=== PATIENT | male | born 1985 | race Caucasian/White ===

== ENCOUNTER 2023-05-14 15:24 | Inpatient (IN) ==
[2023-05-14] MEDS ORDERED: diazePAM INJ 5 MG/ML 2 ML CARP IV STA (16:18)
--- NOTE | 2023-05-14 16:20 | Emergency Department Note ---
Impression & Plan Alcohol dependence with withdrawal ED Provider Note NAME: SANJAY MARQUIS AGE: 38 SEX: M : 1985 ARRIVES VIA: Walk-In INFORMANT: Patient, ED PROVIDER(S): Cyndi Zarco MD CHIEF COMPLAINT: Detox HPI: This is a 38-year-old male presenting for request of detox. Patient dates that he drinks generally 1/5 of vodka plus a pint of vodka per day. He states today he only drank 1 pint and 2 extra shots. He states that this is severely less than usual. He has had previous detox admissions where he used to live, [place], in which he was admitted. He received Ativan at that time. He also mentioned that usually when he goes into withdrawal he also ends up having DKA because he is a type I diabetic. He notes that usually he will have nauseousness, vomiting and diarrhea while undergoing withdrawal. He states he takes 8 units of insulin per day twice daily. Otherwise he measured a 45 days ago and is on establish care otherwise. No fevers, chills, nausea or vomiting. ROS: See above HPI for pertinent positives & negatives. A total of 10 systems reviewed and were otherwise negative. PAST MEDICAL HISTORY: See Below PAST SURGICAL HISTORY: See Below FAMILY HISTORY: See Below SOCIAL HISTORY: See Below HOME MEDICATIONS: See Below ALLERGIES: See Below VITALS: See Below PHYSICAL EXAMINATION: General: Resting, tremulous Head: Normocephalic and atraumatic Eyes: Normal inspection, extraocular muscles intact, no conjunctival pallor Ear, nose, throat: Normal external exam Neck: Normal range of motion Respiratory: Patient is in no respiratory distress, lungs clear to auscultation bilaterally Cardiovascular: RRR without murmur appreciated GI: soft, nontender, no guarding or rebound Extremities: pulses intact with good cap refills, no LE pitting edema or calf tenderness Neuro: The patient awake and alert, appropriately conversive,no focal decifits Skin: Warm, dry, and intact MEDICAL DECISION MAKING: This is a 38-year-old male presenting for request of detox. Patient notes his last drink was probably 2 hours ago. We will get alcohol level, will get basic blood work, check for DKA. We will give 20 of Valium IV at this time. Patient blood work is largely reassuring, only slight anemia, no leukocytosis. VBG does not show signs of acidosis. Anion gap of 17, likely starvation versus alcoholic ketosis. Otherwise glucose 144 not significantly elevated. AST elevated compared to ALT consistent with alcoholic use. Lipase 51 and alcohol level 200. Overall patient is not tachycardic, is tremulous. Will admit for further detox off alcohol. Triage Nursing notes reviewed. Prior medical records reviewed Vital Signs: reviewed and remarkable for no significant abnormalities Differential diagnosis: Alcohol withdrawal, delirium tremens, ER treatment provided: See below Diagnostics interpreted by me: ECG: None Cardiac Monitoring: An order was placed for continuous cardiac monitoring. The monitor shows a rate of 72 with sinus rhythm Laboratory studies: As stated above and show below. Past Med/Surg History Social History Smoking Status: Unknown if ever smoked Preferred Language: Polish Feels Safe at Home: Yes Allergies Allergies Allergy/AdvReac Type Severity Reaction Status Date / Time No Known Allergies Allergy Unverified 05/14/23 18:15 Home Meds Home Medications Medication Instructions Recorded Confirmed Eliquis 0 mg PO QAM 05/14/23 05/14/23 amlodipine 1 tab PO QAM 05/14/23 05/14/23 clonidine HCl 0.2 mg tablet 0.2 mg PO QAM 05/14/23 05/14/23 insulin glargine 100 unit/mL (3 6 - 8 unit subcut TIDM as needed 05/14/23 05/14/23 mL) subcutaneous pen (Basaglar per pt KwikPen U-100 Insulin) insulin lispro 100 unit/mL 8 - 12 unit subcut BID 05/14/23 05/14/23 subcutaneous solution lisinopril 10 mg tablet 10 mg PO QAM 05/14/23 05/14/23 methocarbamol 750 mg tablet 750 - 1,500 mg PO Q8H PRN Muscle 05/14/23 05/14/23 Spasm multivitamin 1 tab PO QAM 05/14/23 05/14/23 thiamine HCl (vitamin B1) 100 mg 100 mg PO QAM 05/14/23 05/14/23 tablet (Vitamin B-1) trazodone 100 mg tablet 100 mg PO HS PRN Sleep 05/14/23 05/14/23 Results & Data (ED) Vital Signs Vital Signs - 24 hr 05/14/23 15:34 05/14/23 15:51 05/14/23 16:37 Temperature 36.7 C Temperature Source Temporal Artery Scan Pulse Rate 126 H 100 H Pulse Rate [Apical] Respiratory Rate 19 Respiratory Effort / Characteristics Non-Labored Spontaneous Respiratory Depth Normal Blood Pressure 145/94 H Blood Pressure [Right Arm] Blood Pressure Mean 111 Blood Pressure Mean [Right Arm] Pulse Oximetry 96 97 Oxygen Delivery Method Room Air Room Air Sepsis Recent Fever Within 48 Hours No Sepsis New/Unexplained Change in Mental Status N/A Sepsis Action Taken by Nursing No Action Required 05/14/23 16:37 05/14/23 18:00 Temperature 36.7 C Temperature Source Oral Pulse Rate Pulse Rate [Apical] 74 79 Respiratory Rate 14 18 Respiratory Effort / Characteristics Respiratory Depth Blood Pressure Blood Pressure [Right Arm] 128/81 132/79 Blood Pressure Mean Blood Pressure Mean [Right Arm] 96 96 Pulse Oximetry 98 99 Oxygen Delivery Method Sepsis Recent Fever Within 48 Hours Sepsis New/Unexplained Change in Mental Status Sepsis Action Taken by Nursing Laboratory Data 05/14/23 16:02 05/14/23 16:02 Lab Results 05/14/23 05/14/23 Range/Units 16:02 17:26 WBC 6.63 (4.8-10.8) K/ul RBC 3.80 L (4.70-6.10) M/uL Hgb 13.2 L (14.0-18.0) g/dl Hct 36.2 L (42.0-52.0) % MCV 95.3 (80.0-100.0) fL MCH 34.7 H (25.0-34.0) pg MCHC 36.5 H (32.0-36.0) g/dL RDW Std Deviation 43.8 (36.4-46.3) fL RDW Coeff of Maxi 12.4 (11.5-14.5) % Plt Count 261 (130-400) K/uL MPV 9.6 (9.4-12.4) fL Immature Gran % (Auto) 0.2 % Neut % (Auto) 52.7 % Lymph % (Auto) 39.1 % [place] % (Auto) 6.6 % Eos % (Auto) 0.8 % Baso % (Auto) 0.6 % Neut # (Auto) 3.50 (1.40-6.50) K/uL Lymph # (Auto) 2.59 (1.20-3.40) K/uL [place] # (Auto) 0.44 (0.11-0.59) K/uL Eos # (Auto) 0.05 (0.00-0.50) K/uL Baso # (Auto) 0.04 (0.00-0.20) K/uL Immature Gran # (Auto) 0.01 (0.01-0.20) K/uL VBG pH 7.42 H (7.36-7.41) VBG pCO2 39 (38-50) mmHg VBG pO2 29 mmHg VBG HCO3 25 mmol/L VBG O2 Saturation < 60.0 % VBG Base Excess 0.8 mEq/L Sodium 136 (136-145) mmol/L Potassium 3.8 (3.5-5.1) mmol/L Chloride 98 (98-107) mmol/L Carbon Dioxide 21 (21-32) mmol/L Anion Gap 17 H (3-11) BUN 14 (6-23) mg/dl Creatinine 0.94 (0.6-1.4) mg/dl Est Cr Clr Drug Dosing 114.7 ml/min Est GFR ( Amer) 117.1 ml/min Est GFR (Non-Af Amer) 101.0 ml/min BUN/Creatinine Ratio 14.9 (10-20) Glucose 144 H (70-99(Fasting)) mg/dl Calcium 10.4 H (8.6-10.3) mg/dl Total Bilirubin 0.6 (0.2-1.0) mg/dl Direct Bilirubin 0.1 (0-0.2) mg/dl AST 76 H (13-39) U/L ALT 51 (7-52) U/L Alkaline Phosphatase 66 (34-104) U/L Total Protein 8.2 (6.0-8.3) gm/dl Albumin 5.3 H (3.4-5.0) gm/dl Lipase 51 (11-82) U/L Ethyl Alcohol mg/dL 200.5 H (<10.0) mg/dl Administered Medications Lactated Ringer's (Lr) 1,000 mls @ 999 mls/hr IV .Q1H1M PHILLIP Stop: 06/13/23 16:14 Last Admin: 05/14/23 18:46 Dose: 999 mls/hr Documented By: Infusion: 05/14/23 18:45 Dose: Infused Documented By: Admin: 05/14/23 16:39 Dose: 999 mls/hr Documented By: ARCHANA Discontinued Medications Diazepam (Diazepam Inj 5 Mg/Ml 2 Ml Carp) 20 mg IV NOW STA Stop: 05/14/23 16:19 Last Admin: 05/14/23 16:39 Dose: 20 mg Documented By: ARCHANA Discharge Plan Visit Data Chief Complaint: Detox Request Stated Complaint: DETOX REQUEST ED Provider: Cyndi Zarco Discharge Problem: Alcohol dependence with withdrawal Forms Stand Alone Forms: My [facility], Suicide Prevention Resources Prescriptions Prescriptions: No Action multivitamin Tablet 1 tab PO QAM thiamine HCl (vitamin B1) [Vitamin B-1] 100 mg Tablet 100 mg PO QAM clonidine HCl 0.2 mg Tablet 0.2 mg PO QAM trazodone 100 mg Tablet 100 mg PO HS PRN (Reason: Sleep) lisinopril 10 mg Tablet 10 mg PO QAM methocarbamol [Robaxin] 750 mg Tablet 750 - 1,500 mg PO Q8H PRN (Reason: Muscle Spasm) Eliquis 0 mg PO QAM Rx Instructions: pt does not know dose...no meds show up in sure scripts either amlodipine 1 tab PO QAM Rx Instructions: pt unaware of dose....no sure scripts available insulin glargine [Basaglar KwikPen U-100 Insulin] 100 unit/mL (3 mL) Insulin Pen 6 - 8 unit SUBCUT TIDM insulin lispro 100 unit/mL Solution 8 - 12 unit SUBCUT BID Rx Instructions: per pt Referrals Referrals: PCP,NO [Primary Care Provider] -
[2023-05-14 16:23] LABS: Basophils # (auto) 0.04 K/uL (0.00-0.20); Basophils % (auto) 0.6 %; Eosinophils # (auto) 0.05 K/uL (0.00-0.50); Eosinophils % (auto) 0.8 %; Hematocrit (blood only) 36.2 % (42.0-52.0); Hemoglobin 13.2 g/dl (14.0-18.0); Immature Granulocytes # (auto) 0.01 K/uL (0.01-0.20); Immature Granulocytes % (auto) 0.2 %; Lymphocytes # (auto) 2.59 K/uL (1.20-3.40); Lymphocytes % (auto) 39.1 %; Mean Corpuscular Hemoglobin 34.7 pg (25.0-34.0); Mean Corpuscular Hgb Conc 36.5 g/dL (32.0-36.0); Mean Corpuscular Volume 95.3 fL (80.0-100.0); Mean Platelet Volume 9.6 fL (9.4-12.4); Monocytes # (auto) 0.44 K/uL (0.11-0.59); Monocytes % (auto) 6.6 %; Neutrophils % (auto) 52.7 %; Platelet Count 261 K/uL (130-400); RDW Coefficient of Variation 12.4 % (11.5-14.5); RDW Standard Deviation 43.8 fL (36.4-46.3); White Blood Count 6.63 K/ul (4.8-10.8)
[2023-05-14] MEDS: LACTATED RINGER'S 1,000 ML IV SCH ×5 (16:39→21:56)
[2023-05-14 16:41] LABS: Albumin Level 5.3 gm/dl (3.4-5.0); BUN Creatinine Ratio 14.9 (10-20); Bilirubin Direct 0.1 mg/dl (0-0.2); Bilirubin,Total 0.6 mg/dl (0.2-1.0); Calcium 10.4 mg/dl (8.6-10.3); Creatinine Clr Calc Pharmacy 114.7 ml/min; Est GFR (African American) 117.1 ml/min; Potassium 3.8 mmol/L (3.5-5.1); Total Protein 8.2 gm/dl (6.0-8.3)
[2023-05-14 17:38] LABS: Base Excess VBG 0.8 mEq/L; HCO3 VBG 25 mmol/L; Oxygen Saturation VBG < 60.0 %; PCO2 VBG 39 mmHg (38-50); PO2 VBG 29 mmHg; pH VBG 7.42 (7.36-7.41)
--- NOTE | 2023-05-14 18:24 | History & Physical Report ---
Date of Service May 14, 2023 Assessment & Plan (1) Alcohol dependence with withdrawal: (2) T1DM (type 1 diabetes mellitus): (3) HTN (hypertension): (4) History of atrial fibrillation: Plan 38 yo male admitted for EtOH w/d #Alcohol Withdrawl EtOH level 200 on admission AWSS protocol Replete folic acid and thiamine #T1DM Lantus 8U BID ISS #HTN Continue lisinopril, clonidine, amlodipine #History of Atrial Fibrillation In setting of prior EtOH w/d Continue Eliquis 5mg BID FENGI: Heart Healthy, T1DM Code status: Full code DVT prophylaxis: eliquis Isolation: none Disposition: PCU History of Present Illness Chief Complaint: 38 yo male PMHx T1DM, HTN, a fib in the setting of EtOH w/d on Eliquis, presents for request of EtOH detox. Pt was drinking 1/5 + multiple shots per day of vodka for a total of ~20 drinks. Last drink was about 4 hours ago. History of DKA in the setting of EtoH w/d requiring ICU admission. No history of intubation, withdrawal seizure or DTs. Denies CP, SOB, N/V/D at this time. Patient typically has N/V/D during his withdrawal episodes. Last w/d one month ago at [facility]. Primary Care Provider: NO PCP Allergies Allergy/AdvReac Type Severity Reaction Status Date / Time No Known Allergies Allergy Unverified 05/14/23 18:15 Home Medications Medication Instructions Recorded Confirmed Type Eliquis 0 mg PO QAM 05/14/23 05/14/23 History amlodipine 1 tab PO QAM 05/14/23 05/14/23 History clonidine HCl 0.2 mg tablet 0.2 mg PO QAM 05/14/23 05/14/23 History insulin glargine 100 unit/mL (3 6 - 8 unit subcut TIDM as needed 05/14/23 05/14/23 History mL) subcutaneous pen (Basaglar per pt KwikPen U-100 Insulin) insulin lispro 100 unit/mL 8 - 12 unit subcut BID 05/14/23 05/14/23 History subcutaneous solution lisinopril 10 mg tablet 10 mg PO QAM 05/14/23 05/14/23 History methocarbamol 750 mg tablet 750 - 1,500 mg PO Q8H PRN Muscle 05/14/23 05/14/23 History Spasm multivitamin 1 tab PO QAM 05/14/23 05/14/23 History thiamine HCl (vitamin B1) 100 mg 100 mg PO QAM 05/14/23 05/14/23 History tablet (Vitamin B-1) trazodone 100 mg tablet 100 mg PO HS PRN Sleep 05/14/23 05/14/23 History Past Med/Surg History Social History Smoking Status: Unknown if ever smoked Preferred Language: Wolof Feels Safe at Home: Yes Review of Systems Review of Systems: reviewed, per HPI Physical Exam Physical Exam: General: rigorous, diaphoretic, smells of EtOH, AA&O x 4, answers questions appropriately and follows commands. Skin: warm, dry, intact HEENT: NC/AT, anicteric sclera, moist mucus membranes, trachea midline Heart: +S1/S2, regular, no m/r/g Lungs: equal air entry bilaterally, no rales/rhonchi/wheezes Abd: +BS, soft, NT/ND, no masses/organomegaly/ascites Ext: warm, no clubbing/cyanosis or edema Neuro: nonfocal, patient AA&O x 4, speech intact, no facial droop, moving all extremities on command. Results & Data Results & Data Vital Signs (Past 12 Hours) Vital Signs Temp Pulse Pulse Resp BP BP Pulse Ox 05/14/23 16:37 36.7 C 74 14 128/81 98 05/14/23 16:37 97 05/14/23 15:51 100 H 05/14/23 15:34 36.7 C 126 H 19 145/94 H 96 O2 Del Method 05/14/23 16:37 05/14/23 16:37 Room Air 05/14/23 15:51 05/14/23 15:34 Room Air Supervising Physician Co-Signing Physician Notes Patient seen and examined, chart reviewed, case discussed with Ghassan Mcqueen, DO and I agree with the assessment and plan as above except as otherwise noted above. 38yo M with a PMHx of alcohol abuse and withdrawal with no history of seizure who presents with request to detox to go to etoh rehab. Comorbid T1DM. Has been on precedex for past withdrawal, reports he generally does well with ativan. Last drink day of admit, etoh 200 on admit. NO signs on DT on admit. High risk, agree with librium + AWSS protocol. FOlic acid, thiamine ordered. Admit to PCU. BSG adequately controlled, no DKA. Continue basal insulin + SSI. On exam CTAB, RRR, skin warm and dry. No tremors or hallucinations. CM consulted for placement assistance. Resident Activity Tracking Resident Involvement: Resident Care Provided Care Provided: Adult [facility]
[2023-05-14] MEDS ORDERED: LORazepam 2 MG in SYRINGE 1 ML IV PRN (18:28)
[2023-05-14] MEDS ORDERED: Ativan IV Alcohol Withdrawal--Active Protocol IV PRN (18:28)
[2023-05-14] MEDS ORDERED: LORazepam 3 MG in SYRINGE 1.5 ML IV PRN (18:28)
[2023-05-14] MEDS ORDERED: chlordiazePOXIDE ALCOHOL WITHDRAWL 50MG PO STA (18:28)
[2023-05-14] MEDS ORDERED: LORazepam 2 MG/1 ML VIAL ONE (19:19)
[2023-05-14] MEDS: chlordiazePOXIDE HCl 25 MG CAP PO SCH ×2 (19:21→23:32)
[2023-05-14] MEDS: LORazepam 1 MG in SYRINGE 0.5 ML IV PRN ×3 (19:22→23:11)
[2023-05-14] MEDS ORDERED: PHARMACY GLYCEMIC MGMT CONSULT PRN (22:21)
[2023-05-14] MEDS ORDERED: GLUCOSE 10 TAB/TUBE PO PRN (22:21)
[2023-05-14] MEDS ORDERED: POLYETHYLENE (MIRALAX) 17 GM PACK PO PRN (22:21)
[2023-05-14] MEDS ORDERED: ALUMINUM/MAGNESIUM SUSP 30 ML UDC PO PRN (22:21)
[2023-05-14] MEDS ORDERED: GLUCAGON FOR INJ 1 MG VIAL SQ PRN (22:21)
[2023-05-14] MEDS ORDERED: DEXTROSE 50% 50 ML SYRINGE IV PRN (22:21)
[2023-05-14] MEDS ORDERED: GLUCOSE 40% GEL 15 GM TUBE PO PRN (22:21)
[2023-05-14] MEDS ORDERED: ACETAMINOPHEN 325 MG TAB PO PRN (22:21)
[2023-05-14] MEDS ORDERED: LANTUS PER UNIT CHARGE SQ SCH ×2 (22:21)
[2023-05-14] MEDS ORDERED: METHOCARBAMOL 750 MG TABLET PO PRN (22:21)
[2023-05-14] MEDS ORDERED: ONDANSETRON INJ 2 MG/ML 2 ML VIAL IV PRN (22:21)
[2023-05-14] MEDS ORDERED: LACTATED RINGER'S 1,000 ML IV SCH (22:21)
[2023-05-14] MEDS: INSULIN ASPART PER UNIT CHARGE SC SCH (23:24)
[2023-05-14] MEDS: traZODone HCL 100 MG TAB PO PRN (23:33)
[2023-05-15] MEDS: LORazepam 1 MG in SYRINGE 0.5 ML IV PRN ×3 (01:47→14:24)
[2023-05-15] MEDS: LACTATED RINGER'S 1,000 ML IV SCH ×3 (04:20→22:48)
[2023-05-15] MEDS: chlordiazePOXIDE HCl 25 MG CAP PO SCH ×3 (06:34→20:10)
[2023-05-15] MEDS ORDERED: LORazepam 1 MG in SYRINGE 0.5 ML IV STA ×2 (07:25→18:37)
[2023-05-15] MEDS: CARBOHYDRATES FOR HYPOGLYCEMIA PO PRN ×2 (08:07→16:07)
--- NOTE | 2023-05-15 08:50 | Hospitalist Progress Note ---
Date of Service May 15, 2023 Assessment & Plan (1) Alcohol dependence with withdrawal: (2) T1DM (type 1 diabetes mellitus): (3) HTN (hypertension): (4) History of atrial fibrillation: Plan Pt is a 38 yo male with a past medical history of HTN, a fib, and alcohol dependence who presents to the hospital on 05/14/23 for alcohol detox. Alcohol Withdrawal - EtOH level 200 on admission - continue AWSS protocol - continue folic acid and thiamine HTN - Continue lisinopril, hold clonidine and amlodipine as pressures on the soft side this morning - if pressures rise, can consider restarting home amlodipine History of Atrial Fibrillation - In setting of prior EtOH w/d - Continue Eliquis 5mg BID T1DM - Lantus 8U BID - ISS REGLAI: Heart Healthy, T1DM Code status: Full code DVT prophylaxis: Home eliquis Admission and Anticipated Discharge Date Admission Date: May 14, 2023 Supervising Physician Co-Signing Physician Notes I personally examined the patient and verified all roy points of history and ex am, discussed case, and agree with decision making with Dr Mcwilliams feeling reasonable whenever I see him. Does seem to have ups and downs of anxiety. Notes that previously has had fairly bad withdrawal. Vitals noted, in general he is awake and alert appears a bit anxious mildly agitated. Breathing unlabored no accessory muscle use good effort. Skin shows no rashes no pallor or icterus. Neuro without focal deficits. Alcohol withdrawalpredominantly symptom triggered benzodiazepines, but it seems like his withdrawal is a little bit atypical, it is a little hard to discern how much of his anxiety and agitation is simply anxiety and agitation versus a symptom of withdrawaltypically it would come with more tachycardia and tremulousness that he is showing, but given his prior track record of withdrawing fairly significantly, as well as possibly masking effects from his clonidinefor now we will treat a bit more proactively and follow closely. Continue thiamine and folate. Continue his anticoagulation for afib. Continue insulin, fingersticks, and diabetes management. Subjective Pt is a 38 yo male with a past medical history of HTN, a fib, and alcohol dependence who presents to the hospital on 05/14/23 for alcohol detox. Pt states that he came in to do a detox and plans to go to rehab after the detox. He states that he had done a 3 day detox about 1 month ago and was of alcohol for a few weeks before relapsing and is here to detox again, then after he plans to go to rehab, but not sure which one yet. No questions or concerns at this time. Review of Systems Review of Systems: Per HPI. Physical Exam Physical Exam: General:Alert and oriented, no acute distress, drowsy Cardio: Regular rate and rhythm, Resp:Lungs clear to auscultation b/l, no wheezes or rhonchi, Skin: Warm, pink, dry, Results & Data Results & Data Vital Signs (Past 12 Hours) Vital Signs Temp Pulse Pulse Resp BP Pulse Ox O2 Del Method 05/15/23 08:01 36.9 C 77 20 99/64 L 94 Room Air 05/15/23 06:35 36.7 C 83 14 113/71 96 Room Air 05/15/23 04:16 36.7 C 65 18 106/73 94 Room Air 05/15/23 01:23 36.9 C 74 16 129/72 99 Room Air 05/14/23 22:37 79 05/14/23 22:30 36.9 C 71 16 146/80 H 97 Room Air 05/14/23 22:00 74 96 Room Air 05/14/23 21:00 37.3 C 80 16 114/65 97 Resident Activity Tracking Resident Involvement: Resident Care Provided Care Provided: Adult Hospital Medicine
[2023-05-15 08:58] LABS: Estimated Average Glucose 171 mg/dl; Hemoglobin A1C 7.6 % (4.5-5.6)
[2023-05-15] MEDS ORDERED: AMLODIPINE 5 MG PO SCH (09:00)
[2023-05-15] MEDS ORDERED: THIAMINE HCL 100 MG TAB PO SCH (09:00)
[2023-05-15] MEDS ORDERED: cloNIDine HCL 0.1 MG TAB PO SCH (09:00)
[2023-05-15] MEDS: INSULIN ASPART PER UNIT CHARGE SC SCH ×4 (09:31→21:19)
[2023-05-15] MEDS: FOLIC ACID 1 MG in SYRINGE 9.8 ML IV SCH (09:32)
[2023-05-15] MEDS: THIAMINE HCL 100 MG TAB PO SCH (09:32)
[2023-05-15] MEDS: lisinopril 10 MG TAB PO SCH (09:32)
[2023-05-15] MEDS: MULTIVITAMIN TAB PO SCH (09:32)
[2023-05-15] MEDS: APIXABAN 5 MG TABLET PO SCH ×2 (09:49→20:11)
--- NOTE | 2023-05-15 10:39 | Pharmacy Report ---
Pharmacy Glycemic Short Note 2 - Date of Service May 15, 2023 - Glycemic Short BSG Results (Last 24 hours): 05/14/23 05/14/23 05/15/23 16:02 22:32 02:44 Glucose 144 H POC Glucose 136 H 108 H 05/15/23 05/15/23 05/15/23 08:03 08:04 08:20 Glucose POC Glucose 68 L* 68 L* 82 OUTPATIENT ANTIDIABETIC REGIMEN: * Patient reported regimen as follows: * Long-acting insulin (insulin glargine?) 12 units SC daily w/ breakfast * Rapid-acting insulin (Humalog) 6-8 units SC BID (based on BSG) HbA1c: 7.6% (05/14/23) ASSESSMENT: * BF is a 38 year old male who presented to ED on 05/14/23 requesting alcohol detox. Patient reports history of DKA when withdrawing from alcohol. Will follow labs/BSGs closely. * Elevated anion gap on admission labs, but normal serum bicarbonate. Likely related to alcohol ingestion. * Questionable reported outpatient regimen on med rec, so discussed medication regimen with patient at bedside. Patient states that he takes 12 units of long-acting insulin daily in the morning and 6-8 units of rapid-acting insulin twice daily (depending on his BSG). He reports that he did not give his long- acting insulin yesterday prior to admission, but did give rapid acting in the AM. * Hypoglycemia noted this morning (asymptomatic). Since patient received basal dose last evening, will plan on basal dose at lunch or dinnertime and work back to daily w/ breakfast. * Patient has refused several doses of insulin and has been guiding insulin dosing today to some extent. I think this is reasonable given uncertainty in outpatient insulin regimen and hypoglycemia this morning. PLAN FOR INPATIENT GLYCEMIC CONTROL: * Basal insulin * Lantus 7 units SC x 1 this evening with dinner * Plan to work back to daily w/ breakfast administration, reassess in AM * Bolus insulin * NovoLog per scale ACHS or Q6hrs while NPO * Goal Range: Low 110 mg/dL - High 140 mg/dL * Correction Factor: 45 mg/dL/unit * Nutritional / Prandial insulin per carb ratio of 1 unit per 15 grams CHO consumed
--- NOTE | 2023-05-15 12:52 | Electrocardiogram Report ---
Test Reason : Blood Pressure : / mmHG Vent. Rate : 096 BPM Atrial Rate : 096 BPM P-R Int : 126 ms QRS Dur : 086 ms QT Int : 386 ms P-R-T Axes : 059 -04 064 degrees QTc Int : 487 ms Normal sinus rhythm Prolonged QT Abnormal ECG No previous ECGs available Confirmed by Dk Medina ([id number]) on 05/15/2023 12:52:03 PM Referred By: REFERRED SELF Confirmed By:Dk Medina
[2023-05-15] MEDS ORDERED: INSULIN ASPART PER UNIT CHARGE SC ONE (14:15)
[2023-05-15] MEDS ORDERED: LANTUS PER UNIT CHARGE SQ SCH (16:30)
[2023-05-15] MEDS ORDERED: chlordiazePOXIDE HCl 25 MG CAP PO ONE (18:45)
[2023-05-15] MEDS ORDERED: chlordiazePOXIDE HCl 25 MG CAP PO SCH (20:00)
--- NOTE | 2023-05-15 20:08 | Billing Data ---
Date of Service May 15, 2023 Coding Level of Care Code 11780 SUB INP/OBS CARE MIN
[2023-05-15] MEDS: traZODone HCL 100 MG TAB PO PRN (20:11)
[2023-05-16] MEDS: LORazepam 1 MG in SYRINGE 0.5 ML IV PRN (00:18)
[2023-05-16] MEDS: LACTATED RINGER'S 1,000 ML IV SCH (06:30)
--- NOTE | 2023-05-16 08:00 | Hospitalist Progress Note ---
Date of Service May 16, 2023 Assessment & Plan (1) Alcohol dependence with withdrawal: (2) T1DM (type 1 diabetes mellitus): (3) HTN (hypertension): (4) History of atrial fibrillation: Plan Pt is a 38 yo male with a past medical history of HTN, a fib, and alcohol dependence who presents to the hospital on 05/14/23 for alcohol detox. Alcohol Withdrawal - EtOH level 200 on admission - continue AWSS protocol - continue folic acid and thiamine HTN - Continue lisinopril, hold clonidine and amlodipine as pressures on the soft side this morning - if pressures rise, can consider restarting home amlodipine History of Atrial Fibrillation - In setting of prior EtOH w/d - Continue Eliquis 5mg BID T1DM - Lantus 8U BID - ISS REGLAI: Heart Healthy, T1DM Code status: Full code DVT prophylaxis: Home eliquis Admission and Anticipated Discharge Date Admission Date: May 14, 2023 Subjective Pt is a 38 yo male with a past medical history of HTN, a fib, and alcohol dependence who presents to the hospital on 05/14/23 for alcohol detox. Pt states that he came in to do a detox and plans to go to rehab after the detox. He states that he had done a 3 day detox about 1 month ago and was of alcohol for a few weeks before relapsing and is here to detox again, then after he plans to go to rehab, but not sure which one yet. No questions or concerns at this time. Review of Systems Eyes: no diplopia and no worsening vision Respiratory: no cough and no dyspnea Cardiovascular: + palpitations; no chest pain Gastrointestinal: + abdominal pain and + diarrhea/loose st ools (just one episode yesterday (1 BM in all)); no heartburn, no nausea and no vomiting Genitourinary: + urinary frequency (2/2 iv fluids); no dysuria Musculoskeletal: no myalgia Neurologic: + dizziness Psychiatric: + anxiety (very anxious); no suicidal id eation Physical Exam Constitutional: WD/WN, vitals as above Respiratory: normal respiratory effort, lungs clear to auscultation Cardiovascular: RRR, no murmur, no edema Results & Data Results & Data Vital Signs (Past 12 Hours) Vital Signs Temp Pulse Pulse Resp BP Pulse Ox O2 Del Method 05/16/23 02:28 36.5 C 62 16 115/71 97 Room Air 05/16/23 00:08 36.6 C 59 L 18 120/72 99 Room Air 05/15/23 23:00 72 05/15/23 20:02 37 C 58 L 20 126/77 99 Room Air
[2023-05-16] MEDS: lisinopril 10 MG TAB PO SCH (08:34)
[2023-05-16] MEDS: THIAMINE HCL 100 MG TAB PO SCH (08:35)
[2023-05-16] MEDS: FOLIC ACID 1 MG in SYRINGE 9.8 ML IV SCH (08:35)
[2023-05-16] MEDS: MULTIVITAMIN TAB PO SCH (08:35)
[2023-05-16] MEDS: APIXABAN 5 MG TABLET PO SCH (08:35)
[2023-05-16] MEDS: chlordiazePOXIDE HCl 25 MG CAP PO SCH ×2 (08:40→13:13)
[2023-05-16] MEDS: INSULIN ASPART PER UNIT CHARGE SC SCH ×2 (09:10→13:18)
--- NOTE | 2023-05-16 11:45 | Discharge Summary ---
Date of Service May 16, 2023 Admission HPI Per Admitting Provider 38 yo male PMHx T1DM, HTN, a fib in the setting of EtOH w/d on Eliquis, presents for request of EtOH detox. Pt was drinking 1/5 + multiple shots per day of vodka for a total of ~20 drinks. Last drink was about 4 hours ago. History of DKA in the setting of EtoH w/d requiring ICU admission. No history of intubation, withdrawal seizure or DTs. Denies CP, SOB, N/V/D at this time. Patient typically has N/V/D during his withdrawal episodes. Last w/d one month ago at [facility]. Admission Exam (Per Admitting) Constitutional Diaphoretic, smells of ethanol, AAOx4, answers questions appropriately and follows commands Eyes + anicteric sclerae ENMT moist mucous membranes, trachea midline Respiratory equal air entry bilaterally, no rales/rhonchi/wheezes Cardiovascular Rate/Rhythm: regular rate and regular rhythm Heart Sounds: normal S1 and normal S2; no gallop, no murmur and no cardiac rub Gastrointestinal (Abdomen) normal bowel sounds, soft, nontender, no hepatosplenomegaly Percussion/Palpation: no ascites Neurologic moves all extremities Psychiatric Orientation: oriented x 3 Speech: normal rate/rhythm/volume of speech Discharge Data Consultations 05/14/23 17:48 ED Decision to Admit Stat Hospital Course (1) Alcohol dependence with withdrawal: (2) T1DM (type 1 diabetes mellitus): (3) HTN (hypertension): (4) History of atrial fibrillation: Plan Pt is a 38 yo male with a past medical history of HTN, a fib, and alcohol dependence who presents to the hospital on 05/14/23 for alcohol detox. Alcohol Withdrawal - EtOH level 200 on admission - tapered Librium dosing as detailed in discharge instructions - continue folic acid and thiamine HTN - Continue lisinopril, 10 mg, PO, AM - amlodipine, 1 tab, PO, AM, if needed - clonidine, 0.2 mg, PO, AM History of Atrial Fibrillation - In setting of prior EtOH w/d - Continue Eliquis 5mg BID T1DM - continue home insulin regimen: insulin glargine, 12 units, subQ; 6-8 units, subQ, BID Supervising Physician Co-Signing Physician Notes I personally examined the patient and verified all roy points of history and exam, discussed case, and agree with decision making with Dr Montgomery feeling better and would like to go home. discussed risks/benefits of possible worsening withdrawal - he understands, feels safe for home, will return if worsening. Vitals noted, in general he is awake and alert appears a bit anxious mildly agitated. Breathing unlabored no accessory muscle use good effort. Skin shows no rashes no pallor or icterus. Neuro without focal deficits. Alcohol withdrawaldoing better, does seem reasonable for home, will buffer with librium taper since still could be in the window for withdrawal - but safe for home/will return if any worsening in sx. is going to do inpt rehab. applauded efforts. HTN - continue current management but d/w pt - since clonidine doesn't seem to be helping w anxiety/agitation - ?escalate lisinopril and drop clonidine - asked him to d/w PCP since this would obviously require longitudinal f/u. afib - rate controlled, on eliquis. continue thiamine/folate/MVI Resident Activity Tracking Resident Involvement: Resident Care Provided Care Provided: Adult Hospital Medicine
--- NOTE | 2023-05-16 19:39 | Billing Data ---
Date of Service May 16, 2023 Coding Level of Care Code 96774 IN/OBS DISCH 30 MIN/LESS
[2023-05-16] MEDS ORDERED: chlordiazePOXIDE HCl 25 MG CAP PO SCH (22:00)
== END 2023-05-16 13:50 | disposition home or self-care (01) | DRG 897 ==
LOC: ED 15:24 → SUATTDRO 19:16 → 4W 19:16

== ENCOUNTER 2023-07-28 17:32 | Observation (INO) ==
[2023-07-28] MEDS ORDERED: ONDANSETRON INJ 2 MG/ML 2 ML VIAL IV STA ×2 (17:45→17:47)
[2023-07-28] MEDS ORDERED: SODIUM CHLORIDE 0.9% 1,000 ML IV STA ×2 (17:45→20:08)
--- NOTE | 2023-07-28 17:45 | ED Triage Note ---
Date of Service July 28, 2023 Provider in Triage Author: Dorene Juarez History of Present Illness This patient was briefly evaluated while in triage. An abbreviated physical exam was performed. This patient is a 38-year-old Male who presents to the ED for evaluation of hyperglycemia. The patient has a history of DM and is concerned he is going into DKA. Has had vomiting profusely all day along with abdominal pain from the vomiting. No fevers, but has chills. His blood sugar was in the high 300's and he has not been able to get it to come down. He states that he is a severe alcoholic as well and stopped drinking ETOH last night and feels like he is going into withdrawal making his diabetic symptoms worse. Physical Exam GENERAL: The patient is jittery on exam somewhat shakes, but is non-toxic and in no acute distress. HEENT: Pupils equal. No obvious scleral icterus. HEART: Regular rate and rhythm. LUNGS: Clear to auscultation. No accessory muscle use. ABDOMEN: Soft, nontender to palpation. NEURO: Alert and oriented. No obvious neurological deficits on quick neuro exam. Initial orders for labs and / or imaging were placed. The patient's blood sugar in triage was over 400 and he was taken back to an ER room right after being triaged. Please see further documentation for the full ED course. MDM / Impression Impression Impression: DKA, type 1, Hyperglycemia, Alcohol withdrawal, Elevated lactic acid level, Creatinine elevation
[2023-07-28] MEDS ORDERED: MULTI-VITAMIN INFUSION 10 ML, THIAMINE HCL 100 MG, FOLIC ACID 1 MG in SODIUM CHLORIDE 0... IV ONE ×2 (17:47→17:59)
[2023-07-28] MEDS ORDERED: LORazepam 1 MG/1 ML SYR ED Inj Use IV STA (17:47)
[2023-07-28] MEDS ORDERED: LORazepam 3 MG in SYRINGE 1.5 ML IV PRN (17:59)
[2023-07-28] MEDS ORDERED: LORazepam 2 MG in SYRINGE 1 ML IV PRN (17:59)
[2023-07-28] MEDS ORDERED: Ativan IV Alcohol Withdrawal--Active Protocol IV PRN (17:59)
[2023-07-28] MEDS ORDERED: LORazepam 1 MG in SYRINGE 0.5 ML IV PRN (17:59)
--- NOTE | 2023-07-28 18:06 | Emergency Department Note ---
Impression & Plan DKA, type 1, Hyperglycemia, Alcohol withdrawal, Elevated lactic acid level, Creatinine elevation ED Provider Note HISTORY OF PRESENT ILLNESS: Patient is a 38-year-old male presenting with vomiting and alcohol withdrawal. Patient reports that he has been vomiting since he stopped drinking last night around 7 PM. Has been vomiting since he stopped drinking last night around 7 PM. He states that he drinks vodka daily typically around 20 shots a day. He has been drinking this for years. He states that he had 60 days sober a number of years ago, but has been drinking heavily every day since. He states that he was trying to stop drinking last night and has since been starting to have significant tremors and multiple episodes of vomiting. He is a type I diabetic and takes insulin injections and states that his blood sugars have been significantly elevated throughout the day. He states that he took his long- acting insulin this morning and has taken multiple injections of his short acting insulin, with his last being about 1 hour prior to arrival with 10 units, with little improvement in his blood sugars. He reports upper epigastric pain. He reports an abdominal surgical history of inguinal hernia repair. He denies any chest pain or shortness of breath. Denies any recent fevers. He denies ever having a seizure from stopping drinking, but does report he has had DTs in the past when he went to rehab. ROS: as above PHYSICAL EXAM: Constitutional: Patient appears in no acute distress. HENT: Head: Normocephalic and atraumatic. Eyes: EOMI, PERRL Mouth/Throat: Mucous membranes moist. Neck: Trachea midline. Neck supple. Cardiovascular: Tachycardic with regular rhythm. No murmurs, rubs or gallops. Intact distal pulses. Pulmonary/Chest: No respiratory distress. Breath sounds clear and equal bilaterally. No wheezes or rales. Abdominal: Abdomen soft, no tenderness, rebound or guarding. Musculoskeletal: No edema, tenderness or deformity noted. Skin: Warm and dry. No rash, erythema, pallor or cyanosis Psychiatric: Appropriate mood and affect for situation. Neurological: Alert and keenly responsive. CN II-XII grossly intact, moving all extremities equally and fully. Patient is having significant tremors of the bilateral upper and lower extremities. MDM: - Vitals signs showed tachycardia. - History obtained via patient. Patient presents with vomiting and alcohol withdrawal. Patient reports has been vomiting since he stopped drinking last night around 7 PM. He reports that he drinks about 20 shots of vodka a day and has been drinking this way for years. He was 60 days sober a number of years ago any officially went to rehab but has been drinking ever since. He states he tried drinking last night but has been having significant tremors and multiple episodes of vomiting ever since. He is a type I diabetic and takes insulin and reports his blood sugars have been persistently elevated today. He took a bolus of 10 units of insulin about 1 hour prior to arrival. He is complaining of upper epigastric abdominal pain. Denies any chest pain or shortness of breath. Denies recent fevers. He is never had a seizure when he stops drinking but has had significant tremors in the past when he went to rehab. - Chronic conditions affecting care: Chronic alcoholism; type 1 diabetes - Differential diagnoses include, but are not limited to: Electrolyte abnormality; DKA; hyperglycemia; cholecystitis; viral syndrome; pneumonia; dehydration; UTI - Order placed for continuous cardiac monitoring. At this time, monitor showed rate of 135 bpm with normal sinus rhythm, per my interpretation. - External medical records reviewed. Discharge summary dated 05/16/2023 was reviewed. Patient was admitted at that time for DKA in the setting of alcohol withdrawal and was admitted to the ICU. - EKG interpreted by myself showed normal sinus rhythm. Rate 81 bpm. QT is 392. No acute ischemic changes. - Laboratory workup interpreted by myself showed leukocytosis (WBC 11.72) with left shift; normal VBG; pseudohyponatremia (Na 132); elevated anion gap (33); elevated creatinine (Cr 1.44); hyperglycemia (glucose 425); elevated lactate (5.1); elevated total bilirubin (2.1); normal lipase; normal procalcitonin; negative alcohol level - Elevated anion gap is likely due to elevated lactate and hyperglycemia - UA negative for infection. Noted to have profound ketonuria - UDS positive for marijuana - Respiratory viral panel negative. - Patient's alcohol withdrawal score 11 on arrival. Given 3 mg IV ativan. - Given 2L NS and 4 mg IV zofran for symptoms on arrival. Patient's vomiting, heart rate and tremors significantly improved after above interventions. - CT abdomen/pelvis with IV contrast shows colitis, per radiology - CXR negative for pneumonia, per my interpretation - Patient's initial potassium is WNL, so 10 units insulin ordered. Though patient's pH is also WNL, he has a profoundly high elevated anion gap. Likely a combination of his elevated lactate and hyperglycemia. Ordered NS at 125 cc/hr and DKA insulin drip to help close anion gap. Leukocytosis is likely reactive secondary to patient's multiple episodes of vomiting. Will hold on any antibiotic treatment at this time. - Discussion was had with animal care worker about patient's case and need for admission - Hospitalist consulted for admission - [facility]. I have personally spent 59 minutes of critical care time in the direct management of this patient. This includes bedside care, interpretation of diagnostic studies, and testing, discussion with consultants, patient, and family members, and other required patient management activities. This 59 minutes is in excess of all separately billable procedures. ASSESSMENT AND PLAN: Diagnosis: DKA; alcohol withdrawal; elevated lactate; elevated creatinine; hyperglycemia Plan: admit Past Med/Surg History Social History Smoking Status: Unknown if ever smoked Tobacco Type: Cigarettes Hx Alcohol Use: Yes Alcohol type: hard liquor Hx Substance Use: No Preferred Language: Monegasque Communication Ability: Effective Cartoon Artist Required: No Beliefs That Will Affect Care: None Current Living Situation: Alone Feels Safe at Home: Yes Assistive Devices: None Allergies Allergies Allergy/AdvReac Type Severity Reaction Status Date / Time No Known Allergies Allergy Verified 07/28/23 19:30 Home Meds Home Medications Medication Instructions Recorded Confirmed clonidine HCl 0.2 mg tablet 0.2 mg PO QAM 05/14/23 07/28/23 insulin glargine 100 unit/mL (3 12 unit subcut QDB 05/14/23 07/28/23 mL) subcutaneous pen (Basaglar KwikPen U-100 Insulin) insulin lispro 100 unit/mL 10 unit subcut BID 05/14/23 07/28/23 subcutaneous solution lisinopril 10 mg tablet 10 mg PO BID 05/14/23 07/28/23 methocarbamol 750 mg tablet 750 - 1,500 mg PO Q8H PRN Muscle 05/14/23 07/28/23 Spasm trazodone 100 mg tablet 100 mg PO HS PRN Sleep 05/14/23 07/28/23 amlodipine 5 mg tablet 0 mg PO DAILY 07/28/23 07/28/23 Previous Rx's Medication Instructions Recorded folic acid 1 mg tablet 1 mg PO DAILY #30 tabs 05/16/23 multivitamin 1 tab PO QAM #30 tabs 05/16/23 thiamine HCl (vitamin B1) 100 mg 100 mg PO QAM #30 tabs 05/16/23 tablet (Vitamin B-1) Results & Data (ED) Vital Signs Vital Signs - 24 hr 07/28/23 17:42 07/28/23 18:03 07/28/23 19:48 Temperature 35.5 C L 37.2 C Temperature Source Temporal Artery Scan Oral Pulse Rate 125 H 136 H Pulse Rate [Apical] 83 Respiratory Rate 19 16 Respiratory Effort / Characteristics Non-Labored Spontaneous Non-Labored Spontaneous Respiratory Depth Normal Normal Respiratory Pattern Regular Blood Pressure 156/102 H Blood Pressure [Left Arm] 137/83 Blood Pressure Mean 120 Blood Pressure Mean [Left Arm] 101 Pulse Oximetry 100 99 Oxygen Delivery Method Room Air Sepsis Recent Fever Within 48 Hours No Sepsis New/Unexplained Change in Mental Status N/A Sepsis Action Taken by Nursing No Action Required 07/28/23 19:50 07/28/23 19:51 Temperature Temperature Source Pulse Rate 88 Pulse Rate [Apical] 84 Respiratory Rate 20 21 Respiratory Effort / Characteristics Respiratory Depth Respiratory Pattern Blood Pressure Blood Pressure [Left Arm] 137/83 Blood Pressure Mean Blood Pressure Mean [Left Arm] 101 Pulse Oximetry 98 99 Oxygen Delivery Method Room Air Room Air Sepsis Recent Fever Within 48 Hours Sepsis New/Unexplained Change in Mental Status Sepsis Action Taken by Nursing Laboratory Data 07/28/23 18:18 07/28/23 18:18 Lab Results 07/28/23 07/28/23 07/28/23 Range/Units 10:18 17:44 17:56 WBC (4.8-10.8) K/ul RBC (4.70-6.10) M/uL Hgb (14.0-18.0) g/dl Hct (42.0-52.0) % MCV (80.0-100.0) fL MCH (25.0-34.0) pg MCHC (32.0-36.0) g/dL RDW Std Deviation (36.4-46.3) fL RDW Coeff of Maxi (11.5-14.5) % Plt Count (130-400) K/uL MPV (9.4-12.4) fL Immature Gran % (Auto) % Neut % (Auto) % Lymph % (Auto) % [place] % (Auto) % Eos % (Auto) % Baso % (Auto) % Neut # (Auto) (1.40-6.50) K/uL Lymph # (Auto) (1.20-3.40) K/uL [place] # (Auto) (0.11-0.59) K/uL Eos # (Auto) (0.00-0.50) K/uL Baso # (Auto) (0.00-0.20) K/uL Immature Gran # (Auto) (0.01-0.20) K/uL PT (9.0-12.0) Seconds INR (0.9-1.1) APTT (21-31) Seconds PTT Ratio VBG pH (7.36-7.41) VBG pCO2 (38-50) mmHg VBG pO2 mmHg VBG HCO3 mmol/L VBG O2 Saturation % VBG Base Excess mEq/L Sodium (136-145) mmol/L Potassium (3.5-5.1) mmol/L Chloride (98-107) mmol/L Carbon Dioxide (21-32) mmol/L Anion Gap (3-11) BUN (6-23) mg/dl Creatinine (0.6-1.4) mg/dl Est Cr Clr Drug Dosing Not Reportable Est GFR ( Amer) ml/min Est GFR (Non-Af Amer) ml/min BUN/Creatinine Ratio (10-20) Glucose (70-99(Fasting)) mg/dl POC Glucose 409 H* (70-99) mg/dl Lactate (0.4-2.0) mmol/L Calcium (8.6-10.3) mg/dl Magnesium (1.7-2.4) mg/dl Total Bilirubin (0.2-1.0) mg/dl Direct Bilirubin (0-0.2) mg/dl AST (13-39) U/L ALT (7-52) U/L Alkaline Phosphatase (34-104) U/L Troponin I High Sens (0-20) pg/ml Total Protein (6.0-8.3) gm/dl Albumin (3.4-5.0) gm/dl Globulin (2.5-4.0) gm/dl Albumin/Globulin Ratio (0.9-2) Lipase (11-82) U/L Procalcitonin (0-0.5) ng/ml Urine Color Yellow Urine Appearance Clear (Clear) Urine pH 5.0 (4.5-7.5) Ur Specific Juliette 1.020 (1.000-1.030) Urine Protein 1+ H (Negative) Urine Glucose (UA) 3+ H (Negative) Urine Ketones 4+ H (Negative) Urine Blood Negative (Negative) Urine Nitrite Negative (Negative) Urine Bilirubin Negative (Negative) Urine Urobilinogen Negative (Negative) Ur Leukocyte Esterase Negative (Negative) Urine WBC (Auto) 1-5 (0-5) /hpf Urine RBC (Auto) 0-4 (0-4) /hpf U Hyaline Cast (Auto) 5-10 H (0-5) /lpf U Epithel Cells (Auto) 5-10 H (0-5) /lpf Urine Bacteria (Auto) Negative (Negative) Urine Opiates Screen Neg (Neg) Ur Methadone, Qual Neg (Neg) Urine Barbiturates Neg (Neg) Ur Phencyclidine (PCP) Neg (Neg) U Amphetamin/Meth Scrn Neg (Neg) MDMA (Ecstasy) Screen Neg (Neg) U Benzodiazepines Scrn Neg (Neg) Ur Cocaine Metabolite Neg (Neg) U Marijuana (THC) Screen Pos H (Neg) Ethyl Alcohol mg/dL (<10.0) mg/dl Adenovirus (PCR) (NotDetected) B. pertussis DNA (PCR) (NotDetected) B.parapertussis DNA PCR (NotDetected) C. pneumoniae DNA (PCR) (NotDetected) Coronavirus OC43 (PCR) (NotDetected) Coronavirus HKU1 (PCR) (NotDetected) Coronavirus 229E (PCR) (NotDetected) SARS-CoV-2 (PCR) (NotDetected) Coronavirus NL63 (PCR) (NotDetected) Human Metapneumovir PCR (NotDetected) Influenza Type A (PCR) (NotDetected) Influenza Type B (PCR) (NotDetected) M. pneumoniae (PCR) (NotDetected) Parainfluenza 1 (PCR) (NotDetected) Parainfluenza 2 (PCR) (NotDetected) Parainfluenza 3 (PCR) (NotDetected) Parainfluenza 4 (PCR) (NotDetected) RSV (PCR) (NotDetected) Entero/Rhino (PCR) (NotDetected) 07/28/23 07/28/23 Range/Units 18:12 18:18 WBC 11.72 H (4.8-10.8) K/ul RBC 3.96 L (4.70-6.10) M/uL Hgb 13.0 L (14.0-18.0) g/dl Hct 37.9 L (42.0-52.0) % MCV 95.7 (80.0-100.0) fL MCH 32.8 (25.0-34.0) pg MCHC 34.3 (32.0-36.0) g/dL RDW Std Deviation 45.5 (36.4-46.3) fL RDW Coeff of Maxi 12.9 (11.5-14.5) % Plt Count 308 (130-400) K/uL MPV 9.5 (9.4-12.4) fL Immature Gran % (Auto) 0.3 % Neut % (Auto) 86.0 % Lymph % (Auto) 8.5 % [place] % (Auto) 4.6 % Eos % (Auto) 0.0 % Baso % (Auto) 0.6 % Neut # (Auto) 10.07 H (1.40-6.50) K/uL Lymph # (Auto) 1.00 L (1.20-3.40) K/uL [place] # (Auto) 0.54 (0.11-0.59) K/uL Eos # (Auto) 0.00 (0.00-0.50) K/uL Baso # (Auto) 0.07 (0.00-0.20) K/uL Immature Gran # (Auto) 0.04 (0.01-0.20) K/uL PT 10.3 (9.0-12.0) Seconds INR 0.9 (0.9-1.1) APTT 27 (21-31) Seconds PTT Ratio 1.0 VBG pH 7.36 (7.36-7.41) VBG pCO2 27 L (38-50) mmHg VBG pO2 54 mmHg VBG HCO3 15 mmol/L VBG O2 Saturation 83.8 % VBG Base Excess -8.6 mEq/L Sodium 132 L (136-145) mmol/L Potassium 4.7 (3.5-5.1) mmol/L Chloride 84 L (98-107) mmol/L Carbon Dioxide 15 L (21-32) mmol/L Anion Gap 33 H (3-11) BUN 24 H (6-23) mg/dl Creatinine 1.44 H (0.6-1.4) mg/dl Est Cr Clr Drug Dosing Est GFR ( Amer) 69.9 ml/min Est GFR (Non-Af Amer) 60.3 ml/min BUN/Creatinine Ratio 16.7 (10-20) Glucose 425 H* (70-99(Fasting)) mg/dl POC Glucose (70-99) mg/dl Lactate 5.1 H* (0.4-2.0) mmol/L Calcium 10.1 (8.6-10.3) mg/dl Magnesium 1.7 (1.7-2.4) mg/dl Total Bilirubin 2.1 H (0.2-1.0) mg/dl Direct Bilirubin 0.4 H (0-0.2) mg/dl AST 35 (13-39) U/L ALT 43 (7-52) U/L Alkaline Phosphatase 64 (34-104) U/L Troponin I High Sens 8.2 (0-20) pg/ml Total Protein 9.0 H (6.0-8.3) gm/dl Albumin 5.8 H (3.4-5.0) gm/dl Globulin 3.2 (2.5-4.0) gm/dl Albumin/Globulin Ratio 1.8 (0.9-2) Lipase 31 (11-82) U/L Procalcitonin < 0.05 (0-0.5) ng/ml Urine Color Urine Appearance (Clear) Urine pH (4.5-7.5) Ur Specific [place] (1.000-1.030) Urine Protein (Negative) Urine Glucose (UA) (Negative) Urine Ketones (Negative) Urine Blood (Negative) Urine Nitrite (Negative) Urine Bilirubin (Negative) Urine Urobilinogen (Negative) Ur Leukocyte Esterase (Negative) Urine WBC (Auto) (0-5) /hpf Urine RBC (Auto) (0-4) /hpf U Hyaline Cast (Auto) (0-5) /lpf U Epithel Cells (Auto) (0-5) /lpf Urine Bacteria (Auto) (Negative) Urine Opiates Screen (Neg) Ur Methadone, Qual (Neg) Urine Barbiturates (Neg) Ur Phencyclidine (PCP) (Neg) U Amphetamin/Meth Scrn (Neg) MDMA (Ecstasy) Screen (Neg) U Benzodiazepines Scrn (Neg) Ur Cocaine Metabolite (Neg) U Marijuana (THC) Screen (Neg) Ethyl Alcohol mg/dL < 10.0 (<10.0) mg/dl Adenovirus (PCR) Not Detected (NotDetected) B. pertussis DNA (PCR) Not Detected (NotDetected) B.parapertussis DNA PCR Not Detected (NotDetected) C. pneumoniae DNA (PCR) Not Detected (NotDetected) Coronavirus OC43 (PCR) Not Detected (NotDetected) Coronavirus HKU1 (PCR) Not Detected (NotDetected) Coronavirus 229E (PCR) Not Detected (NotDetected) SARS-CoV-2 (PCR) Not Detected (NotDetected) Coronavirus NL63 (PCR) Not Detected (NotDetected) Human Metapneumovir PCR Not Detected (NotDetected) Influenza Type A (PCR) Not Detected (NotDetected) Influenza Type B (PCR) Not Detected (NotDetected) M. pneumoniae (PCR) Not Detected (NotDetected) Parainfluenza 1 (PCR) Not Detected (NotDetected) Parainfluenza 2 (PCR) Not Detected (NotDetected) Parainfluenza 3 (PCR) Not Detected (NotDetected) Parainfluenza 4 (PCR) Not Detected (NotDetected) RSV (PCR) Not Detected (NotDetected) Entero/Rhino (PCR) Not Detected (NotDetected) Administered Medications Sodium Chloride (Nss) 1,000 mls @ 999 mls/hr IV .Q1H1M PHILLIP Stop: 07/28/23 20:00 Last Admin: 07/28/23 20:00 Dose: 999 mls/hr Documented By: station air traffic control specialist: 07/28/23 18:09 Dose: Not Given Documented By: SW Multivitamins 10 ml/ Thiamine HCl 100 mg/ Folic Acid 1 mg/Sodium Chloride 1,011.2 mls @ 500 mls/hr IV .Q2H2M ONE Stop: 07/28/23 20:00 Last Admin: 07/28/23 20:00 Dose: 500 mls/hr Documented By: JEANCARLOS Discontinued Medications Sodium Chloride (Nss) 1,000 mls @ 999 mls/hr IV .Q1H1M STA Stop: 07/28/23 18:45 Last Admin: 07/28/23 18:09 Dose: 999 mls/hr Documented By: MARCEL Multivitamins 10 ml/ Thiamine HCl 100 mg/ Folic Acid 1 mg/Sodium Chloride 1,011.2 mls @ 500 mls/hr IV .Q2H2M ONE Stop: 07/28/23 19:48 Last Admin: 07/28/23 18:09 Dose: Not Given Documented By: MARCEL Lorazepam 3 mg/ Syringe 3 mls @ 2 mls/min IV ONCE PRN; Protocol PRN Reason: EtOH Withdrawal AWSS Score 10+ Last Admin: 07/28/23 18:08 Dose: 2 mls/min Documented By: MARCEL Ioversol (Optiray 320 500ml) 97 ml IV ONCE ONE Stop: 07/28/23 19:38 Last Admin: 07/28/23 19:37 Dose: 97 ml Documented By: TARUN Lorazepam (Lorazepam 1 Mg/1 Ml Syr Ed Inj Use) 1 mg IV ONE STA Stop: 07/28/23 17:48 Last Admin: 07/28/23 18:06 Dose: Not Given Documented By: MARCEL Ondansetron HCl (Ondansetron Inj 2 Mg/Ml 2 Ml Vial) 4 mg IV NOW STA Stop: 07/28/23 17:48 Last Admin: 07/28/23 18:05 Dose: 4 mg Documented By: MARCEL Ondansetron HCl (Ondansetron Inj 2 Mg/Ml 2 Ml Vial) 4 mg IV NOW STA Stop: 07/28/23 17:46 Last Admin: 07/28/23 18:09 Dose: Not Given Documented By: MARCEL Imaging Data Radiologist's Impression: Chest X-Ray 07/28/23 17:46 XR chest 1V portable HISTORY: 38 years-old Male ?DKA, withdrawal acute illness COMPARISON: None TECHNIQUE: AP view of the chest FINDINGS: Chronic bony spurring noted along the inferior distal margin of the left clavicle. Cardiomediastinal and hilar silhouettes are within normal limits. No pneumothorax, pleural effusion or airspace consolidation. IMPRESSION: No acute process. ACT 112: Negative or not required by law. The above report was generated using voice recognition software. It may contain grammatical, syntax or spelling errors. Electronically signed by: Orestes Field M.D. 07/28/2023 6:06 PM Abdomen/Pelvis CT 07/28/23 19:10 Exam(s): CT ABDOMEN + PELVIS With Contrast IV Amt: 97 cc opti 320 EXAM: CT Abdomen and Pelvis With Intravenous Contrast CLINICAL HISTORY: Reason for exam: abdominal pain; vomiting. TECHNIQUE: Axial computed tomography images of the abdomen and pelvis with intravenous contrast. CTDI is 16.52 mGy and DLP is 822.58 mGy-cm. Automated exposure control was utilized for the study. A dose lowering technique was utilized adhering to the principles of ALARA. CONTRAST: Patient received 97 cc opti 320 of IV contrast COMPARISON: No relevant prior studies available. FINDINGS: Lung bases: Unremarkable. No mass. No consolidation. ABDOMEN: Liver: Hepatic steatosis. Gallbladder and bile ducts: Unremarkable. No calcified stones. No ductal dilation. Normal gallbladder. Pancreas: Unremarkable. No mass. No ductal dilation. Spleen: Unremarkable. No splenomegaly. Adrenals: Unremarkable. No mass. Kidneys and ureters: Unremarkable. No solid mass. No hydronephrosis. Stomach and bowel: Mild wall thickening of the colon, correlate for mild colitis. Diverticulosis, without acute diverticulitis. No bowel obstruction. No free air. PELVIS: Appendix: No acute appendicitis. Bladder: Unremarkable. No mass. Reproductive: Unremarkable as visualized. ABDOMEN and PELVIS: Intraperitoneal space: See above. Bones/joints: Degenerative changes of the spine. No acute fracture. No dislocation. Soft tissues: Unremarkable. Vasculature: Atherosclerotic changes of the aorta. No abdominal aortic aneurysm. Lymph nodes: Unremarkable. No enlarged lymph nodes. IMPRESSION: 1. Mild wall thickening of the colon, correlate for mild colitis. 2. Diverticulosis, without acute diverticulitis. No bowel obstruction. No free air. Electronically signed by: Noé Ayers MD 07/28/23 19:50 PM Discharge Plan Visit Data Chief Complaint: Hyperglycemia Stated Complaint: SEVERE DT'S GOING INTO DKA, HIGH BLOOD SUGAR/SHAKE ED Provider: Jacquelin Velazquez Discharge Problem: DKA, type 1, Hyperglycemia, Alcohol withdrawal, Elevated lactic acid level, Creatinine elevation Forms Stand Alone Forms: My [facility] [place] [employer] Prescriptions Prescriptions: No Action amlodipine 5 mg Tablet 0 mg PO DAILY Rx Instructions: PT UNSURE OF STRENGTH, UNABLE TO VERIFY. clonidine HCl 0.2 mg Tablet 0.2 mg PO QAM Rx Instructions: UNABLE TO VERIFY trazodone 100 mg Tablet 100 mg PO HS PRN (Reason: Sleep) Rx Instructions: UNABLE TO VERIFY. lisinopril 10 mg Tablet 10 mg PO BID Rx Instructions: UNABLE TO VERIFY methocarbamol 750 mg Tablet 750 - 1,500 mg PO Q8H PRN (Reason: Muscle Spasm) Rx Instructions: UNABLE TO VERIFY insulin glargine [Basaglar KwikPen U-100 Insulin] 100 unit/mL (3 mL) Insulin Pen 12 unit SUBCUT QDB Rx Instructions: PER PT "DO NOT HAVE ANY OF THE MED AT PRESENT". UNABLE TO VERIFY insulin lispro 100 unit/mL Solution 10 unit SUBCUT BID Rx Instructions: per pt. UNABLE TO VERIFY multivitamin Tablet 1 tab PO QAM Qty: 30 0RF Rx Instructions: UNABLE TO VERIFY thiamine HCl (vitamin B1) [Vitamin B-1] 100 mg Tablet 100 mg PO QAM Qty: 30 0RF Rx Instructions: UNABLE TO VERIFY folic acid 1 mg tablet 1 mg PO DAILY Qty: 30 0RF Rx Instructions: UNABLE TO VERIFY Referrals Referrals: PCP,NO [Primary Care Provider] -
[2023-07-28] MEDS: SODIUM CHLORIDE 0.9% 1,000 ML IV SCH ×2 (18:09→20:00)
--- NOTE | 2023-07-28 18:09 | XRay Report ---
XR chest 1V portable HISTORY: 38 years-old Male ?DKA, withdrawal acute illness COMPARISON: None TECHNIQUE: AP view of the chest FINDINGS: Chronic bony spurring noted along the inferior distal margin of the left clavicle. Cardiomediastinal and hilar silhouettes are within normal limits. No pneumothorax, pleural effusion or airspace consoli dation. IMPRESSION: No acute process. ACT 112: Negative or not required by law. The above report was generated using voice recognition software. It may contain grammatical, syntax o r spelling errors. Electronically signed by: Orestes Field M.D. 07/28/2023 6:06 PM
[2023-07-28 18:22] LABS: Appearance Urine Clear (Clear); Bacteria Urine Automated Negative (Negative); Bilirubin Urine Negative (Negative); Blood Urine Negative (Negative); Color Urine Yellow; Glucose Urine UA 3+ (Negative); Ketones Urine 4+ (Negative); Leukocyte Esterase Urine Negative (Negative); Nitrite Urine Negative (Negative); Protein Urine 1+ (Negative); RBC Urine Automated 0-4 /hpf (0-4); Urobilinogen Urine Negative (Negative)
[2023-07-28 18:25] LABS: Base Excess VBG -8.6 mEq/L; HCO3 VBG 15 mmol/L; Oxygen Saturation VBG 83.8 %; PCO2 VBG 27 mmHg (38-50); PO2 VBG 54 mmHg; pH VBG 7.36 (7.36-7.41)
[2023-07-28 18:32] LABS: Basophils # (auto) 0.07 K/uL (0.00-0.20); Basophils % (auto) 0.6 %; Hematocrit (blood only) 37.9 % (42.0-52.0); Immature Granulocytes # (auto) 0.04 K/uL (0.01-0.20); Immature Granulocytes % (auto) 0.3 %; Lymphocytes % (auto) 8.5 %; Mean Corpuscular Hemoglobin 32.8 pg (25.0-34.0); Mean Corpuscular Hgb Conc 34.3 g/dL (32.0-36.0); Mean Corpuscular Volume 95.7 fL (80.0-100.0); Mean Platelet Volume 9.5 fL (9.4-12.4); Monocytes # (auto) 0.54 K/uL (0.11-0.59); Monocytes % (auto) 4.6 %; Neutrophils # (auto) 10.07 K/uL (1.40-6.50); Platelet Count 308 K/uL (130-400); RDW Coefficient of Variation 12.9 % (11.5-14.5); RDW Standard Deviation 45.5 fL (36.4-46.3); Red Blood Count 3.96 M/uL (4.70-6.10); White Blood Count 11.72 K/ul (4.8-10.8)
[2023-07-28 18:51] LABS: Alanine Aminotransferase 43 U/L (7-52); Albumin Globulin Ratio 1.8 (0.9-2); Albumin Level 5.8 gm/dl (3.4-5.0); Alkaline Phosphatase 64 U/L (34-104); Anion Gap 33 (3-11); Aspartate Aminotransferase 35 U/L (13-39); BUN Creatinine Ratio 16.7 (10-20); Bilirubin Direct 0.4 mg/dl (0-0.2); Bilirubin,Total 2.1 mg/dl (0.2-1.0); Blood Urea Nitrogen 24 mg/dl (6-23); Calcium 10.1 mg/dl (8.6-10.3); Carbon Dioxide 15 mmol/L (21-32); Chloride 84 mmol/L (98-107); Est GFR (African American) 69.9 ml/min; Est GFR (Non-African American) 60.3 ml/min; Globulin 3.2 gm/dl (2.5-4.0); Glucose 425 mg/dl (70-99(Fasting)); Lipase 31 U/L (11-82); Magnesium 1.7 mg/dl (1.7-2.4); Potassium 4.7 mmol/L (3.5-5.1); Sodium 132 mmol/L (136-145)
[2023-07-28 18:52] LABS: Amphetamines+Metham, Urine Neg (Neg); Barbiturates, Urine Neg (Neg); Benzodiazepine, Urine Neg (Neg); Cocaine, Urine Neg (Neg); MDMA (Ecstacy), Urine Neg (Neg); Marijuana, Urine Pos (Neg); Methadone, Urine Neg (Neg); Opiate, Urine Neg (Neg); Phencyclidine, Urine Neg (Neg)
[2023-07-28 18:54] LABS: Troponin I High Sensitivity 8.2 pg/ml (0-20)
[2023-07-28 18:58] LABS: INR 0.9 (0.9-1.1); Partial Thromboplastin Time 27 Seconds (21-31); Prothrombin Time 10.3 Seconds (9.0-12.0)
[2023-07-28] MEDS ORDERED: NovoLIN-R INSULIN PER UNIT CHARGE IV STA (19:02)
[2023-07-28 19:21] LABS: Adenovirus PCR Not Detected (NotDetected); Bordetella parapertussis PCR Not Detected (NotDetected); Bordetella pertussis PCR Not Detected (NotDetected); Chlamydia pneumoniae PCR Not Detected (NotDetected); Coronavirus 229E PCR Not Detected (NotDetected); Coronavirus CoV-2 (COVID19)PCR Not Detected (NotDetected); Coronavirus HKU1 PCR Not Detected (NotDetected); Coronavirus NL63 PCR Not Detected (NotDetected); Coronavirus OC43PCR Not Detected (NotDetected); Human Metapneumovirus PCR Not Detected (NotDetected); Influenza A PCR Not Detected (NotDetected); Influenza B PCR Not Detected (NotDetected); Mycoplasma pneumoniae PCR Not Detected (NotDetected); Parainfluenza Virus 1 PCR Not Detected (NotDetected); Parainfluenza Virus 2 PCR Not Detected (NotDetected); Parainfluenza Virus 3 PCR Not Detected (NotDetected); Parainfluenza Virus 4 PCR Not Detected (NotDetected); Respiratory Syncytial VirusPCR Not Detected (NotDetected); Rhinovirus/Enterovirus PCR Not Detected (NotDetected)
[2023-07-28] MEDS ORDERED: OPTIRAY 320 500ml IV ONE (19:37)
--- NOTE | 2023-07-28 19:51 | CT Scan Report ---
Exam(s): CT ABDOMEN + PELVIS With Contrast IV Amt: 97 cc opti 320 EXAM: CT Abdomen and Pelvis With Intravenous Contrast CLINICAL HISTORY: Reason for exam: abdominal pain; vomiting. TECHNIQUE: Axial computed tomography images of the abdomen and pelvis with intravenous contrast. CTDI is 16.52 mGy and DLP is 822.58 mGy-cm. Automated exposure control was utilized for the study. A dose lowering technique was utilized adhering to the principles of ALARA. CONTRAST: Patient received 97 cc opti 320 of IV contrast COMPARISON: No relevant prior studies available. FINDINGS: Lung bases: Unremarkable. No mass. No consolidation. ABDOMEN: Liver: Hepatic steatosis. Gallbladder and bile ducts: Unremarkable. No calcified stones. No ductal dilation. Normal gallbladder. Pancreas: Unremarkable. No mass. No ductal dilation. Spleen: Unremarkable. No splenomegaly. Adrenals: Unremarkable. No mass. Kidneys and ureters: Unremarkable. No solid mass. No hydronephrosis. Stomach and bowel: Mild wall thickening of the colon, correlate for mild colitis. Diverticulosis, without acute diverticulitis. No bowel obstruction. No free air. PELVIS: Appendix: No acute appendicitis. Bladder: Unremarkable. No mass. Reproductive: Unremarkable as visualized. ABDOMEN and PELVIS: Intraperitoneal space: See above. Bones/joints: Degenerative changes of the spine. No acute fracture. No dislocation. Soft tissues: Unremarkable. Vasculature: Atherosclerotic changes of the aorta. No abdominal aortic aneurysm. Lymph nodes: Unremarkable. No enlarged lymph nodes. IMPRESSION: 1. Mild wall thickening of the colon, correlate for mild colitis. 2. Diverticulosis, without acute diverticulitis. No bowel obstruction. No free air. Electronically signed by: Noé Ayers MD 07/28/23 19:50 PM
[2023-07-28] MEDS ORDERED: GLUCOSE 10 TAB/TUBE PO PRN (19:56)
[2023-07-28] MEDS ORDERED: GLUCOSE 40% GEL 15 GM TUBE PO PRN (19:56)
[2023-07-28] MEDS ORDERED: STAT IV Infusion **Titration per Protocol STA (19:56)
[2023-07-28] MEDS ORDERED: DEXTROSE 50% 50 ML SYRINGE IV PRN (19:56)
[2023-07-28] MEDS ORDERED: INSULIN REGULAR 250 UNITS in SODIUM CHLORIDE 0.9% 247.5 ML IV SCH ×2 (20:00→20:15)
[2023-07-28] MEDS ORDERED: LACTATED RINGER'S 1,000 ML IV SCH (20:00)
--- NOTE | 2023-07-28 20:11 | History & Physical Report ---
Date of Service July 28, 2023 Assessment & Plan (1) DKA (diabetic ketoacidosis): Plan: Pt is a 38 yo male with PMH of T1DM, HTN, atrial fibrillation, and alcohol abuse presenting d/t vomiting and alcohol withdrawal. He is concerned for DKA. DKA - upon admission, pt hemodynamically stable - VBG showed pH 7.36, pCO2 27; K 4.7, bicarb 15, AG 33; blood sugar 425; lactate 5.1 - UA showed 3+ glucose, 4+ ketones, no signs of infection - insulin drip started in ER; continue upon admission - check BMP, Mg, phos, and VBG q4hr and repeat lactate; once AG closes and bicarb >18, can transition to subQ insulin Alcohol withdrawal - alcohol level <10 upon admission; last drink evening of 07/27/2023 (~24 hrs ago) - urine tox pos for cannabis; pt state he last smoked cannabis ~70-80 days ago prior to moving to [place] - no hx of seizures with past withdrawals; seizure precautions in place - s/p 3 mg ativan in ER - continue AWSS protocol, ativan PRN - continue daily thiamine and folate Type 1 DM - A1c pending; last A1c 05/2023 7.6% - hold home regimen as pt on insulin drip as above - once DKA resolves, will resume home regimen HTN - hold home lisinopril 10 mg BID and clonidine in setting of DKA; per pt, he does not take amlodipine at home - will monitor BP while hospitalized Afib - EKG upon admission showed NSR, rate in the 80s - pt not on outpatient anticoagulation d/t cost - recommend further discussion concerning options for correction anticoagulation Diet: NPO VTE ppx: lovenox Code: full Dispo: admit to PCU (2) T1DM (type 1 diabetes mellitus): (3) HTN (hypertension): (4) History of atrial fibrillation: (5) Alcohol withdrawal: History of Present Illness Chief Complaint: alcohol withdrawal Primary Care Provider: NO PCP Pt is a 38 yo male with PMH of T1DM, HTN, atrial fibrillation, and alcohol abuse presenting d/t vomiting. Pt explains that he had his last alcoholic drink last evening (07/27). Around 4 AM, he began vomiting and continued to vomit throughout the day. He also explains uncontrollable shakiness. He denies seizure activity. He has withdrawn from alcohol before and was trying to see if he could do it at home. However, he began to have a "DKA feeling" which he describes as his skin crawling and the high sugar affecting his nerves. This made him seek care. He was diagnosed with type 1 DM at the age of 18. He has been in DKA before. He did not miss any insulin at home, but he states when he withdraws from alcohol he continues to inject his insulin but it doesn't bring his BS down. He takes 10 units glargine twice per day. He does not count carbs for his meals, but states he takes usually 7-8 unit of insulin lispro with each meal. He routinely has to keep a sugary snack on hand in case he becomes too low. He has also been str uggling with alcohol use over the last 10 years. He has been to rehab before with the last being in Jun 2022. The longest he has abstained from alcohol has been while in rehab ranging from 60-90 days. Otherwise, he typically drinks 20 shots of vodka daily. He explains that he needs to stop allowing himself to have "1 beer" because that typically leads to more drinking. He also has a hx of HTN and afib. He has been taking lisinopril and clonidine at home for this. He hasn't needed amlodipine because his BP has been well controlled. He has not been taking eliquis because it is too expensive. In the ER, pt was hemodynamically stable. He received 1L NS, was started on maintenance IVF, zofran 4 mg x2, and IV lorazepam 3 mg. He also received a banana bag. He was started on an insulin drip. Allergies Allergy/AdvReac Type Severity Reaction Status Date / Time No Known Allergies Allergy Verified 07/28/23 19:30 Home Medications Medication Instructions Recorded Confirmed Type lisinopril 10 mg tablet 10 mg PO BID 05/14/23 07/28/23 History methocarbamol 750 mg tablet 750 - 1,500 mg PO Q8H PRN Muscle 05/14/23 07/28/23 History Spasm trazodone 100 mg tablet 100 mg PO HS PRN Sleep 05/14/23 07/28/23 History folic acid 1 mg tablet 1 mg PO DAILY #30 tabs 05/16/23 07/28/23 Rx multivitamin 1 tab PO QAM #30 tabs 05/16/23 07/28/23 Rx thiamine HCl (vitamin B1) 100 mg 100 mg PO QAM #30 tabs 05/16/23 07/28/23 Rx tablet (Vitamin B-1) amlodipine 5 mg tablet 0 mg PO DAILY 07/28/23 07/28/23 History chlordiazepoxide HCl 25 mg capsule See Taper PO Q8H PRN anxiety #07/29/23 Rx caps insulin glargine 100 unit/mL (3 12 unit (0.12 mL) subcut QDB #15 mL 07/29/23 Rx mL) subcutaneous pen (Basaglar KwikPen U-100 Insulin) insulin lispro 100 unit/mL 10 unit (0.1 mL) subcut BID #10 mL 07/29/23 Rx subcutaneous solution sertraline 50 mg tablet 50 mg PO DAILY #30 tabs 07/29/23 Rx Past Med/Surg History Social History Smoking Status: Former smoker Tobacco Type: Cigarettes Hx Alcohol Use: Yes Alcohol type: hard liquor Hx Substance Use: Yes Preferred Language: Bulgarian Communication Ability: Effective Director Of Instructional Technology Required: No Beliefs That Will Affect Care: None Current Living Situation: Alone Feels Safe at Home: Yes Assistive Devices: None Review of Systems Review of Systems: As per HPI Physical Exam Physical Exam: Constitutional: well appearing, no acute distress HEENT: normocephalic, no conjunctival injection CV: RRR, no murmur, no LE edema Respiratory: CTA bilaterally. No rhonchi, wheezes, or crackles. No increased work of breathing GI: soft, nondistended, nontender, + bowel sounds MSK: no gross deformities noted Skin: warm, dry, no rashes Neuro: alert, oriented, no FND noted Psych: mood and affect congruent Results & Data Results & Data Vital Signs (Past 12 Hours) Vital Signs Temp Pulse Pulse Resp BP BP Pulse Ox 07/28/23 19:51 84 21 137/83 99 07/28/23 19:50 88 20 98 07/28/23 19:48 37.2 C 83 16 137/83 99 07/28/23 18:03 136 H 07/28/23 17:42 35.5 C L 125 H 19 156/102 H 100 O2 Del Method 07/28/23 19:51 Room Air 07/28/23 19:50 Room Air 07/28/23 19:48 Room Air 07/28/23 18:03 07/28/23 17:42 Supervising Physician Co-Signing Physician Notes Attending addendum: I have physically seen this patient, have supervised the medical residents activities, and agree with the H&P unless as otherwise noted. Assessment and Plan: DKA- Triggered by alcohol intoxication/abuse and withdrawal Anion gap 33, with and goal treatment a normal anion gap DKA protocol with insulin drip and IV fluid exchanges begun in coordination with pharmacy glycemic consult Admit to monitored bed Alcohol withdrawal/abuse- Alcohol level less than 10 on admission AWSS protocol with IV Ativan Thiamine 100 mg IV daily Folic acid 1 mg IV daily Diabetes mellitus type 1- Presently being treated for DKA associated with alcohol abuse and withdrawal Hypertension- Holding lisinopril and clonidine IV control will be started as needed Resident Activity Tracking Resident Involvement: Resident Care Provided Care Provided: Adult Hospital Medicine
[2023-07-28] MEDS ORDERED: ONDANSETRON INJ 2 MG/ML 2 ML VIAL IV PRN (21:16)
[2023-07-28] MEDS ORDERED: ACETAMINOPHEN 325 MG TAB PO PRN (21:16)
[2023-07-28] MEDS ORDERED: PHARMACY GLYCEMIC MGMT CONSULT PRN (21:16)
[2023-07-28] MEDS ORDERED: MELATONIN 3 MG TAB PO PRN (21:16)
[2023-07-28] MEDS ORDERED: DKA GOAL RANGE 150-250 mg/dl ONE (21:17)
[2023-07-28] MEDS ORDERED: PENDING D5 1/2NS+20mEq KCL IVF SCH (21:30)
[2023-07-28] MEDS ORDERED: PENDING 1/2NSS+20mEq KCL IVF SCH (21:30)
[2023-07-28] MEDS ORDERED: SODIUM CHLOR 0.45% + 20MEQ KCL 20 MEQ/1,000 ML BAG IV SCH (21:45)
[2023-07-28] MEDS ORDERED: DEXTROSE 50% 50 ML SYRINGE IV ONE (21:58)
[2023-07-28 22:15] LABS: Acetaminophen < 3 ug/ml (10-30); Salicylate < 3.0 mg/dl (3.0-30)
[2023-07-28] MEDS: D5NSS + 20MEQ KCL 20 MEQ/1,000 ML BAG IV SCH (22:16)
[2023-07-28] MEDS ORDERED: traZODone HCL 100 MG TAB PO PRN (22:17)
[2023-07-28 23:30] LABS: Calcium 8.4 mg/dl (8.6-10.3); Magnesium 1.5 mg/dl (1.7-2.4)
[2023-07-28 23:36] LABS: BUN Creatinine Ratio 17.4 (10-20); Creatinine Clr Calc Pharmacy 98.9 ml/min; Est GFR (African American) 97.9 ml/min; Est GFR (Non-African American) 84.5 ml/min
[2023-07-28 23:41] LABS: Phosphorus 1.5 mg/dl (2.5-4.9)
[2023-07-29 00:05] LABS: Folate (Folic Acid),Ser orPlas 17.26 ng/ml (>5.38)
[2023-07-29] MEDS ORDERED: POTASSIUM PHOS 3 MMOL/1 ML INFUSION IV STA (01:29)
[2023-07-29] MEDS: D5NSS + 20MEQ KCL 20 MEQ/1,000 ML BAG IV SCH ×2 (02:24→06:34)
[2023-07-29] MEDS: MAGNESIUM SULFATE / D5W 1 GM/100 ML BAG IV SCH ×2 (02:28→04:23)
[2023-07-29] MEDS ORDERED: POTASSIUM PHOSPHATE 30 MMOL in SODIUM CHLORIDE 0.9% 500 ML IV ONE (02:30)
[2023-07-29 03:37] LABS: Calcium 8.1 mg/dl (8.6-10.3); Magnesium 1.7 mg/dl (1.7-2.4); Potassium 4.2 mmol/L (3.5-5.1)
[2023-07-29 03:43] LABS: BUN Creatinine Ratio 16.7 (10-20); Creatinine Clr Calc Pharmacy 112.3 ml/min; Est GFR (African American) 114.1 ml/min; Est GFR (Non-African American) 98.5 ml/min
[2023-07-29 03:53] LABS: Phosphorus 1.5 mg/dl (2.5-4.9)
[2023-07-29] MEDS ORDERED: LANTUS PER UNIT CHARGE SC ONE ×2 (04:00→04:15)
[2023-07-29] MEDS ORDERED: INSULIN ASPART PER UNIT CHARGE SC SCH ×3 (07:30→11:30)
[2023-07-29 07:37] LABS: Estimated Average Glucose 166 mg/dl; Hemoglobin A1C 7.4 % (4.5-5.6)
[2023-07-29 08:09] LABS: Calcium 8.3 mg/dl (8.6-10.3); Magnesium 2.1 mg/dl (1.7-2.4); Potassium 4.2 mmol/L (3.5-5.1)
[2023-07-29 08:18] LABS: BUN Creatinine Ratio 14.8 (10-20); Creatinine Clr Calc Pharmacy 122.5 ml/min; Est GFR (African American) 124.5 ml/min; Est GFR (Non-African American) 107.5 ml/min; Phosphorus 2.4 mg/dl (2.5-4.9)
--- NOTE | 2023-07-29 08:33 | Hospitalist Progress Note ---
Date of Service July 29, 2023 Assessment & Plan (1) DKA (diabetic ketoacidosis): Plan: Pt is a 38 yo male with PMH of T1DM, HTN, atrial fibrillation, and alcohol abuse presenting d/t vomiting and alcohol withdrawal. He is concerned for DKA. DKA - upon admission, treated with IV fluids, IV insulin, insulin drip, electrolyte replacement and followed with serial labs Resolved within 24h, anion gap closed overnight and transitioned to SQ insulin -given glargine 10u SQ this AM and insulin drip stopped -electrolytes wnl -eating so stop IV fluids -discussed with pharmacist, consulted for glycemic management Alcohol withdrawal - alcohol level <10 upon admission; last drink evening of 07/27/2023 (~24 hrs ago) - urine tox pos for cannabis; pt state he last smoked cannabis ~70-80 days ago prior to moving to [place] - no hx of seizures with past withdrawals; seizure precautions in place - s/p 3 mg ativan in ER - continue AWSS protocol, ativan PRN - continue daily thiamine and folate Type 1 DM - A1c pending; last A1c 05/2023 7.6% - hold home regimen as pt on insulin drip as above - once DKA resolves, will resume home regimen HTN - hold home lisinopril 10 mg BID and clonidine in setting of DKA; per pt, he does not take amlodipine at home - will monitor BP while hospitalized Afib - EKG upon admission showed NSR, rate in the 80s - pt not on outpatient anticoagulation d/t cost - recommend further discussion concerning options for long-term anticoagulation Diet: NPO VTE ppx: lovenox Code: full Dispo: admit to PCU (2) T1DM (type 1 diabetes mellitus): (3) HTN (hypertension): (4) History of atrial fibrillation: (5) Alcohol withdrawal: Admission and Anticipated Discharge Date Admission Date: July 28, 2023 Results & Data Results & Data Vital Signs (Past 12 Hours) Vital Signs Temp Pulse Pulse Resp BP BP Pulse Ox 07/29/23 07:07 89 07/29/23 06:30 96 H 14 115/69 95 07/29/23 06:00 83 8 L 124/71 98 07/29/23 05:00 82 18 113/60 98 07/29/23 04:00 87 14 127/68 98 07/29/23 03:00 82 20 127/79 98 07/29/23 00:36 37.2 C 94 H 20 121/61 99 07/28/23 23:36 99 H 19 124/84 97 07/28/23 21:55 89 07/28/23 21:10 84 18 100 07/28/23 21:00 89 15 99 07/28/23 20:50 88 14 100 07/28/23 20:40 100 H 17 100 O2 Del Method 07/29/23 07:07 07/29/23 06:30 07/29/23 06:00 07/29/23 05:00 07/29/23 04:00 07/29/23 03:00 07/29/23 00:36 Room Air 07/28/23 23:36 Room Air 07/28/23 21:55 07/28/23 21:10 07/28/23 21:00 07/28/23 20:50 07/28/23 20:40 PG Care Time/CCT Total # of Minutes Spent Total Time Spent with Patient: Total time spent is greater than 50% in coordination of care (as documented) at patient's floor/unit and/or counseling patient: Coding Diagnoses DKA (diabetic ketoacidosis) E11.10 T1DM (type 1 diabetes mellitus) E10.9 HTN (hypertension) I10 History of atrial fibrillation Z86.79 Alcohol withdrawal F10.938
[2023-07-29] MEDS ORDERED: THIAMINE HCL 100 MG TAB PO SCH (09:00)
[2023-07-29] MEDS ORDERED: ENOXAPARIN INJ 40 MG/0.4 ML SYR SQ SCH (09:00)
[2023-07-29] MEDS ORDERED: FOLIC ACID 1 MG TAB PO SCH (09:00)
--- NOTE | 2023-07-29 09:08 | Pharmacy Report ---
Pharmacy Glycemic Short Note 2 - Date of Service July 29, 2023 - Glycemic Short BSG Results (Last 24 hours): 07/28/23 07/28/23 07/28/23 17:44 18:18 20:05 Glucose 425 H* POC Glucose 409 H* 303 H* 07/28/23 07/28/23 07/28/23 21:44 21:46 22:02 Glucose POC Glucose 66 L* 75 68 L* 07/28/23 07/28/23 07/28/23 22:22 22:24 22:56 Glucose POC Glucose 205 H 194 H 197 H 07/28/23 07/28/23 07/29/23 23:03 23:52 00:53 Glucose 192 H POC Glucose 164 H 162 H 07/29/23 07/29/23 07/29/23 01:51 02:26 03:08 Glucose 163 H POC Glucose 94 79 07/29/23 07/29/23 07/29/23 03:21 05:28 06:33 Glucose POC Glucose 163 H 159 H 131 H 07/29/23 07/29/23 07:24 07:28 Glucose 135 H POC Glucose 136 H OUTPATIENT ANTIDIABETIC REGIMEN: * Patient reported regimen * Basaglar 12 units SC daily * Humalog 10 units SC BID HbA1c: 7.4% (07/28/23) ASSESSMENT: * BF is a 38 year old male with T1DM and hx of alcohol abuse. He presented to ED yesterday w/ persistent vomiting since the night before. * Patient found to be in DKA on presentation, anion gap of 33, carbon dioxide 15 mmol/L, and BSG of 425 mg/dL. VBG pH of 7.36. * Insulin infusion initiated in ED in addition to IV fluids * Anion gap has now resolved this morning, basal insulin given early this morning and diet ordered. Dextrose-containing fluids now discontinued. * Now that basal has been given, will being transition to SC basal/bolus regimen and discontinue insulin infusion. PLAN FOR INPATIENT GLYCEMIC CONTROL: * Basal insulin * Lantus 10 units SC daily * Bolus insulin * NovoLog per scale ACHS or Q6hrs while NPO * Goal Range: Low 110 mg/dL - High 140 mg/dL * Correction Factor: 45 mg/dL/unit * Nutritional / Prandial insulin per carb ratio of 1 unit per 15 grams CHO consumed
[2023-07-29] MEDS ORDERED: INSULIN ASPART PER UNIT CHARGE SC ONE (09:30)
--- NOTE | 2023-07-29 11:22 | Electrocardiogram Report ---
Test Reason : Blood Pressure : / mmHG Vent. Rate : 098 BPM Atrial Rate : 098 BPM P-R Int : 120 ms QRS Dur : 086 ms QT Int : 360 ms P-R-T Axes : 058 -03 064 degrees QTc Int : 459 ms Poor data quality, interpretation may be adversely affected Normal sinus rhythm Possible Left atrial enlargement Abnormal ECG When compared with ECG of 14-MAY-2023 15:53, No significant change was found Confirmed by Jorge Hancock ([id number]) on 07/29/2023 11:22:35 AM Referred By: REFERRED SELF Confirmed By:Fausto Hancock
--- NOTE | 2023-07-29 11:22 | Electrocardiogram Report ---
Test Reason : Blood Pressure : / mmHG Vent. Rate : 081 BPM Atrial Rate : 081 BPM P-R Int : 120 ms QRS Dur : 084 ms QT Int : 392 ms P-R-T Axes : 065 006 045 degrees QTc Int : 455 ms Normal sinus rhythm Normal ECG When compared with ECG of 14-MAY-2023 15:53, No significant change was found Confirmed by Jorge Hancock ([id number]) on 07/29/2023 11:21:36 AM Referred By: REFERRED SELF Confirmed By:Fausto Hancock
[2023-07-29] MEDS ORDERED: chlordiazePOXIDE HCl 25 MG CAP PO ONE (13:53)
--- NOTE | 2023-07-29 16:44 | Pharmacy Report ---
ED Pharmacist Progress Note - ED Pharmacist Progress Note Date of Service:: July 29, 2023 Notes:: Received call from patient stating that he has no supplies at home for insulin lispro vials. VORB Dr. Corral to change vials to pens. Spoke with pharmacist at [facility] in [place] and changed rx to pens. Patient aware.
--- NOTE | 2023-07-29 19:21 | Discharge Summary ---
Date of Service July 29, 2023 Admission HPI Per Admitting Provider Pt is a 38 yo male with PMH of T1DM, HTN, atrial fibrillation, and alcohol abuse presenting d/t vomiting. Pt explains that he had his last alcoholic drink last evening (07/27). Around 4 AM, he began vomiting and continued to vomit throughout the day. He also explains uncontrollable shakiness. He denies seizure activity. He has withdrawn from alcohol before and was trying to see if he could do it at home. However, he began to have a "DKA feeling" which he describes as his skin crawling and the high sugar affecting his nerves. This made him seek care. He was diagnosed with type 1 DM at the age of 18. He has been in DKA before. He did not miss any insulin at home, but he states when he withdraws from alcohol he continues to inject his insulin but it doesn't bring his BS down. He takes 10 units glargine twice per day. He does not count carbs for his meals, but states he takes usually 7-8 unit of insulin lispro with each meal. He routinely has to keep a sugary snack on hand in case he becomes too low. He has also been struggling with alcohol use over the last 10 years. He has been to rehab before with the last being in Jun 2022. The longest he has abstained from alcohol has been while in rehab ranging from 60-90 days. Otherwise, he typically drinks 20 shots of vodka daily. He explains that he needs to stop allowing himself to have "1 beer" because that typically leads to more drinking. He also has a hx of HTN and afib. He has been taking lisinopril and clonidine at home for this. He hasn't needed amlodipine because his BP has been well controlled. He has not been taking eliquis because it is too expensive. In the ER, pt was hemodynamically stable. He received 1L NS, was started on maintenance IVF, zofran 4 mg x2, and IV lorazepam 3 mg. He also received a banana bag. He was started on an insulin drip. Principal Diagnosis DKA, type 1 diabtes, alcohol withdrawal Discharge Exam PHYSICAL EXAMINATION Last 24h vital signs reviewed, see documentation in flowsheet General: comfortable appearing, no distress HEENT: Normocephalic, atraumatic, pupils round and equal, sclerae anicteric, no conjunctival injection, moist mucus membranes Lungs: Normal respiratory effort. Heart: Deferred Abdomen: Soft, nondistended. Extremities: Warm, dry, well-perfused. No extremity edema. Neuro: Alert and oriented x 4, face symmetric, moves 4 extremities well. Skin warm and dry, not tremulous Psych: Normal affect and behavior Discharge Data Allergies Allergy/AdvReac Type Severity Reaction Status Date / Time No Known Allergies Allergy Verified 07/28/23 19:30 Consultations 07/28/23 19:58 ED Decision to Admit Stat Ordered Studies 07/28/23 19:10 CT Abd and Pelvis [CT abd pelvis IV con only] Stat Chest X-Ray 07/28/23 17:46 XR chest 1V portable HISTORY: 38 years-old Male ?DKA, withdrawal acute illness COMPARISON: None TECHNIQUE: AP view of the chest FINDINGS: Chronic bony spurring noted along the inferior distal margin of the left clavicle. Cardiomediastinal and hilar silhouettes are within normal limits. No pneumothorax, pleural effusion or airspace consolidation. IMPRESSION: No acute process. ACT 112: Negative or not required by law. The above report was generated using voice recognition software. It may contain grammatical, syntax or spelling errors. Electronically signed by: Orestes Field M.D. 07/28/2023 6:06 PM Abdomen/Pelvis CT 07/28/23 19:10 Exam(s): CT ABDOMEN + PELVIS With Contrast IV Amt: 97 cc opti 320 EXAM: CT Abdomen and Pelvis With Intravenous Contrast CLINICAL HISTORY: Reason for exam: abdominal pain; vomiting. TECHNIQUE: Axial computed tomography images of the abdomen and pelvis with intravenous contrast. CTDI is 16.52 mGy and DLP is 822.58 mGy-cm. Automated exposure control was utilized for the study. A dose lowering technique was utilized adhering to the principles of ALARA. CONTRAST: Patient received 97 cc opti 320 of IV contrast COMPARISON: No relevant prior studies available. FINDINGS: Lung bases: Unremarkable. No mass. No consolidation. ABDOMEN: Liver: Hepatic steatosis. Gallbladder and bile ducts: Unremarkable. No calcified stones. No ductal dilation. Normal gallbladder. Pancreas: Unremarkable. No mass. No ductal dilation. Spleen: Unremarkable. No splenomegaly. Adrenals: Unremarkable. No mass. Kidneys and ureters: Unremarkable. No solid mass. No hydronephrosis. Stomach and bowel: Mild wall thickening of the colon, correlate for mild colitis. Diverticulosis, without acute diverticulitis. No bowel obstruction. No free air. PELVIS: Appendix: No acute appendicitis. Bladder: Unremarkable. No mass. Reproductive: Unremarkable as visualized. ABDOMEN and PELVIS: Intraperitoneal space: See above. Bones/joints: Degenerative changes of the spine. No acute fracture. No dislocation. Soft tissues: Unremarkable. Vasculature: Atherosclerotic changes of the aorta. No abdominal aortic aneurysm. Lymph nodes: Unremarkable. No enlarged lymph nodes. IMPRESSION: 1. Mild wall thickening of the colon, correlate for mild colitis. 2. Diverticulosis, without acute diverticulitis. No bowel obstruction. No free air. Electronically signed by: Noé Ayers MD 07/28/23 19:50 PM 07/28/23 18:18 07/29/23 07:24 Diabetes Follow up States he has primary care doctor in [place] and will follow-up with him within a week or 2 Hospital Course (1) DKA (diabetic ketoacidosis): Precipitated by alcohol withdrawal similar to previous hospitalizations CT abdomen and pelvis was unremarkable, possible colitis was noted on report however he had no symptoms of abdominal pain or diarrhea DKA was treated in the usual fashion with IV fluids, IV insulin, insulin drip, electrolyte replacement and serial labs Acidosis resolved and anion gap closed on serial BMP thereafter he was transition to subcu insulin, was able to eat and drink well, and maintained normoglycemia He stated that he thinks some of his insulins are very old/could be and not very effective I did give him a prescription for his usual insulins at discharge He will follow-up with his primary care doctor in [place] (2) Alcohol withdrawal: He had some fairly mild alcohol withdrawal did get 1 dose of IV lorazepam night of admission and no further doses. Not having any acute or severe withdrawal symptoms at time of discharge. He has never had withdrawal seizures. Safe for discharge on oral chlordiazepoxide taper, which has been effective for him in the past. Discussed return precautions where he did develop worsening alcohol withdrawal despite this treatment. I counseled alcohol cessation. He intends to stop drinking again. He prefers not to attend AA meetings but feels he has a good understanding of local alcohol rehab resources and has been to rehab in the past. We discussed option of medication assisted treatment with naltrexone but he is not considering this at this time. We discussed possible untreated depression, he feels that his mood is somewhat depressed, denies suicidal ideation or history of such, never had a psychiatric hospitalization, he does note that he has a very difficult time with motivation in the mornings in terms of getting going getting out of bed and getting himself to work without resorting to alcohol. We decided on a trial of sertraline since this can be somewhat activating. I instructed him to follow-up with his primary care doctor within 2 weeks for dose adjustment and monitoring. (3) T1DM (type 1 diabetes mellitus): See above (4) HTN (hypertension): Continues amlodipine and lisinopril (5) History of atrial fibrillation: Total Time Total Time Spent Total Time Spent (In Minutes): I personally spent: 40 minutes today on clinical care activities including: reviewing chart notes and vital signs reviewing labs reviewing studies examining and counseling the patient counseling the patient's family writing orders, prescriptions, documentation Discharge Plan Discharge Items Patient Disposition: Home - Self-Care Reason For Visit: DKA, ALCOHOL WITHDRAWAL Discharge Diagnosis: DKA, Alcohol withdrawal Condition on Discharge: Good Activity: Resume your previous activity Non-emergency contact: Primary Care Provider Call non-emergency contact if: you have any medication questions Follow-up/Referrals: PCP,NO [Primary Care Provider] - Diet: Carb Count or DM1 Addtl Attending Provider Instructions: You were treated for DKA and alcohol withdrawal Finish the chlordiazepoxide (librium) taper to treat your alcohol withdrawal This medication can be sedating - do not drive or operate heavy machinery If you have worsening withdrawal symptoms despite this, seek care in the ER I strongly advise quitting alcohol Untreated depression might be making it harder for you to avoid alcohol - we discussed a trial of sertraline (zoloft) to see if this can improve your mood symptoms See your primary care doctor within 1-2 weeks. Sertraline dose can be increased at 2 weeks if ineffective. It takes 4-6 weeks to be at full effect. I sent a new prescription for your insulins Pending Studies at Discharge: No Stand-Alone Forms: [facility], Smoking Cessation Medications and DC Order Prescriptions: New sertraline 50 mg tablet 50 mg PO DAILY Qty: 30 0RF chlordiazepoxide HCl 25 mg capsule See Taper PO Q8H PRN (Reason: anxiety) Qty: 23 0RF Taper: Taper, Blank 50 mg Q8H for 2 Days 25 mg Q8H for 2 Days 25 mg Q12H for 2 Days 25 mg DAILY for 1 Day Continued amlodipine 5 mg Tablet 0 mg PO DAILY Rx Instructions: PT UNSURE OF STRENGTH, UNABLE TO VERIFY. insulin lispro 100 unit/mL Solution 10 unit SUBCUT BID Qty: 10 1RF insulin glargine [Basaglar KwikPen U-100 Insulin] 100 unit/mL (3 mL) Insulin Pen 12 unit SUBCUT QDB Qty: 15 0RF trazodone 100 mg Tablet 100 mg PO HS PRN (Reason: Sleep) Rx Instructions: UNABLE TO VERIFY. lisinopril 10 mg Tablet 10 mg PO BID Rx Instructions: UNABLE TO VERIFY methocarbamol 750 mg Tablet 750 - 1,500 mg PO Q8H PRN (Reason: Muscle Spasm) Rx Instructions: UNABLE TO VERIFY multivitamin Tablet 1 tab PO QAM Qty: 30 0RF Rx Instructions: UNABLE TO VERIFY thiamine HCl (vitamin B1) [Vitamin B-1] 100 mg Tablet 100 mg PO QAM Qty: 30 0RF Rx Instructions: UNABLE TO VERIFY folic acid 1 mg tablet 1 mg PO DAILY Qty: 30 0RF Rx Instructions: UNABLE TO VERIFY Discontinued clonidine HCl 0.2 mg Tablet 0.2 mg PO QAM Rx Instructions: UNABLE TO VERIFY Discharge Orders: Discharge Order (Routine); Ordered 07/29/23 Ordered By: Vy Lester/Other Patient Handouts: Alcoholism Resources, Alcohol Withdrawal: What to Expect Admission Data Admit Date/Time: 07/28/23 21:16 Attending Provider: Tonny Yates Admit Provider: Heather Ahuja Primary Care Provider: PCP,NO Other Providers: Tonny Yates Other Interventions: Discharge Summary Assessment (RN) Last Done: 07/29/23 15:02 Coding Level of Care Code 80467 INP/OBS DISCH >30 MIN Diagnoses DKA (diabetic ketoacidosis) E11.10 Alcohol withdrawal F10.939 T1DM (type 1 diabetes mellitus) E10.9 HTN (hypertension) I10 History of atrial fibrillation Z86.79
--- NOTE | 2023-07-29 19:22 | Billing Data ---
Date of Service July 29, 2023 Coding Level of Care Code 33007 INT INP/OBS CARE
[2023-07-31 10:47] LABS: Marijuana Quant, GCMS Urine 14 ng/mL (<5)
== END 2023-07-29 15:35 | disposition home or self-care (01) ==
LOC: ED 17:32 → INTOOBSV 21:16 → EDINP 21:16

== ENCOUNTER 2023-10-06 09:29 | Observation (INO) ==
[2023-10-06] MEDS: diazePAM 5 MG/ML 10ML VIAL IV STA ×2 (09:59→12:42)
[2023-10-06] MEDS: SODIUM CHLORIDE 0.9% 1,000 ML IV ONE ×2 (09:59→11:09)
[2023-10-06] MEDS: PANTOprazole 40 MG in SYRINGE 0 ML IV ONE (10:07)
--- NOTE | 2023-10-06 10:12 | Emergency Department Note ---
Impression & Plan Nausea & vomiting, Alcohol withdrawal, Abdominal pain, Dehydration, Alcohol intoxication, Alcohol abuse ED Provider Note ED Provider Note NAME: SANJAY MARQUIS AGE:38 SEX: Male : 1985 ARRIVES VIA: private vehicle INFORMANT: Patient ED PROVIDER(s): Kasia Jain DO CHIEF COMPLAINT: Nausea and vomiting, abdominal pain, alcohol withdrawal HPI: This is a 38-year-old male presents emergency department due to concern for nausea and vomiting and abdominal pain, as well as evolving alcohol withdrawal. Patient states he has a known history of diabetes and does use alcohol daily. He also has a history of pancreatitis. Patient states overnight he began with recurrent nausea and vomiting, he denies any hematemesis. He states after several episodes of vomiting he began to have abdominal pain and back pain. Patient states he did check his sugar this morning and it was around 300 and he gave himself 9 units of insulin. He states his abdominal pain does feel similar to prior episodes of pancreatitis. Patient states he typically drinks 15-20 shots of vodka daily. He states his last alcohol ingestion was at 5 AM this morning. He states he has previously been admitted for DTs, no history of alcohol related seizures. PAST MEDICAL HISTORY:See Below PAST SURGICAL HISTORY:See Below FAMILY HISTORY:See Below SOCIAL HISTORY:See Below HOME MEDICATIONS:See Below ALLERGIES:See Below VITALS:See Below PHYSICAL EXAMINATION: GENERAL: alert, ill appearing, well nourished, mild distress, non-toxic, diaphoretic EYE EXAM: normal conjunctiva, PERRL and EOM's grossly intact OROPHARYNX: no exudate, no erythema, lips, buccal mucosa, and tongue normal and mucous membranes are dry NECK: supple, no nuchal rigidity, no adenopathy, non-tender LUNGS: Clear to auscultation. Normal chest wall mechanics, no w/r/r HEART: no murmurs, S1 normal and S2 normal ABDOMEN: abdomen soft, tenderness with palpation in the upper abdomen and epigastric area, normo-active bowel sounds, no masses, no rebound or guarding. Dull to percussion BACK: Back is symmetrical on inspection and there is no deformity, no midline tenderness, no CVA tenderness. SKIN: no rashes, petechiae, orbruising UPPER EXTREMITIES: upper extremities are grossly normal. FROM, nml pulses b/l. LOWER EXTREMITIES: No pitting edema. FROM, nml pulses b/l. NEURO EXAM: Normal sensorium, cranial nerves II-XII grossly intact, normal speech, no facial droop,nogross weakness of arms, no gross weakness of legs. Gross sensation intact. No ataxia. Tremulous. Vital Signs: reviewed and remarkable Differential Diagnosis: Alcohol withdrawal, DKA, viral syndrome, pancreatitis, gastroenteritis, Food Borne, Perforation, Gi bleed, Electrolyte Abnormality, Dehydration, UTI/Pyelonephritis, Bowel Obstruction, Biliary Pathology, amongst other pathology entertained. MEDICAL DECISION MAKING: This is a 38-year-old male with a history of alcohol abuse who presents emergency department due to concern for nausea, vomiting, abdominal pain, and alcohol withdrawal related symptoms. Patient has previously been inpatient for alcohol withdrawal related symptoms and states he has previously had DTs. Patient noted to be tachycardic on arrival and he was obviously tremulous and diaphoretic. Labs drawn and sent, IV established, EKG performed at bedside interpreted by me and patient monitored on telemetry. He was started on IV fluids, IV banana bag, and given IV magnesium due to the prolonged QTc noted on the EKG. patient given 10 mg IV Valium to help with his alcohol withdrawal related symptoms which worked well in his tachycardia and tremors improved. Patient's labs revealed an anion gap, ALFREDO, elevated LFTs. Patient's blood sugar here on recheck was only mildly elevated and I suspect the anion gap is more likely from alcoholic ketoacidosis and dehydration and not DKA. He was given 2 L of IV fluids in addition to the banana bag. Due to history of pancreatitis and concern for the vomiting and abdominal pain he was sent for CT of the abdomen and pelvis additionally. No other acute findings noted. Patient did receive an additional 10 mg of IV Valium here when tremors began to return. I discussed all results with patient at bedside. Repeat CMP did show improved anion gap, creatinine and LFTs. I did discuss with the patient trial of transitioning to an oral medication for alcohol withdrawal such as Librium and discharged home as he states he does have all the results at home to pursue alcohol withdrawal. Patient did not feel he was safe to go home at this time. Case discussed with the hospitalist team for additional evaluation and mgmt. Consultation(s): 1423: Discussed with Dr. Maldonado, [facility] hospitalist team, for additional evaluation and management. ER Treatment Provided: See below Diagnostics Interpreted By Me: -ECG: Normal sinus at 90, normal axis, normal QRS, prolonged QTc, no acute ST/T wave changes -Cardiac Monitoring: An order was placed for continuous cardiac monitoring. The monitor shows a rate of 122 with sinus tachycardia rhythm. -Laboratory studies: As stated above and show below. Triage Nursing Note Reviewed Prior/Outside Records Reviewed -prior discharge summary reviewed Critical Care: Critical care of 39 min performed to assess and manage high likelihood of life- threatening alcohol withdrawal, involving labs and imaging performed with assessment to evaluate alcohol withdrawal diagnosis with frequent reassessment. This time includes bedside time, treatment discussions with patient/family/consultants, documentation time and excludes procedure time. Past Med/Surg History Social History Smoking Status: Current some day smoker Tobacco Type: Cigarettes Hx Alcohol Use: Yes Alcohol type: hard liquor Hx Substance Use: No Preferred Language: Slovenian Communication Ability: Effective Medical Education Specialist Required: No Beliefs That Will Affect Care: None Current Living Situation: Alone Feels Safe at Home: Yes Assistive Devices: None Allergies Allergies Allergy/AdvReac Type Severity Reaction Status Date / Time No Known Allergies Allergy Verified 07/28/23 19:30 Home Meds Home Medications Medication Instructions Recorded Confirmed lisinopril 10 mg tablet 10 mg PO BID 05/14/23 10/06/23 methocarbamol 750 mg tablet 750 - 1,500 mg PO Q8H PRN Muscle 05/14/23 10/06/23 Spasm trazodone 100 mg tablet 100 mg PO HS PRN Sleep 05/14/23 10/06/23 amlodipine 5 mg tablet 0 mg PO DAILY 07/28/23 10/06/23 apixaban 5 mg tablet (Eliquis) 5 mg PO BID 10/06/23 10/06/23 insulin lispro 100 unit/mL 10 unit subcut UD 10/06/23 10/06/23 subcutaneous solution Previous Rx's Medication Instructions Recorded folic acid 1 mg tablet 1 mg PO DAILY #30 tabs 05/16/23 multivitamin 1 tab PO QAM #30 tabs 05/16/23 thiamine HCl (vitamin B1) 100 mg 100 mg PO QAM #30 tabs 05/16/23 tablet (Vitamin B-1) insulin glargine 100 unit/mL (3 12 unit (0.12 mL) subcut QDB #15 mL 07/29/23 mL) subcutaneous pen (Basaglar KwikPen U-100 Insulin) Results & Data (ED) Vital Signs Vital Signs - 24 hr 10/06/23 09:35 10/06/23 09:48 10/06/23 09:52 Temperature 36.8 C Temperature Source Temporal Artery Scan Pulse Rate 130 H 120 H 120 H Pulse Rate [Left] Pulse Rate from SpO2 Sensor Pulse Strength [Left] Respiratory Rate 18 20 Respiratory Effort / Characteristics Non-Labored Spontaneous Respiratory Depth Normal Respiratory Pattern Blood Pressure 122/94 142/108 H Blood Pressure [Left Arm] Blood Pressure Mean 103 119 Blood Pressure Mean [Left Arm] Blood Pressure Position Sitting Blood Pressure Position [Left Arm] Pulse Oximetry 97 98 Oxygen Delivery Method Room Air Room Air Sepsis Recent Fever Within 48 Hours No Sepsis New/Unexplained Change in Mental Status N/A Sepsis Action Taken by Nursing No Action Required 10/06/23 09:55 10/06/23 10:00 10/06/23 10:00 Temperature 36.9 C Temperature Source Oral Pulse Rate 107 H 99 H Pulse Rate [Left] 96 H Pulse Rate from SpO2 Sensor 98 H Pulse Strength [Left] Normal Respiratory Rate 14 17 15 Respiratory Effort / Characteristics Respiratory Depth Normal Respiratory Pattern Regular Blood Pressure 122/95 140/89 Blood Pressure [Left Arm] 140/89 Blood Pressure Mean 104 106 Blood Pressure Mean [Left Arm] 106 Blood Pressure Position Blood Pressure Position [Left Arm] Sitting Pulse Oximetry 98 98 97 Oxygen Delivery Method Room Air Room Air Room Air Sepsis Recent Fever Within 48 Hours Sepsis New/Unexplained Change in Mental Status Sepsis Action Taken by Nursing 10/06/23 10:15 10/06/23 10:31 10/06/23 10:45 Temperature Temperature Source Pulse Rate 90 96 H 90 Pulse Rate [Left] Pulse Rate from SpO2 Sensor 89 90 Pulse Strength [Left] Respiratory Rate 19 19 12 Respiratory Effort / Characteristics Respiratory Depth Respiratory Pattern Blood Pressure 132/77 144/91 H 133/82 Blood Pressure [Left Arm] Blood Pressure Mean 95 108 99 Blood Pressure Mean [Left Arm] Blood Pressure Position Blood Pressure Position [Left Arm] Pulse Oximetry 96 98 96 Oxygen Delivery Method Room Air Room Air Room Air Sepsis Recent Fever Within 48 Hours Sepsis New/Unexplained Change in Mental Status Sepsis Action Taken by Nursing 10/06/23 11:00 10/06/23 11:15 10/06/23 11:15 Temperature Temperature Source Pulse Rate 83 84 Pulse Rate [Left] Pulse Rate from SpO2 Sensor 81 85 Pulse Strength [Left] Respiratory Rate 21 16 Respiratory Effort / Characteristics Respiratory Depth Respiratory Pattern Blood Pressure 131/80 136/81 Blood Pressure [Left Arm] Blood Pressure Mean 97 97 Blood Pressure Mean [Left Arm] Blood Pressure Position Blood Pressure Position [Left Arm] Pulse Oximetry 95 95 Oxygen Delivery Method Room Air Sepsis Recent Fever Within 48 Hours Sepsis New/Unexplained Change in Mental Status Sepsis Action Taken by Nursing 10/06/23 11:20 10/06/23 11:30 10/06/23 11:30 Temperature Temperature Source Pulse Rate 96 H 91 H Pulse Rate [Left] Pulse Rate from SpO2 Sensor 96 H 90 Pulse Strength [Left] Respiratory Rate 19 10 L Respiratory Effort / Characteristics Respiratory Depth Respiratory Pattern Blood Pressure 138/77 Blood Pressure [Left Arm] Blood Pressure Mean 92 Blood Pressure Mean [Left Arm] Blood Pressure Position Blood Pressure Position [Left Arm] Pulse Oximetry 99 97 Oxygen Delivery Method Sepsis Recent Fever Within 48 Hours Sepsis New/Unexplained Change in Mental Status Sepsis Action Taken by Nursing 10/06/23 11:40 10/06/23 12:00 10/06/23 12:10 Temperature Temperature Source Pulse Rate 83 76 76 Pulse Rate [Left] Pulse Rate from SpO2 Sensor 84 76 Pulse Strength [Left] Respiratory Rate 14 12 12 Respiratory Effort / Characteristics Respiratory Depth Respiratory Pattern Blood Pressure Blood Pressure [Left Arm] Blood Pressure Mean Blood Pressure Mean [Left Arm] Blood Pressure Position Blood Pressure Position [Left Arm] Pulse Oximetry 96 97 Oxygen Delivery Method Sepsis Recent Fever Within 48 Hours Sepsis New/Unexplained Change in Mental Status Sepsis Action Taken by Nursing 10/06/23 12:20 10/06/23 12:30 10/06/23 12:30 Temperature Temperature Source Pulse Rate 86 80 Pulse Rate [Left] Pulse Rate from SpO2 Sensor 79 Pulse Strength [Left] Respiratory Rate 22 13 Respiratory Effort / Characteristics Respiratory Depth Respiratory Pattern Blood Pressure 140/86 Blood Pressure [Left Arm] Blood Pressure Mean 92 Blood Pressure Mean [Left Arm] Blood Pressure Position Blood Pressure Position [Left Arm] Pulse Oximetry 98 Oxygen Delivery Method Sepsis Recent Fever Within 48 Hours Sepsis New/Unexplained Change in Mental Status Sepsis Action Taken by Nursing 10/06/23 12:40 10/06/23 12:45 10/06/23 12:45 Temperature Temperature Source Pulse Rate 79 87 Pulse Rate [Left] Pulse Rate from SpO2 Sensor 79 89 Pulse Strength [Left] Respiratory Rate 19 19 Respiratory Effort / Characteristics Respiratory Depth Respiratory Pattern Blood Pressure 138/79 Blood Pressure [Left Arm] Blood Pressure Mean 98 Blood Pressure Mean [Left Arm] Blood Pressure Position Blood Pressure Position [Left Arm] Pulse Oximetry 97 96 Oxygen Delivery Method Sepsis Recent Fever Within 48 Hours Sepsis New/Unexplained Change in Mental Status Sepsis Action Taken by Nursing 10/06/23 12:50 10/06/23 13:00 10/06/23 13:00 Temperature Temperature Source Pulse Rate 77 72 Pulse Rate [Left] Pulse Rate from SpO2 Sensor 80 72 Pulse Strength [Left] Respiratory Rate 16 19 Respiratory Effort / Characteristics Respiratory Depth Respiratory Pattern Blood Pressure 135/75 Blood Pressure [Left Arm] Blood Pressure Mean 96 Blood Pressure Mean [Left Arm] Blood Pressure Position Blood Pressure Position [Left Arm] Pulse Oximetry 97 96 Oxygen Delivery Method Sepsis Recent Fever Within 48 Hours Sepsis New/Unexplained Change in Mental Status Sepsis Action Taken by Nursing 10/06/23 13:10 10/06/23 13:15 10/06/23 13:15 Temperature Temperature Source Pulse Rate 76 75 Pulse Rate [Left] Pulse Rate from SpO2 Sensor 76 78 Pulse Strength [Left] Respiratory Rate 20 20 Respiratory Effort / Characteristics Respiratory Depth Respiratory Pattern Blood Pressure 133/72 Blood Pressure [Left Arm] Blood Pressure Mean 88 Blood Pressure Mean [Left Arm] Blood Pressure Position Blood Pressure Position [Left Arm] Pulse Oximetry 95 95 Oxygen Delivery Method Sepsis Recent Fever Within 48 Hours Sepsis New/Unexplained Change in Mental Status Sepsis Action Taken by Nursing 10/06/23 13:20 10/06/23 13:28 10/06/23 13:30 Temperature Temperature Source Pulse Rate 78 76 75 Pulse Rate [Left] Pulse Rate from SpO2 Sensor 78 75 Pulse Strength [Left] Respiratory Rate 13 20 Respiratory Effort / Characteristics Respiratory Depth Respiratory Pattern Blood Pressure Blood Pressure [Left Arm] Blood Pressure Mean Blood Pressure Mean [Left Arm] Blood Pressure Position Blood Pressure Position [Left Arm] Pulse Oximetry 97 93 Oxygen Delivery Method Sepsis Recent Fever Within 48 Hours Sepsis New/Unexplained Change in Mental Status Sepsis Action Taken by Nursing 10/06/23 13:40 10/06/23 13:45 10/06/23 13:45 Temperature Temperature Source Pulse Rate 100 H 85 Pulse Rate [Left] Pulse Rate from SpO2 Sensor Pulse Strength [Left] Respiratory Rate 21 16 Respiratory Effort / Characteristics Respiratory Depth Respiratory Pattern Blood Pressure 151/84 H Blood Pressure [Left Arm] Blood Pressure Mean 99 Blood Pressure Mean [Left Arm] Blood Pressure Position Blood Pressure Position [Left Arm] Pulse Oximetry Oxygen Delivery Method Sepsis Recent Fever Within 48 Hours Sepsis New/Unexplained Change in Mental Status Sepsis Action Taken by Nursing 10/06/23 13:50 10/06/23 14:00 10/06/23 14:00 Temperature Temperature Source Pulse Rate 92 H 90 Pulse Rate [Left] Pulse Rate from SpO2 Sensor 91 H 90 Pulse Strength [Left] Respiratory Rate 12 21 Respiratory Effort / Characteristics Respiratory Depth Respiratory Pattern Blood Pressure 165/99 H Blood Pressure [Left Arm] Blood Pressure Mean 107 Blood Pressure Mean [Left Arm] Blood Pressure Position Blood Pressure Position [Left Arm] Pulse Oximetry 98 98 Oxygen Delivery Method Sepsis Recent Fever Within 48 Hours Sepsis New/Unexplained Change in Mental Status Sepsis Action Taken by Nursing Laboratory Data 10/06/23 09:54 10/06/23 Unknown Lab Results 10/06/23 10/06/23 10/06/23 Range/Units 09:47 09:54 12:50 WBC 9.05 (4.8-10.8) K/ul RBC 4.15 L (4.70-6.10) M/uL Hgb 14.0 (14.0-18.0) g/dl Hct 39.3 L (42.0-52.0) % MCV 94.7 (80.0-100.0) fL MCH 33.7 (25.0-34.0) pg MCHC 35.6 (32.0-36.0) g/dL RDW Std Deviation 44.2 (36.4-46.3) fL RDW Coeff of Maxi 12.7 (11.5-14.5) % Plt Count 185 (130-400) K/uL MPV 10.0 (9.4-12.4) fL Immature Gran % (Auto) 0.3 % Neut % (Auto) 67.5 % Lymph % (Auto) 21.2 % [place] % (Auto) 10.5 % Eos % (Auto) 0.1 % Baso % (Auto) 0.4 % Neut # (Auto) 6.10 (1.40-6.50) K/uL Lymph # (Auto) 1.92 (1.20-3.40) K/uL [place] # (Auto) 0.95 H (0.11-0.59) K/uL Eos # (Auto) 0.01 (0.00-0.50) K/uL Baso # (Auto) 0.04 (0.00-0.20) K/uL Immature Gran # (Auto) 0.03 (0.01-0.20) K/uL PT 9.8 (9.0-12.0) Seconds INR 0.9 (0.9-1.1) Sodium 131 L (136-145) mmol/L Potassium 3.7 (3.5-5.1) mmol/L Chloride 83 L (98-107) mmol/L Carbon Dioxide 22 (21-32) mmol/L Anion Gap 26 H (3-11) BUN 23 (6-23) mg/dl Creatinine 1.81 H (0.6-1.4) mg/dl Est Cr Clr Drug Dosing 59.5 ml/min Est GFR ( Amer) 53.0 ml/min Est GFR (Non-Af Amer) 45.7 ml/min BUN/Creatinine Ratio 12.7 (10-20) Glucose 169 H (70-99(Fasting)) mg/dl POC Glucose 179 H 158 H (70-99) mg/dl Calcium 10.4 H (8.6-10.3) mg/dl Magnesium 2.4 (1.7-2.4) mg/dl Total Bilirubin 1.6 H (0.2-1.0) mg/dl AST 217 H (13-39) U/L ALT 194 H (7-52) U/L Alkaline Phosphatase 104 (34-104) U/L Troponin I High Sens 10.3 (0-20) pg/ml Total Protein 8.5 H (6.0-8.3) gm/dl Albumin 5.4 H (3.4-5.0) gm/dl Globulin 3.1 (2.5-4.0) gm/dl Albumin/Globulin Ratio 1.7 (0.9-2) Lipase 44 (11-82) U/L TSH 3.376 (0.300-4.500) uIu/ml Urine Color Urine Appearance (Clear) Urine pH (4.5-7.5) Ur Specific [place] (1.000-1.030) Urine Protein (Negative) Urine Glucose (UA) (Negative) Urine Ketones (Negative) Urine Blood (Negative) Urine Nitrite (Negative) Urine Bilirubin (Negative) Urine Urobilinogen (Negative) Ur Leukocyte Esterase (Negative) Urine WBC (Auto) (0-5) /hpf Urine RBC (Auto) (0-4) /hpf U Hyaline Cast (Auto) (0-5) /lpf U Epithel Cells (Auto) (0-5) /lpf Urine Bacteria (Auto) (Negative) Urine Opiates Screen (Neg) Ur Methadone, Qual (Neg) Urine Barbiturates (Neg) Ur Phencyclidine (PCP) (Neg) U Amphetamin/Meth Scrn (Neg) MDMA (Ecstasy) Screen (Neg) U Benzodiazepines Scrn (Neg) Ur Cocaine Metabolite (Neg) U Marijuana (THC) Screen (Neg) Ethyl Alcohol mg/dL 132.8 H (<10.0) mg/dl 10/06/23 10/06/23 Range/Units 14:00 Unknown WBC (4.8-10.8) K/ul RBC (4.70-6.10) M/uL Hgb (14.0-18.0) g/dl Hct (42.0-52.0) % MCV (80.0-100.0) fL MCH (25.0-34.0) pg MCHC (32.0-36.0) g/dL RDW Std Deviation (36.4-46.3) fL RDW Coeff of Maxi (11.5-14.5) % Plt Count (130-400) K/uL MPV (9.4-12.4) fL Immature Gran % (Auto) % Neut % (Auto) % Lymph % (Auto) % [place] % (Auto) % Eos % (Auto) % Baso % (Auto) % Neut # (Auto) (1.40-6.50) K/uL Lymph # (Auto) (1.20-3.40) K/uL [place] # (Auto) (0.11-0.59) K/uL Eos # (Auto) (0.00-0.50) K/uL Baso # (Auto) (0.00-0.20) K/uL Immature Gran # (Auto) (0.01-0.20) K/uL PT (9.0-12.0) Seconds INR (0.9-1.1) Sodium 132 L (136-145) mmol/L Potassium 4.1 (3.5-5.1) mmol/L Chloride 91 L (98-107) mmol/L Carbon Dioxide 23 (21-32) mmol/L Anion Gap 18 H (3-11) BUN 19 (6-23) mg/dl Creatinine 1.31 D (0.6-1.4) mg/dl Est Cr Clr Drug Dosing 82.3 ml/min Est GFR ( Amer) 78.4 ml/min Est GFR (Non-Af Amer) 67.6 ml/min BUN/Creatinine Ratio 14.5 (10-20) Glucose 143 H (70-99(Fasting)) mg/dl POC Glucose 148 H (70-99) mg/dl Calcium 8.4 L D (8.6-10.3) mg/dl Magnesium (1.7-2.4) mg/dl Total Bilirubin 1.1 H (0.2-1.0) mg/dl AST 150 H (13-39) U/L ALT 144 H (7-52) U/L Alkaline Phosphatase 83 (34-104) U/L Troponin I High Sens (0-20) pg/ml Total Protein 6.6 D (6.0-8.3) gm/dl Albumin 4.2 (3.4-5.0) gm/dl Globulin 2.4 L (2.5-4.0) gm/dl Albumin/Globulin Ratio 1.8 (0.9-2) Lipase (11-82) U/L TSH (0.300-4.500) uIu/ml Urine Color Yellow Urine Appearance Clear (Clear) Urine pH 5.5 (4.5-7.5) Ur Specific [place] 1.042 H (1.000-1.030) Urine Protein 1+ H (Negative) Urine Glucose (UA) 1+ H (Negative) Urine Ketones 2+ H (Negative) Urine Blood Negative (Negative) Urine Nitrite Negative (Negative) Urine Bilirubin Negative (Negative) Urine Urobilinogen Negative (Negative) Ur Leukocyte Esterase Negative (Negative) Urine WBC (Auto) 1-5 (0-5) /hpf Urine RBC (Auto) 0-4 (0-4) /hpf U Hyaline Cast (Auto) 10-30 H (0-5) /lpf U Epithel Cells (Auto) 20-30 H (0-5) /lpf Urine Bacteria (Auto) Negative (Negative) Urine Opiates Screen Neg (Neg) Ur Methadone, Qual Neg (Neg) Urine Barbiturates Neg (Neg) Ur Phencyclidine (PCP) Neg (Neg) U Amphetamin/Meth Scrn Neg (Neg) MDMA (Ecstasy) Screen Neg (Neg) U Benzodiazepines Scrn Neg (Neg) Ur Cocaine Metabolite Neg (Neg) U Marijuana (THC) Screen Neg (Neg) Ethyl Alcohol mg/dL (<10.0) mg/dl Administered Medications Discontinued Medications Chlordiazepoxide HCl (Chlordiazepoxide Alcohol Withdrawl 25mg) 1 each PO NOW STA; Protocol Stop: 10/06/23 14:26 Last Admin: 10/06/23 14:45 Dose: Not Given Documented By: ARCHANA Diazepam (Diazepam 5 Mg/Ml 10ml Vial) 10 mg IV NOW STA Stop: 10/06/23 09:53 Last Admin: 10/06/23 09:59 Dose: 10 mg Documented By: DAVE Diazepam (Diazepam 5 Mg/Ml 10ml Vial) 10 mg IV NOW STA Stop: 10/06/23 12:33 Last Admin: 10/06/23 12:42 Dose: 10 mg Documented By: STANLEY Sodium Chloride (Nss) 1,000 mls @ 999 mls/hr IV .Q1H1M ONE Stop: 10/06/23 10:52 Last Admin: 10/06/23 09:59 Dose: 999 mls/hr Documented By: NH Pantoprazole Sodium 40 mg/ (Syringe) 10 mls @ 5 mls/min IV NOW ONE Stop: 10/06/23 09:53 Last Admin: 10/06/23 10:07 Dose: 5 mls/min Documented By: DS Multivitamins 10 ml/ Thiamine HCl 100 mg/ Folic Acid 1 mg/Sodium Chloride 1,011.2 mls @ 250 mls/hr IV .Q4H3M ONE Stop: 10/06/23 13:55 Last Admin: 10/06/23 11:06 Dose: 250 mls/hr Documented By: DAVE Magnesium Sulfate/Dextrose (Magnesium Sulfate / D5w) 1 gm in 100 mls @ 100 mls/hr IV NOW STA Stop: 10/06/23 11:26 Last Infusion: 10/06/23 13:53 Dose: Infused Documented By: Admin: 10/06/23 10:43 Dose: 100 mls/hr Documented By: DAVE Sodium Chloride (Nss) 1,000 mls @ 999 mls/hr IV .Q1H1M ONE Stop: 10/06/23 12:02 Last Admin: 10/06/23 11:09 Dose: 999 mls/hr Documented By: DAVE Ioversol (Optiray 320 100ml) 93 ml IV ONCE ONE Stop: 10/06/23 11:50 Last Admin: 10/06/23 11:49 Dose: 93 ml Documented By: TAYLOR Ondansetron HCl (Ondansetron Inj 2 Mg/Ml 2 Ml Vial) Confirm Administered Dose 4 mg .ROUTE .STK-MED ONE Stop: 10/06/23 11:28 Last Admin: 10/06/23 11:29 Dose: 4 mg Documented By: STANLEY Imaging Data Radiologist's Impression: Abdomen/Pelvis CT 10/06/23 11:02 CT abd pelvis IV con only CLINICAL HISTORY: abd pain, n/v TECHNIQUE: Helical axial images of the abdomen and pelvis were obtained and displayed. Automated dose lowering techniques and/or adjustment according to patient size were utilized for this exam. This exam was performed with intravenous contrast. CT DOSE: 775.32 mGy.cm COMPARISON: Comparison is made to CT abdomen pelvis 07/28/2023 FINDINGS: Lower chest: No acute abnormality. Liver: Hepatic steatosis is noted. Gallbladder and biliary tree: No calcified gallstones. Normal caliber wall. No intra- or extrahepatic biliary ductal dilation. Pancreas: Unremarkable, no focal lesions. Spleen: Unremarkable. Adrenals: Unremarkable. Kidneys and ureters: Unremarkable. Bladder: Unremarkable. Reproductive organs: Unremarkable. Bowel: There is mild thickening of the descending colon wall which may represent underdistention. No surrounding fat stranding is seen. The appendix is normal. Lymph nodes Retroperitoneal: Unremarkable. Pelvic: Unremarkable. Mesenteric: Unremarkable. Peritoneum: Normal. Vessels: Atherosclerotic calcifications are seen. Abdominal wall: Postsurgical changes of inguinal hernia repair noted. Bones: Mild degenerative changes are seen. IMPRESSION: 1. Mild thickening of the descending colonic wall is nonspecific and likely due to underdistention. A very mild colitis cannot be entirely excluded. 2. Hepatic steatosis. ACT 112: Negative or not required by law. Electronically signed by: Butch Molina M.D. 10/06/2023 12:18 PM Discharge Plan Visit Data Chief Complaint: Detox Request Stated Complaint: alcohol withdrawl ED Provider: Kasia Jain Discharge Problem: Nausea & vomiting, Alcohol withdrawal, Abdominal pain, Dehydration, Alcohol intoxication, Alcohol abuse Forms Stand Alone Forms: [facility], Suicide Prevention Resources Prescriptions Prescriptions: No Action amlodipine 5 mg Tablet 0 mg PO DAILY Rx Instructions: PT UNSURE OF STRENGTH, UNABLE TO VERIFY. insulin glargine [Basaglar KwikPen U-100 Insulin] 100 unit/mL (3 mL) Insulin Pen 12 unit SUBCUT QDB Qty: 15 0RF Rx Instructions: takes 10 units BID trazodone 100 mg Tablet 100 mg PO HS PRN (Reason: Sleep) Rx Instructions: UNABLE TO VERIFY. lisinopril 10 mg Tablet 10 mg PO BID Rx Instructions: UNABLE TO VERIFY methocarbamol 750 mg Tablet 750 - 1,500 mg PO Q8H PRN (Reason: Muscle Spasm) Rx Instructions: UNABLE TO VERIFY multivitamin Tablet 1 tab PO QAM Qty: 30 0RF Rx Instructions: UNABLE TO VERIFY thiamine HCl (vitamin B1) [Vitamin B-1] 100 mg Tablet 100 mg PO QAM Qty: 30 0RF Rx Instructions: UNABLE TO VERIFY folic acid 1 mg tablet 1 mg PO DAILY Qty: 30 0RF Rx Instructions: UNABLE TO VERIFY Eliquis 5 mg tablet 5 mg PO BID insulin lispro 100 unit/mL solution 10 unit SUBCUT UD Rx Instructions: reports taking 3-10 units with meals Referrals Referrals: PCP,NO [Primary Care Provider] -
[2023-10-06 10:17] LABS: Basophils # (auto) 0.04 K/uL (0.00-0.20); Basophils % (auto) 0.4 %; Eosinophils # (auto) 0.01 K/uL (0.00-0.50); Eosinophils % (auto) 0.1 %; Hematocrit (blood only) 39.3 % (42.0-52.0); Immature Granulocytes # (auto) 0.03 K/uL (0.01-0.20); Immature Granulocytes % (auto) 0.3 %; Lymphocytes # (auto) 1.92 K/uL (1.20-3.40); Lymphocytes % (auto) 21.2 %; Mean Corpuscular Hemoglobin 33.7 pg (25.0-34.0); Mean Corpuscular Hgb Conc 35.6 g/dL (32.0-36.0); Mean Corpuscular Volume 94.7 fL (80.0-100.0); Monocytes # (auto) 0.95 K/uL (0.11-0.59); Monocytes % (auto) 10.5 %; Neutrophils % (auto) 67.5 %; Platelet Count 185 K/uL (130-400); RDW Coefficient of Variation 12.7 % (11.5-14.5); RDW Standard Deviation 44.2 fL (36.4-46.3); Red Blood Count 4.15 M/uL (4.70-6.10); White Blood Count 9.05 K/ul (4.8-10.8)
[2023-10-06 10:40] LABS: Albumin Globulin Ratio 1.7 (0.9-2); Albumin Level 5.4 gm/dl (3.4-5.0); BUN Creatinine Ratio 12.7 (10-20); Bilirubin,Total 1.6 mg/dl (0.2-1.0); Calcium 10.4 mg/dl (8.6-10.3); Creatinine Clr Calc Pharmacy 59.5 ml/min; Est GFR (Non-African American) 45.7 ml/min; Globulin 3.1 gm/dl (2.5-4.0); Magnesium 2.4 mg/dl (1.7-2.4); Potassium 3.7 mmol/L (3.5-5.1); Total Protein 8.5 gm/dl (6.0-8.3)
[2023-10-06 10:41] LABS: INR 0.9 (0.9-1.1); Prothrombin Time 9.8 Seconds (9.0-12.0)
[2023-10-06 10:42] LABS: Troponin I High Sensitivity 10.3 pg/ml (0-20)
[2023-10-06] MEDS: MAGNESIUM SULFATE / D5W 1 GM/100 ML BAG IV STA (10:43)
[2023-10-06 10:51] LABS: Thyroid Stimulating Hormone 3.376 uIu/ml (0.300-4.500)
[2023-10-06] MEDS: MULTI-VITAMIN INFUSION 10 ML, THIAMINE HCL 100 MG, FOLIC ACID 1 MG in SODIUM CHLORIDE 0... IV ONE (11:06)
[2023-10-06] MEDS: ONDANSETRON INJ 2 MG/ML 2 ML VIAL ONE (11:29)
[2023-10-06] MEDS: OPTIRAY 320 100ml IV ONE (11:49)
--- NOTE | 2023-10-06 12:19 | CT Scan Report ---
CT abd pelvis IV con only CLINICAL HISTORY: abd pain, n/v TECHNIQUE: Helical axial images of the abdomen and pelvis were obtained and displayed. Automated dose lowering techniques and/or adjustment according to patient size were utilized for this exam. This e xam was performed with intravenous contrast. CT DOSE: 775.32 mGy.cm COMPARISON: Comparison is made to CT abdomen pelvis 07/28/2023 FINDINGS: Lower chest: No acute abnormality. Liver: Hepatic steatosis is noted. Gallbladder and biliary tree: No calcified gallstones. Normal caliber wall. No intra- or extrahepatic biliary ductal dilation. Pancreas: Unremarkable, no focal lesions. Spleen: Unremarkable. Adrenals: Unremarkable. Kidneys and ureters: Unremarkable. Bladder: Unremarkable. Reproductive organs: Unremarkable. Bowel: There is mild thickening of the descending colon wall which may represent underdistention. No surrounding fat stranding is seen. The appendix is normal. Lymph nodes Retroperitoneal: Unremarkable. Pelvic: Unremarkable. Mesenteric: Unremarkable. Peritoneum: Normal. Vessels: Atherosclerotic calcifications are seen. Abdominal wall: Postsurgical changes of inguinal hernia repair noted. Bones: Mild degenerative changes are seen. IMPRESSION: 1. Mild thickening of the descending colonic wall is nonspecific and likely due to underdistention. A very mild colitis cannot be entirely excluded. 2. Hepatic steatosis. ACT 112: Negative or not required by law. Electronically signed by: Butch Molina M.D. 10/06/2023 12:18 PM
[2023-10-06 13:53] LABS: Appearance Urine Clear (Clear); Bacteria Urine Automated Negative (Negative); Bilirubin Urine Negative (Negative); Blood Urine Negative (Negative); Color Urine Yellow; Epithelial Cell Urine Auto 20-30 /lpf (0-5); Glucose Urine UA 1+ (Negative); Ketones Urine 2+ (Negative); Leukocyte Esterase Urine Negative (Negative); Nitrite Urine Negative (Negative); Protein Urine 1+ (Negative); RBC Urine Automated 0-4 /hpf (0-4); Specific Gravity Urine 1.042 (1.000-1.030); Urobilinogen Urine Negative (Negative); pH Urine 5.5 (4.5-7.5)
--- NOTE | 2023-10-06 13:58 | History & Physical Report ---
Date of Service October 06, 2023 Assessment & Plan (1) Alcohol withdrawal: Plan: Alcohol abuse, history of withdrawal/DT without seizures, with alcoholic hepatitis 1520 shots of vodka intake daily. Last drink 5 AM on 10/06/2023. Alcohol level at 0954 132.8 Patient reports that he has a rehab that he would like to go to, is now agreeable to this. 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 bili 1.6, AST/ALT elevated at 217/194 CTA/P: Mild thickening of descending colon nonspecific, mild colitis is not excluded. No evidence of pancreatitis or biliary disease transaminitis due to alcohol. Lipase is normal. Downtrending on recheck. No evidence of fulminant hepatitis. Discriminant function is not >32, steroids not currently indicated Received Valium 10 mg x 2 front loaded while in the ER Continue Librium taper with [facility] active protocol. Patient reports that he generally feels he does not do well with Valium but has done well with Librium in the past. Does not think he has been on phenobarbital. Has required Precedex in the past for severe withdrawal Thiamine, folic acid daily Protonix continued for gastric protection Admit to PCU CM consulted to help facilitate rehab arrangement - Zofran q4h PRN for nausea. QT slightly prolonged, follow continuous tele. If lengthens --> dc. Mg 2.4 on admit. (2) T1DM (type 1 diabetes mellitus): Plan: Type 1 diabetes mellitus [employer] on glargine 12 units daily, lispro On admission is with BSG mid 100s S/p banana bag and 2 L NSS VBG pending. Anion gap likely elevated in setting of alcohol abuse with positive alcohol on admission. Bicarb is not suppressed. Continue basal bolus insulin on admission Full liquids, may advance type I DM if no abdominal pain/nausea/vomiting. If significantly acidotic, bicarb decreasing/BSG increasing consistent with DKA than switch to n.p.o. and initiate insulin gtt. (3) ALFREDO (acute kidney injury): Plan: ALFREDO Baseline creatinine less than 1 Creatinine 1.81 on admission Likely prerenal, s/p fluids as noted Trend daily, renally adjust medications as needed (4) HTN (hypertension): Plan: Hypertension Lisinopril held for ALFREDO - Amlodipine continued - Clonidine previously discontinued (5) History of atrial fibrillation: Plan: Afib - EKG sinus on admit, qt 508 - Currently on eliquis. He took this yeseterday . No hematochezia/hematemsis/melena - Only is aware of 1 episode of afib. [id number] 2 points Suspect that patient's A-fib was provoked in setting of alcohol use; however given [id number] of 2 with continued provoking factors and unknown A-fib burden outside of the hospital will continue anticoagulation with Eliquis at this time. If patient remains sober could consider an outpatient Holter monitor once abstinent from alcohol and if low A-fib burden discontinue this at that point. (6) Abdominal pain: Plan: Suspect acute alcoholic hepatitis with gastritis. 1028 episodes of nonbloody nonbilious emesis in the last 24 hours with alcohol use Continue PPI, H2 For liquids as tolerated, if discomfort worsens with meals can switch to n.p.o. and add D5 LR at 125 cc/h for maintenance. If doing well and no symptoms can advance to type I DM (7) Depressed: Plan: Depression: Continue sertraline, trazodone Plan DVT prophylaxis: Eliquis PCU Full code Diet: Full liquids on a History of Present Illness Primary Care Provider: NO PCP Sid is a 38-year-old male with a past medical history of type 1 diabetes, hypertension, A-fib, and alcohol dependence with withdrawal/DT who was last admitted 07/28/2023 - 07/29/2023 for DKA and 2 at the time had mild alcohol withdrawal medically controlled with 1 dose of lorazepam and discharged on Librium taper. He presents to the ER with nausea/vomiting/abdominal pain and a feeling of worsening alcohol withdrawal. Has been drinking 15-20 shots of vodka daily with last alcohol intake at 5 AM Sid reports 'I am detoxing right now'. Wants to reduce his alcohol intake. Currently drinking ~20 shtos of vodka per day. 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 Would like to get sober and stable enough to followup with that facility. DM1. Normally on glargine 10-12u daily, lispro with meals usually between 3 and 10 units depending on his blood sugar. Takes 3u if BSG is 180, up to 10 units if 300 or above. Took 9u of lispro shortly before coming in Peeing much less than normal. Feels dehydrated. Urine dark. No burning. No fevers, but does get cold sweats with withdrawal No shortness of breath, no dyspnea No chest pain/pressure does get a little anxious Throat is sore from vomiting. Vomiting 20-30 times in the last day, no blood. No bloody or black BMs/ Medical History: Reviewed Medications: Reviewed Surgical History: Reviewed Family history: Reviewed Allergies: Reviewed Social History: Intermittent cigarettes socially. No vaping. Former marijuana. D enies rec drug use. Code Status: Full Code Allergies Allergy/AdvReac Type Severity Reaction Status Date / Time No Known Allergies Allergy Verified 07/28/23 19:30 Home Medications Medication Instructions Recorded Confirmed Type lisinopril 10 mg tablet 10 mg PO BID 05/14/23 10/06/23 History methocarbamol 750 mg tablet 750 - 1,500 mg PO Q8H PRN Muscle 05/14/23 10/06/23 History Spasm trazodone 100 mg tablet 100 mg PO HS PRN Sleep 05/14/23 10/06/23 History folic acid 1 mg tablet 1 mg PO DAILY #30 tabs 05/16/23 10/06/23 Rx multivitamin 1 tab PO QAM #30 tabs 05/16/23 10/06/23 Rx thiamine HCl (vitamin B1) 100 mg 100 mg PO QAM #30 tabs 05/16/23 10/06/23 Rx tablet (Vitamin B-1) amlodipine 5 mg tablet 0 mg PO DAILY 07/28/23 10/06/23 History insulin glargine 100 unit/mL (3 12 unit (0.12 mL) subcut QDB #15 mL 07/29/23 10/06/23 Rx mL) subcutaneous pen (Basaglar KwikPen U-100 Insulin) apixaban 5 mg tablet (Eliquis) 5 mg PO BID 10/06/23 10/06/23 History insulin lispro 100 unit/mL 10 unit subcut UD 10/06/23 10/06/23 History subcutaneous solution Past Med/Surg History Social History Smoking Status: Current some day smoker Tobacco Type: Cigarettes Hx Alcohol Use: Yes Alcohol type: hard liquor Hx Substance Use: No Preferred Language: Chinese Communication Ability: Effective Renewals Manager Required: No Beliefs That Will Affect Care: None Current Living Situation: Alone Feels Safe at Home: Yes Assistive Devices: None Physical Exam Physical Exam: General: A&Ox3. NAD. Cooperative. HEENT: Atraumatic, normocephalic. Pulm: CTAB A&P. -wheezes, -rales, -rhonchi. Symmetrical chest rise. No increased work of breathing. No respiratory distress. Cardiac: regular, tachycardic, -mrg. Radial pulses intact and symmetrical. Abdominal: Soft, without guarding/rebound. +Epigastric and trace RUQ TTP. BS present, increased. Ext: Skin is warm, moist. Slightly tremulous with hand extension, no asterixis Results & Data Results & Data Vital Signs (Past 12 Hours) Vital Signs Temp Pulse Pulse Resp BP BP Pulse Ox 10/06/23 13:50 92 H 12 98 10/06/23 13:45 85 16 10/06/23 13:45 151/84 H 10/06/23 13:40 100 H 21 10/06/23 13:30 75 20 93 10/06/23 13:28 76 10/06/23 13:20 78 13 97 10/06/23 13:15 75 20 95 10/06/23 13:15 133/72 10/06/23 13:10 76 20 95 10/06/23 13:00 72 19 96 10/06/23 13:00 135/75 10/06/23 12:50 77 16 97 10/06/23 12:45 87 19 96 10/06/23 12:45 138/79 10/06/23 12:40 79 19 97 10/06/23 12:30 80 13 98 10/06/23 12:30 140/86 10/06/23 12:20 86 22 10/06/23 12:10 76 12 10/06/23 12:00 76 12 97 10/06/23 11:40 83 14 96 10/06/23 11:30 91 H 10 L 97 10/06/23 11:30 138/77 04/02/24 11:20 96 H 19 99 10/06/23 11:15 84 16 95 10/06/23 11:15 136/81 10/06/23 11:00 83 21 131/80 95 10/06/23 10:45 90 12 133/82 96 10/06/23 10:31 96 H 19 144/91 H 98 10/06/23 10:15 90 19 132/77 96 10/06/23 10:00 99 H 15 140/89 97 10/06/23 10:00 36.9 C 96 H 17 140/89 98 10/06/23 09:55 107 H 14 122/95 98 10/06/23 09:52 120 H 10/06/23 09:48 120 H 20 142/108 H 98 10/06/23 09:35 36.8 C 130 H 18 122/94 97 O2 Del Method 10/06/23 13:50 10/06/23 13:45 10/06/23 13:45 10/06/23 13:40 10/06/23 13:30 10/06/23 13:28 10/06/23 13:20 10/06/23 13:15 10/06/23 13:15 10/06/23 13:10 10/06/23 13:00 10/06/23 13:00 10/06/23 12:50 10/06/23 12:45 10/06/23 12:45 10/06/23 12:40 10/06/23 12:30 10/06/23 12:30 10/06/23 12:20 10/06/23 12:10 10/06/23 12:00 10/06/23 11:40 10/06/23 11:30 10/06/23 11:30 10/06/23 11:20 10/06/23 11:15 10/06/23 11:15 10/06/23 11:00 Room Air 10/06/23 10:45 Room Air 10/06/23 10:31 Room Air 10/06/23 10:15 Room Air 10/06/23 10:00 Room Air 10/06/23 10:00 Room Air 10/06/23 09:55 Room Air 10/06/23 09:52 10/06/23 09:48 Room Air 10/06/23 09:35 Room Air PG Care Time/CCT Total # of Minutes Spent Total Time Spent with Patient: Total time spent is greater than 50% in coordination of care (as documented) at patient's floor/unit and/or counseling patient: Coding Level of Care Code 21847 INT INP/OBS CARE 3/75MIN Diagnoses Alcohol withdrawal F10.939 T1DM (type 1 diabetes mellitus) E10.9 ALFREDO (acute kidney injury) N17.9 HTN (hypertension) I10 History of atrial fibrillation Z86.79 Abdominal pain R10.9 Depressed F32.A
[2023-10-06 14:14] LABS: Amphetamines+Metham, Urine Neg (Neg); Barbiturates, Urine Neg (Neg); Benzodiazepine, Urine Neg (Neg); Cocaine, Urine Neg (Neg); MDMA (Ecstacy), Urine Neg (Neg); Marijuana, Urine Neg (Neg); Methadone, Urine Neg (Neg); Opiate, Urine Neg (Neg); Phencyclidine, Urine Neg (Neg)
[2023-10-06] MEDS ORDERED: ONDANSETRON INJ 2 MG/ML 2 ML VIAL IV PRN (14:25)
[2023-10-06] MEDS ORDERED: LORazepam 3 MG in SYRINGE 1.5 ML IV PRN (14:25)
[2023-10-06] MEDS ORDERED: Ativan IV Alcohol Withdrawal--Active Protocol IV PRN (14:25)
[2023-10-06] MEDS ORDERED: LORazepam 2 MG in SYRINGE 1 ML IV PRN (14:25)
[2023-10-06] MEDS ORDERED: GLUCOSE 10 TAB/TUBE PO PRN (14:34)
[2023-10-06] MEDS ORDERED: DEXTROSE 50% 50 ML SYRINGE IV PRN (14:34)
[2023-10-06] MEDS ORDERED: GLUCOSE 40% GEL 15 GM TUBE PO PRN (14:34)
[2023-10-06] MEDS ORDERED: PHARMACY GLYCEMIC MGMT CONSULT PRN (14:34)
[2023-10-06] MEDS ORDERED: CARBOHYDRATES FOR HYPOGLYCEMIA PO PRN (14:34)
[2023-10-06] MEDS ORDERED: GLUCAGON FOR INJ 1 MG VIAL SQ PRN (14:34)
[2023-10-06 14:40] LABS: Albumin Globulin Ratio 1.8 (0.9-2); Albumin Level 4.2 gm/dl (3.4-5.0); BUN Creatinine Ratio 14.5 (10-20); Bilirubin,Total 1.1 mg/dl (0.2-1.0); Calcium 8.4 mg/dl (8.6-10.3); Creatinine Clr Calc Pharmacy 82.3 ml/min; Est GFR (African American) 78.4 ml/min; Est GFR (Non-African American) 67.6 ml/min; Globulin 2.4 gm/dl (2.5-4.0); Potassium 4.1 mmol/L (3.5-5.1); Total Protein 6.6 gm/dl (6.0-8.3)
[2023-10-06] MEDS: chlordiazePOXIDE ALCOHOL WITHDRAWL 25MG PO STA (14:45)
[2023-10-06] MEDS: chlordiazePOXIDE HCl 25 MG CAP PO SCH ×2 (15:45→20:27)
[2023-10-06] MEDS: LACTATED RINGER'S 500 ML IV ONE (15:45)
[2023-10-06] MEDS ORDERED: traZODone HCL 100 MG TAB PO PRN (16:11)
[2023-10-06] MEDS: LORazepam 1 MG in SYRINGE 0.5 ML IV PRN (16:18)
[2023-10-06 17:18] LABS: Base Excess VBG 1.7 mEq/L; HCO3 VBG 26 mmol/L; Oxygen Saturation VBG 80.9 %; PCO2 VBG 38 mmHg (38-50); PO2 VBG 48 mmHg; pH VBG 7.44 (7.36-7.41)
[2023-10-06] MEDS: LACTATED RINGER'S 1,000 ML IV SCH (17:30)
[2023-10-06] MEDS: amLODIPine BESYLATE 5 MG TAB PO STA (17:30)
[2023-10-06] MEDS: INSULIN ASPART PER UNIT CHARGE SC SCH (18:35)
[2023-10-06] MEDS: APIXABAN 5 MG TABLET PO SCH (20:54)
[2023-10-06] MEDS ORDERED: FAMOTIDINE 20MG IV PUSH 20 MG/5 ML SYR IV PRN (21:00)
[2023-10-06] MEDS: LANTUS PER UNIT CHARGE SQ SCH (21:07)
[2023-10-07] MEDS: INSULIN ASPART PER UNIT CHARGE SC SCH (00:15)
[2023-10-07 04:14] LABS: Albumin Globulin Ratio 1.7 (0.9-2); BUN Creatinine Ratio 14.7 (10-20); Bilirubin,Total 1.1 mg/dl (0.2-1.0); Calcium 9.2 mg/dl (8.6-10.3); Creatinine Clr Calc Pharmacy 113.5 ml/min; Est GFR (African American) 115.6 ml/min; Est GFR (Non-African American) 99.7 ml/min; Globulin 2.3 gm/dl (2.5-4.0); Magnesium 2.3 mg/dl (1.7-2.4); Potassium 4.3 mmol/L (3.5-5.1); Total Protein 6.3 gm/dl (6.0-8.3)
[2023-10-07 05:13] LABS: Basophils # (auto) 0.03 K/uL (0.00-0.20); Basophils % (auto) 0.7 %; Eosinophils # (auto) 0.05 K/uL (0.00-0.50); Eosinophils % (auto) 1.2 %; Hematocrit (blood only) 32.3 % (42.0-52.0); Hemoglobin 11.1 g/dl (14.0-18.0); Immature Granulocytes # (auto) 0.01 K/uL (0.01-0.20); Immature Granulocytes % (auto) 0.2 %; Lymphocytes # (auto) 1.36 K/uL (1.20-3.40); Lymphocytes % (auto) 31.6 %; Mean Corpuscular Hemoglobin 33.9 pg (25.0-34.0); Mean Corpuscular Hgb Conc 34.4 g/dL (32.0-36.0); Mean Corpuscular Volume 98.8 fL (80.0-100.0); Mean Platelet Volume 10.2 fL (9.4-12.4); Monocytes # (auto) 0.39 K/uL (0.11-0.59); Neutrophils # (auto) 2.47 K/uL (1.40-6.50); Neutrophils % (auto) 57.3 %; Platelet Count 102 K/uL (130-400); RDW Coefficient of Variation 13.1 % (11.5-14.5); RDW Standard Deviation 47.2 fL (36.4-46.3); Red Blood Count 3.27 M/uL (4.70-6.10); White Blood Count 4.31 K/ul (4.8-10.8)
[2023-10-07] MEDS ORDERED: LANTUS PER UNIT CHARGE SC SCH (09:00)
[2023-10-07] MEDS: FOLIC ACID 1 MG TAB PO SCH (09:35)
[2023-10-07] MEDS: THIAMINE HCL 100 MG TAB PO SCH (09:35)
[2023-10-07] MEDS: amLODIPine BESYLATE 5 MG TAB PO SCH (09:35)
[2023-10-07] MEDS: LANTUS PER UNIT CHARGE SC SCH (09:36)
--- NOTE | 2023-10-07 09:55 | Pharmacy Report ---
Pharmacy Glycemic Short Note 2 - Date of Service October 07, 2023 - Glycemic Short BSG Results (Last 24 hours): 10/06/23 10/06/23 10/06/23 09:54 12:50 14:00 Glucose 169 H POC Glucose 158 H 148 H 10/06/23 10/06/23 10/06/23 17:27 20:30 Unknown Glucose 143 H POC Glucose 209 H 225 H 10/07/23 10/07/23 10/07/23 00:07 03:40 04:39 Glucose 112 H POC Glucose 110 H 133 H 10/07/23 08:27 Glucose POC Glucose 145 H OUTPATIENT ANTIDIABETIC REGIMEN: * Lantus 12 units SQ daily * Lispro 10 units SQ AC HbA1C: 7.4% (07/28/23) ASSESSMENT: * Pt is a 38 year old male with a history of DM1 admitted with alcohol withdrawal. Pharmacy consulted to assist with inpatient glycemic management. * BSGs [phone]/dL since admission. Ordered a full liquid diet. * Refused Lantus 6 units last night. Will plan for a reduced home dose of basal until diet advanced, ~60%. Novolog mild stress scale. PLAN FOR INPATIENT GLYCEMIC CONTROL: * Hold outpatient oral diabetes medications * Basal insulin * Lantus 7 units SQ daily * Bolus insulin * NovoLog per scale ACHS or Q6hrs while NPO * Goal Range: Low 110 mg/dL - High 150 mg/dL * Correction Factor: 40 mg/dL/unit * Nutritional / Prandial insulin per carb ratio of 1 unit per 12 grams CHO consumed
--- NOTE | 2023-10-07 10:59 | Discharge Summary ---
Date of Service October 07, 2023 Admission HPI Per Admitting Provider Sid is a 38-year-old male with a past medical history of type 1 diabetes, hypertension, A-fib, and alcohol dependence with withdrawal/DT who was last admitted 07/28/2023 - 07/29/2023 for DKA and 2 at the time had mild alcohol withdrawal medically controlled with 1 dose of lorazepam and discharged on Librium taper. He presents to the ER with nausea/vomiting/abdominal pain and a feeling of worsening alcohol withdrawal. Has been drinking 15-20 shots of vodka daily with last alcohol intake at 5 AM Sid reports 'I am detoxing right now'. Wants to reduce his alcohol intake. Currently drinking ~20 shtos of vodka per day. 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 Would like to get sober and stable enough to followup with that facility. DM1. Normally on glargine 10-12u daily, lispro with meals usually between 3 and 10 units depending on his blood sugar. Takes 3u if BSG is 180, up to 10 units if 300 or above. Took 9u of lispro shortly before coming in Peeing much less than normal. Feels dehydrated. Urine dark. No burning. No fevers, but does get cold sweats with withdrawal No shortness of breath, no dyspnea No chest pain/pressure does get a little anxious Throat is sore from vomiting. Vomiting 20-30 times in the last day, no blood. No bloody or black BMs/ Medical History: Reviewed Medications: Reviewed Surgical History: Reviewed Family history: Reviewed Allergies: Reviewed Social History: Intermittent cigarettes socially. No vaping. Former marijuana. Denies rec drug use. Code Status: Full Code Admission Exam Per Admitting Provider General: A&Ox3. NAD. Cooperative. HEENT: Atraumatic, normocephalic. Pulm: CTAB A&P. -wheezes, -rales, -rhonchi. Symmetrical chest rise. No increased work of breathing. No respiratory distress. Cardiac: regular, tachycardic, -mrg. Radial pulses intact and symmetrical. Abdominal: Soft, without guarding/rebound. +Epigastric and trace RUQ TTP. BS present, increased. Ext: Skin is warm, moist. Slightly tremulous with hand extension, no asterixis Principal Diagnosis Alcohol withdrawal Discharge Exam Constitutional WD/WN, vitals as above Eyes + anicteric sclerae; no conjunctival abnormality ENMT Ears: no external ear abnormality Nose: no external nose abnormality Moist mucous membranes Respiratory normal respiratory effort, lungs clear to auscultation Cardiovascular Rate/Rhythm: regular rate and regular rhythm No lower extremity edema Gastrointestinal (Abdomen) Inspection/Auscultation: abdomen normal to inspection; abdomen not distended Percussion/Palpation: abdomen soft; abdomen nontender and no guarding Musculoskeletal Moves all limbs independently Skin no rashes, warm and dry Neurologic no focal motor deficits Psychiatric A+Ox3, euthymic affect Discharge Data Allergies Allergy/AdvReac Type Severity Reaction Status Date / Time No Known Allergies Allergy Verified 07/28/23 19:30 Consultations 10/06/23 14:55 ED Decision to Admit Stat Ordered Studies 10/06/23 11:02 CT abd pelvis IV con only Stat Abdomen/Pelvis CT 10/06/23 11:02 CT abd pelvis IV con only CLINICAL HISTORY: abd pain, n/v TECHNIQUE: Helical axial images of the abdomen and pelvis were obtained and displayed. Automated dose lowering techniques and/or adjustment according to patient size were utilized for this exam. This exam was performed with intravenous contrast. CT DOSE: 775.32 mGy.cm COMPARISON: Comparison is made to CT abdomen pelvis 07/28/2023 FINDINGS: Lower chest: No acute abnormality. Liver: Hepatic steatosis is noted. Gallbladder and biliary tree: No calcified gallstones. Normal caliber wall. No intra- or extrahepatic biliary ductal dilation. Pancreas: Unremarkable, no focal lesions. Spleen: Unremarkable. Adrenals: Unremarkable. Kidneys and ureters: Unremarkable. Bladder: Unremarkable. Reproductive organs: Unremarkable. Bowel: There is mild thickening of the descending colon wall which may represent underdistention. No surrounding fat stranding is seen. The appendix is normal. Lymph nodes Retroperitoneal: Unremarkable. Pelvic: Unremarkable. Mesenteric: Unremarkable. Peritoneum: Normal. Vessels: Atherosclerotic calcifications are seen. Abdominal wall: Postsurgical changes of inguinal hernia repair noted. Bones: Mild degenerative changes are seen. IMPRESSION: 1. Mild thickening of the descending colonic wall is nonspecific and likely due to underdistention. A very mild colitis cannot be entirely excluded. 2. Hepatic steatosis. ACT 112: Negative or not required by law. Electronically signed by: Butch Molina M.D. 10/06/2023 12:18 PM Hospital Course (1) Alcohol abuse: (2) Alcohol intoxication: (3) ALFERDO (acute kidney injury): (4) Dehydration: (5) Depressed: (6) Abdominal pain: Plan Alcohol abuse, history of withdrawal/DT without seizures, with alcoholic hepatitis 1520 shots of vodka intake daily. Last drink 5 AM on 10/06/2023. Alcohol level at 0954 132.8 in ED. Patient reports that he has a rehab that he would like to go to, is now agreeable to this. He is finishing work at a [employer] this week and would like to be stable enough to go to this rehab now that this is almost complete. Transaminitis due to alcohol, no evidence of fulminant hepatitis. Started Librium taper, AWSS scores monitored. Discussed starting Naltrexone, prescription sent to begin this outpatient. Remainder of Librium taper sent to pharmacy. Continue thiamine, folic acid daily. QT slightly prolonged on arrival, repeat EKG with shorter QT prior to discharge. T1DM (type 1 diabetes mellitus) At home, had been on glargine 12 units daily, lispro. Was initially on liquid diet, but able to tolerate regular diet prior to discharge. BSGs in mid 100s. Return to home insulin regimen at discharge. ALFREDO (acute kidney injury)- Resolved Baseline creatinine less than 1. Creatinine 1.81 on admission, returned to baseline at discharge after significant IV hydration. HTN (hypertension) Lisinopril held for ALFREDO, creatinine returned to baseline at discharge. Resume home medications of Amlodipine and Lisinopril. History of atrial fibrillation EKG sinus on admit, qt 508 (repeat QT at day of discharge has lowered). Currently on Eliquis, only is aware of 1 episode of afib. [id number] 2 points. Suspect that patient's A-fib was provoked in setting of alcohol use; however given [id number] of 2 with continued provoking factors and unknown A-fib burden outside of the hospital will continue anticoagulation with Eliquis at this time. If patient remains sober could consider an outpatient Holter monitor once abstinent from alcohol and if low A-fib burden discontinue this at that point. Abdominal pain Suspect acute alcoholic hepatitis with gastritis. 1028 episodes of nonbloody nonbilious emesis in the last 24 hours with alcohol use. Continue PPI, H2. Symptoms resolved at time of discharge. Depression Continue sertraline, trazodone Total Time Total Time Spent Total Time Spent (In Minutes): . Discharge Plan Discharge Items Patient Disposition: Home - Self-Care Reason For Visit: ETOH WITHDRAWAL, TIDM, GASTRITIS Discharge Diagnosis: ETOH withdrawal Activity: Per Instructions section Non-emergency contact: Primary Care Provider Call non-emergency contact if: you have any medication questions and your symptoms worsen Follow-up/Referrals: PCP,NO [Primary Care Provider] - Diet: Carb Count or DM1 Addtl Attending Provider Instructions: You were admitted to the hospital for alcohol withdrawal. You were treated with IV hydration, Ativan, and Librium which improved your symptoms of withdrawal. We discussed the importance of stopping drinking and you expressed your interest in going to a rehab program but would like to continue a Librium taper as you go home. We also discussed how Naltrexone can be a helpful medication to help reduce cravings for drinking alcohol. A discharge summary will be sent to your primary care physician to ensure continuity of care. Please bring this discharge summary with you to your next office appointment so that your provider can review it at that time. Follow-up appointments: Make a follow-up appointment with your PCP within the next week. It is very important that you follow up with them shortly after discharge from the hospital. Keep all your follow-up appointments as already scheduled. If you cannot make an appointment, notify your provider. Medications: Your medication list has been reviewed and reconciled upon discharge to ensure accuracy and continuity of care. An updated list of all your medications is included with your hospital discharge paperwork. Please review this list closely, and make note of any changes. We sent a new medication called Librium to your pharmacy. Take Librium as per the prescribed taper. We sent a new medication called Naltrexone to your pharmacy. Begin taking the naltrexone in three days. Take Naltrexone 50mg one tablet daily. CONTACT YOUR PRIMARY CARE PROVIDER if you experience any of the following: Side effects after starting the Naltrexone Difficulty following your treatment plan, or difficulty taking medications CALL 911 OR GO TO THE EMERGENCY DEPARTMENT if you experience any of the following: Sudden, severe abdominal pain or nausea/vomiting Severe chest pain, or chest pain that radiates (moves) to your jaw or arm Sudden, severe shortness of breath or difficulty breathing Thank you for allowing us to participate in your care. Pending Studies at Discharge: No Stand-Alone Forms: My [facility] [employer], Smoking Cessation Medications and DC Order Prescriptions: New naltrexone 50 mg tablet 50 mg PO DAILY 30 Days Qty: 30 0RF chlordiazepoxide HCl 25 mg capsule 25 mg PO Q6H PRN (Reason: anxiety) Qty: 14 0RF Rx Instructions: 1 cap three times a day for 2 days, 1 cap two times a day for 2 days, 1 cap once a day for 2 days then stop Continued amlodipine 5 mg Tablet 0 mg PO DAILY Rx Instructions: PT UNSURE OF STRENGTH, UNABLE TO VERIFY. insulin glargine [Basaglar KwikPen U-100 Insulin] 100 unit/mL (3 mL) Insulin Pen 12 unit SUBCUT QDB Qty: 15 0RF Rx Instructions: takes 10 units BID trazodone 100 mg Tablet 100 mg PO HS PRN (Reason: Sleep) Rx Instructions: UNABLE TO VERIFY. lisinopril 10 mg Tablet 10 mg PO BID Rx Instructions: UNABLE TO VERIFY methocarbamol 750 mg Tablet 750 - 1,500 mg PO Q8H PRN (Reason: Muscle Spasm) Rx Instructions: UNABLE TO VERIFY multivitamin Tablet 1 tab PO QAM Qty: 30 0RF Rx Instructions: UNABLE TO VERIFY thiamine HCl (vitamin B1) [Vitamin B-1] 100 mg Tablet 100 mg PO QAM Qty: 30 0RF Rx Instructions: UNABLE TO VERIFY folic acid 1 mg tablet 1 mg PO DAILY Qty: 30 0RF Rx Instructions: UNABLE TO VERIFY Eliquis 5 mg tablet 5 mg PO BID insulin lispro 100 unit/mL solution 10 unit SUBCUT UD Rx Instructions: reports taking 3-10 units with meals Discharge Orders: Discharge Order (Routine); Ordered 10/07/23 Ordered By: Hannah Jha Admission Data Admit Date/Time: 10/06/23 14:44 Attending Provider: Laura Aceves Admit Provider: Gilson Maldonado Primary Care Provider: PCP,ROLA Other Providers: Gilson Maldonado Other Interventions: Discharge Summary Assessment (RN) Last Done: 10/07/23 11:54 Supervising Physician Co-Signing Physician Notes Attending Physician Supervision Note: I independently interviewed and examined the patient and verified the roy history and physical, reviewed labs and image studies and agree with findings and care plan noted above. Resident Activity Tracking Resident Involvement: Resident Care Provided Care Provided: Adult Hospital Medicine
[2023-10-07] MEDS ORDERED: chlordiazePOXIDE HCl 25 MG CAP PO SCH (16:00)
--- NOTE | 2023-10-08 07:37 | Electrocardiogram Report ---
Test Reason : Blood Pressure : / mmHG Vent. Rate : 090 BPM Atrial Rate : 090 BPM P-R Int : 128 ms QRS Dur : 092 ms QT Int : 416 ms P-R-T Axes : 055 003 047 degrees QTc Int : 508 ms Normal sinus rhythm Possible Left atrial enlargement Prolonged QT Abnormal ECG When compared with ECG of 28-JUL-2023 18:44, QT has lengthened Confirmed by Carlos Paredes ([id number]) on 10/08/2023 7:37:16 AM Referred By: REFERRED SELF Confirmed By:Carlos Paredes
[2023-10-09] MEDS ORDERED: chlordiazePOXIDE HCl 5 MG CAP PO SCH (20:00)
== END 2023-10-07 11:54 | disposition home or self-care (01) ==
LOC: ED 09:29 → SUATTDRO 14:44 → EDINP 14:44 → INTOOBSV 14:44 → EDINP 16:11

== ENCOUNTER 2023-12-09 14:20 | Observation (INO) ==
[2023-12-09] MEDS: SODIUM CHLORIDE 0.9% 1,000 ML IV ONE (14:56)
[2023-12-09 15:08] LABS: Basophils # (auto) 0.03 K/uL (0.00-0.20); Basophils % (auto) 0.3 %; Eosinophils # (auto) 0.02 K/uL (0.00-0.50); Eosinophils % (auto) 0.2 %; Hematocrit (blood only) 34.9 % (42.0-52.0); Hemoglobin 12.2 g/dl (14.0-18.0); Immature Granulocytes # (auto) 0.02 K/uL (0.01-0.20); Immature Granulocytes % (auto) 0.2 %; Lymphocytes # (auto) 1.86 K/uL (1.20-3.40); Lymphocytes % (auto) 21.2 %; Mean Corpuscular Hemoglobin 32.8 pg (25.0-34.0); Mean Corpuscular Volume 93.8 fL (80.0-100.0); Mean Platelet Volume 9.5 fL (9.4-12.4); Monocytes # (auto) 0.82 K/uL (0.11-0.59); Monocytes % (auto) 9.3 %; Neutrophils # (auto) 6.04 K/uL (1.40-6.50); Neutrophils % (auto) 68.8 %; Platelet Count 224 K/uL (130-400); RDW Coefficient of Variation 12.9 % (11.5-14.5); RDW Standard Deviation 44.5 fL (36.4-46.3); Red Blood Count 3.72 M/uL (4.70-6.10); White Blood Count 8.79 K/ul (4.8-10.8)
[2023-12-09 15:25] LABS: Albumin Level 5.3 gm/dl (3.4-5.0); BUN Creatinine Ratio 11.9 (10-20); Bilirubin Direct 0.2 mg/dl (0-0.2); Calcium 10.3 mg/dl (8.6-10.3); Creatinine Clr Calc Pharmacy 28.2 ml/min; Est GFR (African American) 24.4 ml/min; Potassium 3.2 mmol/L (3.5-5.1); Total Protein 8.5 gm/dl (6.0-8.3)
[2023-12-09 15:27] LABS: Partial Thromboplastin Time 27 Seconds (21-31); Prothrombin Time 10.4 Seconds (9.0-12.0)
--- NOTE | 2023-12-09 15:56 | CT Scan Report ---
CT head/brain wo con CLINICAL HISTORY: 38 years-old Male with blacking out etoh on eliquis. Acute head trauma status post fall TECHNIQUE: Multiple axial CT images of the head were obtained without contrast. A dose lowering tech nique was utilized adhering to the principles of ALARA. COMPARISON: CT cervical spine of same day FINDINGS: No acute intracranial hemorrhage, midline shift, intracranial mass, hydrocephalus, territorial ischem ia or abnormal extra-axial collection. The calvarium is intact. The paranasal sinuses, mastoid air cells, and middle ear cavities are clear . IMPRESSION: No acute intracranial abnormality. ACT 112: Negative or not required by law. The above report was generated using voice recognition software. It may contain grammatical, syntax o r spelling errors. Electronically signed by: Orestes Field M.D. 12/09/2023 3:55 PM
[2023-12-09 16:05] LABS: Adenovirus PCR Not Detected (NotDetected); Bordetella parapertussis PCR Not Detected (NotDetected); Bordetella pertussis PCR Not Detected (NotDetected); Chlamydia pneumoniae PCR Not Detected (NotDetected); Coronavirus 229E PCR Not Detected (NotDetected); Coronavirus CoV-2 (COVID19)PCR Not Detected (NotDetected); Coronavirus HKU1 PCR Not Detected (NotDetected); Coronavirus NL63 PCR Not Detected (NotDetected); Coronavirus OC43PCR Not Detected (NotDetected); Human Metapneumovirus PCR Not Detected (NotDetected); Influenza A PCR Not Detected (NotDetected); Influenza B PCR Not Detected (NotDetected); Mycoplasma pneumoniae PCR Not Detected (NotDetected); Parainfluenza Virus 1 PCR Not Detected (NotDetected); Parainfluenza Virus 2 PCR Not Detected (NotDetected); Parainfluenza Virus 3 PCR Not Detected (NotDetected); Parainfluenza Virus 4 PCR Not Detected (NotDetected); Respiratory Syncytial VirusPCR Not Detected (NotDetected); Rhinovirus/Enterovirus PCR Not Detected (NotDetected)
--- NOTE | 2023-12-09 16:09 | XRay Report ---
XR chest 1V portable HISTORY: blacking out COMPARISON: Chest 07/28/2023. FINDINGS: The lungs are clear. Cardiac silhouette is normal in size. No pleural effusions. No pneumot horax. There is an old, healed left clavicle fracture. IMPRESSION: No acute process. ACT 112: Negative or not required by law. Electronically signed by: Tutu Franco M.D. 12/09/2023 4:08 PM
--- NOTE | 2023-12-09 16:14 | CT Scan Report ---
CERVICAL SPINE CT CT DOSE: 1235.64 mGy.cm HISTORY: blacking out etoh on eliquis TECHNIQUE: Multiaxial CT images of the cervical spine were performed and reformatted in the sagittal and coronal plane without the use of contrast. A dose lowering technique was utilized adhering to th e principles of ALARA. COMPARISON: None. FINDINGS: No fractures. No subluxation. Prevertebral soft tissues and the C1-C2 interval are intact. No pneumothorax. Moderate disc space narrowing and endplate osteophytes at C6-C7. IMPRESSION: No fractures within the cervical spine. ACT 112: Negative or not required by law. Electronically signed by: Tutu Franco M.D. 12/09/2023 4:13 PM
--- NOTE | 2023-12-09 16:26 | CT Scan Report ---
CT SCAN OF THE ABDOMEN AND PELVIS WITHOUT IV CONTRAST CLINICAL HISTORY: Intoxication. Difficulty with urination. COMPARISON STUDY: Abdominal CT dated 10/06/2023. TECHNIQUE: CT scan of the abdomen and pelvis is performed from the lung bases to the proximal femora. Images are reviewed in the axial, sagittal, and coronal planes. IV contrast was not administered for this examination. A dose lowering technique was utilized adhering to the principles of ALARA. CT DOSE: 924.09 mGy.cm FINDINGS: Lung bases: The heart is normal in size and without pericardial effusion. The lung bases are clear. A tiny hiatal hernia is noted. Liver: The unenhanced liver is mildly enlarged measuring 18.5 cm in length. The liver demonstrates di ffusely diminished attenuation indicating steatosis. Fatty sparing seen adjacent to the gallbladder f sharmaine. More focal fatty infiltration is noted along the falciform ligament. There is no intrahepatic b iliary ductal dilatation. Gallbladder: Unremarkable. Spleen: Normal in size and attenuation. Pancreas: Unremarkable. Adrenal glands: Unremarkable. Kidneys: The unenhanced kidneys are normal in size and without hydronephrosis. There are no renal chelsey culi identified. There is no evidence of contour deforming renal mass lesion. Abdominal vasculature: The abdominal aorta is normal in course and caliber noting scattered foci of a therosclerotic calcification. Bowel: There is no bowel obstruction. The appendix is well-visualized and normal. Peritoneum: There is no intraperitoneal free air or abdominal ascites. There is a fat-containing umbi lical hernia. Lymphadenopathy: None. Pelvic viscera: The bladder is decompressed and not well assessed. The prostate and seminal vesicles are normal as imaged. Findings suggest previous bilateral inguinal herniorrhaphy. Skeletal structures: No lytic or blastic lesions are seen. There is severe disc space narrowing at L4 -L5 with endplate sclerosis and a large posterior disc osteophyte complex. IMPRESSION: 1. No acute infectious or inflammatory findings are identified in the abdomen or pelvis. 2. Hepatomegaly and hepatic steatosis. 3. Additional findings as above. ACT 112: Negative or not required by law. Electronically signed by: Braydon Jones M.D. 12/09/2023 4:25 PM
--- NOTE | 2023-12-09 17:09 | History & Physical Report ---
Date of Service December 09, 2023 Assessment & Plan (1) Diarrhea: Plan: Diarrheal illness Respiratory bio fire was negative in the ER Stool bio fire and C. difficile are pending. Increased risk of C diff due to recent hospitalization CTA/P: No acute findings w/ ALFREDO and hypokalemia. Potassium repleted 40meq Magnesium added Supportive care (2) ALFREDO (acute kidney injury): Plan: ALFREDO Creatinine 3.44, baseline approximately 0.91.3 Suspect severely prerenal with diarrheal illness, +/- additional doses of his HEIDI .Patient is not in DKA and BSG is 54 on admission Lisinopril held (3) Syncope: Plan: Orthostatic presyncope/syncope Suspect due to volume contraction CThead without acute finding CTC-spine without acute finding Transiently hypotensive in the ER, improved following fluids EKG on admission: Normal sinus rhythm. No territorial ST segment changes or T wave inversions. Patient has a history of alcohol abuse is at risk for toxic cardiomyopathy. , will complete workup with echo. (4) Alcohol abuse: Plan: History of alcohol abuse Last admitted to the hospital with discharge 10/07/2023 after an admission to detox and subsequently go to rehab Patient reports he had a few beers shortly after getting out of the hospital, but has not had no alcohol intake in the last 2 weeks. Generally reliable and very open about his alcohol intake. Will defer active protocol and placed on at risk WSS for monitoring Naltrexone, vitamin supplementation, sertraline continued (5) T1DM (type 1 diabetes mellitus): Plan: Type I DM BSG 54, patient is not in DKA on admission. Pt did take a dose of insulin from his pump prior to ER arrival. Patient took a dose of short-acting insulin shortly before arrival and was low in the ER, improving after a meal. Very poor p.o. intake due to nausea. After initial fluid rehydration 1 L of Pepe's at maintenance added for adjunct and then can discontinue (6) HTN (hypertension): Plan: Transient hypotension in the ER, patient reports he did take a double dose of his lisinopril shortly before coming in which is likely contributing along with his volume contraction Patient does report that he had an episode of lip swelling which seem to migrate from his upper right towards his left lip which then improved by time of the ER. This is concerning for angioedema. HEIDI discontinued, when renal function normalizes would switch to alternative agent (7) History of atrial fibrillation: Plan: Sinus on admission Likely alcohol induced. Continue Eliquis. Follow on medical telemetry Plan DVT prophylaxis: Anticoagulated Disposition: Medical telemetry Diet: Type I DM, transition pump to pharmacy controlled basal bolus while inpatient CODE STATUS: Full code History of Present Illness Primary Care Provider: Tra Oconnell Jonathan Lau is a 38-year-old male with a past medical history of alcohol abuse, DKA, hypertension, type 1 diabetes and atrial fibrillation on Eliquis who presents to the ER with multiple concerns including flulike symptoms, diarrhea, and no urinary output in several days subsequently becoming lightheaded and dizzy with syncope. Seen at bedside. Reports he has had 4 days of diarrheal illness with vomiting. Diarrhea and vomiting seem to be slightly improving today but had multiple brig ht yellow bowel movements which were mostly gas and air but with some yellow liquid. No fever/chills/sweats. No chest pain or chest pressure. He feels dehydrated has been trying to drink a lot of water to keep up but notes that he still has not been urinating very much especially in the last day. Has some abdominal pain improved today compared to yesterday. Reports he felt very lightheaded yesterday and passed out but did not strike his head. Had a presyncopal prodrome. No alcohol intake in the last 2 weeks. Did take an extra dose of insulin prior to coming into the hospital Medical History: Reviewed Medications: Reviewed Surgical History: Reviewed Family history: Reviewed Allergies: Reviewed Social History: Reviewed Code Status: Full Allergies Allergy/AdvReac Type Severity Reaction Status Date / Time No Known Allergies Allergy Verified 12/09/23 16:18 Home Medications Medication Instructions Recorded Confirmed Type lisinopril 10 mg tablet 10 mg PO DAILY 05/14/23 12/09/23 History trazodone 100 mg tablet 100 mg PO HS PRN Sleep 05/14/23 12/09/23 History folic acid 1 mg tablet 1 mg PO DAILY #30 tabs 05/16/23 12/09/23 Rx multivitamin 1 tab PO QAM #30 tabs 05/16/23 12/09/23 Rx thiamine HCl (vitamin B1) 100 mg 100 mg PO QAM #30 tabs 05/16/23 12/09/23 Rx tablet (Vitamin B-1) amlodipine 5 mg tablet 0 mg PO DAILY 07/28/23 12/09/23 History apixaban 5 mg tablet (Eliquis) 5 mg PO BID 10/06/23 12/09/23 History insulin lispro 100 unit/mL 10 unit subcut TIDM 10/06/23 12/09/23 History subcutaneous solution insulin glargine 100 unit/mL (3 15 unit subcut QAM 12/09/23 12/09/23 History mL) subcutaneous pen (Basaglar KwikPen U-100 Insulin) naltrexone 50 mg tablet 50 mg PO DAILY 12/09/23 12/09/23 History sertraline 50 mg tablet 50 mg PO DAILY 12/09/23 12/09/23 History Past Med/Surg History Problem List (Updated 12/09/23 @ 17:06 by Gilson Maldonado MD) Syncope Diarrhea Alcohol abuse (Acute) Alcohol intoxication (Acute) Dehydration (Acute) ALFREDO (acute kidney injury) Depressed Abdominal pain (Acute) Nausea & vomiting (Acute) DKA (diabetic ketoacidosis) Alcohol withdrawal (Acute) History of atrial fibrillation HTN (hypertension) T1DM (type 1 diabetes mellitus) Alcohol dependence with withdrawal (Acute) Social History Smoking Status: Current some day smoker Tobacco Type: Cigarettes Hx Alcohol Use: Yes Alcohol type: hard liquor Hx Substance Use: Yes Preferred Language: Occitan Communication Ability: Effective Sign Out Clerk Required: No Beliefs That Will Affect Care: None Current Living Situation: Alone Feels Safe at Home: Yes Assistive Devices: None Physical Exam Physical Exam: General: A&Ox3. NAD. Cooperative. HEENT: Atraumatic, normocephalic. Mucous membranes dry. Pulm: CTAB A&P. -wheezes, -rales, -rhonchi. Symmetrical chest rise. No increased work of breathing. No respiratory distress. Cardiac: RRR, -mrg. Radial pulses intact and symmetrical. Abdominal: Mild epigastric tenderness without rebound/guarding, nondistended, soft. BS present. Results & Data Results & Data Vital Signs (Past 12 Hours) Vital Signs Temp Pulse Pulse Resp BP BP Pulse Ox 12/09/23 15:28 80 12/09/23 15:06 73 18 99 12/09/23 15:06 73 18 93/65 L 99 12/09/23 14:28 36.9 C 117 H 18 115/72 99 O2 Del Method 12/09/23 15:28 12/09/23 15:06 Room Air 12/09/23 15:06 Room Air 12/09/23 14:28 Room Air PG Care Time/CCT Total # of Minutes Spent Total Time Spent with Patient: Total time spent is greater than 50% in coordination of care (as documented) at patient's floor/unit and/or counseling patient: Coding Level of Care Code 56352 INT INP/OBS CARE 3/75MIN Diagnoses Diarrhea R19.7 ALFREDO (acute kidney injury) N17.9 Syncope R55 Alcohol abuse F10.10 T1DM (type 1 diabetes mellitus) E10.9 HTN (hypertension) I10 History of atrial fibrillation Z86.79
[2023-12-09] MEDS: DEXTROSE 50% 50 ML SYRINGE IV ONE (17:10)
[2023-12-09] MEDS: POTASSIUM CHLORIDE CRTAB 20 MEQ TABCR PO STA (17:16)
[2023-12-09] MEDS: SODIUM CHLORIDE 0.9% 1,000 ML IV SCH (17:17)
[2023-12-09] MEDS ORDERED: DEXTROSE 50% 50 ML SYRINGE IV PRN (17:18)
[2023-12-09] MEDS ORDERED: GLUCOSE 10 TAB/TUBE PO PRN (17:18)
[2023-12-09] MEDS ORDERED: GLUCOSE 40% GEL 15 GM TUBE PO PRN (17:18)
[2023-12-09] MEDS ORDERED: PHARMACY GLYCEMIC MGMT CONSULT PRN (17:18)
[2023-12-09] MEDS ORDERED: CARBOHYDRATES FOR HYPOGLYCEMIA PO PRN (17:18)
[2023-12-09] MEDS ORDERED: GLUCAGON FOR INJ 1 MG VIAL SQ PRN (17:18)
[2023-12-09 17:27] LABS: Magnesium 2.3 mg/dl (1.7-2.4)
[2023-12-09] MEDS: LACTATED RINGER'S 1,000 ML IV ONE (17:46)
--- NOTE | 2023-12-09 17:46 | Emergency Department Note ---
History of Present Illness General Chief complaint: Diarrhea Stated complaint: VOMIT, BLACK OUTS, VERITGO, CAN'T VOID Time Seen by Provider: 12/09/23 14:44 History of Present Illness Provider complaint: difficulty urinating syncope vomiting Maximum Pain Intensity: 8 38-year-old male presents emergency department for difficulty urinating syncope and vomiting. Patient reports for the last 4 days he has not been able to urinate despite drinking "gallons of water a day". Patient reports no pain with attempting to urinate. He also reports constipation. Patient states that his blood sugars have been running high so he took an extra dose of insulin today. Patient states his blood pressure was running high so he took extra lisinopril today. He reports losing consciousness today. Patient denies any alcohol abuse. Home Medications Medication Instructions Recorded Confirmed Type lisinopril 10 mg tablet 10 mg PO DAILY 05/14/23 12/09/23 History trazodone 100 mg tablet 100 mg PO HS PRN Sleep 05/14/23 12/09/23 History folic acid 1 mg tablet 1 mg PO DAILY #30 tabs 05/16/23 12/09/23 Rx multivitamin 1 tab PO QAM #30 tabs 05/16/23 12/09/23 Rx thiamine HCl (vitamin B1) 100 mg 100 mg PO QAM #30 tabs 05/16/23 12/09/23 Rx tablet (Vitamin B-1) amlodipine 5 mg tablet 0 mg PO DAILY 07/28/23 12/09/23 History apixaban 5 mg tablet (Eliquis) 5 mg PO BID 10/06/23 12/09/23 History insulin lispro 100 unit/mL 10 unit subcut TIDM 10/06/23 12/09/23 History subcutaneous solution insulin glargine 100 unit/mL (3 15 unit subcut QAM 12/09/23 12/09/23 History mL) subcutaneous pen (Basaglar KwikPen U-100 Insulin) naltrexone 50 mg tablet 50 mg PO DAILY 12/09/23 12/09/23 History sertraline 50 mg tablet 50 mg PO DAILY 12/09/23 12/09/23 History Allergies Allergy/AdvReac Type Severity Reaction Status Date / Time No Known Allergies Allergy Verified 12/09/23 16:18 Past Med/Surg History Problem List (Updated 12/09/23 @ 17:52 by Ameya Pizano MD) Syncope Diarrhea Alcohol abuse (Acute) Alcohol intoxication (Acute) Dehydration (Acute) ALFREDO (acute kidney injury) (Acute) Depressed Abdominal pain (Acute) Nausea & vomiting (Acute) DKA (diabetic ketoacidosis) Alcohol withdrawal (Acute) History of atrial fibrillation HTN (hypertension) T1DM (type 1 diabetes mellitus) Alcohol dependence with withdrawal (Acute) Social History Smoking Status: Current some day smoker Tobacco Type: Cigarettes Hx Alcohol Use: Yes Alcohol type: hard liquor Hx Substance Use: Yes Preferred Language: Icelandic Communication Ability: Effective Pressing Machine Tender Required: No Beliefs That Will Affect Care: None Current Living Situation: Alone Feels Safe at Home: Yes Assistive Devices: None Physical Exam Vital Signs Vital Signs - 24 hr 12/09/23 14:28 12/09/23 15:06 12/09/23 15:06 Temperature 36.9 C Temperature Source Temporal Artery Scan Pulse Rate 117 H 73 Pulse Rate [Apical] 73 Pulse Rhythm Regular Pulse Rhythm [Apical] Regular Pulse Strength [Apical] Normal Respiratory Rate 18 18 18 Respiratory Effort / Characteristics Non-Labored Spontaneous Non-Labored Spontaneous Respiratory Depth Normal Normal Respiratory Pattern Regular Blood Pressure 115/72 Blood Pressure [Left Arm] 93/65 L Blood Pressure Mean 86 Blood Pressure Mean [Left Arm] 74 Blood Pressure Position Sitting Blood Pressure Position [Left Arm] Sitting Pulse Oximetry 99 99 99 Oxygen Delivery Method Room Air Room Air Room Air Sepsis Recent Fever Within 48 Hours No Sepsis New/Unexplained Change in Mental Status N/A Sepsis Action Taken by Nursing No Action Required 12/09/23 15:28 Temperature Temperature Source Pulse Rate 80 Pulse Rate [Apical] Pulse Rhythm Pulse Rhythm [Apical] Pulse Strength [Apical] Respiratory Rate Respiratory Effort / Characteristics Respiratory Depth Respiratory Pattern Blood Pressure Blood Pressure [Left Arm] Blood Pressure Mean Blood Pressure Mean [Left Arm] Blood Pressure Position Blood Pressure Position [Left Arm] Pulse Oximetry Oxygen Delivery Method Sepsis Recent Fever Within 48 Hours Sepsis New/Unexplained Change in Mental Status Sepsis Action Taken by Nursing Physical Exam GENERAL: He is oriented to person, place, and time. He appears well-developed and well-nourished. He does not appear distressed. HENT: Exam performed. - Head: Normocephalic and atraumatic. - Right Ear: External ear normal. No mastoid erythema - Left Ear: External ear normal. No mastoid erythema - Mouth/Throat: The oropharynx is clear and moist. No trismus in the jaw. No dental abscesses or uvula swelling. No oropharyngeal exudate or tonsillar abscesses. EYES: Conjunctivae and EOM are normal. Pupils are equal, round, and reactive to light. Right eye exhibits no discharge. Left eye exhibits no discharge. No scleral icterus. NECK: Normal range of motion. Neck supple. No JVD present. No spinous process tenderness present. No rigidity. No tracheal deviation and normal range of motion present. CV: Tachycardic rate, regular rhythm, normal heart sounds and intact distal pulses. There is no peripheral edema. Palpable radial pulses bue. PULM/CHEST: Effort normal and breath sounds normal. No respiratory distress. No stridor. He has no wheezes. He has no rales. - Chest Wall: He exhibits no tenderness. ABD: The abdomen is soft. He has no distension. No mass is present. There is no tenderness. There is no rebound, no guarding, no Cleveland's sign and no tenderness at McBurney's point. Rovsig negative. MUSC/SKEL: Normal range of motion. There is no peripheral edema, tenderness or deformity. LYMPH: No cervical adenopathy. NEURO: He is alert and oriented to person, place, and time. He has normal strength. No cranial nerve deficit or sensory deficit. Coordination and gait normal. GCS eye subscore is 4. GCS verbal subscore is 5. GCS motor subscore is 6. Cerebellar tests wnl. SKIN: Skin is warm and dry. He is not diaphoretic. PSYCH: He has a normal mood and affect. Behavior is normal. Judgment and thought content normal. Course Course 1444: The patient was evaluated in room B7. A complete history and physical exam was performed Cardiac monitoring: An order was placed for continuous cardiac monitoring. The monitor shows a rate of 80 with sinus rhythm interpreted by me 1650: Vital signs stable. Labs are significant for normal white blood cell count. Hemoglobin within normal limits. Creatinine of 3.44 up from 0.95 in October. Potassium 3.2. Glucose 54. Imaging shows no kidney stones. BioFire negative. Patient was able to start urinating on his own accord. Imaging shows no traumatic injuries. Patient was given a turkey sandwich to eat and is tolerating p.o. He is alert and oriented x 3. Will continue to monitor his blood sugars as well as give him IV fluids. Patient will be admitted to the [facility] team for ALFREDO. Administered Medications Sodium Chloride (Nss) 1,000 mls @ 125 mls/hr IV .Q8H PHILLIP Stop: 01/08/24 16:59 Last Admin: 12/09/23 17:17 Dose: Not Given Documented By: MARGI Lactated Ringer's (Lr) 1,000 mls @ 999 mls/hr IV .Q1H1M ONE Stop: 12/09/23 18:18 Last Admin: 12/09/23 17:46 Dose: 999 mls/hr Documented By: MARGI Discontinued Medications Dextrose (Dextrose 50% 50 Ml Syringe) 50 ml IV NOW ONE Stop: 12/09/23 14:53 Last Admin: 12/09/23 17:10 Dose: Not Given Documented By: MARGI Sodium Chloride (Nss) 1,000 mls @ 999 mls/hr IV .Q1H1M ONE Stop: 12/09/23 15:46 Last Infusion: 12/09/23 15:59 Dose: Infused Documented By: Admin: 12/09/23 14:56 Dose: 999 mls/hr Documented By: MARGI Potassium Chloride (Potassium Chloride Crtab 20 Meq Tabcr) 40 meq PO NOW STA Stop: 12/09/23 17:06 Last Admin: 12/09/23 17:16 Dose: 40 meq Documented By: MARGI Medical Decision Making Laboratory Data Attestation: I reviewed the patient's lab results. 12/09/23 14:46 12/09/23 14:46 Lab Results 12/09/23 12/09/23 12/09/23 Range/Units 14:46 14:49 15:11 WBC 8.79 (4.8-10.8) K/ul RBC 3.72 L (4.70-6.10) M/uL Hgb 12.2 L (14.0-18.0) g/dl Hct 34.9 L (42.0-52.0) % MCV 93.8 (80.0-100.0) fL MCH 32.8 (25.0-34.0) pg MCHC 35.0 (32.0-36.0) g/dL RDW Std Deviation 44.5 (36.4-46.3) fL RDW Coeff of Maxi 12.9 (11.5-14.5) % Plt Count 224 (130-400) K/uL MPV 9.5 (9.4-12.4) fL Immature Gran % (Auto) 0.2 % Neut % (Auto) 68.8 % Lymph % (Auto) 21.2 % Dade % (Auto) 9.3 % Eos % (Auto) 0.2 % Baso % (Auto) 0.3 % Neut # (Auto) 6.04 (1.40-6.50) K/uL Lymph # (Auto) 1.86 (1.20-3.40) K/uL Dade # (Auto) 0.82 H (0.11-0.59) K/uL Eos # (Auto) 0.02 (0.00-0.50) K/uL Baso # (Auto) 0.03 (0.00-0.20) K/uL Immature Gran # (Auto) 0.02 (0.01-0.20) K/uL PT 10.4 (9.0-12.0) Seconds INR 1.0 (0.9-1.1) APTT 27 (21-31) Seconds PTT Ratio 1.0 Sodium 131 L (136-145) mmol/L Potassium 3.2 L (3.5-5.1) mmol/L Chloride 84 L (98-107) mmol/L Carbon Dioxide 24 (21-32) mmol/L Anion Gap 23 H (3-11) BUN 41 H (6-23) mg/dl Creatinine 3.44 H (0.6-1.4) mg/dl Est Cr Clr Drug Dosing 28.2 ml/min Est GFR ( Amer) 24.4 ml/min Est GFR (Non-Af Amer) 21.0 ml/min BUN/Creatinine Ratio 11.9 (10-20) Glucose 54 L (70-99(Fasting)) mg/dl POC Glucose 76 (70-99) mg/dl Calcium 10.3 (8.6-10.3) mg/dl Magnesium 2.3 (1.7-2.4) mg/dl Total Bilirubin 1.0 (0.2-1.0) mg/dl Direct Bilirubin 0.2 (0-0.2) mg/dl AST 43 H (13-39) U/L ALT 34 (7-52) U/L Alkaline Phosphatase 71 (34-104) U/L Total Protein 8.5 H (6.0-8.3) gm/dl Albumin 5.3 H (3.4-5.0) gm/dl Lipase 31 (11-82) U/L Ethyl Alcohol mg/dL (<10.0) mg/dl Adenovirus (PCR) Not Detected (NotDetected) B. pertussis DNA (PCR) Not Detected (NotDetected) B.parapertussis DNA PCR Not Detected (NotDetected) C. pneumoniae DNA (PCR) Not Detected (NotDetected) Coronavirus OC43 (PCR) Not Detected (NotDetected) Coronavirus HKU1 (PCR) Not Detected (NotDetected) Coronavirus 229E (PCR) Not Detected (NotDetected) SARS-CoV-2 (PCR) Not Detected (NotDetected) Coronavirus NL63 (PCR) Not Detected (NotDetected) Human Metapneumovir PCR Not Detected (NotDetected) Influenza Type A (PCR) Not Detected (NotDetected) Influenza Type B (PCR) Not Detected (NotDetected) M. pneumoniae (PCR) Not Detected (NotDetected) Parainfluenza 1 (PCR) Not Detected (NotDetected) Parainfluenza 2 (PCR) Not Detected (NotDetected) Parainfluenza 3 (PCR) Not Detected (NotDetected) Parainfluenza 4 (PCR) Not Detected (NotDetected) RSV (PCR) Not Detected (NotDetected) Entero/Rhino (PCR) Not Detected (NotDetected) 12/09/23 12/09/23 Range/Units 16:01 17:50 WBC (4.8-10.8) K/ul RBC (4.70-6.10) M/uL Hgb (14.0-18.0) g/dl Hct (42.0-52.0) % MCV (80.0-100.0) fL MCH (25.0-34.0) pg MCHC (32.0-36.0) g/dL RDW Std Deviation (36.4-46.3) fL RDW Coeff of Maxi (11.5-14.5) % Plt Count (130-400) K/uL MPV (9.4-12.4) fL Immature Gran % (Auto) % Neut % (Auto) % Lymph % (Auto) % Dade % (Auto) % Eos % (Auto) % Baso % (Auto) % Neut # (Auto) (1.40-6.50) K/uL Lymph # (Auto) (1.20-3.40) K/uL Dade # (Auto) (0.11-0.59) K/uL Eos # (Auto) (0.00-0.50) K/uL Baso # (Auto) (0.00-0.20) K/uL Immature Gran # (Auto) (0.01-0.20) K/uL PT (9.0-12.0) Seconds INR (0.9-1.1) APTT (21-31) Seconds PTT Ratio Sodium (136-145) mmol/L Potassium (3.5-5.1) mmol/L Chloride (98-107) mmol/L Carbon Dioxide (21-32) mmol/L Anion Gap (3-11) BUN (6-23) mg/dl Creatinine (0.6-1.4) mg/dl Est Cr Clr Drug Dosing ml/min Est GFR ( Amer) ml/min Est GFR (Non-Af Amer) ml/min BUN/Creatinine Ratio (10-20) Glucose (70-99(Fasting)) mg/dl POC Glucose 106 H (70-99) mg/dl Calcium (8.6-10.3) mg/dl Magnesium (1.7-2.4) mg/dl Total Bilirubin (0.2-1.0) mg/dl Direct Bilirubin (0-0.2) mg/dl AST (13-39) U/L ALT (7-52) U/L Alkaline Phosphatase (34-104) U/L Total Protein (6.0-8.3) gm/dl Albumin (3.4-5.0) gm/dl Lipase (11-82) U/L Ethyl Alcohol mg/dL < 10.0 (<10.0) mg/dl Adenovirus (PCR) (NotDetected) B. pertussis DNA (PCR) (NotDetected) B.parapertussis DNA PCR (NotDetected) C. pneumoniae DNA (PCR) (NotDetected) Coronavirus OC43 (PCR) (NotDetected) Coronavirus HKU1 (PCR) (NotDetected) Coronavirus 229E (PCR) (NotDetected) SARS-CoV-2 (PCR) (NotDetected) Coronavirus NL63 (PCR) (NotDetected) Human Metapneumovir PCR (NotDetected) Influenza Type A (PCR) (NotDetected) Influenza Type B (PCR) (NotDetected) M. pneumoniae (PCR) (NotDetected) Parainfluenza 1 (PCR) (NotDetected) Parainfluenza 2 (PCR) (NotDetected) Parainfluenza 3 (PCR) (NotDetected) Parainfluenza 4 (PCR) (NotDetected) RSV (PCR) (NotDetected) Entero/Rhino (PCR) (NotDetected) Imaging Data Attestation: I personally reviewed and interpreted this imaging study as follows: My Impression: Chest x-ray negative. Airway clear. No pneumothorax. No consolidation. No cardiomegaly or cephalization.. No free air under the diaphragm. No fractures of the skeletal structures. Radiologist's Impression: Abdomen/Pelvis CT 12/09/23 14:58 CT SCAN OF THE ABDOMEN AND PELVIS WITHOUT IV CONTRAST CLINICAL HISTORY: Intoxication. Difficulty with urination. COMPARISON STUDY: Abdominal CT dated 10/06/2023. TECHNIQUE: CT scan of the abdomen and pelvis is performed from the lung bases to the proximal femora. Images are reviewed in the axial, sagittal, and coronal planes. IV contrast was not administered for this examination. A dose lowering technique was utilized adhering to the principles of ALARA. CT DOSE: 924.09 mGy.cm FINDINGS: Lung bases: The heart is normal in size and without pericardial effusion. The lung bases are clear. A tiny hiatal hernia is noted. Liver: The unenhanced liver is mildly enlarged measuring 18.5 cm in length. The liver demonstrates diffusely diminished attenuation indicating steatosis. Fatty sparing seen adjacent to the gallbladder fossa. More focal fatty infiltration is noted along the falciform ligament. There is no intrahepatic biliary ductal dilatation. Gallbladder: Unremarkable. Spleen: Normal in size and attenuation. Pancreas: Unremarkable. Adrenal glands: Unremarkable. Kidneys: The unenhanced kidneys are normal in size and without hydronephrosis. There are no renal calculi identified. There is no evidence of contour deforming renal mass lesion. Abdominal vasculature: The abdominal aorta is normal in course and caliber noting scattered foci of atherosclerotic calcification. Bowel: There is no bowel obstruction. The appendix is well-visualized and normal. Peritoneum: There is no intraperitoneal free air or abdominal ascites. There is a fat-containing umbilical hernia. Lymphadenopathy: None. Pelvic viscera: The bladder is decompressed and not well assessed. The prostate and seminal vesicles are normal as imaged. Findings suggest previous bilateral inguinal herniorrhaphy. Skeletal structures: No lytic or blastic lesions are seen. There is severe disc space narrowing at L4-L5 with endplate sclerosis and a large posterior disc osteophyte complex. IMPRESSION: 1. No acute infectious or inflammatory findings are identified in the abdomen or pelvis. 2. Hepatomegaly and hepatic steatosis. 3. Additional findings as above. ACT 112: Negative or not required by law. Electronically signed by: Braydon Jones M.D. 12/09/2023 4:[address] 12/09/23 14:[address] DOSE: 1235.64 mGy.cm HISTORY: blacking out etoh on eliquis TECHNIQUE: Multiaxial CT images of the cervical spine were performed and reformatted in the sagittal and coronal plane without the use of contrast. A dose lowering technique was utilized adhering to the principles of ALARA. COMPARISON: None. FINDINGS: No fractures. No subluxation. Prevertebral soft tissues and the C1-C2 interval are intact. No pneumothorax. Moderate disc space narrowing and endplate osteophytes at C6-C7. IMPRESSION: No fractures within the cervical spine. ACT 112: Negative or not required by law. Electronically signed by: Tutu Franco M.D. 12/09/2023 4:[address] 12/09/23 14:58 CT head/brain wo con CLINICAL HISTORY: 38 years-old Male with blacking out etoh on eliquis. Acute head trauma status post fall TECHNIQUE: Multiple axial CT images of the head were obtained without contrast. A dose lowering technique was utilized adhering to the principles of ALARA. COMPARISON: CT cervical spine of same day FINDINGS: No acute intracranial hemorrhage, midline shift, intracranial mass, hydrocephalus, territorial ischemia or abnormal extra-axial collection. The calvarium is intact. The paranasal sinuses, mastoid air cells, and middle ear cavities are clear. IMPRESSION: No acute intracranial abnormality. ACT 112: Negative or not required by law. The above report was generated using voice recognition software. It may contain grammatical, syntax or spelling errors. Electronically signed by: Orestes Field M.D. 12/09/2023 3:55 PM Chest X-Ray 12/09/23 14:59 XR chest 1V portable HISTORY: blacking out COMPARISON: Chest 07/28/2023. FINDINGS: The lungs are clear. Cardiac silhouette is normal in size. No pleural effusions. No pneumothorax. There is an old, healed left clavicle fracture. IMPRESSION: No acute process. ACT 112: Negative or not required by law. Electronically signed by: Tutu Franco M.D. 12/09/2023 4:08 PM ECG Data Attestation: I personally reviewed and interpreted this ECG as follows: Additional Comments: EKG #1 at 1459: Sinus rhythm with rate of 75. NM 88 QRS [address] elevation or ST depression. Delta wave present. EKG #2 at 1755: Sinus rhythm with a rate of 68. NM 116 QRS [address] elevation or ST depression. Delta wave present. [facility] Narrative 1444: The patient was evaluated in room B7. A complete history and physical exam was performed Cardiac monitoring: An order was placed for continuous cardiac monitoring. The monitor shows a rate of 80 with sinus rhythm interpreted by wv 1650: Vital signs stable. Labs are significant for normal white blood cell count. Hemoglobin within normal limits. Creatinine of 3.44 up from 0.95 in October. Potassium 3.2. Glucose 54. Imaging shows no kidney stones. BioFire negative. Patient was able to start urinating on his own accord. Imaging shows no traumatic injuries. Patient was given a turkey sandwich to eat and is tolerating p.o. He is alert and oriented x 3. Will continue to monitor his blood sugars as well as give him IV fluids. Patient will be admitted to the [facility] team for ALFREDO. Impression & Plan ALFREDO (acute kidney injury) Discharge Plan Visit Data Chief Complaint: Diarrhea Stated Complaint: VOMIT, BLACK OUTS, VERITGO, CAN'T VOID ED Provider: Ameya Pizano Discharge Problem: ALFREDO (acute kidney injury) Patient Disposition: Admitted As Inpatient Forms Stand Alone Forms: My [facility] Prescriptions Prescriptions: No Action amlodipine 5 mg Tablet 0 mg PO DAILY Rx Instructions: PT UNSURE OF STRENGTH, UNABLE TO VERIFY. trazodone 100 mg Tablet 100 mg PO HS PRN (Reason: Sleep) Rx Instructions: UNKNOWN WHEN LAST FILLED. UNABLE TO VERIFY. lisinopril 10 mg Tablet 10 mg PO DAILY Rx Instructions: UNABLE TO VERIFY multivitamin Tablet 1 tab PO QAM Qty: 30 0RF Rx Instructions: UNABLE TO VERIFY thiamine HCl (vitamin B1) [Vitamin B-1] 100 mg Tablet 100 mg PO QAM Qty: 30 0RF Rx Instructions: UNABLE TO VERIFY folic acid 1 mg tablet 1 mg PO DAILY Qty: 30 0RF Eliquis 5 mg tablet 5 mg PO BID Rx Instructions: LAST FILLED 08/08/23 FOR 30 DAYS/60 TABS. insulin lispro 100 unit/mL solution 10 unit SUBCUT TIDM naltrexone 50 mg tablet 50 mg PO DAILY sertraline 50 mg tablet 50 mg PO DAILY insulin glargine [Basaglar KwikPen U-100 Insulin] 100 unit/mL (3 mL) insulin pen 15 unit SUBCUT QAM Rx Instructions: PER PT "DEPENDS ON WHAT BSG'S ARE RUNNING". Referrals Referrals: Tra Castillo D.O. [Primary Care Provider] -
[2023-12-09] MEDS: D5W AND LACTATED RINGERS 1,000 ML IV SCH (18:16)
[2023-12-09] MEDS: FAMOTIDINE 20MG IV PUSH 20 MG/5 ML SYR IV SCH (18:16)
[2023-12-09] MEDS: INSULIN ASPART PER UNIT CHARGE SC SCH (18:49)
[2023-12-09 19:01] LABS: Appearance Urine Turbid (Clear); Bacteria Urine Automated None Seen (None Seen); Bilirubin Urine Negative (Negative); Blood Urine Negative (Negative); Calcium Oxalate Crystals Urine Present (None Prsent); Cast Urine Automated >20 /lpf (0-2); Color Urine Dark Yellow; Epithelial Cell Urine Auto 0-2 /hpf (0-2); Glucose Urine UA Negative (Negative); Hyaline Casts Urine Present /lpf (None Presnt); Ketones Urine 2+ (Negative); Leukocyte Esterase Urine Negative (Negative); Nitrite Urine Negative (Negative); Protein Urine 2+ (Negative); RBC Urine Automated 0-2 /hpf (0-2); Specific Gravity Urine 1.016 (1.000-1.030); Urobilinogen Urine Negative (Negative); WBC Urine Automated 0-5 /hpf (0-5)
--- NOTE | 2023-12-09 19:11 | Pharmacy Report ---
Pharmacy Glycemic Short Note 2 - Date of Service December 09, 2023 - Glycemic Short BSG Results (Last 24 hours): 12/09/23 12/09/23 12/09/23 14:46 14:49 17:50 Glucose 54 L POC Glucose 76 106 H OUTPATIENT ANTIDIABETIC REGIMEN: * Basaglar 15 units QAM, lispro 10 units TIDM ASSESSMENT: * Patient admitted with diarrhea, ALFREDO. Scr 3.44 - baseline SCr closer to 0.9-1.3 mg/dL. Hx of alcohol abuse with recent admission 10/2023. Type 1 diabetic - confirmed with RN and patient not on insulin pump but on SQ insulin only at this time outpatient. Confirmed with patient that he took Lantus 10 units this AM around 6am and 15 units of short acting insulin around noon. PO intake has been poor d/t illness. Patient reports he has been self adjusting basal insulin anywhere from 6-15 units depending on BSG value. BSG 54 mg/dL on arrival - now up to 106 mg/dL. PLAN FOR INPATIENT GLYCEMIC CONTROL: * Hold outpatient oral diabetes medications * Basal insulin * Lantus - patient reports taken this AM, will reevaluate in AM * Bolus insulin * NovoLog per scale ACHS or Q6hrs while NPO * Goal Range: Low 110 mg/dL - High 140 mg/dL * Correction Factor: 35 mg/dL/unit * Nutritional / Prandial insulin per carb ratio of 1 unit per 15 grams CHO consumed
[2023-12-09] MEDS ORDERED: LORazepam 1 MG TAB PO PRN (19:32)
[2023-12-09] MEDS ORDERED: MELATONIN 3 MG TAB PO PRN (20:21)
[2023-12-09] MEDS: APIXABAN 5 MG TABLET PO SCH (21:16)
[2023-12-09] MEDS: traZODone HCL 100 MG TAB PO PRN (23:09)
[2023-12-10] MEDS ORDERED: Nursing to Pharmacy Communication SCH (02:00)
[2023-12-10] MEDS: INSULIN ASPART PER UNIT CHARGE SC SCH (02:43)
[2023-12-10 03:18] LABS: Adenovirus F 40/41 PCR Not Detected (NotDetected); Astrovirus PCR Not Detected (NotDetected); Campylobacter PCR Not Detected (NotDetected); Cryptosporidium PCR Not Detected (NotDetected); Cyclospora cayetanensis PCR Not Detected (NotDetected); Entamoeba histolytica PCR Not Detected (NotDetected); Enteroaggregative E.coli(EAEC) Not Detected (NotDetected); Enteropathogenic E.coli (EPEC) Not Detected (NotDetected); Enterotoxigenic E.coli (ETEC) Not Detected (NotDetected); Giardia lamblia PCR Not Detected (NotDetected); Norovirus GI/GII PCR Not Detected (NotDetected); Plesiomonas shigelloides PCR Not Detected (NotDetected); Rotavirus A PCR Not Detected (NotDetected); Salmonella PCR Not Detected (NotDetected); Sapovirus PCR Not Detected (NotDetected); Shiga-like Toxin E.coli (STEC) Not Detected (NotDetected); Shigella/Enteroinvasive E.coli Not Detected (NotDetected); Vibrio cholerae PCR Not Detected (NotDetected); Vibrio species PCR Not Detected (NotDetected); Yersinia enterocolitica PCR Not Detected (NotDetected)
[2023-12-10 03:31] LABS: Cdiff Toxin B Gene (2yr or >) Positive Cdiff Gene (Neg)
[2023-12-10 03:43] LABS: Cdiff Antigen Positive; Cdiff Toxin A+B Negative Cdiff Toxin (Negative)
[2023-12-10 06:37] LABS: Basophils # (auto) 0.03 K/uL (0.00-0.20); Basophils % (auto) 0.7 %; Eosinophils # (auto) 0.05 K/uL (0.00-0.50); Eosinophils % (auto) 1.1 %; Hematocrit (blood only) 30.2 % (42.0-52.0); Hemoglobin 10.5 g/dl (14.0-18.0); Immature Granulocytes # (auto) 0.01 K/uL (0.01-0.20); Immature Granulocytes % (auto) 0.2 %; Lymphocytes # (auto) 1.61 K/uL (1.20-3.40); Lymphocytes % (auto) 36.8 %; Mean Corpuscular Hemoglobin 32.9 pg (25.0-34.0); Mean Corpuscular Hgb Conc 34.8 g/dL (32.0-36.0); Mean Corpuscular Volume 94.7 fL (80.0-100.0); Mean Platelet Volume 9.9 fL (9.4-12.4); Monocytes % (auto) 9.2 %; Neutrophils # (auto) 2.27 K/uL (1.40-6.50); Platelet Count 163 K/uL (130-400); RDW Coefficient of Variation 12.9 % (11.5-14.5); Red Blood Count 3.19 M/uL (4.70-6.10); White Blood Count 4.37 K/ul (4.8-10.8)
[2023-12-10 07:13] LABS: Albumin Globulin Ratio 1.6 (0.9-2); Albumin Level 4.2 gm/dl (3.4-5.0); BUN Creatinine Ratio 17.7 (10-20); Bilirubin,Total 0.8 mg/dl (0.2-1.0); Creatinine Clr Calc Pharmacy 73.3 ml/min; Est GFR (African American) 68.2 ml/min; Est GFR (Non-African American) 58.8 ml/min; Globulin 2.7 gm/dl (2.5-4.0); Potassium 3.3 mmol/L (3.5-5.1); Total Protein 6.9 gm/dl (6.0-8.3)
--- NOTE | 2023-12-10 07:29 | Hospitalist Progress Note ---
Date of Service December 10, 2023 Assessment & Plan (1) Diarrhea: (2) ALFREDO (acute kidney injury): (3) Syncope: (4) Alcohol abuse: (5) T1DM (type 1 diabetes mellitus): (6) HTN (hypertension): (7) History of atrial fibrillation: Plan (1) Diarrhea: Plan: Diarrheal illness Respiratory bio fire was negative in the ER Stool bio fire and C. difficile are pending. Increased risk of C diff due to recent hospitalization CTA/P: No acute findings w/ ALFREDO and hypokalemia. Potassium repleted 40meq Magnesium added Supportive care (2) ALFREDO (acute kidney injury): Plan: ALFREDO Creatinine 3.44, baseline approximately 0.91.3 Suspect severely prerenal with diarrheal illness, +/- additional doses of his HEIDI .Patient is not in DKA and BSG is 54 on admission Lisinopril held (3) Syncope: Plan: Orthostatic presyncope/syncope Suspect due to volume contraction CThead without acute finding CTC-spine without acute finding Transiently hypotensive in the ER, improved following fluids EKG on admission: Normal sinus rhythm. No territorial ST segment changes or T wave inversions. Patient has a history of alcohol abuse is at risk for toxic cardiomyopathy. , will complete workup with echo. (4) Alcohol abuse: Plan: History of alcohol abuse Last admitted to the hospital with discharge 10/07/2023 after an admission to detox and subsequently go to rehab Patient reports he had a few beers shortly after getting out of the hospital, but has not had no alcohol intake in the last 2 weeks. Generally reliable and very open about his alcohol intake. Will defer active protocol and placed on at risk WSS for monitoring Naltrexone, vitamin supplementation, sertraline continued (5) T1DM (type 1 diabetes mellitus): Plan: Type I DM BSG 54, patient is not in DKA on admission. Pt did take a dose of insulin from his pump prior to ER arrival. Patient took a dose of short-acting insulin shortly before arrival and was low in the ER, improving after a meal. Very poor p.o. intake due to nausea. After initial fluid rehydration 1 L of Pepe's at maintenance added for adjunct and then can discontinue (6) HTN (hypertension): Plan: Transient hypotension in the ER, patient reports he did take a double dose of his lisinopril shortly before coming in which is likely contributing along with his volume contraction Patient does report that he had an episode of lip swelling which seem to migrate from his upper right towards his left lip which then improved by time of the ER. This is concerning for angioedema. HEIDI discontinued, when renal function normalizes would switch to alternative agent (7) History of atrial fibrillation: Plan: Sinus on admission Likely alcohol induced. Continue Eliquis. Follow on medical telemetry Plan DVT prophylaxis: Anticoagulated Disposition: Medical telemetry Diet: Type I DM, transition pump to pharmacy controlled basal bolus while inpatient CODE STATUS: Full code Admission and Anticipated Discharge Date Admission Date: December 09, 2023 Results & Data Results & Data Vital Signs (Past 12 Hours) Vital Signs Temp Pulse Pulse Pulse Resp BP Pulse Ox 12/10/23 03:11 37.0 C 75 19 96/54 L 97 12/09/23 23:49 36.6 C 79 22 120/61 98 12/09/23 21:59 72 12/09/23 21:30 37.1 C 77 21 121/83 100 12/09/23 21:00 70 18 12/09/23 20:30 76 17 12/09/23 20:18 68 17 12/09/23 19:32 36.4 C L 70 16 135/83 100 12/09/23 19:32 12/09/23 19:30 81 20 Pulse Ox O2 Del Method O2 Del Method 12/10/23 03:11 Room Air 12/09/23 23:49 Room Air 12/09/23 21:59 12/09/23 21:30 Room Air 12/09/23 21:00 12/09/23 20:30 12/09/23 20:18 12/09/23 19:32 Room Air 12/09/23 19:32 100 Room Air 12/09/23 19:30
[2023-12-10] MEDS ORDERED: LANTUS PER UNIT CHARGE SC SCH (09:00)
[2023-12-10] MEDS ORDERED: LANTUS PER UNIT CHARGE SQ SCH (09:00)
[2023-12-10] MEDS: FOLIC ACID 1 MG TAB PO SCH (09:17)
[2023-12-10] MEDS: LANTUS PER UNIT CHARGE SC SCH (09:17)
[2023-12-10] MEDS: THIAMINE HCL 100 MG TAB PO SCH (09:17)
[2023-12-10] MEDS: SERTRALINE HCL 50 MG TABLET PO SCH (09:17)
[2023-12-10] MEDS: NALTREXONE HCL 50 MG TAB PO SCH (09:17)
--- NOTE | 2023-12-10 13:16 | Discharge Summary ---
Date of Service December 10, 2023 Admission HPI Per Admitting Provider Sid is a 38-year-old male with a past medical history of alcohol abuse, DKA, hypertension, type 1 diabetes and atrial fibrillation on Eliquis who presents to the ER with multiple concerns including flulike symptoms, diarrhea, and no urinary output in several days subsequently becoming lightheaded and dizzy with syncope. Seen at bedside. Reports he has had 4 days of diarrheal illness with vomiting. Diarrhea and vomiting seem to be slightly improving today but had multiple bright yellow bowel movements which were mostly gas and air but with some yellow liquid. No fever/chills/sweats. No chest pain or chest pressure. He feels dehydrated has been trying to drink a lot of water to keep up but notes that he still has not been urinating very much especially in the last day. Has some abdominal pain improved today compared to yesterday. Reports he felt very lightheaded yesterday and passed out but did not strike his head. Had a presyncopal prodrome. No alcohol intake in the last 2 weeks. Did take an extra dose of insulin prior to coming into the hospital Medical History: Reviewed Medications: Reviewed Surgical History: Reviewed Family history: Reviewed Allergies: Reviewed Social History: Reviewed Code Status: Full Admission Exam Per Admitting Provider General: A&Ox3. NAD. Cooperative. HEENT: Atraumatic, normocephalic. Mucous membranes dry. Pulm: CTAB A&P. -wheezes, -rales, -rhonchi. Symmetrical chest rise. No increased work of breathing. No respiratory distress. Cardiac: RRR, -mrg. Radial pulses intact and symmetrical. Abdominal: Mild epigastric tenderness without rebound/guarding, nondistended, soft. BS present. Principal Diagnosis Acute kidney injury Discharge Exam Constitutional: well-appearing, no acute distress HEENT: NCAT, no conjunctival injection CV: regular rhythm, no murmur appreciated, extremities well-perfused, no LE edema Resp: CTABL, no wheezes/rales/rhonchi appreciated, no increased work of breathing GI: soft, nondistended, nontender, BS normoactive MSK: no gross deformities appreciated Skin: warm, dry, no rash appreciated Neuro: alert, oriented, no focal neurologic deficit appreciated Discharge Data Allergies Allergy/AdvReac Type Severity Reaction Status Date / Time No Known Allergies Allergy Verified 12/09/23 16:18 Consultations 12/09/23 16:52 ED Decision to Admit Stat Ordered Studies 12/09/23 14:58 CT abd pelvis wo con Stat CT cervical spine wo con Stat CT head/brain wo con Stat Abdomen/Pelvis CT 12/09/23 14:58 CT SCAN OF THE ABDOMEN AND PELVIS WITHOUT IV CONTRAST CLINICAL HISTORY: Intoxication. Difficulty with urination. COMPARISON STUDY: Abdominal CT dated 10/06/2023. TECHNIQUE: CT scan of the abdomen and pelvis is performed from the lung bases to the proximal femora. Images are reviewed in the axial, sagittal, and coronal planes. IV contrast was not administered for this examination. A dose lowering technique was utilized adhering to the principles of ALARA. CT DOSE: 924.09 mGy.cm FINDINGS: Lung bases: The heart is normal in size and without pericardial effusion. The lung bases are clear. A tiny hiatal hernia is noted. Liver: The unenhanced liver is mildly enlarged measuring 18.5 cm in length. The liver demonstrates diffusely diminished attenuation indicating steatosis. Fatty sparing seen adjacent to the gallbladder fossa. More focal fatty infiltration is noted along the falciform ligament. There is no intrahepatic biliary ductal dilatation. Gallbladder: Unremarkable. Spleen: Normal in size and attenuation. Pancreas: Unremarkable. Adrenal glands: Unremarkable. Kidneys: The unenhanced kidneys are normal in size and without hydronephrosis. There are no renal calculi identified. There is no evidence of contour deforming renal mass lesion. Abdominal vasculature: The abdominal aorta is normal in course and caliber noting scattered foci of atherosclerotic calcification. Bowel: There is no bowel obstruction. The appendix is well-visualized and normal. Peritoneum: There is no intraperitoneal free air or abdominal ascites. There is a fat-containing umbilical hernia. Lymphadenopathy: None. Pelvic viscera: The bladder is decompressed and not well assessed. The prostate and seminal vesicles are normal as imaged. Findings suggest previous bilateral inguinal herniorrhaphy. Skeletal structures: No lytic or blastic lesions are seen. There is severe disc space narrowing at L4-L5 with endplate sclerosis and a large posterior disc osteophyte complex. IMPRESSION: 1. No acute infectious or inflammatory findings are identified in the abdomen or pelvis. 2. Hepatomegaly and hepatic steatosis. 3. Additional findings as above. ACT 112: Negative or not required by law. Electronically signed by: Braydon Jones M.D. 12/09/2023 4:[address] 12/09/23 14:[address] DOSE: 1235.64 mGy.cm HISTORY: blacking out etoh on eliquis TECHNIQUE: Multiaxial CT images of the cervical spine were performed and reformatted in the sagittal and coronal plane without the use of contrast. A dose lowering technique was utilized adhering to the principles of ALARA. COMPARISON: None. FINDINGS: No fractures. No subluxation. Prevertebral soft tissues and the C1-C2 interval are intact. No pneumothorax. Moderate disc space narrowing and endplate osteophytes at C6-C7. IMPRESSION: No fractures within the cervical spine. ACT 112: Negative or not required by law. Electronically signed by: Tutu Franco M.D. 12/09/2023 4:[address] 12/09/23 14:58 CT head/brain wo con CLINICAL HISTORY: 38 years-old Male with blacking out etoh on eliquis. Acute head trauma status post fall TECHNIQUE: Multiple axial CT images of the head were obtained without contrast. A dose lowering technique was utilized adhering to the principles of ALARA. COMPARISON: CT cervical spine of same day FINDINGS: No acute intracranial hemorrhage, midline shift, intracranial mass, hydrocephalus, territorial ischemia or abnormal extra-axial collection. The calvarium is intact. The paranasal sinuses, mastoid air cells, and middle ear cavities are clear. IMPRESSION: No acute intracranial abnormality. ACT 112: Negative or not required by law. The above report was generated using voice recognition software. It may contain grammatical, syntax or spelling errors. Electronically signed by: Orestes Field M.D. 12/09/2023 3:55 PM Chest X-Ray 12/09/23 14:59 XR chest 1V portable HISTORY: blacking out COMPARISON: Chest 07/28/2023. FINDINGS: The lungs are clear. Cardiac silhouette is normal in size. No pleural effusions. No pneumothorax. There is an old, healed left clavicle fracture. IMPRESSION: No acute process. ACT 112: Negative or not required by law. Electronically signed by: Tutu Franco M.D. 12/09/2023 4:08 PM Hospital Course (1) Diarrhea: (2) ALFREDO (acute kidney injury): (3) Syncope: (4) Alcohol abuse: (5) T1DM (type 1 diabetes mellitus): (6) HTN (hypertension): (7) History of atrial fibrillation: Plan Diarrhea: Respiratory bio fire was negative in the ER Stool bio fire and C. difficile was positive for gene but negative for toxin. CTA/P: No acute findings w/ ALFREDO and hypokalemia. Potassium repleted 40meq Magnesium added Supportive care, resolved at time of discharge. ALFREDO (acute kidney injury) Syncope Dehydration Creatinine 3.44, baseline approximately 0.91.3 Suspect due to volume contraction CThead without acute finding CTC-spine without acute finding Suspect severely prerenal with diarrheal illness,yesterday .Patient is not in DKA and BSG is 54 on admission Improved with fluid resuscitation - cr of 1.47 at time of discharge. recommend BMP in one week at PCP follow up. Alcohol abuse: History of alcohol abuse Last admitted to the hospital with discharge 10/07/2023 after an admission to detox and subsequently go to rehab Patient reports he had a few beers shortly after getting out of the hospital, but has not had no alcohol intake in the last 2 weeks. Generally reliable and very open about his alcohol intake. Will defer active protocol and placed on at risk WSS for monitoring Naltrexone, vitamin supplementation, sertraline continued T1DM (type 1 diabetes mellitus): Type I DM BSG 54, patient is not in DKA on admission. Pt did take a dose of insulin from his pump prior to ER arrival. Patient took a dose of short-acting insulin shortly before arrival and was low in the ER, improving after a meal. Very poor p.o. intake due to nausea. After initial fluid rehydration 1 L of Pepe's at maintenance added for adjunct and then can discontinue (6) HTN (hypertension): Plan: Stable after fluid resuscitation, continue home medications. - History of atrial fibrillation: Sinus on admission Likely alcohol induced. Continue Eliquis. Total Time Total Time Spent Total Time Spent (In Minutes): <30 Discharge Plan Discharge Items Patient Disposition: Home - Self-Care Reason For Visit: ALFREDO, SYNCOPE, DIARRHEAL ILLNESS Discharge Diagnosis: Acute kidney injury Activity: Resume your previous activity Non-emergency contact: Primary Care Provider Call non-emergency contact if: you have any medication questions, your pain is unusual for you and your temperature is above 101.5 Follow-up/Referrals: Tra Castillo D.O. [Primary Care Provider] - 12/21/23 10:45 am Diet: Regular Addtl Attending Provider Instructions: You were admitted to the hospital for acute kidney injury and diarrhea. You were treated with fluids and got better. A discharge summary will be sent to your primary care physician to ensure continuity of care. Please bring this discharge summary with you to your next office appointment so that your provider can review it at that time. Follow-up appointments: * Make a follow-up appointment with your PCP within the next week. It is very important that you follow up with them shortly after discharge from the hospital. * Keep all your follow-up appointments as already scheduled. If you cannot make an appointment, notify your provider. Medications: Your medication list has been reviewed and reconciled upon discharge to ensure accuracy and continuity of care. An updated list of all your medications is included with your hospital discharge paperwork. Please review this list closely, and make note of any changes. * No medication changes occurred during your visit. * Take your medications as instructed; do not skip a dose of your medicines. Make sure all of your doctors know every medicine you are taking (including xjnz-sbs-[id number] medicines, vitamins, and supplements). Call your primary care provider before taking any new medicines (including over- the-counter medicines, vitamins, and supplements), because some of these may interact with your current medications, or may make your symptoms worse. Tell your primary care provider if you cannot afford your medications. CONTACT YOUR PRIMARY CARE PROVIDER if you experience any of the following: * Worsening of symptoms * Fever, chills, or fatigue * Difficulty following your treatment plan, or difficulty taking medications CALL 911 OR GO TO THE EMERGENCY DEPARTMENT if you experience any of the following: * Sudden, severe abdominal pain or nausea/vomiting * Severe chest pain, or chest pain that radiates (moves) to your jaw or arm * Sudden, severe shortness of breath or difficulty breathing Thank you for allowing us to participate in your care. Pending Studies at Discharge: No Stand-Alone Forms: [employer], Smoking Cessation Medications and DC Order Prescriptions: Continued amlodipine 5 mg Tablet 0 mg PO DAILY Rx Instructions: PT UNSURE OF STRENGTH, UNABLE TO VERIFY. trazodone 100 mg Tablet 100 mg PO HS PRN (Reason: Sleep) Rx Instructions: UNKNOWN WHEN LAST FILLED. UNABLE TO VERIFY. lisinopril 10 mg Tablet 10 mg PO DAILY Rx Instructions: UNABLE TO VERIFY multivitamin Tablet 1 tab PO QAM Qty: 30 0RF Rx Instructions: UNABLE TO VERIFY thiamine HCl (vitamin B1) [Vitamin B-1] 100 mg Tablet 100 mg PO QAM Qty: 30 0RF Rx Instructions: UNABLE TO VERIFY folic acid 1 mg tablet 1 mg PO DAILY Qty: 30 0RF Eliquis 5 mg tablet 5 mg PO BID Rx Instructions: LAST FILLED 08/08/23 FOR 30 DAYS/60 TABS. insulin lispro 100 unit/mL solution 10 unit SUBCUT TIDM naltrexone 50 mg tablet 50 mg PO DAILY sertraline 50 mg tablet 50 mg PO DAILY insulin glargine [Basaglar KwikPen U-100 Insulin] 100 unit/mL (3 mL) insulin pen 15 unit SUBCUT QAM Rx Instructions: PER PT "DEPENDS ON WHAT BSG'S ARE RUNNING". Discharge Orders: Discharge Order (Routine); Ordered 12/10/23 Ordered By: Braydon Wells Admission Data Admit Date/Time: 12/09/23 17:26 Attending Provider: Cody Patel Admit Provider: Gilson Maldonado Primary Care Provider: Tra Castillo Other Providers: Gilson Maldonado Other Interventions: Discharge Summary Assessment (RN) Last Done: 12/10/23 14:22 Supervising Physician Co-Signing Physician Notes I personally examined the patient and verified all roy points of history and exam, discussed case, and agree with decision making with Dr Wells feeling better diarrhea slowed eating and drinking well would like to go home vitals noted nad heent nc at mmm breathing unlabored no accessory muscles good effort skin no rashes no pallor or icterus neuro no focal deficits diarrhea - cdiff carrier but not infection (both by testing and by improvement) and subsequent ARF but fortunately this is improvnig. safe/stable for home. applauded EtOH cessation. otherwise as above
--- NOTE | 2023-12-10 16:02 | XCELERA ---
[id number] [id number]
--- NOTE | 2023-12-10 17:01 | Billing Data ---
Date of Service December 10, 2023 Coding Level of Care Code 88638 IN/OBS DISCH 30 MIN/LESS
--- NOTE | 2023-12-12 05:26 | Electrocardiogram Report ---
Test Reason : Blood Pressure : / mmHG Vent. Rate : 075 BPM Atrial Rate : 075 BPM P-R Int : 088 ms QRS Dur : 094 ms QT Int : 436 ms P-R-T Axes : 000 013 039 degrees QTc Int : 486 ms Sinus rhythm with short CA Nonspecific ST abnormality Prolonged QT Abnormal ECG When compared with ECG of 07-OCT-2023 10:33, QT has lengthened Confirmed by Matthew Girard ([id number]) on 12/12/2023 5:26:20 AM Referred By: REFERRED SELF Confirmed By:Matthew Girard
--- NOTE | 2023-12-12 05:27 | Electrocardiogram Report ---
Test Reason : Blood Pressure : / mmHG Vent. Rate : 068 BPM Atrial Rate : 068 BPM P-R Int : 116 ms QRS Dur : 088 ms QT Int : 444 ms P-R-T Axes : 044 006 012 degrees QTc Int : 472 ms Normal sinus rhythm T wave abnormality, consider inferior ischemia When compared with ECG of 09-DEC-2023 14:59, T wave inversion now evident in Inferior leads Confirmed by Matthew Girard ([id number]) on 12/12/2023 5:26:59 AM Referred By: REFERRED SELF Confirmed By:Matthew Girard
== END 2023-12-10 15:30 | disposition home or self-care (01) ==
LOC: ED 14:20 → SUATTDRO 17:26 → EDINP 17:26 → INTOOBSV 17:26 → 2E 19:32

== ENCOUNTER 2024-01-29 09:51 | Inpatient (IN) ==
[2024-01-29] MEDS: SODIUM CHLORIDE 0.9% 500 ML IV SCH (10:15)
[2024-01-29] MEDS: ONDANSETRON INJ 2 MG/ML 2 ML VIAL ONE (10:15)
[2024-01-29] MEDS: LORazepam 1 MG/1 ML SYR ED Inj Use IV STA (10:15)
[2024-01-29] MEDS: ONDANSETRON INJ 2 MG/ML 2 ML VIAL IV STA (10:28)
--- NOTE | 2024-01-29 10:29 | XRay Report ---
XR chest 1V portable HISTORY: Alcohol intoxication. COMPARISON: Chest 12/09/2023. FINDINGS: The lungs are clear. Cardiac silhouette is normal in size. No pleural effusions. No pneumot horax. Old left-sided clavicular fracture again noted. IMPRESSION: No acute process. ACT 112: Negative or not required by law. Electronically signed by: Tutu Franco M.D. 01/29/2024 10:28 AM
[2024-01-29] MEDS: THIAMINE HCL 200 MG in SODIUM CHLORIDE 0.9% 50 ML IV STA (10:31)
[2024-01-29 10:38] LABS: Base Excess VBG -6.1 mEq/L; HCO3 VBG 17 mmol/L; Oxygen Saturation VBG 90.5 %; PCO2 VBG 28 mmHg (38-50); PO2 VBG 54 mmHg
[2024-01-29 10:39] LABS: Basophils # (auto) 0.04 K/uL (0.00-0.20); Basophils % (auto) 0.6 %; Eosinophils # (auto) 0.02 K/uL (0.00-0.50); Eosinophils % (auto) 0.3 %; Hematocrit (blood only) 40.2 % (42.0-52.0); Hemoglobin 13.8 g/dl (14.0-18.0); Immature Granulocytes # (auto) 0.02 K/uL (0.01-0.20); Immature Granulocytes % (auto) 0.3 %; Lymphocytes # (auto) 1.49 K/uL (1.20-3.40); Lymphocytes % (auto) 22.1 %; Mean Corpuscular Hemoglobin 33.5 pg (25.0-34.0); Mean Corpuscular Hgb Conc 34.3 g/dL (32.0-36.0); Mean Corpuscular Volume 97.6 fL (80.0-100.0); Mean Platelet Volume 9.1 fL (9.4-12.4); Monocytes % (auto) 8.9 %; Neutrophils # (auto) 4.58 K/uL (1.40-6.50); Neutrophils % (auto) 67.8 %; Platelet Count 209 K/uL (130-400); RDW Coefficient of Variation 12.9 % (11.5-14.5); RDW Standard Deviation 46.5 fL (36.4-46.3); Red Blood Count 4.12 M/uL (4.70-6.10); White Blood Count 6.75 K/ul (4.8-10.8)
--- NOTE | 2024-01-29 10:48 | Emergency Department Note ---
Impression & Plan Alcohol dependence with withdrawal, Nausea & vomiting ED Provider Note NAME: SANJAY MARQUIS AGE: 38 SEX: M : 1985 ARRIVES VIA: Walk-In INFORMANT: Patient, ED PROVIDER(S): Dk Bonds DO CHIEF COMPLAINT: Withdrawal HPI: The patient is a 12-year-old male who presented to the emergency department for an evaluation of alcohol withdrawal. The patient has a history of diabetes. He had nausea and vomiting. He also has a history of chronic alcohol abuse. He drinks liquor daily. The patient had a similar episode recently our facility. He was able to go through withdrawal and stopped for approximately 30 days. He started drinking again. He denies having any hematemesis. The patient denies having any black stools. He denies having any chest pain. He denies having difficulty breathing. He does complain of some upper abdominal pain. ROS: See above HPI for pertinent positives & negatives. A total of 10 systems reviewed and were otherwise negative. PAST MEDICAL HISTORY: See Below PAST SURGICAL HISTORY: See Below FAMILY HISTORY: See Below SOCIAL HISTORY: See Below HOME MEDICATIONS: See Below ALLERGIES: See Below VITALS: See Below PHYSICAL EXAMINATION: GENERAL: The patient is awake and alert. The patient is very anxious. EYES: The conjunctivae are clear. The pupils are round and reactive. EARS, NOSE, MOUTH AND THROAT: The nose is without any evidence of any deformity. Mucous membranes are dry. NECK: The neck is nontender and supple. RESPIRATORY: Normal respiratory effort is noted there is no evidence of wheezing rhonchi or rales CARDIOVASCULAR: Tachycardic and regular heart sounds were noted to auscultation. There is no definite murmur. GASTROINTESTINAL: The abdomen was soft and nondistended. There is epigastric tenderness to palpation which was mild. There is no guarding or rigidity. MUSCULOSKELETAL/EXTREMITIES: There is no evidence of gross deformity full range of motion is noted in the hips and shoulders. SKIN: There is no obvious evidence of any rash. There are no petechiae, pallor or cyanosis noted. NEUROLOGIC: Patient is awake alert and oriented x3 strength is symmetric patellar reflexes are 2+ bilaterally. Resting tremor was noted in both upper extremities. MEDICAL DECISION MAKING: The patient is a 38-year-old male who presented to the emergency department for an evaluation of alcohol withdrawal. The patient has a history of chronic alcohol abuse. He has been through detox inpatient in the past. The patient's been having nausea and vomiting. Abdominal exam was not consistent with acute surgical abdomen. There is no reported trauma the patient has a normal neurologic exam. I discussed patient's laboratory and radiographic studies with him. He was treated with IV fluids IV thiamine and IV Ativan in the emergency department. On reevaluation his vital signs as well as his presentation were significantly improved. He was still requesting inpatient detox for I discussed his condition [facility]. They have agreed to evaluate the patient in the emergency department for further management and disposition. Triage Nursing notes reviewed. Prior medical records reviewed Vital Signs: reviewed and remarkable for elevated blood pressure. Differential diagnosis: Overdose, toxicologic, infection, hypoglycemia, electrolyte abnormalities, cardiac sources, intracerebral event, neurologic, trauma, as well as other pathologies. ER treatment provided: See below Diagnostics interpreted by me: ECG: EKG was obtained in the emergency department. My interpretation is normal sinus rhythm at 90 bpm. There is no ectopy. There is no acute ST segment abnormalities noted. This was compared to a tracing from December 09, 2023. No changes were noted. Cardiac Monitoring: An order was placed for continuous cardiac monitoring. The monitor shows a rate of 84 bpm with sinus rhythm. Laboratory studies: As stated above and show below. Imaging studies: See below. Radiographic imaging was reviewed by myself Consultation(s): I discussed this case with Dr. Mckeon [facility] ED COURSE: Procedures: none Critical Care: I have personally spent greater than 35 minutes of critical care time in the direct management of this patient. This includes bedside care, interpretation of diagnostic studies, and testing, discussion with consultants, patient, and family members, and other required patient management activities. This 35 minutes is in excess of all separately billable procedures. Past Med/Surg History Problem List (Updated 01/29/24 @ 11:53 by Dk Bonds DO) Alcohol abuse (Acute) Alcohol intoxication (Acute) Dehydration (Acute) Depressed Abdominal pain (Acute) Nausea & vomiting (Acute) DKA (diabetic ketoacidosis) Alcohol withdrawal (Acute) History of atrial fibrillation HTN (hypertension) T1DM (type 1 diabetes mellitus) Alcohol dependence with withdrawal (Acute) Medical History Syncope Diarrhea ALFREDO (acute kidney injury) Social History Smoking Status: Current some day smoker Tobacco Type: Cigarettes Hx Alcohol Use: Yes Alcohol type: beer Hx Substance Use: No Preferred Language: Divehi Communication Ability: Effective Bowl Topper Required: No Beliefs That Will Affect Care: None Current Living Situation: Alone Feels Safe at Home: Yes Assistive Devices: None Allergies Allergies Allergy/AdvReac Type Severity Reaction Status Date / Time No Known Allergies Allergy Verified 01/29/24 11:04 Home Meds Home Medications Medication Instructions Recorded Confirmed lisinopril 10 mg tablet 10 mg PO DAILY 05/14/23 01/29/24 apixaban 5 mg tablet (Eliquis) 5 mg PO BID 10/06/23 01/29/24 insulin lispro 100 unit/mL 10 unit subcut TIDM 10/06/23 01/29/24 subcutaneous solution insulin glargine 100 unit/mL (3 15 unit subcut QAM 12/09/23 01/29/24 mL) subcutaneous pen (Basaglar KwikPen U-100 Insulin) naltrexone 50 mg tablet 50 mg PO DAILY 12/09/23 01/29/24 sertraline 50 mg tablet 50 mg PO DAILY 12/09/23 01/29/24 Previous Rx's Medication Instructions Recorded folic acid 1 mg tablet 1 mg PO DAILY #30 tabs 05/16/23 multivitamin 1 tab PO QAM #30 tabs 05/16/23 thiamine HCl (vitamin B1) 100 mg 100 mg PO QAM #30 tabs 05/16/23 tablet (Vitamin B-1) Results & Data (ED) Vital Signs Vital Signs - 24 hr 01/29/24 09:53 01/29/24 10:08 01/29/24 10:10 Temperature 36.0 C L 36.9 C Temperature Source Temporal Artery Scan Oral Pulse Rate 121 H Pulse Rate [Left] 103 H Pulse Rate from SpO2 Sensor Pulse Rhythm [Left] Regular Pulse Strength [Left] Normal Respiratory Rate 24 18 Respiratory Effort / Characteristics Non-Labored Spontaneous Non-Labored Respiratory Depth Normal Normal Respiratory Pattern Regular Blood Pressure 170/111 H Blood Pressure [Left Arm] 159/115 H Blood Pressure Mean 130 Blood Pressure Mean [Left Arm] 129 Blood Pressure Position [Left Arm] Sitting Pulse Oximetry 100 98 98 Oxygen Delivery Method Room Air Room Air Room Air Sepsis Recent Fever Within 48 Hours No Sepsis New/Unexplained Change in Mental Status N/A Sepsis Action Taken by Nursing No Action Required 01/29/24 10:11 01/29/24 10:15 01/29/24 10:18 Temperature Temperature Source Pulse Rate 97 H Pulse Rate [Left] Pulse Rate from SpO2 Sensor Pulse Rhythm [Left] Pulse Strength [Left] Respiratory Rate Respiratory Effort / Characteristics Respiratory Depth Respiratory Pattern Blood Pressure 159/115 H 138/103 H Blood Pressure [Left Arm] Blood Pressure Mean 136 121 Blood Pressure Mean [Left Arm] Blood Pressure Position [Left Arm] Pulse Oximetry Oxygen Delivery Method Sepsis Recent Fever Within 48 Hours Sepsis New/Unexplained Change in Mental Status Sepsis Action Taken by Nursing 01/29/24 10:24 01/29/24 10:26 01/29/24 10:26 Temperature Temperature Source Pulse Rate 87 Pulse Rate [Left] Pulse Rate from SpO2 Sensor 84 Pulse Rhythm [Left] Pulse Strength [Left] Respiratory Rate 18 Respiratory Effort / Characteristics Respiratory Depth Respiratory Pattern Blood Pressure 138/85 138/85 Blood Pressure [Left Arm] Blood Pressure Mean 106 106 Blood Pressure Mean [Left Arm] Blood Pressure Position [Left Arm] Pulse Oximetry 96 Oxygen Delivery Method Sepsis Recent Fever Within 48 Hours Sepsis New/Unexplained Change in Mental Status Sepsis Action Taken by Nursing 01/29/24 10:33 01/29/24 10:51 01/29/24 11:00 Temperature 36.9 C Temperature Source Oral Pulse Rate 93 H 85 Pulse Rate [Left] 95 H Pulse Rate from SpO2 Sensor 96 H 85 Pulse Rhythm [Left] Regular Pulse Strength [Left] Normal Respiratory Rate 19 23 14 Respiratory Effort / Characteristics Non-Labored Respiratory Depth Normal Respiratory Pattern Regular Blood Pressure 161/99 H 138/96 Blood Pressure [Left Arm] 141/91 H Blood Pressure Mean 119 110 Blood Pressure Mean [Left Arm] 107 Blood Pressure Position [Left Arm] Lying Pulse Oximetry 98 95 97 Oxygen Delivery Method Room Air Room Air Room Air Sepsis Recent Fever Within 48 Hours Sepsis New/Unexplained Change in Mental Status Sepsis Action Taken by Nursing 01/29/24 11:15 Temperature Temperature Source Pulse Rate 84 Pulse Rate [Left] Pulse Rate from SpO2 Sensor 82 Pulse Rhythm [Left] Pulse Strength [Left] Respiratory Rate 18 Respiratory Effort / Characteristics Respiratory Depth Respiratory Pattern Blood Pressure 148/94 H Blood Pressure [Left Arm] Blood Pressure Mean 112 Blood Pressure Mean [Left Arm] Blood Pressure Position [Left Arm] Pulse Oximetry 96 Oxygen Delivery Method Room Air Sepsis Recent Fever Within 48 Hours Sepsis New/Unexplained Change in Mental Status Sepsis Action Taken by Prison Medications Current Medication List: was personally reviewed by me Laboratory Data Attestation: I reviewed the patient's lab results. 01/29/24 10:08 01/29/24 10:08 Lab Results 01/29/24 01/29/24 01/29/24 Range/Units 10:08 10:15 10:28 WBC 6.75 (4.8-10.8) K/ul RBC 4.12 L (4.70-6.10) M/uL Hgb 13.8 L (14.0-18.0) g/dl Hct 40.2 L (42.0-52.0) % MCV 97.6 (80.0-100.0) fL MCH 33.5 (25.0-34.0) pg MCHC 34.3 (32.0-36.0) g/dL RDW Std Deviation 46.5 H (36.4-46.3) fL RDW Coeff of Maxi 12.9 (11.5-14.5) % Plt Count 209 (130-400) K/uL MPV 9.1 L (9.4-12.4) fL Immature Gran % (Auto) 0.3 % Neut % (Auto) 67.8 % Lymph % (Auto) 22.1 % [place] % (Auto) 8.9 % Eos % (Auto) 0.3 % Baso % (Auto) 0.6 % Neut # (Auto) 4.58 (1.40-6.50) K/uL Lymph # (Auto) 1.49 (1.20-3.40) K/uL [place] # (Auto) 0.60 H (0.11-0.59) K/uL Eos # (Auto) 0.02 (0.00-0.50) K/uL Baso # (Auto) 0.04 (0.00-0.20) K/uL Immature Gran # (Auto) 0.02 (0.01-0.20) K/uL PT 9.6 (9.0-12.0) Seconds INR 0.9 (0.9-1.1) APTT 26 (21-31) Seconds PTT Ratio 1.0 VBG pH 7.40 (7.36-7.41) VBG pCO2 28 L (38-50) mmHg VBG pO2 54 mmHg VBG HCO3 17 mmol/L VBG O2 Saturation 90.5 % VBG Base Excess -6.1 mEq/L Sodium 140 (136-145) mmol/L Potassium 3.7 (3.5-5.1) mmol/L Chloride 99 (98-107) mmol/L Carbon Dioxide 19 L (21-32) mmol/L Anion Gap 22 H (3-11) BUN 13 (6-23) mg/dl Creatinine 1.04 (0.6-1.4) mg/dl Est Cr Clr Drug Dosing 103.6 ml/min Est GFR ( Amer) 103.6 ml/min Est GFR (Non-Af Amer) 89.4 ml/min BUN/Creatinine Ratio 12.5 (10-20) Glucose 74 (70-99(Fasting)) mg/dl POC Glucose 77 (70-99) mg/dl Calcium 10.7 H (8.6-10.3) mg/dl Magnesium 1.7 (1.7-2.4) mg/dl Total Bilirubin 1.0 (0.2-1.0) mg/dl AST 76 H (13-39) U/L ALT 35 (7-52) U/L Alkaline Phosphatase 69 (34-104) U/L Total Creatine Kinase 116 (30-223) U/L Troponin I High Sens 5.5 (0-20) pg/ml Total Protein 8.9 H (6.0-8.3) gm/dl Albumin 5.7 H (3.4-5.0) gm/dl Globulin 3.2 (2.5-4.0) gm/dl Albumin/Globulin Ratio 1.8 (0.9-2) Lipase 27 (11-82) U/L Salicylates < 3.0 L (3.0-30) mg/dl Acetaminophen < 3 L (10-30) ug/ml Ethyl Alcohol mg/dL 31.8 H (<10.0) mg/dl 01/29/24 01/29/24 Range/Units 11:02 11:59 WBC (4.8-10.8) K/ul RBC (4.70-6.10) M/uL Hgb (14.0-18.0) g/dl Hct (42.0-52.0) % MCV (80.0-100.0) fL MCH (25.0-34.0) pg MCHC (32.0-36.0) g/dL RDW Std Deviation (36.4-46.3) fL RDW Coeff of Maxi (11.5-14.5) % Plt Count (130-400) K/uL MPV (9.4-12.4) fL Immature Gran % (Auto) % Neut % (Auto) % Lymph % (Auto) % Cors[place] % (Auto) % Eos % (Auto) % Baso % (Auto) % Neut # (Auto) (1.40-6.50) K/uL Lymph # (Auto) (1.20-3.40) K/uL [place] # (Auto) (0.11-0.59) K/uL Eos # (Auto) (0.00-0.50) K/uL Baso # (Auto) (0.00-0.20) K/uL Immature Gran # (Auto) (0.01-0.20) K/uL PT (9.0-12.0) Seconds INR (0.9-1.1) APTT (21-31) Seconds PTT Ratio VBG pH (7.36-7.41) VBG pCO2 (38-50) mmHg VBG pO2 mmHg VBG HCO3 mmol/L VBG O2 Saturation % VBG Base Excess mEq/L Sodium (136-145) mmol/L Potassium (3.5-5.1) mmol/L Chloride (98-107) mmol/L Carbon Dioxide (21-32) mmol/L Anion Gap (3-11) BUN (6-23) mg/dl Creatinine (0.6-1.4) mg/dl Est Cr Clr Drug Dosing ml/min Est GFR ( Amer) ml/min Est GFR (Non-Af Amer) ml/min BUN/Creatinine Ratio (10-20) Glucose (70-99(Fasting)) mg/dl POC Glucose 120 H 144 H (70-99) mg/dl Calcium (8.6-10.3) mg/dl Magnesium (1.7-2.4) mg/dl Total Bilirubin (0.2-1.0) mg/dl AST (13-39) U/L ALT (7-52) U/L Alkaline Phosphatase (34-104) U/L Total Creatine Kinase (30-223) U/L Troponin I High Sens (0-20) pg/ml Total Protein (6.0-8.3) gm/dl Albumin (3.4-5.0) gm/dl Globulin (2.5-4.0) gm/dl Albumin/Globulin Ratio (0.9-2) Lipase (11-82) U/L Salicylates (3.0-30) mg/dl Acetaminophen (10-30) ug/ml Ethyl Alcohol mg/dL (<10.0) mg/dl Administered Medications Discontinued Medications Sodium Chloride (Nss) 500 mls @ 999 mls/hr IV .Q31M PHILLIP Stop: 01/29/24 10:45 Last Infusion: 01/29/24 10:47 Dose: Infused Documented By: Admin: 01/29/24 10:15 Dose: 999 mls/hr Documented By: DAVE Thiamine HCl 200 mg/ Sodium (Chloride) 52 mls @ 210 mls/hr IV NOW STA Stop: 01/29/24 10:23 Last Infusion: 01/29/24 10:47 Dose: Infused Documented By: Admin: 01/29/24 10:31 Dose: 210 mls/hr Documented By: DAVE Lorazepam (Lorazepam 1 Mg/1 Ml Syr Ed Inj Use) 1 mg IV ONE STA Stop: 01/29/24 10:10 Last Admin: 01/29/24 10:15 Dose: 1 mg Documented By: DAVE Ondansetron HCl (Ondansetron Inj 2 Mg/Ml 2 Ml Vial) Confirm Administered Dose 4 mg .ROUTE .STK-MED ONE Stop: 01/29/24 10:02 Last Admin: 01/29/24 10:15 Dose: 4 mg Documented By: DAVE Ondansetron HCl (Ondansetron Inj 2 Mg/Ml 2 Ml Vial) 4 mg IV NOW STA Stop: 01/29/24 10:27 Last Admin: 01/29/24 10:28 Dose: Not Given Documented By: DAVE Imaging Data Attestation: I personally reviewed and interpreted this imaging study as follows: My Impression: 1 view chest x-ray was obtained in the emergency department. My interpretation is no free air or definite infiltrate, final report below. Radiologist's Impression: Chest X-Ray 01/29/24 10:10 XR chest 1V portable HISTORY: Alcohol intoxication. COMPARISON: Chest 12/09/2023. FINDINGS: The lungs are clear. Cardiac silhouette is normal in size. No pleural effusions. No pneumothorax. Old left-sided clavicular fracture again noted. IMPRESSION: No acute process. ACT 112: Negative or not required by law. Electronically signed by: Tutu Franco M.D. 01/29/2024 10:28 AM Discharge Plan Visit Data Chief Complaint: Detox Request Stated Complaint: DETOX REQUEST ED Provider: Dk Bonds Discharge Problem: Alcohol dependence with withdrawal, Nausea & vomiting Patient Disposition: Being Evaluated by Hospitalist Forms Stand Alone Forms: My [facility], Suicide Prevention Resources Prescriptions Prescriptions: No Action lisinopril 10 mg Tablet 10 mg PO DAILY Rx Instructions: UNABLE TO VERIFY multivitamin Tablet 1 tab PO QAM Qty: 30 0RF Rx Instructions: UNABLE TO VERIFY thiamine HCl (vitamin B1) [Vitamin B-1] 100 mg Tablet 100 mg PO QAM Qty: 30 0RF Rx Instructions: UNABLE TO VERIFY folic acid 1 mg tablet 1 mg PO DAILY Qty: 30 0RF Eliquis 5 mg tablet 5 mg PO BID Rx Instructions: LAST FILLED 08/08/23 FOR 30 DAYS/60 TABS. insulin lispro 100 unit/mL solution 10 unit SUBCUT TIDM naltrexone 50 mg tablet 50 mg PO DAILY sertraline 50 mg tablet 50 mg PO DAILY insulin glargine [Basaglar KwikPen U-100 Insulin] 100 unit/mL (3 mL) insulin pen 15 unit SUBCUT QAM Rx Instructions: PER PT "DEPENDS ON WHAT BSG'S ARE RUNNING". Referrals Referrals: Tra Castillo D.O. [Primary Care Provider] - Discharge Problem: Alcohol dependence with withdrawal Qualifiers: Complication of substance-induced condition: uncomplicated Qualified Code(s): F 10.230 - Alcohol dependence with withdrawal, uncomplicated Nausea & vomiting Qualifiers: Vomiting type: unspecified Qualified Code(s): R11.2 - Nausea with vomiting, unspecified
[2024-01-29 10:50] LABS: Acetaminophen < 3 ug/ml (10-30); Salicylate < 3.0 mg/dl (3.0-30)
[2024-01-29 10:56] LABS: Albumin Globulin Ratio 1.8 (0.9-2); Albumin Level 5.7 gm/dl (3.4-5.0); BUN Creatinine Ratio 12.5 (10-20); Calcium 10.7 mg/dl (8.6-10.3); Creatinine Clr Calc Pharmacy 103.6 ml/min; Est GFR (African American) 103.6 ml/min; Est GFR (Non-African American) 89.4 ml/min; Globulin 3.2 gm/dl (2.5-4.0); Magnesium 1.7 mg/dl (1.7-2.4); Potassium 3.7 mmol/L (3.5-5.1); Total Protein 8.9 gm/dl (6.0-8.3)
[2024-01-29 11:01] LABS: Troponin I High Sensitivity 5.5 pg/ml (0-20)
[2024-01-29 11:14] LABS: INR 0.9 (0.9-1.1); Partial Thromboplastin Time 26 Seconds (21-31); Prothrombin Time 9.6 Seconds (9.0-12.0)
--- NOTE | 2024-01-29 11:47 | History & Physical Report ---
Date of Service January 29, 2024 Assessment & Plan (1) Alcohol abuse: Plan: Alcohol dependence with withdrawal Alcohol level 34 on admission - ~24 shotes - 2 pints vodka intake daily for last 4-6 weeks. - Expresses a desire to get sober again. - No GI bleeding. +clear vomiting. Hgb uptrending. History of withdrawal. Patient is tremulous, diaphoretic with a positive alcohol. Increased risk for withdrawal symptoms. Patient reports he has done well on Librium/AWSS in the past. AWSS/low-dose Librium taper due to mild transaminitis ordered - Pts plan post withdrawal is to go to his mothers home, and re-enroll in outpatient rehab (2) Nausea & vomiting: Plan: Suspect alcohol induced gastritis No hematochezia, melena, hematemesis. Poor p.o. intake. Emesis is mostly clear PPI, H2, GI cocktail ordered Clears, advance as tolerated Zofran as needed for nausea (3) T1DM (type 1 diabetes mellitus): Plan: Type I DM BSG is not elevated on admission, does have an increased anion gap with positive alcohol and volume contraction Basal dose reduced for poor intake and AM low blood sugar of 77. 15 units glargine this morning, will continue 10 units glargine daily starting 01/29. SSI CF 50/ratio 25. Goal BG [id number] BMP 4 hours x 2 to follow Gap He is not in DKA on admission. Bicarb is normal. VBG with Mild compensated respiratory alkalosis Renal function at baseline on admission, creatinine 1.04 (4) HTN (hypertension): Plan: Hypertension Lisinopril daily. No longer takes clonidine or amlodipine (5) History of atrial fibrillation: Plan: Paroxysmal A-fib History of excisional A-fib, multiple episodes provoked by alcohol Eliquis PPx continued, sinus on admission. Optimize mag 2.0/potassium 4.0 Plan DVT prophylaxis: Eliquis CODE STATUS: Full code Disposition: Medical telemetry for acute withdrawal Diet: Clears, advance as tolerated to DM1 History of Present Illness Primary Care Provider: Tra Kourtney Jonathan Lau is a 38-year-old male with a past medical history of type 1 diabetes, alcohol dependence with withdrawal, A-fib on Eliquis who was admitted 12/2023 for diarrheal illness with ALFREDO and hypokalemia who has a history of alcohol abuse but at that time had not had alcohol in the preceding 2 weeks who presents to the ER for nausea/vomiting and who has resumed drinking alcohol and is concerned about withdrawal abdominal pain. Chest x-ray is normal. Hemoglobin is 13.8, prior 10.5. Not had any melena or hematochezia. On admission alcohol level was positive at 31.8, Tylenol and salicylate level is negative. High sensitive troponin is normal. Slight elevation of AST, bilirubin/ALT/alk phos are normal. CK is normal. He is volume contracted with an anion gap of 22, BSG 120. Last drink 9pm Buying a pint twice a day, if he buys more he'll drink the whole thing. Drinking ~24 shots/2 pints of vodka per day No history of seizures +chills, termors, sweats. No fever. Feels tremulous No cough, congestion. +vomiting since 6am. No bloody or black bms. No hematemesis. Took AM glargine this AM. BSG 77, couldn't keep breakfast down due to nausea Did not take eliquis this AM Naltrexone still taking when not drinking, but has not taken in the last 2 weeks due to drinking. Has been drinking for around 4-6 weeks daily. No chest pain, chest pressure or palpitations Did not take blood Reports he has done well with libruim in the past. Once he is sober is going to [place] to stay with his mother and is looking into outpatient rehab programs currently. Medical History: Reviewed Medications: Reviewed Surgical History: Reviewed Family history: Reviewed Allergies: Reviewed. NKDA Social History: ETOH as noted. Rare social cigarette. Rare marijuana use. Code Status: Full Allergies Allergy/AdvReac Type Severity Reaction Status Date / Time No Known Allergies Allergy Verified 01/29/24 11:04 Home Medications Medication Instructions Recorded Confirmed Type lisinopril 10 mg tablet 10 mg PO DAILY 05/14/23 01/29/24 History folic acid 1 mg tablet 1 mg PO DAILY #30 tabs 05/16/23 01/29/24 Rx multivitamin 1 tab PO QAM #30 tabs 05/16/23 01/29/24 Rx thiamine HCl (vitamin B1) 100 mg 100 mg PO QAM #30 tabs 05/16/23 01/29/24 Rx tablet (Vitamin B-1) apixaban 5 mg tablet (Eliquis) 5 mg PO BID 10/06/23 01/29/24 History insulin lispro 100 unit/mL 10 unit subcut TIDM 10/06/23 01/29/24 History subcutaneous solution insulin glargine 100 unit/mL (3 15 unit subcut QAM 12/09/23 01/29/24 History mL) subcutaneous pen (Basaglar KwikPen U-100 Insulin) naltrexone 50 mg tablet 50 mg PO DAILY 12/09/23 01/29/24 History sertraline 50 mg tablet 50 mg PO DAILY 12/09/23 01/29/24 History Past Med/Surg History Problem List (Updated 01/29/24 @ 11:53 by Dk Bonds DO) Alcohol abuse (Acute) Alcohol intoxication (Acute) Dehydration (Acute) Depressed Abdominal pain (Acute) Nausea & vomiting (Acute) DKA (diabetic ketoacidosis) Alcohol withdrawal (Acute) History of atrial fibrillation HTN (hypertension) T1DM (type 1 diabetes mellitus) Alcohol dependence with withdrawal (Acute) Medical History Syncope Diarrhea ALFREDO (acute kidney injury) Social History Smoking Status: Current some day smoker Tobacco Type: Cigarettes Hx Alcohol Use: Yes Alcohol type: beer Hx Substance Use: No Preferred Language: Khmer Communication Ability: Effective Language Arts Teacher Required: No Beliefs That Will Affect Care: None Current Living Situation: Alone Feels Safe at Home: Yes Assistive Devices: None Physical Exam Physical Exam: General: A&Ox3. NAD. Cooperative. Tremulous. Skin warm, slightly moist. HEENT: Atraumatic, normocephalic. PERLAA Pulm: CTAB A&P. -wheezes, -rales, -rhonchi. Symmetrical chest rise. No increased work of breathing. No respiratory distress. Cardiac: RRR, -mrg. Radial pulses intact and symmetrical. Abdominal: +epigastric TTP with nause induction on palpation. REmainign abdomen NT, soft, no rebound/guarding. BS present. Extremities: sensation/strength intact in hands and feet and symmetrical, +tremor bilaterally in hands without asterixis Results & Data Results & Data Vital Signs (Past 12 Hours) Vital Signs Temp Pulse Pulse Resp BP BP Pulse Ox 01/29/24 11:15 84 18 148/94 H 96 01/29/24 11:00 85 14 138/96 97 01/29/24 10:51 93 H 23 161/99 H 95 01/29/24 10:33 36.9 C 95 H 19 141/91 H 98 01/29/24 10:26 138/85 01/29/24 10:26 138/85 01/29/24 10:24 87 18 96 01/29/24 10:18 97 H 01/29/24 10:15 138/103 H 01/29/24 10:11 159/115 H 01/29/24 10:10 98 01/29/24 10:08 36.9 C 103 H 18 159/115 H 98 01/29/24 09:53 36.0 C L 121 H 24 170/111 H 100 O2 Del Method 01/29/24 11:15 Room Air 01/29/24 11:00 Room Air 01/29/24 10:51 Room Air 01/29/24 10:33 Room Air 01/29/24 10:26 01/29/24 10:26 01/29/24 10:24 01/29/24 10:18 01/29/24 10:15 01/29/24 10:11 01/29/24 10:10 Room Air 01/29/24 10:08 Room Air 01/29/24 09:53 Room Air PG Care Time/CCT Total # of Minutes Spent Total Time Spent with Patient: Total time spent is greater than 50% in coordination of care (as documented) at patient's floor/unit and/or counseling patient: Coding Level of Care Code 58964 INT INP/OBS CARE 3/75MIN Diagnoses Alcohol abuse F10.10 Nausea & vomiting R11.2 Vomiting type: unspecified T1DM (type 1 diabetes mellitus) E10.9 HTN (hypertension) I10 History of atrial fibrillation Z86.79 (2) Nausea & vomiting Vomiting type: unspecified Qualified Code(s): R11.2 - Nausea with vomiting, unspecified
[2024-01-29] MEDS ORDERED: chlordiazePOXIDE ALCOHOL WITHDRAWL 25MG PO STA (12:07)
[2024-01-29] MEDS ORDERED: LORazepam 2 MG in SYRINGE 1 ML IV PRN (12:07)
[2024-01-29] MEDS ORDERED: Ativan IV Alcohol Withdrawal--Active Protocol IV PRN (12:07)
[2024-01-29] MEDS ORDERED: LORazepam 3 MG in SYRINGE 1.5 ML IV PRN (12:07)
[2024-01-29] MEDS ORDERED: GLUCOSE 40% GEL 15 GM TUBE PO PRN (12:12)
[2024-01-29] MEDS ORDERED: GLUCOSE 10 TAB/TUBE PO PRN (12:12)
[2024-01-29] MEDS ORDERED: DEXTROSE 50% 50 ML SYRINGE IV PRN (12:12)
[2024-01-29] MEDS ORDERED: CARBOHYDRATES FOR HYPOGLYCEMIA PO PRN (12:12)
[2024-01-29] MEDS ORDERED: ONDANSETRON INJ 2 MG/ML 2 ML VIAL IV PRN (12:12)
[2024-01-29] MEDS ORDERED: GLUCAGON FOR INJ 1 MG VIAL SQ PRN (12:12)
[2024-01-29] MEDS: FAMOTIDINE 20MG IV PUSH 20 MG/5 ML SYR IV SCH (12:47)
[2024-01-29] MEDS: ALUMINUM/MAGNESIUM SUSP 30 ML UDC PO STA (12:47)
[2024-01-29] MEDS: MAGNESIUM SULFATE / D5W 1 GM/100 ML BAG IV SCH (12:47)
[2024-01-29] MEDS: chlordiazePOXIDE HCl 25 MG CAP PO SCH (13:06)
[2024-01-29] MEDS: PANTOprazole 40 MG in SYRINGE 0 ML IV ONE (13:07)
[2024-01-29] MEDS: THIAMINE HCL 300 MG in SODIUM CHLORIDE 0.9% 50 ML IV ONE (13:21)
[2024-01-29] MEDS: LORazepam 1 MG in SYRINGE 0.5 ML IV PRN (14:55)
[2024-01-29] MEDS: INSULIN ASPART PER UNIT CHARGE SC SCH (18:25)
[2024-01-29 20:34] LABS: Appearance Urine Clear (Clear); Bacteria Urine Automated None Seen (None Seen); Bilirubin Urine 2+ (Negative); Blood Urine Negative (Negative); Cast Urine Automated 0-2 /lpf (0-2); Color Urine Dark Yellow; Epithelial Cell Urine Auto 0-2 /hpf (0-2); Glucose Urine UA 1+ (Negative); Ketones Urine 3+ (Negative); Leukocyte Esterase Urine Negative (Negative); Nitrite Urine Negative (Negative); Protein Urine 1+ (Negative); RBC Urine Automated 0-2 /hpf (0-2); Specific Gravity Urine 1.025 (1.000-1.030); Urobilinogen Urine Negative (Negative); WBC Urine Automated 0-5 /hpf (0-5); pH Urine 5.5 (4.5-7.5)
[2024-01-29] MEDS: APIXABAN 5 MG TABLET PO SCH (20:48)
--- NOTE | 2024-01-29 21:17 | Electrocardiogram Report ---
Test Reason : Blood Pressure : / mmHG Vent. Rate : 090 BPM Atrial Rate : 090 BPM P-R Int : 124 ms QRS Dur : 086 ms QT Int : 368 ms P-R-T Axes : 040 -10 030 degrees QTc Int : 450 ms Normal sinus rhythm Normal ECG When compared with ECG of 09-DEC-2023 17:55, No significant change was found Confirmed by Carlos Paredes ([id number]) on 01/29/2024 9:17:07 PM Referred By: REFERRED SELF Confirmed By:Carlos Paredes
[2024-01-29 21:29] LABS: Amphetamines+Metham, Urine Neg (Neg); Barbiturates, Urine Neg (Neg); Benzodiazepine, Urine Pos (Neg); Cocaine, Urine Neg (Neg); Fentanyl, Urine Neg (Neg); MDMA (Ecstacy), Urine Neg (Neg); Marijuana, Urine Pos (Neg); Methadone, Urine Neg (Neg); Opiate, Urine Neg (Neg); Phencyclidine, Urine Neg (Neg)
[2024-01-30 06:55] LABS: Basophils # (auto) 0.02 K/uL (0.00-0.20); Basophils % (auto) 0.5 %; Eosinophils % (auto) 2.5 %; Hematocrit (blood only) 34.4 % (42.0-52.0); Immature Granulocytes # (auto) 0.01 K/uL (0.01-0.20); Immature Granulocytes % (auto) 0.2 %; Lymphocytes # (auto) 1.12 K/uL (1.20-3.40); Lymphocytes % (auto) 27.5 %; Mean Corpuscular Hemoglobin 34.1 pg (25.0-34.0); Mean Corpuscular Hgb Conc 34.9 g/dL (32.0-36.0); Mean Corpuscular Volume 97.7 fL (80.0-100.0); Mean Platelet Volume 9.4 fL (9.4-12.4); Monocytes # (auto) 0.39 K/uL (0.11-0.59); Monocytes % (auto) 9.6 %; Neutrophils # (auto) 2.44 K/uL (1.40-6.50); Neutrophils % (auto) 59.7 %; Platelet Count 131 K/uL (130-400); RDW Coefficient of Variation 12.5 % (11.5-14.5); RDW Standard Deviation 44.7 fL (36.4-46.3); Red Blood Count 3.52 M/uL (4.70-6.10); White Blood Count 4.08 K/ul (4.8-10.8)
[2024-01-30 07:38] LABS: Albumin Globulin Ratio 1.7 (0.9-2); Albumin Level 4.3 gm/dl (3.4-5.0); BUN Creatinine Ratio 14.8 (10-20); Bilirubin,Total 1.1 mg/dl (0.2-1.0); Calcium 9.6 mg/dl (8.6-10.3); Creatinine Clr Calc Pharmacy 133.1 ml/min; Est GFR (African American) 128.8 ml/min; Est GFR (Non-African American) 111.2 ml/min; Globulin 2.5 gm/dl (2.5-4.0); Magnesium 1.9 mg/dl (1.7-2.4); Potassium 3.7 mmol/L (3.5-5.1); Total Protein 6.8 gm/dl (6.0-8.3)
[2024-01-30] MEDS: ACETAMINOPHEN 1,000 MG/100 ML VIAL IV STA (07:42)
[2024-01-30] MEDS: THIAMINE HCL 100 MG TAB PO SCH (07:46)
[2024-01-30] MEDS: SERTRALINE HCL 50 MG TABLET PO SCH (07:46)
[2024-01-30] MEDS: MULTIVITAMIN TAB PO SCH (07:46)
[2024-01-30] MEDS: FOLIC ACID 1 MG TAB PO SCH (07:46)
[2024-01-30] MEDS: lisinopril 10 MG TAB PO SCH (07:46)
[2024-01-30] MEDS: PANTOprazole 40 MG TAB PO SCH (07:46)
[2024-01-30] MEDS: MAGNESIUM OXIDE 400 MG TAB PO SCH (07:46)
[2024-01-30] MEDS: NALTREXONE HCL 50 MG TAB PO SCH (07:46)
[2024-01-30] MEDS: LANTUS PER UNIT CHARGE SQ SCH (08:55)
[2024-01-30] MEDS ORDERED: THIAMINE HCL 100 MG in SYRINGE 9 ML IV SCH (09:00)
[2024-01-30] MEDS ORDERED: LANTUS PER UNIT CHARGE SQ SCH (09:00)
--- NOTE | 2024-01-30 12:16 | Hospitalist Progress Note ---
Date of Service January 30, 2024 Assessment & Plan (1) Alcohol abuse: Plan: Alcohol dependence with withdrawal Alcohol level 34 on admission - ~24 shotes - 2 pints vodka intake daily for last 4-6 weeks. - Expresses a desire to get sober again. - Still some tremors on exam -Continue CIAL protocol (2) Nausea & vomiting: Plan: Suspect alcohol induced gastritis No hematochezia, melena, hematemesis. Poor p.o. intake. Emesis is mostly clear PPI, H2, GI cocktail ordered Tolerating general diet now (3) T1DM (type 1 diabetes mellitus): Plan: Type I DM BSG is not elevated on admission, does have an increased anion gap with positive alcohol and volume contraction Basal dose reduced for poor intake and AM low blood sugar of 77. 15 units glargine this morning, will continue 10 units glargine daily starting 01/29. SSI CF 50/ratio 25. Goal BG [id number] BMP 4 hours x 2 to follow Gap He is not in DKA on admission. Bicarb is normal. VBG with Mild compensated respiratory alkalosis Renal function at baseline on admission, creatinine 1.04 (4) HTN (hypertension): Plan: Hypertension Lisinopril daily. No longer takes clonidine or amlodipine (5) History of atrial fibrillation: Plan: Paroxysmal A-fib History of excisional A-fib, multiple episodes provoked by alcohol Eliquis PPx continued, sinus on admission. Optimize mag 2.0/potassium 4.0 Plan DVT prophylaxis: Eliquis CODE STATUS: Full code Disposition: Medical telemetry for acute withdrawal, Hopefully discharge in the next 24 hours Diet: Clears, advance as tolerated to DM1 Admission and Anticipated Discharge Date Admission Date: January 29, 2024 Subjective Patient seen and examined, still very tremulous although much improved compared to admission according to him. Review of Systems Review of Systems: All systems reviewed are negative, apart from the ones contained in the history. Physical Exam Physical Exam: The patient is awake, alert and oriented 3, well developed and well nourished, normocephalic and atraumatic, lying in bed and in no acute distress. HEENT--PERRL, EOMI, mucous membranes and oropharynx mildly dry Neck--supple. No JVD. No bruits. Thyroid normal, trachea midline, no adenopathy. Heart--normal S1 and S2. No murmurs, rubs or gallops. Lungs--clear bilaterally, no respiratory distress, no accessory muscle use. Abdomen--normal bowel sounds and soft. Extremities--no cyanosis or clubbing. No edema. Dermatologic--normal skin turgor, normal color, no abnormal lymph nodes, no rash. Neurologic--cranial nerves II through XII grossly intact.Coarse tremors Rheumatologic--normal range of motion. Psychiatric--normal affect. Results & Data Results & Data Vital Signs (Past 12 Hours) Vital Signs Temp Pulse Pulse Resp BP BP Pulse Ox 01/30/24 11:23 01/30/24 11:22 98.6 F 82 125/87 99 01/30/24 08:25 98.8 F 74 18 139/94 98 01/30/24 07:11 70 01/30/24 02:08 98.1 F 70 16 129/73 98 Pulse Ox O2 Del Method O2 Del Method 01/30/24 11:23 99 Room Air 01/30/24 11:22 Room Air 01/30/24 08:25 Room Air 01/30/24 07:11 01/30/24 02:08 Room Air PG Care Time/CCT Total # of Minutes Spent Total Time Spent with Patient: Total time spent is greater than 50% in coordination of care (as documented) at patient's floor/unit and/or counseling patient: Coding Level of Care Code 42805 SUB INP/OBS CARE 2/35MIN Diagnoses Alcohol abuse F10.10 Nausea & vomiting R11.2 Vomiting type: unspecified T1DM (type 1 diabetes mellitus) E10.9 HTN (hypertension) I10 History of atrial fibrillation Z86.79 Time Spent (min) 35 (2) Nausea & vomiting Vomiting type: unspecified Qualified Code(s): R11.2 - Nausea with vomiting, unspecified
[2024-01-30] MEDS: chlordiazePOXIDE HCl 25 MG CAP PO SCH (13:17)
[2024-01-30] MEDS: ACETAMINOPHEN 500 MG TAB PO STA (21:10)
[2024-01-31 06:46] LABS: Basophils # (auto) 0.04 K/uL (0.00-0.20); Basophils % (auto) 1.1 %; Eosinophils # (auto) 0.11 K/uL (0.00-0.50); Hematocrit (blood only) 32.9 % (42.0-52.0); Hemoglobin 11.7 g/dl (14.0-18.0); Immature Granulocytes # (auto) 0.01 K/uL (0.01-0.20); Immature Granulocytes % (auto) 0.3 %; Lymphocytes # (auto) 1.35 K/uL (1.20-3.40); Lymphocytes % (auto) 37.4 %; Mean Corpuscular Hemoglobin 33.9 pg (25.0-34.0); Mean Corpuscular Hgb Conc 35.6 g/dL (32.0-36.0); Mean Corpuscular Volume 95.4 fL (80.0-100.0); Monocytes % (auto) 11.1 %; Neutrophils % (auto) 47.1 %; Platelet Count 143 K/uL (130-400); RDW Coefficient of Variation 12.1 % (11.5-14.5); RDW Standard Deviation 42.8 fL (36.4-46.3); Red Blood Count 3.45 M/uL (4.70-6.10); White Blood Count 3.61 K/ul (4.8-10.8)
[2024-01-31 07:21] LABS: Bilirubin,Total 0.5 mg/dl (0.2-1.0)
[2024-01-31 07:22] LABS: Albumin Globulin Ratio 1.7 (0.9-2); Albumin Level 4.3 gm/dl (3.4-5.0); BUN Creatinine Ratio 11.7 (10-20); Calcium 9.7 mg/dl (8.6-10.3); Est GFR (African American) 131.6 ml/min; Est GFR (Non-African American) 113.5 ml/min; Globulin 2.6 gm/dl (2.5-4.0); Potassium 3.5 mmol/L (3.5-5.1); Total Protein 6.9 gm/dl (6.0-8.3)
--- NOTE | 2024-01-31 11:41 | Discharge Summary ---
Date of Service January 31, 2024 Admission HPI Per Admitting Provider Sid is a 38-year-old male with a past medical history of type 1 diabetes, alcohol dependence with withdrawal, A-fib on Eliquis who was admitted 12/2023 for diarrheal illness with ALFREDO and hypokalemia who has a history of alcohol abuse but at that time had not had alcohol in the preceding 2 weeks who presents to the ER for nausea/vomiting and who has resumed drinking alcohol and is concerned about withdrawal abdominal pain. Chest x-ray is normal. Hemoglobin is 13.8, prior 10.5. Not had any melena or hematochezia. On admission alcohol level was positive at 31.8, Tylenol and salicylate level is negative. High sensitive troponin is normal. Slight elevation of AST, bilirubin/ALT/alk phos are normal. CK is normal. He is volume contracted with an anion gap of 22, BSG 120. Last drink 9pm Buying a pint twice a day, if he buys more he'll drink the whole thing. Drinking ~24 shots/2 pints of vodka per day No history of seizures +chills, termors, sweats. No fever. Feels tremulous No cough, congestion. +vomiting since 6am. No bloody or black bms. No hematemesis. Took AM glargine this AM. BSG 77, couldn't keep breakfast down due to nausea Did not take eliquis this AM Naltrexone still taking when not drinking, but has not taken in the last 2 weeks due to drinking. Has been drinking for around 4-6 weeks daily. No chest pain, chest pressure or palpitations Did not take blood Reports he has done well with libruim in the past. Once he is sober is going to [place] to stay with his mother and is looking into outpatient rehab programs currently. Medical History: Reviewed Medications: Reviewed Surgical History: Reviewed Family history: Reviewed Allergies: Reviewed. NKDA Social History: ETOH as noted. Rare social cigarette. Rare marijuana use. Code Status: Full Admission Exam (Per Admitting) Constitutional The patient is awake, alert and oriented 3, well developed and well nourished, normocephalic and atraumatic, lying in bed and in no acute distress. HEENT--PERRL, EOMI, mucous membranes and oropharynx mildly dry Neck--supple. No JVD. No bruits. Thyroid normal, trachea midline, no adenopathy. Heart--normal S1 and S2. No murmurs, rubs or gallops. Lungs--clear bilaterally, no respiratory distress, no accessory muscle use. Abdomen--normal bowel sounds and soft. Extremities--no cyanosis or clubbing. No edema. Dermatologic--normal skin turgor, normal color, no abnormal lymph nodes, no rash. Neurologic--cranial nerves II through XII grossly intact. Rheumatologic--normal range of motion. Psychiatric--normal affect. Discharge Data Consultations 01/29/24 11:49 ED Decision to Admit Stat Hospital Course (1) Alcohol abuse: Alcohol dependence with withdrawal Alcohol level 34 on admission - ~24 shotes - 2 pints vodka intake daily for last 4-6 weeks. - Expresses a desire to get sober again. - Still some tremors on exam -Continue CIWA protocol (2) Nausea & vomiting: Suspect alcohol induced gastritis No hematochezia, melena, hematemesis. Poor p.o. intake. Emesis is mostly clear PPI, H2, GI cocktail ordered Tolerating general diet now (3) T1DM (type 1 diabetes mellitus): Type I DM BSG is not elevated on admission, does have an increased anion gap with positive alcohol and volume contraction Basal dose reduced for poor intake and AM low blood sugar of 77. 15 units glargine this morning, will continue 10 units glargine daily starting 01/29. SSI CF 50/ratio 25. Goal BG [id number] BMP 4 hours x 2 to follow Gap He is not in DKA on admission. Bicarb is normal. VBG with Mild compensated respiratory alkalosis Renal function at baseline on admission, creatinine 1.04 (4) HTN (hypertension): Hypertension Lisinopril daily. No longer takes clonidine or amlodipine (5) History of atrial fibrillation: Paroxysmal A-fib History of excisional A-fib, multiple episodes provoked by alcohol Eliquis PPx continued, sinus on admission. Optimize mag 2.0/potassium 4.0 Plan DVT prophylaxis: Eliquis CODE STATUS: Full code Disposition: Medical telemetry for acute withdrawal, Hopefully discharge in the next 24 hours Diet: Clears, advance as tolerated to DM1 Coding Level of Care Code 44063 INP/OBS DISCH >30 MIN Diagnoses Alcohol abuse F10.10 Nausea & vomiting R11.2 Vomiting type: unspecified T1DM (type 1 diabetes mellitus) E10.9 HTN (hypertension) I10 History of atrial fibrillation Z86.79 Time Spent (min) 35
[2024-02-01 11:43] LABS: 7-Aminoclonaz, Confirm NEGATIVE ng/mL (<25); Hydro-Alp Ur, GC/MS NEGATIVE ng/mL (<25); Hydroxyethylflurazepam, Conf NEGATIVE ng/mL (<50); Hydroxymidazolam Ur, GC/MS NEGATIVE ng/mL (<50); Hydroxytriazolam NEGATIVE ng/mL (<50); Lorazepam, Ur GC/MS 1180 ng/mL (<50); Marijuana Quant, GCMS Urine 698 ng/mL (<5); Nordiazepam, Confirm NEGATIVE ng/mL (<50); Oxazepam Ur, GC/MS NEGATIVE ng/mL (<50); Temazepam, Confirm NEGATIVE ng/mL (<50)
[2024-02-01] MEDS ORDERED: chlordiazePOXIDE HCl 5 MG CAP PO SCH (18:00)
== END 2024-01-31 11:49 | disposition home or self-care (01) | DRG 897 ==
LOC: ED 09:51 → SUATTDRO 12:07 → 2N 12:07

== ENCOUNTER 2024-04-26 09:17 | Inpatient (IN) ==
--- NOTE | 2024-04-26 09:42 | Emergency Department Note ---
Impression & Plan Alcohol withdrawal, Alcohol abuse, Hypomagnesemia, Tachycardia, Vomiting, Acute hyperglycemia ED Provider Note NAME: SANJAY MARQUIS AGE: 39 SEX: M : 1985 ARRIVES VIA: Walk-In INFORMANT: [Patient] ED PROVIDER(S): [Braydon Coats MD] CHIEF COMPLAINT: Alcohol withdrawal HISTORY OF PRESENT ILLNESS: The patient is a 39-year-old male who states that he typically drinks over a pint of vodka daily. This morning, he woke up and began vomiting. His last alcoholic drink was at 10 PM yesterday, around 12 hours ago. Patient is having tremors and shakes and feels he is in withdrawal. In addition, his blood sugar was over 300 this morning. He took 14 units of fast acting insulin subcu. The patient is concerned that he could be in DKA, he is concerned about alcohol withdrawal. He presents for evaluation. PMHx/PSHx/Social Hx: See Below PHYSICAL EXAM: GENERAL: Patient is in moderate distress, tremors noted. HEENT: No acute trauma, normocephalic atraumatic, mucous membranes moist, no nasal congestion. NECK: No stridor, no adenopathy, no meningismus, trachea is midline. LUNGS: Clear to auscultation bilaterally, no wheeze, no rhonchi, breath sounds equal. HEART: Mildly tachycardic with a regular rhythm, no murmurs. ABDOMEN: Soft, nontender, no peritonitis. EXTREMITIES: No cyanosis, full range of motion of all the joints without pain or difficulty. NEUROLOGIC: Oriented x 3, no acute motor or sensory deficits, no focal weakness. SKIN: No jaundice, no diaphoresis. DIFFERENTIAL DIAGNOSIS: Alcohol withdrawal, alcohol abuse, dehydration, electrolyte imbalance, DKA, among others. EMERGENCY DEPARTMENT PROCEDURES: MEDICAL DECISION MAKING: There is no leukocytosis. A mild anemia was seen. There was a normal platelet count. VBG did not show any findings to suggest acidosis. There was no renal failure. Glucose was elevated at 274. Magnesium is low at 1.5. No concerning liver enzyme elevation. No evidence for pancreatitis. Urinalysis showed dehydration, no infection. Urine tox was positive for marijuana. Alcohol level was undetectable. Chest film did not show pneumonia or CHF. On exam, the patient was awake and oriented x 3. He was tremulous, he had tachycardia. The patient was aggressively managed. He appeared to be in acute alcohol withdrawal. He received IV thiamine and IV folate. He was given IV Phenergan for nausea and vomiting. He received IV Zofran, he was given oral magnesium, IV Valium. With the above treatment, the patient does seem to be improved. He is no longer shaking and tremulous. His tachycardia has resolved. The patient is asking for detox from alcohol. Certainly, hospitalization seems warranted/indicated. The patient was reassured that we did not find evidence for DKA. His sugar can be closely monitored while hospitalized. I spoke with the patient and case management, the on-call hospitalist was consulted. Prior/Outside records/notes reviewed: None ECG per my interpretation: Indication was withdrawal. The ECG shows a normal sinus rhythm with a rate of 95. There was no ST elevation, no PVCs. The QTc was 447. Continuous Cardiac Monitoring per my interpretation: An order was placed for continuous cardiac monitoring. The monitor shows a rate of 88 with normal sinus rhythm. Imaging/x-ray results per my interpretation: Chest x-ray does not show mediastinal widening, pneumonia or pneumothorax. Chronic Medical/Social conditions affecting care: History of alcoholism Care/Management discussed with: Case management, the on-call hospitalist. Level of care consideration(s): After review of the information above and other included data: --I believe the patient requires escalation of care to admission Critical Care Note: I have personally spent 52 minutes of critical care time in the direct management of this patient. This includes bedside care, interpretation of diagnostic studies, and testing, discussion with consultants, patient, and family members, and other required patient management activities. This 52 minutes is in excess of all separately billable procedures. DISPOSITION: Admission Past Med/Surg History Problem List (Updated 04/26/24 @ 15:59 by Braydon Coats MD) Acute hyperglycemia (Acute) Vomiting (Acute) Tachycardia (Acute) Hypomagnesemia (Acute) Alcohol abuse (Acute) Alcohol withdrawal (Acute) Alcohol abuse (Acute) Alcohol intoxication (Acute) Dehydration (Acute) Depressed Abdominal pain (Acute) Nausea & vomiting (Acute) DKA (diabetic ketoacidosis) Alcohol withdrawal (Acute) History of atrial fibrillation HTN (hypertension) T1DM (type 1 diabetes mellitus) Alcohol dependence with withdrawal (Acute) Medical History Syncope Diarrhea ALFREDO (acute kidney injury) Social History Smoking Status: Current some day smoker Tobacco Type: Cigarettes Cigarettes Per Day: " a few"; Second Hand Exposure: No; Do You Dip or Chew Tobacco: No; Tobacco Cessation Education Requested by Patient: No Hx Alcohol Use: Yes Alcohol type: beer and hard liquor Hx Substance Use: No (denied but marijuana in drug screen) Preferred Language: Serbian Communication Ability: Effective Dish Person Required: No Beliefs That Will Affect Care: None Current Living Situation: Alone and Family Other Information That Helps Us Care for You: No Feels Safe at Home: Yes Safety Concerns: Feels Safe At This Time Assistive Devices: None Allergies Allergies Allergy/AdvReac Type Severity Reaction Status Date / Time No Known Allergies Allergy Verified 04/26/24 11:03 Home Meds Home Medications Medication Instructions Recorded Confirmed lisinopril 10 mg tablet 10 mg PO DAILY 05/14/23 04/26/24 apixaban 5 mg tablet (Eliquis) 5 mg PO BID 10/06/23 04/26/24 insulin glargine 100 unit/mL (3 15 unit subcut QAM 12/09/23 04/26/24 mL) subcutaneous pen (Basaglar KwikPen U-100 Insulin) naltrexone 50 mg tablet 50 mg PO DAILY 12/09/23 04/26/24 sertraline 50 mg tablet 50 mg PO DAILY 12/09/23 04/26/24 insulin lispro protamine-lispro 0 unit subcut QAM 04/26/24 04/26/24 100 unit/mL (75-25) subcutaneous pen trazodone 50 mg tablet 50 mg PO HS PRN Insomnia 04/26/24 04/26/24 Previous Rx's Medication Instructions Recorded multivitamin 1 tab PO QAM #30 tabs 05/16/23 thiamine HCl (vitamin B1) 100 mg 100 mg PO QAM #30 tabs 05/16/23 tablet (Vitamin B-1) Results & Data (ED) Vital Signs Vital Signs - 24 hr 04/26/24 09:25 04/26/24 09:37 04/26/24 10:43 Temperature 36.9 C Temperature Source Temporal Artery Scan Pulse Rate 114 H 88 82 Pulse Rate [Apical] Pulse Rhythm Regular Pulse Rhythm [Apical] Pulse Strength [Apical] Respiratory Rate 18 18 Respiratory Effort / Characteristics Non-Labored Spontaneous Respiratory Depth Normal Respiratory Pattern Regular Blood Pressure 152/90 H Blood Pressure [Right Arm] Blood Pressure Mean 110 Blood Pressure Mean [Right Arm] Pulse Oximetry 97 96 Oxygen Delivery Method Room Air Room Air Sepsis Recent Fever Within 48 Hours No Sepsis New/Unexplained Change in Mental Status No Sepsis Action Taken by Nursing No Action Required 04/26/24 10:45 04/26/24 11:00 Temperature Temperature Source Pulse Rate 83 Pulse Rate [Apical] 91 H Pulse Rhythm Pulse Rhythm [Apical] Regular Pulse Strength [Apical] Normal Respiratory Rate 20 15 Respiratory Effort / Characteristics Non-Labored Spontaneous Respiratory Depth Normal Respiratory Pattern Regular Blood Pressure 154/99 H Blood Pressure [Right Arm] 165/96 H Blood Pressure Mean 127 Blood Pressure Mean [Right Arm] 119 Pulse Oximetry 96 97 Oxygen Delivery Method Room Air Room Air Sepsis Recent Fever Within 48 Hours Sepsis New/Unexplained Change in Mental Status Sepsis Action Taken by Intermediate Medications Current Medication List: was personally reviewed by me Laboratory Data Attestation: I reviewed the patient's lab results. 04/26/24 09:59 04/26/24 09:59 Lab Results 04/26/24 Range/Units 09:59 WBC 9.09 (4.8-10.8) K/ul RBC 3.97 L (4.70-6.10) M/uL Hgb 13.4 L (14.0-18.0) g/dl Hct 36.5 L (42.0-52.0) % MCV 91.9 (80.0-100.0) fL MCH 33.8 (25.0-34.0) pg MCHC 36.7 H (32.0-36.0) g/dL RDW Std Deviation 39.5 (36.4-46.3) fL RDW Coeff of Maxi 11.6 (11.5-14.5) % Plt Count 375 (130-400) K/uL MPV 9.4 (9.4-12.4) fL Immature Gran % (Auto) 1.4 % Neut % (Auto) 72.5 % Lymph % (Auto) 16.0 % [place] % (Auto) 9.7 % Eos % (Auto) 0.0 % Baso % (Auto) 0.4 % Neut # (Auto) 6.59 H (1.40-6.50) K/uL Lymph # (Auto) 1.45 (1.20-3.40) K/uL [place] # (Auto) 0.88 H (0.11-0.59) K/uL Eos # (Auto) 0.00 (0.00-0.50) K/uL Baso # (Auto) 0.04 (0.00-0.20) K/uL Immature Gran # (Auto) 0.13 (0.01-0.20) K/uL VBG pH 7.57 H (7.36-7.41) VBG pCO2 25 L (38-50) mmHg VBG pO2 107 mmHg VBG HCO3 23 mmol/L VBG O2 Saturation 98.9 % VBG Base Excess 2.2 mEq/L Sodium 133 L (136-145) mmol/L Potassium 4.4 (3.5-5.1) mmol/L Chloride 88 L (98-107) mmol/L Carbon Dioxide 22 (21-32) mmol/L Anion Gap 23 H (3-11) BUN 17 (6-23) mg/dl Creatinine 1.25 (0.6-1.4) mg/dl Est Cr Clr Drug Dosing 85.4 ml/min eGFR 74.19 BUN/Creatinine Ratio 13.6 (10-20) Glucose 274 H (70-99(Fasting)) mg/dl Calcium 10.4 H (8.6-10.3) mg/dl Magnesium 1.5 L (1.7-2.4) mg/dl Total Bilirubin 0.9 (0.2-1.0) mg/dl AST 32 (13-39) U/L ALT 26 (7-52) U/L Alkaline Phosphatase 68 (34-104) U/L Total Protein 8.2 (6.0-8.3) gm/dl Albumin 5.2 H (3.4-5.0) gm/dl Globulin 3.0 (2.5-4.0) gm/dl Albumin/Globulin Ratio 1.7 (0.9-2) Lipase 16 (11-82) U/L Ethyl Alcohol mg/dL < 10.0 (<10.0) mg/dl Administered Medications Chlordiazepoxide HCl (Chlordiazepoxide Hcl 25 Mg Cap) 25 mg PO Q6H PHILLIP Stop: 04/27/24 06:01 Last Admin: 04/26/24 12:26 Dose: 25 mg Documented By: HUMZA Discontinued Medications Diazepam (Diazepam 5 Mg/Ml 10ml Vial) 5 mg IV NOW STA Stop: 04/26/24 09:38 Last Admin: 04/26/24 10:06 Dose: 5 mg Documented By: YOKASTA Promethazine HCl (Phenergan) 25 mg in 51 mls @ 204 mls/hr IV NOW STA Stop: 04/26/24 09:51 Last Infusion: 04/26/24 10:48 Dose: Infused Documented By: Admin: 04/26/24 10:16 Dose: 204 mls/hr Documented By: STANLEY Folic Acid 1 mg/ Syringe 10 mls @ 5 mls/min IV NOW STA Stop: 04/26/24 09:38 Last Admin: 04/26/24 10:21 Dose: 5 mls/min Documented By: STANLEY Thiamine HCl 100 mg/ Syringe 10 mls @ 2 mls/min IV NOW STA Stop: 04/26/24 09:41 Last Admin: 04/26/24 10:22 Dose: 2 mls/min Documented By: STANLEY Lactated Ringer's (Lr) 1,000 mls @ 999 mls/hr IV .Q1H1M ONE Stop: 04/26/24 12:21 Last Infusion: 04/26/24 13:30 Dose: Infused Documented By: Admin: 04/26/24 12:24 Dose: 999 mls/hr Documented By: HUMZA Pantoprazole Sodium (Protonix) 40 mg in 10 mls @ 5 mls/min IV NOW ONE Stop: 04/26/24 12:01 Last Admin: 04/26/24 12:43 Dose: 5 mls/min Documented By: VALENTINO Famotidine (Pepcid 20mg Iv Push) 20 mg in 5 mls @ 2.5 mls/min IV NOW STA Stop: 04/26/24 11:48 Last Admin: 04/26/24 12:26 Dose: 2.5 mls/min Documented By: HUMZA Insulin Glargine (Lantus Per Unit Charge) 10 units SQ ONE STA Stop: 04/26/24 11:36 Last Admin: 04/26/24 12:43 Dose: 10 units Documented By: VALENTINO Co-signed By: HUMZA Magnesium Oxide (Magnesium Oxide 400 Mg Tab) 400 mg PO NOW STA Stop: 04/26/24 11:05 Last Admin: 04/26/24 12:25 Dose: 400 mg Documented By: HUMZA Ondansetron HCl (Ondansetron Inj 2 Mg/Ml 2 Ml Vial) 4 mg IV NOW STA Stop: 04/26/24 09:38 Last Admin: 04/26/24 10:14 Dose: 4 mg Documented By: STALNEY Imaging Data Radiologist's Impression: Chest X-Ray 04/26/24 09:37 XR chest 1V portable HISTORY: 39 years-old Male weakness COMPARISON: 01/29/2024 TECHNIQUE: AP view of the chest FINDINGS: Cardiac silhouette is normal. The lung pascual appear clear. No pneumothorax or pleural effusion. The bones appear grossly intact. IMPRESSION: No acute process. ACT 112: Negative or not required by law. The above report was generated using voice recognition software. It may contain grammatical, syntax or spelling errors. Electronically signed by: Orestes Field M.D. 04/26/2024 10:35 AM Discharge Plan Visit Data Chief Complaint: Alcohol Withdrawal Stated Complaint: TREMORS/SHAKING, POSSIBLE DKA ED Provider: Braydon Coats Discharge Problem: Alcohol withdrawal, Alcohol abuse, Hypomagnesemia, Tachycardia, Vomiting, Acute hyperglycemia Patient Disposition: Admitted As Inpatient Condition: Serious Discharge Instructions Interventions: ED Discharge Assessment Last Done: 04/26/24 13:59 Discharge Problem: Alcohol withdrawal Qualifiers: Complication of substance-induced condition: with unspecified complication Q ualified Code(s): F10.939 - Alcohol use, unspecified with withdrawal, unspecified Vomiting Qualifiers: Vomiting type: unspecified Nausea presence: with nausea Qualified Code(s): R 11.2 - Nausea with vomiting, unspecified
[2024-04-26] MEDS: diazePAM 5 MG/ML 10ML VIAL IV STA (10:06)
[2024-04-26] MEDS: ONDANSETRON INJ 2 MG/ML 2 ML VIAL IV STA (10:14)
[2024-04-26] MEDS: PROMETHAZINE 25 MG/51 ML BAG IV STA (10:16)
[2024-04-26] MEDS: FOLIC ACID 1 MG in SYRINGE 9.8 ML IV STA (10:21)
[2024-04-26] MEDS: THIAMINE HCL 100 MG in SYRINGE 9 ML IV STA (10:22)
--- NOTE | 2024-04-26 10:36 | XRay Report ---
XR chest 1V portable HISTORY: 39 years-old Male weakness COMPARISON: 01/29/2024 TECHNIQUE: AP view of the chest FINDINGS: Cardiac silhouette is normal. The lung pascual appear clear. No pneumothorax or pleural effusion. The bones appear grossly intact. IMPRESSION: No acute process. ACT 112: Negative or not required by law. The above report was generated using voice recognition software. It may contain grammatical, syntax o r spelling errors. Electronically signed by: Orestes Field M.D. 04/26/2024 10:35 AM
[2024-04-26 10:37] LABS: Base Excess VBG 2.2 mEq/L; HCO3 VBG 23 mmol/L; Oxygen Saturation VBG 98.9 %; PCO2 VBG 25 mmHg (38-50); PO2 VBG 107 mmHg; pH VBG 7.57 (7.36-7.41)
[2024-04-26 10:57] LABS: Appearance Urine Cloudy (Clear); Bacteria Urine Automated None Seen (None Seen); Bilirubin Urine Negative (Negative); Blood Urine Negative (Negative); Cast Urine Automated >20 /lpf (0-2); Color Urine Dark Yellow; Epithelial Cell Urine Auto 0-2 /hpf (0-2); Glucose Urine UA 3+ (Negative); Ketones Urine 3+ (Negative); Leukocyte Esterase Urine Negative (Negative); Nitrite Urine Negative (Negative); Protein Urine 3+ (Negative); RBC Urine Automated 0-2 /hpf (0-2); Urobilinogen Urine Negative (Negative); WBC Urine Automated 0-5 /hpf (0-5); pH Urine 5.5 (4.5-7.5)
[2024-04-26 11:02] LABS: Amphetamines+Metham, Urine Neg (Neg); Barbiturates, Urine Neg (Neg); Benzodiazepine, Urine Neg (Neg); Cocaine, Urine Neg (Neg); Fentanyl, Urine Neg (Neg); MDMA (Ecstacy), Urine Neg (Neg); Marijuana, Urine Pos (Neg); Methadone, Urine Neg (Neg); Opiate, Urine Neg (Neg); Phencyclidine, Urine Neg (Neg)
[2024-04-26 11:03] LABS: Albumin Globulin Ratio 1.7 (0.9-2); Albumin Level 5.2 gm/dl (3.4-5.0); BUN Creatinine Ratio 13.6 (10-20); Bilirubin,Total 0.9 mg/dl (0.2-1.0); Calcium 10.4 mg/dl (8.6-10.3); Creatinine Clr Calc Pharmacy 85.4 ml/min; Magnesium 1.5 mg/dl (1.7-2.4); Potassium 4.4 mmol/L (3.5-5.1); Total Protein 8.2 gm/dl (6.0-8.3)
[2024-04-26] MEDS ORDERED: chlordiazePOXIDE ALCOHOL WITHDRAWL 25MG PO STA (11:33)
[2024-04-26] MEDS ORDERED: LORazepam 2 MG/1 ML VIAL IV PRN (11:33)
[2024-04-26] MEDS ORDERED: Ativan IV Alcohol Withdrawal--Active Protocol IV PRN (11:33)
--- NOTE | 2024-04-26 11:47 | History & Physical Report ---
Date of Service April 26, 2024 Assessment & Plan (1) Alcohol withdrawal: Plan: Previously did well with Librium taper therefore will do the same starting with 25mg PO q6h Ativan as needed per AWSS (2) ALFREDO (acute kidney injury): Plan: LR 1L bolus now then push oral fluids Repeat BMP in AM (3) Black stool: Plan: Hgb improved from prior Suspected from pepto-bismol previously took FOB ordered Pantoprazole 40mg IV and famotidine 20mg IV now (4) Hypomagnesemia: Plan: Mg sulfate 1g IV, Mg oxide 400mg PO BID (5) Nausea & vomiting: Plan: Ondansetron 4mg IV q4h PRN Pantoprazole 40mg IV/PO daily (6) T1DM (type 1 diabetes mellitus): Plan: HbA1C 7.4 in Jul 2023 Lantus 10 units now Consult pharmacy for ongoing glycemic control (7) HTN (hypertension): Plan: Hold lisinopril due to ALFREDO (8) History of atrial fibrillation: Plan: Paroxysmal, currently in NSR Continue Eliquis for anticoagulation Plan VTE Prophylaxis - Eliquis Diet - T1DM Disposition - admit to med/tele Admission and Anticipated Discharge Date Admission Date: April 26, 2024 History of Present Illness Chief Complaint: Alcohol withdrawal Primary Care Provider: Tra Castillo Sid Byrnes is a 39 year old male with alcohol use disorder who presents to the ER due to vomiting and concerns he was in DKA. He reports last alcohol drink was 10pm last night. He started drinking alcohol again 1.5 months after last discharge in January. Symptoms started this morning with constant vomiting since 5am. He took 14-15 units of his fast acting insulin without the desired effect to reduce his glucose. Henderson dehydrated, generalized abdominal pain, currently 7- 8/10 without radiation. He has also noted black stool over the last week although he puts this down to taking pepto bismol. He notes always having diarrhea which is currently at baseline. Vomitinig mostly water this morning, no coffee ground. He then started having tremors with increasing anxiety, no hallucinations and felt like prior withdrawals therefore decided to come to the ER. He last took his naltrexone 2 weeks ago. He is not interested in inpatient rehabilitation as he has done it multiple times previously but he is interested in outpatient rehab. He reports doing well on Ativan on prior admissions. Allergies Allergy/AdvReac Type Severity Reaction Status Date / Time No Known Allergies Allergy Verified 04/26/24 11:03 Home Medications Medication Instructions Recorded Confirmed Type lisinopril 10 mg tablet 10 mg PO DAILY 05/14/23 04/26/24 History multivitamin 1 tab PO QAM #30 tabs 05/16/23 04/26/24 Rx thiamine HCl (vitamin B1) 100 mg 100 mg PO QAM #30 tabs 05/16/23 04/26/24 Rx tablet (Vitamin B-1) apixaban 5 mg tablet (Eliquis) 5 mg PO BID 10/06/23 04/26/24 History insulin glargine 100 unit/mL (3 15 unit subcut QAM 12/09/23 04/26/24 History mL) subcutaneous pen (Basaglar KwikPen U-100 Insulin) naltrexone 50 mg tablet 50 mg PO DAILY 12/09/23 04/26/24 History sertraline 50 mg tablet 50 mg PO DAILY 12/09/23 04/26/24 History insulin lispro protamine-lispro 0 unit subcut QAM 04/26/24 04/26/24 History 100 unit/mL (75-25) subcutaneous pen trazodone 50 mg tablet 50 mg PO HS PRN Insomnia 04/26/24 04/26/24 History Past Med/Surg History Problem List (Updated 04/26/24 @ 22:04 by Lavell Bahena MD) Black stool ALFREDO (acute kidney injury) Acute hyperglycemia (Acute) Vomiting (Acute) Tachycardia (Acute) Hypomagnesemia (Acute) Alcohol abuse (Acute) Alcohol withdrawal (Acute) Alcohol abuse (Acute) Alcohol intoxication (Acute) Dehydration (Acute) Depressed Abdominal pain (Acute) Nausea & vomiting (Acute) History of atrial fibrillation HTN (hypertension) T1DM (type 1 diabetes mellitus) Alcohol dependence with withdrawal (Acute) Medical History (Updated 04/26/24 @ 22:04 by Lavell Bahena MD) DKA (diabetic ketoacidosis) Syncope Diarrhea Social History Smoking Status: Current some day smoker Tobacco Type: Cigarettes Cigarettes Per Day: " a few"; Second Hand Exposure: No; Do You Dip or Chew Tobacco: No; Tobacco Cessation Education Requested by Patient: No Hx Alcohol Use: Yes Alcohol type: beer and hard liquor Hx Substance Use: No (denied but marijuana in drug screen) Preferred Language: Dominican Communication Ability: Effective Sales Service Technician Required: No Beliefs That Will Affect Care: None Current Living Situation: Alone and Family Other Information That Helps Us Care for You: No Feels Safe at Home: Yes Safety Concerns: Feels Safe At This Time Assistive Devices: None Review of Systems Review of Systems: All systems reviewed & are unremarkable except as noted in HPI & below Physical Exam Constitutional: WD/WN, vitals as above ENMT: Mouth: + dry oral mucous membranes Respiratory: normal respiratory effort, lungs clear to auscultation Cardiovascular: Rate/Rhythm: regular rhythm and + tachycardic Heart Sounds: no murmur Extremities: normal capillary refill; no calf tenderness and no pedal edema Gastrointestinal (Abdomen): Inspection/Auscultation: abdomen normal to inspection; abdomen not distended Percussion/Palpation: + abdomen tender (mild generalized) and abdomen soft; no guarding and abdomen not rigid Neurologic: moves all extremities and awake; no focal motor deficits and not confused Speech / Cognition: normal speech Motor/Sensory: + tremor (mild b/l action); no pronator drift Psychiatric: A+Ox3, euthymic affect Results & Data Results & Data Vital Signs (Past 12 Hours) Vital Signs Temp Pulse Pulse Resp BP BP Pulse Ox 04/26/24 11:00 83 15 154/99 H 97 04/26/24 10:45 91 H 20 165/96 H 96 04/26/24 10:43 82 04/26/24 09:37 88 18 96 04/26/24 09:25 36.9 C 114 H 18 152/90 H 97 O2 Del Method 04/26/24 11:00 Room Air 04/26/24 10:45 Room Air 04/26/24 10:43 04/26/24 09:37 Room Air 04/26/24 09:25 Room Air Laboratory Results Abnormal lab results 04/26/24 04/26/24 Range/Units 09:59 Unknown VBG pH 7.57 H (7.36-7.41) VBG pCO2 25 L (38-50) mmHg Sodium 133 L (136-145) mmol/L Chloride 88 L (98-107) mmol/L Anion Gap 23 H (3-11) Glucose 274 H (70-99(Fasting)) mg/dl Calcium 10.4 H (8.6-10.3) mg/dl Magnesium 1.5 L (1.7-2.4) mg/dl Albumin 5.2 H (3.4-5.0) gm/dl Urine Appearance Cloudy A (Clear) Urine Protein 3+ H (Negative) Urine Glucose (UA) 3+ H (Negative) Urine Ketones 3+ H (Negative) U Hyaline Cast (Auto) >20 H (0-2) /lpf U Marijuana (THC) Screen Pos H (Neg) Diagnostic Findings XR chest 1V portable HISTORY: 39 years-old Male weakness COMPARISON: 01/29/2024 TECHNIQUE: AP view of the chest FINDINGS: Cardiac silhouette is normal. The lung pascual appear clear. No pneumothorax or pleural effusion. The bones appear grossly intact. IMPRESSION: No acute process. Medications Administered ER Medications Given: Diazepam 5mg IV Promethazine 25,g IV Folic acid 1mg IV Ondansetron 4mg IV Thiamine 100mg IV Magnesium oxide 400mg PO ECG Rate (beats per minute): 95 Rhythm: normal sinus Findings: no acute ischemic change Comparison ECG Date: from (January 29, 2024) Change: no significant change Code Status & VTE Plan Code Status Full PG Care Time/CCT Total # of Minutes Spent Total Time Spent with Patient: Total time spent is greater than 50% in coordination of care (as documented) at patient's floor/unit and/or counseling patient: Coding Level of Care Code 14384 INT INP/OBS CARE 3/75MIN Diagnoses Alcohol withdrawal F10.939 Complication of substance-induced condition: with unspecified complication ALFREDO (acute kidney injury) N17.9 Black stool K92.1 Hypomagnesemia E83.42 Nausea & vomiting R11.2 Vomiting type: unspecified T1DM (type 1 diabetes mellitus) E10.9 HTN (hypertension) I10 History of atrial fibrillation Z86.79 (1) Alcohol withdrawal Complication of substance-induced condition: with unspecified complication Qualified Code(s): F10.939 - Alcohol use, unspecified with withdrawal, unspecified (5) Nausea & vomiting Vomiting type: unspecified Qualified Code(s): R11.2 - Nausea with vomiting, unspecified
[2024-04-26] MEDS: LACTATED RINGER'S 1,000 ML IV ONE (12:24)
[2024-04-26] MEDS: MAGNESIUM OXIDE 400 MG TAB PO STA (12:25)
[2024-04-26] MEDS: FAMOTIDINE 20MG IV PUSH 20 MG/5 ML SYR IV STA (12:26)
[2024-04-26] MEDS: chlordiazePOXIDE HCl 25 MG CAP PO SCH (12:26)
[2024-04-26] MEDS: PANTOprazole 40 MG/10 ML SYR IV ONE (12:43)
[2024-04-26] MEDS: LANTUS PER UNIT CHARGE SQ STA (12:43)
[2024-04-26] MEDS ORDERED: GLUCOSE 40% GEL 15 GM TUBE PO PRN (14:18)
[2024-04-26] MEDS ORDERED: GLUCOSE 10 TAB/TUBE PO PRN ×2 (14:18)
[2024-04-26] MEDS ORDERED: DEXTROSE 50% 50 ML SYRINGE IV PRN ×2 (14:18)
[2024-04-26] MEDS ORDERED: PHARMACY GLYCEMIC MGMT CONSULT PRN (14:18)
[2024-04-26] MEDS ORDERED: GLUCAGON FOR INJ 1 MG VIAL SQ PRN ×2 (14:18)
[2024-04-26] MEDS ORDERED: CARBOHYDRATES FOR HYPOGLYCEMIA PO PRN ×2 (14:18)
[2024-04-26 14:56] LABS: Basophils # (auto) 0.04 K/uL (0.00-0.20); Basophils % (auto) 0.4 %; Hematocrit (blood only) 36.5 % (42.0-52.0); Hemoglobin 13.4 g/dl (14.0-18.0); Immature Granulocytes # (auto) 0.13 K/uL (0.01-0.20); Immature Granulocytes % (auto) 1.4 %; Lymphocytes # (auto) 1.45 K/uL (1.20-3.40); Mean Corpuscular Hemoglobin 33.8 pg (25.0-34.0); Mean Corpuscular Hgb Conc 36.7 g/dL (32.0-36.0); Mean Corpuscular Volume 91.9 fL (80.0-100.0); Mean Platelet Volume 9.4 fL (9.4-12.4); Monocytes # (auto) 0.88 K/uL (0.11-0.59); Monocytes % (auto) 9.7 %; Neutrophils # (auto) 6.59 K/uL (1.40-6.50); Neutrophils % (auto) 72.5 %; Platelet Count 375 K/uL (130-400); RDW Coefficient of Variation 11.6 % (11.5-14.5); RDW Standard Deviation 39.5 fL (36.4-46.3); Red Blood Count 3.97 M/uL (4.70-6.10); White Blood Count 9.09 K/ul (4.8-10.8)
--- NOTE | 2024-04-26 15:26 | Pharmacy Report ---
Pharmacy Glycemic Short Note 2 - Date of Service April 26, 2024 - Glycemic Short BSG Results (Last 24 hours): 04/26/24 04/26/24 09:59 12:48 Glucose 274 H POC Glucose 206 H OUTPATIENT ANTIDIABETIC REGIMEN: * Lispro 75/25 mix 15-20 units QAM (last filled 04/06) * HbA1c 7.4% 07/28/23, pending 04/27/24 ASSESSMENT: * Sid is a 39 YOM admitted with vomiting and a history of T1DM, complicated by alcohol withdrawal. Pharmacy has been consulted for glycemic management. * BSG elevated @ 274 upon admission, Anion gap elevated at 23, pH 7.57, bicarbonate normal. 14 units of short acting insulin administered before arrival (may have been Lispro 75/25 per recent fill history). 10 unit of Lantus given around lunchtime, BSGs trending down. No further basal insulin at this time, reassess in AM. * Novolog initiated at a weight based stress of ~1.5 which is consistent with his requirements on previous admissions. PLAN FOR INPATIENT GLYCEMIC CONTROL: * Hold outpatient oral diabetes medications * Basal insulin * Lantus 10 units SQ x1, reassess in AM * Bolus insulin * NovoLog per scale ACHS or Q6hrs while NPO * Goal Range: Low 110 mg/dL - High 140 mg/dL * Correction Factor: 35 mg/dL/unit * Nutritional / Prandial insulin per carb ratio of 1 unit per 15 grams CHO consumed
[2024-04-26] MEDS: MAGNESIUM SULFATE / D5W 1 GM/100 ML BAG IV ONE (16:48)
[2024-04-26] MEDS: LORazepam 2 MG/1 ML VIAL IV PRN ×2 (17:12→19:39)
[2024-04-26] MEDS: INSULIN ASPART PER UNIT CHARGE SC SCH (18:17)
[2024-04-26] MEDS ORDERED: ONDANSETRON INJ 2 MG/ML 2 ML VIAL IV PRN (20:04)
[2024-04-26] MEDS: APIXABAN 5 MG TABLET PO SCH (20:54)
[2024-04-26] MEDS: MAGNESIUM OXIDE 400 MG TAB PO SCH (20:54)
--- NOTE | 2024-04-26 23:00 | Electrocardiogram Report ---
Test Reason : Blood Pressure : */* mmHG Vent. Rate : 95 BPM Atrial Rate : 95 BPM P-R Int : 126 ms QRS Dur : 78 ms QT Int : 356 ms P-R-T Axes : 56 -14 55 degrees QTcB Int : 447 ms Poor data quality, interpretation may be adversely affected Normal sinus rhythm Normal ECG When compared with ECG of 29-Jan-2024 10:38, No significant change was found Confirmed by Matthew Girard ([id number]) on 04/26/2024 11:00:13 PM Referred By: Confirmed By: Matthew Girard
[2024-04-26] MEDS: traZODone HCL 50 MG TAB PO PRN (23:27)
[2024-04-26] MEDS: MAGNESIUM SULFATE / D5W 1 GM/100 ML BAG IV SCH (23:28)
[2024-04-27] MEDS: INSULIN ASPART PER UNIT CHARGE SC SCH (01:03)
[2024-04-27 06:29] LABS: Basophils # (auto) 0.04 K/uL (0.00-0.20); Basophils % (auto) 0.7 %; Eosinophils # (auto) 0.14 K/uL (0.00-0.50); Eosinophils % (auto) 2.5 %; Hematocrit (blood only) 35.2 % (42.0-52.0); Hemoglobin 12.3 g/dl (14.0-18.0); Immature Granulocytes # (auto) 0.02 K/uL (0.01-0.20); Immature Granulocytes % (auto) 0.4 %; Lymphocytes % (auto) 24.8 %; Mean Corpuscular Hgb Conc 34.9 g/dL (32.0-36.0); Mean Corpuscular Volume 94.4 fL (80.0-100.0); Monocytes # (auto) 0.44 K/uL (0.11-0.59); Monocytes % (auto) 7.8 %; Neutrophils % (auto) 63.8 %; Platelet Count 266 K/uL (130-400); RDW Coefficient of Variation 11.7 % (11.5-14.5); RDW Standard Deviation 40.2 fL (36.4-46.3); Red Blood Count 3.73 M/uL (4.70-6.10); White Blood Count 5.64 K/ul (4.8-10.8)
[2024-04-27 07:11] LABS: Albumin Globulin Ratio 1.8 (0.9-2); Albumin Level 4.7 gm/dl (3.4-5.0); Bilirubin,Total 0.9 mg/dl (0.2-1.0); Calcium 9.3 mg/dl (8.6-10.3); Creatinine Clr Calc Pharmacy 92.8 ml/min; Globulin 2.6 gm/dl (2.5-4.0); Potassium 3.5 mmol/L (3.5-5.1); Total Protein 7.3 gm/dl (6.0-8.3)
[2024-04-27 07:16] LABS: Estimated Average Glucose 166 mg/dl; Hemoglobin A1C 7.4 % (4.5-5.6)
[2024-04-27 07:40] LABS: Magnesium 2.5 mg/dl (1.7-2.4)
[2024-04-27] MEDS: THIAMINE HCL 100 MG TAB PO SCH (08:07)
[2024-04-27] MEDS: SERTRALINE HCL 50 MG TABLET PO SCH (08:07)
[2024-04-27] MEDS: PANTOprazole 40 MG TAB PO SCH (08:08)
[2024-04-27] MEDS: lisinopril 10 MG TAB PO SCH (09:13)
--- NOTE | 2024-04-27 09:55 | Pharmacy Report ---
Pharmacy Glycemic Short Note 2 - Date of Service April 27, 2024 - Glycemic Short BSG Results (Last 24 hours): 04/26/24 04/26/24 04/26/24 09:59 12:48 16:57 Glucose 274 H POC Glucose 206 H 319 H* 04/26/24 04/26/24 04/26/24 17:00 17:01 17:26 Glucose 187 H POC Glucose 194 H 191 H 04/26/24 04/26/24 04/27/24 20:45 23:40 04:27 Glucose POC Glucose 105 H 109 H 135 H 04/27/24 04/27/24 06:03 07:55 Glucose 134 H POC Glucose 160 H OUTPATIENT ANTIDIABETIC REGIMEN: * Lispro 75/25 mix 15-20 units QAM (last filled 04/06) * HbA1c 7.4% 07/28/23, pending 04/27/24 ASSESSMENT: 04/27 * Sid received 15 units of insulin yesterday while at [facility] (10 were basal) and reportedly 14 units of fast acting insulin before arrival * BSGs trended down yesterday and are acceptable this morning, continue current basal regimen * Novolog appears to be covering/correcting adequately at this time. * AG improved this AM to 13mmol/L. No additional nausea/vomitting noted with T1DM diet ordered and documented carbohydrate intake (per nursing documentation) 04/26 * Sid is a 39 YOM admitted with vomiting and a history of T1DM, complicated by alcohol withdrawal. Pharmacy has been consulted for glycemic management. * BSG elevated @ 274 upon admission, Anion gap elevated at 23, pH 7.57, bicarbonate normal. 14 units of short acting insulin administered before arrival (may have been Lispro 75/25 per recent fill history). 10 unit of Lantus given around lunchtime, BSGs trending down. No further basal insulin at this time, reassess in AM. * Novolog initiated at a weight based stress of ~1.5 which is consistent with his requirements on previous admissions. PLAN FOR INPATIENT GLYCEMIC CONTROL: * Hold outpatient oral diabetes medications * Basal insulin * Lantus 10 units SQ daily * Bolus insulin * NovoLog per scale ACHS or Q6hrs while NPO * Goal Range: Low 110 mg/dL - High 140 mg/dL * Correction Factor: 35 mg/dL/unit * Nutritional / Prandial insulin per carb ratio of 1 unit per 15 grams CHO consumed
--- NOTE | 2024-04-27 12:31 | Hospitalist Progress Note ---
Date of Service April 27, 2024 Assessment & Plan (1) Alcohol withdrawal: Plan: Previously did well with Librium taper therefore will do the same starting with 25mg PO q6h Ativan as needed per AWSS still with signs of withdrawaldiaphoresis and tremors will continue with above plan (2) ALFREDO (acute kidney injury): Plan: improving, continue to encourage oral fluids Status post 1 L LR bolus (3) Black stool: Plan: Hgb improved from prior Suspected from pepto-bismol previously took FOB ordereduncollected continue PPI (4) T1DM (type 1 diabetes mellitus): Plan: HbA1C 7.4 Lantus 10 units now Consult pharmacy for ongoing glycemic control (5) HTN (hypertension): Plan: Hold lisinopril due to ALFREDO (6) Hypomagnesemia: Plan: resolved Plan Chronic stable medical conditions: * history of A-fibcurrently in sinus rhythm, continue Eliquis dispo continued inpatient stay DVT prophy continue home Eliquis Admission and Anticipated Discharge Date Admission Date: April 26, 2024 Subjective Patient seen sitting up in bed. States that his round of withdrawal does not feel as bad as prior to because he does not have concomitant DKA. States that when he leaves the hospital he is usually able to stay sober for 30 to 40 days, then reports "something always comes up" he is not interested in inpatient rehab at this time and plans to do outpatient follow-up telemetry sinus rhythm 80s to 90s Review of Systems Review of Systems: All systems reviewed & are unremarkable except as noted in Subjective Physical Exam Physical Exam: General: NAD, VS as above sitting up in bed, communicates of effectively Resp: normal respiratory effort, lungs clear to auscultation CV: tachycardic, no murmur, Abd: normal bowel sounds, non tender, no hepatosplenomegaly Extremities: Moves all extremities, no edema Neuro: A&O x3, Skin: intact, diaphoretic to the back Results & Data Results & Data Vital Signs (Past 12 Hours) Vital Signs Temp Pulse Pulse Resp BP Pulse Ox O2 Del Method 04/27/24 11:37 98.8 F 87 18 132/88 96 Room Air 04/27/24 08:00 85 04/27/24 07:28 98.2 F 80 18 147/91 H 96 Room Air 04/27/24 05:58 97.5 F L 93 H 22 167/85 H 96 Room Air 04/27/24 03:57 97.9 F 82 20 128/83 96 Room Air 04/27/24 00:39 99.0 F 78 20 134/87 98 Nasal Cannula O2 Flow Rate 04/27/24 11:37 04/27/24 08:00 04/27/24 07:28 04/27/24 05:58 04/27/24 03:57 04/27/24 00:39 2 Laboratory Results CBC, chemistry, A1c and magnesium reviewed PG Care Time/CCT Total # of Minutes Spent Total Time Spent with Patient: Total time spent is greater than 50% in coordination of care (as documented) at patient's floor/unit and/or counseling patient: Coding Level of Care Code 18218 SUB INP/OBS CARE 3/50MIN Diagnoses Alcohol withdrawal F10.939 Complication of substance-induced condition: with unspecified complication ALFREDO (acute kidney injury) N17.9 Black stool K92.1 T1DM (type 1 diabetes mellitus) E10.9 HTN (hypertension) I10 Hypomagnesemia E83.42 (1) Alcohol withdrawal Complication of substance-induced condition: with unspecified complication Qualified Code(s): F10.939 - Alcohol use, unspecified with withdrawal, unspecified
[2024-04-27] MEDS: LANTUS PER UNIT CHARGE SQ SCH (13:16)
[2024-04-27] MEDS: chlordiazePOXIDE HCl 25 MG CAP PO SCH (13:16)
[2024-04-27] MEDS: ACETAMINOPHEN 500 MG TAB PO PRN (17:48)
[2024-04-28 03:28] LABS: Marijuana Quant, GCMS Urine 183 ng/mL (<5)
[2024-04-28 08:04] LABS: Hematocrit (blood only) 36.7 % (42.0-52.0); Hemoglobin 12.9 g/dl (14.0-18.0); Mean Corpuscular Hemoglobin 33.9 pg (25.0-34.0); Mean Corpuscular Hgb Conc 35.1 g/dL (32.0-36.0); Mean Corpuscular Volume 96.3 fL (80.0-100.0); Mean Platelet Volume 9.1 fL (9.4-12.4); Platelet Count 276 K/uL (130-400); RDW Coefficient of Variation 11.9 % (11.5-14.5); RDW Standard Deviation 41.4 fL (36.4-46.3); Red Blood Count 3.81 M/uL (4.70-6.10); White Blood Count 5.41 K/ul (4.8-10.8)
[2024-04-28 08:13] LABS: BUN Creatinine Ratio 10.2 (10-20); Calcium 9.6 mg/dl (8.6-10.3); Creatinine Clr Calc Pharmacy 98.8 ml/min; Potassium 3.7 mmol/L (3.5-5.1)
--- NOTE | 2024-04-28 11:15 | Discharge Summary ---
Discharge Summary Date of Service April 28, 2024 Principal Dx & Hospital Course #1 = Principal Diagnosis (1) Alcohol withdrawal: Previously did well with Librium taper and tolerating well here - patient states normally able to stay sober for 30-40 days after discharge and will continue taper at d/c No further need for Ativan, pt AWSS has been positive based on tremors and pt requesting ativan, but tremors do not occur when observed from the door. Encouraged sobreity (2) ALFREDO (acute kidney injury): improving, continue to encourage oral fluids Status post 1 L LR bolus Resolved (3) Black stool: Hgb improved from prior Suspected from pepto-bismol previously took FOB ordereduncollected No further report of black stool while inpatient (4) T1DM (type 1 diabetes mellitus): HbA1C 7.4 pharmacy glycemic consult while inpatient. Lower insulin need while inpatient, pt reports not eating much since he did not like the food, no changes to home regiment at discharge, but if episodes of hypoglyemic would recommend decreasing lantus to 10units and follow up with outpatient prescriber. (5) HTN (hypertension): okay to resume lisinopril (6) Hypomagnesemia: resolved Plan Chronic stable medical conditions: * history of A-fibcurrently in sinus rhythm, continue Eliquis Dispo discharge to home today Notes For Next Care Provider admitted for alcohol withdrawal, responded well to Librium taper continued at discharge. Admission HPI Per Admitting Provider Sid Byrnes is a 39 year old male with alcohol use disorder who presents to the ER due to vomiting and concerns he was in DKA. He reports last alcohol drink was 10pm last night. He started drinking alcohol again 1.5 months after last discharge in January. Symptoms started this morning with constant vomiting since 5am. He took 14-15 units of his fast acting insulin without the desired effect to reduce his glucose. [place] dehydrated, generalized abdominal pain, currently 7- 8/10 without radiation. He has also noted black stool over the last week although he puts this down to taking pepto bismol. He notes always having diarrhea which is currently at baseline. Vomitinig mostly water this morning, no coffee ground. He then started having tremors with increasing anxiety, no hallucinations and felt like prior withdrawals therefore decided to come to the ER. He last took his naltrexone 2 weeks ago. He is not interested in inpatient rehabilitation as he has done it multiple times previously but he is interested in outpatient rehab. He reports doing well on Ativan on prior admissions. Discharge Exam General: NAD, VS as above sitting up in bed, communicates of effectively Resp: normal respiratory effort, lungs clear to auscultation CV: tachycardic, no murmur, Abd: normal bowel sounds, non tender, no hepatosplenomegaly Extremities: Moves all extremities, no edema Neuro: A&O x3, no extremity tremors when observed from the door however when I am talking the patient he tells me he is shaky and deliberately shakes his legs, no upper extremity tremor. Skin: intact, Not diaphoretic Discharge Plan Discharge Items Patient Disposition: Home - Self-Care Reason For Visit: ALFREDO, ALCOHOL WITHDRAWAL Discharge Diagnosis: Alcohol withdrawal Activity: Resume your previous activity Weightbearing: Full weightbearing Non-emergency contact: Primary Care Provider Call non-emergency contact if: you have any medication questions and your symptoms worsen Follow-up/Referrals: Tra Castillo D.O. [Primary Care Provider] - (PLEASE CALL YOUR PRIMARY CARE PROVIDER TO SCHEDULE A HOSPITAL DISCHARGE FOLLOW-UP APPOINTMENT WITHIN 7-10 DAYS) Diet: Carb Count or DM1 Addtl Attending Provider Instructions: Mr. Byrnes, You were hospitalized to go through alcohol withdrawal. Thankfully, this course has been uneventful. Continue your naltrexone at home and work with your outpatient providers to continue your sobriety. Focus on making lifestyle changes that support sobriety (taking routes that don't involve passing the liquor store, not having alcohol in your home, etc). You did have an acute kidney injury when your arrived, but this has improved with increased fluids. I have continued the Librium taper. If you go back to drinking, please DISPOSE of this medication. Restart Naltrexone per outpatient provider. Continue your home insulin regiment, you required less insulin here than you take at home, if you notice your sugars are low at home, would recommend decreasing lantus to 10 units and discussing with your outpatient provider. Follow-up appointments: Make an appointment with your primary care physician within one week of discharge. A copy of this summary will be sent to them. Every time you see your primary care physician, or any other doctor, bring your medication list, and a list of questions. CONTACT YOUR PRIMARY CARE PROVIDER if you experience any of the following: Shortness of breath or difficulty breathing Fevers or chills Feeling tired with normal activity or experiencing dizziness or fainting Difficulty following your treatment plan, or difficulty taking medications CALL 911 OR GO TO THE EMERGENCY DEPARTMENT if you experience any of the following: Severe abdominal pain or nausea/vomiting Severe chest pain, or chest pain that radiates (moves) to your jaw or arm Sudden, severe shortness of breath or difficulty breathing Thank you for allowing us to participate in your care. Pending Studies at Discharge: No Stand-Alone Forms: My [facility], Smoking Cessation Medications and DC Order Prescriptions: New chlordiazepoxide HCl 10 mg capsule 10 mg PO BID Qty: 6 0RF Continued lisinopril 10 mg Tablet 10 mg PO DAILY multivitamin Tablet 1 tab PO QAM Qty: 30 0RF Rx Instructions: Unable to verify OTC meds at this date/time. thiamine HCl (vitamin B1) [Vitamin B-1] 100 mg Tablet 100 mg PO QAM Qty: 30 0RF Rx Instructions: Unable to verify OTC meds at this date/time. Eliquis 5 mg tablet 5 mg PO BID Rx Instructions: Last filled 08/2023 x30 day supply, active refills on file per pharmacy. insulin lispro protamin-lispro 100 unit/mL (75-25) insulin pen 0 unit SUBCUT QAM Rx Instructions: Directions from pharmacy are 5-10 units in the morning. Per patient "I can do as little as 2 - 20 units all depends on what I eat." trazodone 50 mg Tablet 50 mg PO HS PRN (Reason: Insomnia) naltrexone 50 mg tablet 50 mg PO DAILY Rx Instructions: Last filled 10/2023 x30 day supply, active refills on file per pharmacy. sertraline 50 mg tablet 50 mg PO DAILY Rx Instructions: Last filled 10/2023 x30 day supply, active refills on file per pharmacy. insulin glargine [Basaglar KwikPen U-100 Insulin] 100 unit/mL (3 mL) insulin pen 15 unit SUBCUT QAM Rx Instructions: PER PT "DEPENDS ON WHAT BSG'S ARE RUNNING". Discharge Orders: Discharge Order (Routine); Ordered 04/28/24 Ordered By: Kalpana Lester/Other Patient Handouts: Managing Type 1 Diabetes Admission Data Admit Date/Time: 04/26/24 11:42 Attending Provider: Waqas Bob Admit Provider: Lavell Bahena Primary Care Provider: Tra Castillo Other Providers: Lavell Bahena Other Interventions: Discharge Summary Assessment (RN) Last Done: 04/28/24 11:22 Hospital Stay Data Consultations 04/26/24 11:16 ED Decision to Admit Stat Diagnostic Imagining Performed Chest X-Ray 04/26/24 09:37 XR chest 1V portable HISTORY: 39 years-old Male weakness COMPARISON: 01/29/2024 TECHNIQUE: AP view of the chest FINDINGS: Cardiac silhouette is normal. The lung pascual appear clear. No pneumothorax or pleural effusion. The bones appear grossly intact. IMPRESSION: No acute process. ACT 112: Negative or not required by law. The above report was generated using voice recognition software. It may contain grammatical, syntax or spelling errors. Electronically signed by: Orestes Field M.D. 04/26/2024 10:35 AM Pending Results Patient Have Any Pending Studies at Discharge: No Discharge Instructions Given to Patient (Per Discharging Provider) Mr. Byrnes, You were hospitalized to go through alcohol withdrawal. Thankfully, this course has been uneventful. Continue your naltrexone at home and work with your outpatient providers to continue your sobriety. Focus on making lifestyle changes that support sobriety (taking routes that don't involve passing the liquor store, not having alcohol in your home, etc). You did have an acute kidney injury when your arrived, but this has improved with increased fluids. I have continued the Librium taper. If you go back to drinking, please DISPOSE of this medication. Restart Naltrexone per outpatient provider. Continue your home insulin regiment, you required less insulin here than you take at home, if you notice your sugars are low at home, would recommend decreasing lantus to 10 units and discussing with your outpatient provider. Follow-up appointments: Make an appointment with your primary care physician within one week of discharge. A copy of this summary will be sent to them. Every time you see your primary care physician, or any other doctor, bring your medication list, and a list of questions. CONTACT YOUR PRIMARY CARE PROVIDER if you experience any of the following: Shortness of breath or difficulty breathing Fevers or chills Feeling tired with normal activity or experiencing dizziness or fainting Difficulty following your treatment plan, or difficulty taking medications CALL 911 OR GO TO THE EMERGENCY DEPARTMENT if you experience any of the following: Severe abdominal pain or nausea/vomiting Severe chest pain, or chest pain that radiates (moves) to your jaw or arm Sudden, severe shortness of breath or difficulty breathing Thank you for allowing us to participate in your care. Total Time Total Time Spent Total Time Spent (In Minutes): Time spent day of discharge 36 minutes including direct patient care, medication reconciliation, documentation, review of labs and images, and coordination of care. Coding Level of Care Code 82254 INP/OBS DISCH >30 MIN Diagnoses Alcohol withdrawal F10.939 Complication of substance-induced condition: with unspecified complication ALFREDO (acute kidney injury) N17.9 Black stool K92.1 T1DM (type 1 diabetes mellitus) E10.9 HTN (hypertension) I10 Hypomagnesemia E83.42
[2024-04-28 11:23] VITALS: BP 116/80; PULSE 86; RESP 18; TEMP 98.2; O2SAT 95
[2024-04-29] MEDS ORDERED: chlordiazePOXIDE HCl 5 MG CAP PO SCH (18:00)
== END 2024-04-28 13:07 | disposition home or self-care (01) | DRG 897 ==
LOC: ED 09:17 → SUATTDRO 11:42 → 2W 11:42

== ENCOUNTER 2024-07-19 16:21 | Inpatient (IN) ==
[2024-07-19] MEDS: SODIUM CHLORIDE 0.9% 1,000 ML IV ONE ×2 (16:52→18:37)
[2024-07-19] MEDS: diazePAM 5 MG/ML 10ML VIAL ONE (16:52)
[2024-07-19 16:55] LABS: Base Excess VBG -7.1 mEq/L; HCO3 VBG 16 mmol/L; Oxygen Saturation VBG 65.7 %; PCO2 VBG 25 mmHg (38-50); PO2 VBG 43 mmHg; pH VBG 7.41 (7.36-7.41)
[2024-07-19] MEDS: diazePAM 5 MG/ML 10ML VIAL IV STA ×2 (17:01→18:16)
[2024-07-19] MEDS: ONDANSETRON INJ 2 MG/ML 2 ML VIAL ONE (17:06)
[2024-07-19] MEDS: ONDANSETRON INJ 2 MG/ML 2 ML VIAL IV STA (17:06)
[2024-07-19 17:08] LABS: Basophils # (auto) 0.06 K/uL (0.00-0.20); Basophils % (auto) 0.4 %; Hematocrit (blood only) 42.8 % (42.0-52.0); Hemoglobin 15.2 g/dl (14.0-18.0); Immature Granulocytes # (auto) 0.06 K/uL (0.01-0.20); Immature Granulocytes % (auto) 0.4 %; Lymphocytes % (auto) 6.7 %; Mean Corpuscular Hemoglobin 33.8 pg (25.0-34.0); Mean Corpuscular Hgb Conc 35.5 g/dL (32.0-36.0); Mean Corpuscular Volume 95.1 fL (80.0-100.0); Mean Platelet Volume 9.1 fL (9.4-12.4); Monocytes # (auto) 0.93 K/uL (0.11-0.59); Monocytes % (auto) 5.7 %; Neutrophils % (auto) 86.8 %; Platelet Count 393 K/uL (130-400); RDW Coefficient of Variation 12.1 % (11.5-14.5); RDW Standard Deviation 42.2 fL (36.4-46.3); White Blood Count 16.35 K/ul (4.8-10.8)
[2024-07-19 17:32] LABS: Albumin Level 5.4 gm/dl (3.4-5.0); Bilirubin Direct 0.4 mg/dl (0-0.2); Bilirubin,Total 1.5 mg/dl (0.2-1.0); Calcium 10.3 mg/dl (8.6-10.3); Creatinine Clr Calc Pharmacy 62.8 ml/min; Potassium 4.6 mmol/L (3.5-5.1); Total Protein 8.4 gm/dl (6.0-8.3)
[2024-07-19] MEDS ORDERED: GLUCOSE 40% GEL 15 GM TUBE PO PRN (18:03)
[2024-07-19] MEDS ORDERED: DEXTROSE 50% 50 ML SYRINGE IV PRN (18:03)
[2024-07-19] MEDS ORDERED: GLUCAGON FOR INJ 1 MG VIAL SQ PRN (18:03)
[2024-07-19] MEDS ORDERED: CARBOHYDRATES FOR HYPOGLYCEMIA PO PRN (18:03)
[2024-07-19] MEDS ORDERED: GLUCOSE 10 TAB/TUBE PO PRN (18:03)
[2024-07-19 18:29] LABS: iSTAT Arterial Blood Gas HCO3 16 meg/L (19-24); iSTAT Arterial Blood Gas pCO2 27 mmHg (35-46); iSTAT Arterial Blood Gas pO2 41 mmHg (80-95); iSTAT Carbon Dioxide 17 mmol/L (24-31); iSTAT Hematocrit 43 % (42-52); iSTAT Hemoglobin 14.6 g/dl (14.0-18.0); iSTAT Potassium 4.2 mmol/L (3.3-5.0); iSTAT Sodium 129 mmol/L (135-144)
[2024-07-19] MEDS: INSULIN REGULAR 250 UNITS in SODIUM CHLORIDE 0.9% 247.5 ML IV SCH (18:37)
--- NOTE | 2024-07-19 18:49 | History & Physical Report ---
Date of Service July 19, 2024 Assessment & Plan (1) DKA (diabetic ketoacidosis): Plan: Compensating for metabolic acidosis with respiratory alkalosis Anion gap 26 on arrival to the ER with Bicarb 17 DKA protocol order set Normal saline 2L bolus given in ER Glucose now down to 189 therefore insulin drip on hold per protocol, start D5 half-normal saline with potassium chloride 20 mEq at 200 mL an hour Restart insulin drip per protocol Continue n.p.o. status until anion gap closes Continue q4h labs (2) Alcohol dependence with withdrawal: Plan: Previously done well on Librium taper therefore will do the same again starting at 25mg PO q6h Lorazepam 1-3mg per AWSS Continue thiamine 100mg PO daily (he notes compliance with this) (3) HTN (hypertension): Plan: Continue lisinopril 10 mg p.o. daily, I suspect his renal function will be normal by the morning when this is due (4) History of atrial fibrillation: Plan: Paroxysmal - currently in sinus tachycardia, unknown how many episodes or when [id number] score 2 - continue on chronic Eliquis Plan VTE Prophyalxis - Eliquis Diet - n.p.o. except sips and chips Disposition - admit to PCU Admission and Anticipated Discharge Date Admission Date: July 19, 2024 History of Present Illness Chief Complaint: Nausea, vomiting, shakes Primary Care Provider: Tra Castillo Sid Byrnes is a 39-year-old male well-known to the service with repeated episodes of alcohol withdrawal and diabetic ketoacidosis who presents to the ER with body shakes, nausea, vomiting. Last alcoholic drink was midnight. Alcohol level in the emergency room was negative. He reports wanting to quit cold turkey today and thought he could just push through it but the nausea, vomiting and shakes got too much and he was concerned he might go into DKA with his high glucose levels therefore decided to come to the ER. He drinks 8-10 9% beers of tall cans per day. Symptoms started this morning when he woke up around 6ma and progressively getting worse. He also feels his acid reflux is horrible but it's all in his stomach and no acid taste in his mouth or burning in his esophagus. He reports having difficulty getting in to see an audio director as he says they do not return his calls. He does not have ketone testing strips at home. Allergies Allergy/AdvReac Type Severity Reaction Status Date / Time No Known Allergies Allergy Verified 07/19/24 19:48 Home Medications Medication Instructions Recorded Confirmed Type lisinopril 10 mg tablet 10 mg PO DAILY 05/14/23 07/19/24 History multivitamin 1 tab PO QAM #30 tabs 05/16/23 07/19/24 Rx thiamine HCl (vitamin B1) 100 mg 100 mg PO QAM #30 tabs 05/16/23 07/19/24 Rx tablet (Vitamin B-1) apixaban 5 mg tablet (Eliquis) 5 mg PO BID 10/06/23 07/19/24 History insulin glargine 100 unit/mL (3 15 unit subcut QAM 12/09/23 07/19/24 History mL) subcutaneous pen (Basaglar KwikPen U-100 Insulin) naltrexone 50 mg tablet 50 mg PO DAILY 12/09/23 07/19/24 History sertraline 50 mg tablet 50 mg PO DAILY 12/09/23 07/19/24 History insulin lispro protamine-lispro 0 unit subcut QAM 04/26/24 07/19/24 History 100 unit/mL (75-25) subcutaneous pen trazodone 50 mg tablet 50 mg PO HS PRN Insomnia 04/26/24 07/19/24 History Past Med/Surg History Problem List (Updated 07/20/24 @ 00:07 by Cyndi Zarco MD) DKA (diabetic ketoacidosis) (Acute) Alcohol abuse (Acute) Alcohol intoxication (Acute) Dehydration (Acute) Depressed Abdominal pain (Acute) Alcohol dependence with withdrawal (Acute) Medical History (Updated 07/20/24 @ 00:07 by Cyndi Zarco MD) Alcohol abuse Alcohol withdrawal History of atrial fibrillation HTN (hypertension) T1DM (type 1 diabetes mellitus) Syncope Diarrhea Social History Smoking Status: Current every day smoker Tobacco Type: Cigarettes Cigarettes Per Day: 1 pack a week; Second Hand Exposure: Yes; Do You Dip or Chew Tobacco: No; Hx Alcohol Use: Yes Alcohol type: beer Hx Substance Use: No Preferred Language: Jamaican Communication Ability: Effective Trekking Guide Required: No Beliefs That Will Affect Care: None Current Living Situation: Alone Feels Safe at Home: Yes Assistive Devices: None Review of Systems Review of Systems: All systems reviewed & are unremarkable except as noted in HPI & below Physical Exam Constitutional: well developed and + acute distress (shaking); + not well nourished Eyes: PERRL, conjunctivae normal, anicteric sclerae ENMT: Mouth: + dry oral mucous membranes Respiratory: normal respiratory effort, lungs clear to auscultation Cardiovascular: Rate/Rhythm: regular rhythm and + tachycardic Heart Sounds: no murmur Extremities: no pedal edema Gastrointestinal (Abdomen): normal bowel sounds, soft, nontender, no hepatosplenomegaly Skin: + dry skin Psychiatric: Orientation: alert and oriented x 3 Apperance: + disheveled Speech: normal rate/rhythm/volume of speech Affect: + anxious affect Results & Data Results & Data Vital Signs (Past 12 Hours) Vital Signs Temp Pulse Resp BP Pulse Ox O2 Del Method 07/19/24 17:06 104 H 18 98 07/19/24 17:06 121/88 07/19/24 17:00 103 H 20 95 07/19/24 16:59 114 H 07/19/24 16:57 101 H 13 95 07/19/24 16:33 35.7 C L 130 H 20 150/76 H 98 Room Air Laboratory Results Abnormal lab results 07/19/24 07/19/24 07/19/24 Range/Units 16:48 18:16 18:34 WBC 16.35 H (4.8-10.8) K/ul RBC 4.50 L (4.70-6.10) M/uL MPV 9.1 L (9.4-12.4) fL Neut # (Auto) 14.20 H (1.40-6.50) K/uL Lymph # (Auto) 1.10 L (1.20-3.40) K/uL Potter # (Auto) 0.93 H (0.11-0.59) K/uL POC pCO2 27 L (35-46) mmHg POC pO2 41 L (80-95) mmHg POC HCO3 16 L (19-24) zeinab/L POC Total CO2 17 L (24-31) mmol/L POC ABG O2 Sat 77.0 L (90-95) % VBG pCO2 25 L (38-50) mmHg POC Sodium 129 L (135-144) mmol/L Sodium 131 L (136-145) mmol/L Chloride 88 L (98-107) mmol/L Carbon Dioxide 17 L (21-32) mmol/L Anion Gap 26 H (3-11) Creatinine 1.70 H (0.6-1.4) mg/dl Glucose 321 H* (70-99(Fasting)) mg/dl POC Glucose 287 H (70-99) mg/dl Total Bilirubin 1.5 H (0.2-1.0) mg/dl Direct Bilirubin 0.4 H (0-0.2) mg/dl AST 44 H (13-39) U/L Total Protein 8.4 H (6.0-8.3) gm/dl Albumin 5.4 H (3.4-5.0) gm/dl Diagnostic Findings None Medications Administered ER medications given: Normal saline 1 L bolus Diazepam 10 mg IV Ondansetron 4 mg IV Diazepam 10 mg IV ECG Rate (beats per minute): 121 Rhythm: sinus tachycardia Findings: + PVC Comparison ECG Date: from (July 19, [id number]) Change: the following changes noted (No significant change) Code Status & VTE Plan Code Status Full VTE Prophylaxis Plan VTE Prophylaxis will be ordered: Yes PG Care Time/CCT Total # of Minutes Spent Total Time Spent with Patient: Total time spent is greater than 50% in coordination of care (as documented) at patient's floor/unit and/or counseling patient: Coding Level of Care Code 61638 INT INP/OBS CARE 3/75MIN Diagnoses DKA (diabetic ketoacidosis) E11.10 Alcohol dependence with withdrawal F10.230 Complication of substance-induced condition: uncomplicated HTN (hypertension) I10 History of atrial fibrillation Z86.79 (2) Alcohol dependence with withdrawal Complication of substance-induced condition: uncomplicated Qualified Code(s): F10.230 - Alcohol dependence with withdrawal, uncomplicated
[2024-07-19] MEDS ORDERED: Ativan IV Alcohol Withdrawal--Active Protocol IV PRN (18:53)
--- NOTE | 2024-07-19 19:02 | Emergency Department Note ---
Impression & Plan DKA (diabetic ketoacidosis), Alcohol dependence with withdrawal ED Provider Note NAME: SANJAY MARQUIS AGE: 39 SEX: M : 1985 ARRIVES VIA: Walk-In INFORMANT: Patient, ED PROVIDER(S): Cyndi Zarco MD CHIEF COMPLAINT: Shakiness, vomiting HPI: This is a 39-year-old male with history of type 1 diabetes and alcohol use disorder presenting for nausea vomiting and shakiness. Patient states he last drank around midnight. He is feeling he is in alcohol withdrawal as well as DKA. Patient notes that he has had numerous history of this. He feels extremely shaky, anxious and nauseous. He has vomited throughout the course today and unable to drink as result of this. He states he does feel like his alcohol withdrawal. ROS: See above HPI for pertinent positives & negatives. A total of 10 systems reviewed and were otherwise negative. PAST MEDICAL HISTORY: See Below PAST SURGICAL HISTORY: See Below FAMILY HISTORY: See Below SOCIAL HISTORY: See Below HOME MEDICATIONS: See Below ALLERGIES: See Below VITALS: See Below PHYSICAL EXAMINATION: General: Tremulous, anxious appearing Head: Normocephalic and atraumatic Eyes: Normal inspection, extraocular muscles intact Ear, nose, throat: Normal external exam Neck: Normal range of motion Respiratory: lungs clear to auscultation bilaterally Cardiovascular: Regular rate/rhythm, no murmur GI: soft, nontender, no guarding or rebound Extremities: nontender, moves all extremities Neuro: The patient awake and alert, appropriately conversive, no focal deficits, symmetric faces, involuntary tremors Skin: Warm, dry, and intact MEDICAL DECISION MAKING: This is a 38-year-old male presenting for nausea vomiting and shakiness. Patient likely is in alcohol withdrawal and/or DKA. Will do screening workup to help assess. Patient is tachycardic to the 130s. Will give IV Valium 10 mg as a loading dose. -Blood was reviewed with leukocytosis 16.35. Otherwise his pH is 7.4/27. Sodium levels 131, anion gap of 26. CO2 is slightly low as well. -Anion gap may related to DKA/alcoholic ketosis mixed picture. Will give fluids, total of 2 L in the ER. Will also give IV Valium and start insulin drip. -Patient admitted to hospital service for his mixed picture of DKA/alcohol withdrawal -Patient still tremulous with repeat of tachycardia and anxiety, will give further 10 mg IV Valium Differential diagnosis: DKA, alcohol withdrawal, sepsis Diagnostics interpreted by me: ECG: ECG independently interpreted by me with likely sinus tachycardia rhythm, rate of 114, normal IN, normal QRS, normal QTc, no ST segment elevations consistent with STEMI criteria Cardiac Monitoring: An order was placed for continuous cardiac monitoring. The monitor shows a rate of 95 with sinus rhythm. Critical Care Note: I have personally spent 45 minutes of critical care time in the direct management of this patient. This includes bedside care, interpretation of diagnostic studies, and testing, discussion with consultants, patient, and family members, and other required patient management activities. This 45 minutes is in excess of all separately billable procedures. Past Med/Surg History Problem List (Updated 07/20/24 @ 00:07 by Cyndi Zarco MD) DKA (diabetic ketoacidosis) (Acute) Alcohol abuse (Acute) Alcohol intoxication (Acute) Dehydration (Acute) Depressed Abdominal pain (Acute) Alcohol dependence with withdrawal (Acute) Medical History (Updated 07/20/24 @ 00:07 by Cyndi Zarco MD) Alcohol abuse Alcohol withdrawal History of atrial fibrillation HTN (hypertension) T1DM (type 1 diabetes mellitus) Syncope Diarrhea Social History Smoking Status: Current every day smoker Tobacco Type: Cigarettes Cigarettes Per Day: 1 pack a week; Second Hand Exposure: Yes; Do You Dip or Chew Tobacco: No; Hx Alcohol Use: Yes Alcohol type: beer Hx Substance Use: No Preferred Language: [place] Communication Ability: Effective Explosive Ordnance Disposal Technician Required: No Beliefs That Will Affect Care: None Current Living Situation: Alone Feels Safe at Home: Yes Assistive Devices: None Allergies Allergies Allergy/AdvReac Type Severity Reaction Status Date / Time No Known Allergies Allergy Verified 07/19/24 19:48 Home Meds Home Medications Medication Instructions Recorded Confirmed lisinopril 10 mg tablet 10 mg PO DAILY 05/14/23 07/19/24 apixaban 5 mg tablet (Eliquis) 5 mg PO BID 10/06/23 07/19/24 insulin glargine 100 unit/mL (3 15 unit subcut QAM 12/09/23 07/19/24 mL) subcutaneous pen (Basaglar KwikPen U-100 Insulin) naltrexone 50 mg tablet 50 mg PO DAILY 12/09/23 07/19/24 sertraline 50 mg tablet 50 mg PO DAILY 12/09/23 07/19/24 insulin lispro protamine-lispro 0 unit subcut QAM 04/26/24 07/19/24 100 unit/mL (75-25) subcutaneous pen trazodone 50 mg tablet 50 mg PO HS PRN Insomnia 04/26/24 07/19/24 Previous Rx's Medication Instructions Recorded multivitamin 1 tab PO QAM #30 tabs 05/16/23 thiamine HCl (vitamin B1) 100 mg 100 mg PO QAM #30 tabs 05/16/23 tablet (Vitamin B-1) Results & Data (ED) Vital Signs Vital Signs - 24 hr 07/19/24 16:33 07/19/24 16:57 07/19/24 16:59 Temperature 35.7 C L Temperature Source Temporal Artery Scan Pulse Rate 130 H 101 H 114 H Pulse Rate from SpO2 Sensor 102 H Respiratory Rate 20 13 Blood Pressure 150/76 H Blood Pressure Mean 100 Pulse Oximetry 98 95 Oxygen Delivery Method Room Air Sepsis Recent Fever Within 48 Hours No Sepsis New/Unexplained Change in Mental Status No Sepsis Action Taken by Nursing No Action Required 07/19/24 17:00 07/19/24 17:06 07/19/24 17:06 Temperature Temperature Source Pulse Rate 103 H 104 H Pulse Rate from SpO2 Sensor 103 H 104 H Respiratory Rate 20 18 Blood Pressure 121/88 Blood Pressure Mean 99 Pulse Oximetry 95 98 Oxygen Delivery Method Sepsis Recent Fever Within 48 Hours Sepsis New/Unexplained Change in Mental Status Sepsis Action Taken by Nursing 07/19/24 17:06 07/19/24 17:15 07/19/24 17:15 Temperature Temperature Source Pulse Rate 87 Pulse Rate from SpO2 Sensor 88 Respiratory Rate 18 Blood Pressure 121/88 114/73 Blood Pressure Mean 99 92 Pulse Oximetry 97 Oxygen Delivery Method Sepsis Recent Fever Within 48 Hours Sepsis New/Unexplained Change in Mental Status Sepsis Action Taken by Nursing 07/19/24 17:27 07/19/24 17:30 07/19/24 17:33 Temperature Temperature Source Pulse Rate 81 106 H Pulse Rate from SpO2 Sensor 82 102 H Respiratory Rate 17 17 Blood Pressure 142/83 H Blood Pressure Mean 96 Pulse Oximetry 97 99 Oxygen Delivery Method Sepsis Recent Fever Within 48 Hours Sepsis New/Unexplained Change in Mental Status Sepsis Action Taken by Nursing 07/19/24 17:36 07/19/24 17:45 07/19/24 17:51 Temperature Temperature Source Pulse Rate 94 H 93 H Pulse Rate from SpO2 Sensor 95 H 95 H Respiratory Rate 11 L 12 Blood Pressure 155/103 H Blood Pressure Mean 120 Pulse Oximetry 99 99 Oxygen Delivery Method Sepsis Recent Fever Within 48 Hours Sepsis New/Unexplained Change in Mental Status Sepsis Action Taken by Nursing 07/19/24 17:57 07/19/24 18:02 07/19/24 18:02 Temperature Temperature Source Pulse Rate 104 H Pulse Rate from SpO2 Sensor 111 H Respiratory Rate 17 Blood Pressure Blood Pressure Mean 167 167 Pulse Oximetry 99 Oxygen Delivery Method Sepsis Recent Fever Within 48 Hours Sepsis New/Unexplained Change in Mental Status Sepsis Action Taken by Nursing 07/19/24 18:09 07/19/24 18:21 07/19/24 18:30 Temperature Temperature Source Pulse Rate 100 H 101 H 96 H Pulse Rate from SpO2 Sensor 96 H 96 H Respiratory Rate 13 15 17 Blood Pressure Blood Pressure Mean Pulse Oximetry 97 96 Oxygen Delivery Method Sepsis Recent Fever Within 48 Hours Sepsis New/Unexplained Change in Mental Status Sepsis Action Taken by Nursing 07/19/24 18:39 07/19/24 18:45 Temperature Temperature Source Pulse Rate 92 H Pulse Rate from SpO2 Sensor Respiratory Rate 15 Blood Pressure 169/98 H Blood Pressure Mean 115 Pulse Oximetry Oxygen Delivery Method Sepsis Recent Fever Within 48 Hours Sepsis New/Unexplained Change in Mental Status Sepsis Action Taken by Nursing Laboratory Data 07/19/24 16:48 07/19/24 23:09 Lab Results 07/19/24 07/19/24 07/19/24 Range/Units 16:48 18:16 18:28 WBC 16.35 H (4.8-10.8) K/ul RBC 4.50 L (4.70-6.10) M/uL Hgb 15.2 (14.0-18.0) g/dl POC Hgb 14.6 (14.0-18.0) g/dl Hct 42.8 (42.0-52.0) % POC Hct 43 (42-52) % MCV 95.1 (80.0-100.0) fL MCH 33.8 (25.0-34.0) pg MCHC 35.5 (32.0-36.0) g/dL RDW Std Deviation 42.2 (36.4-46.3) fL RDW Coeff of Maxi 12.1 (11.5-14.5) % Plt Count 393 (130-400) K/uL MPV 9.1 L (9.4-12.4) fL Immature Gran % (Auto) 0.4 % Neut % (Auto) 86.8 % Lymph % (Auto) 6.7 % [place] % (Auto) 5.7 % Eos % (Auto) 0.0 % Baso % (Auto) 0.4 % Neut # (Auto) 14.20 H (1.40-6.50) K/uL Lymph # (Auto) 1.10 L (1.20-3.40) K/uL [place] # (Auto) 0.93 H (0.11-0.59) K/uL Eos # (Auto) 0.00 (0.00-0.50) K/uL Baso # (Auto) 0.06 (0.00-0.20) K/uL Immature Gran # (Auto) 0.06 (0.01-0.20) K/uL POC pH 7.40 (7.35-7.45) POC pCO2 27 L (35-46) mmHg POC pO2 41 L (80-95) mmHg POC HCO3 16 L (19-24) zeinab/L POC Total CO2 17 L (24-31) mmol/L POC Base Excess -9.0 (-9-1.8) zeinab/L POC ABG O2 Sat 77.0 L (90-95) % VBG pH 7.41 (7.36-7.41) VBG pCO2 25 L (38-50) mmHg VBG pO2 43 mmHg VBG HCO3 16 mmol/L VBG O2 Saturation 65.7 % VBG Base Excess -7.1 mEq/L POC Sodium 129 L (135-144) mmol/L Sodium 131 L 134 L (136-145) mmol/L POC Potassium 4.2 (3.3-5.0) mmol/L Potassium 4.6 4.5 (3.5-5.1) mmol/L Chloride 88 L 94 L (98-107) mmol/L Carbon Dioxide 17 L 19 L (21-32) mmol/L Anion Gap 26 H 21 H (3-11) BUN 17 16 (6-23) mg/dl Creatinine 1.70 H 1.38 D (0.6-1.4) mg/dl Est Cr Clr Drug Dosing 62.8 77.3 ml/min eGFR 51.30 65.88 BUN/Creatinine Ratio 10.0 11.6 (10-20) Glucose 321 H* 267 H (70-99(Fasting)) mg/dl POC Glucose (70-99) mg/dl Calcium 10.3 9.5 (8.6-10.3) mg/dl Phosphorus 4.1 (2.5-4.9) mg/dl Magnesium 1.8 (1.7-2.4) mg/dl Total Bilirubin 1.5 H 1.3 H (0.2-1.0) mg/dl Direct Bilirubin 0.4 H (0-0.2) mg/dl AST 44 H 36 (13-39) U/L ALT 38 32 (7-52) U/L Alkaline Phosphatase 71 70 (34-104) U/L Total Protein 8.4 H 7.8 (6.0-8.3) gm/dl Albumin 5.4 H 4.8 (3.4-5.0) gm/dl Globulin 3.0 (2.5-4.0) gm/dl Albumin/Globulin Ratio 1.6 (0.9-2) Lipase 52 (11-82) U/L Ethyl Alcohol mg/dL < 10.0 (<10.0) mg/dl 07/19/24 Range/Units 18:34 WBC (4.8-10.8) K/ul RBC (4.70-6.10) M/uL Hgb (14.0-18.0) g/dl POC Hgb (14.0-18.0) g/dl Hct (42.0-52.0) % POC Hct (42-52) % MCV (80.0-100.0) fL MCH (25.0-34.0) pg MCHC (32.0-36.0) g/dL RDW Std Deviation (36.4-46.3) fL RDW Coeff of Maxi (11.5-14.5) % Plt Count (130-400) K/uL MPV (9.4-12.4) fL Immature Gran % (Auto) % Neut % (Auto) % Lymph % (Auto) % [place] % (Auto) % Eos % (Auto) % Baso % (Auto) % Neut # (Auto) (1.40-6.50) K/uL Lymph # (Auto) (1.20-3.40) K/uL [place] # (Auto) (0.11-0.59) K/uL Eos # (Auto) (0.00-0.50) K/uL Baso # (Auto) (0.00-0.20) K/uL Immature Gran # (Auto) (0.01-0.20) K/uL POC pH (7.35-7.45) POC pCO2 (35-46) mmHg POC pO2 (80-95) mmHg POC HCO3 (19-24) zeinab/L POC Total CO2 (24-31) mmol/L POC Base Excess (-9-1.8) zeinab/L POC ABG O2 Sat (90-95) % VBG pH (7.36-7.41) VBG pCO2 (38-50) mmHg VBG pO2 mmHg VBG HCO3 mmol/L VBG O2 Saturation % VBG Base Excess mEq/L POC Sodium (135-144) mmol/L Sodium (136-145) mmol/L POC Potassium (3.3-5.0) mmol/L Potassium (3.5-5.1) mmol/L Chloride (98-107) mmol/L Carbon Dioxide (21-32) mmol/L Anion Gap (3-11) BUN (6-23) mg/dl Creatinine (0.6-1.4) mg/dl Est Cr Clr Drug Dosing ml/min eGFR BUN/Creatinine Ratio (10-20) Glucose (70-99(Fasting)) mg/dl POC Glucose 287 H (70-99) mg/dl Calcium (8.6-10.3) mg/dl Phosphorus (2.5-4.9) mg/dl Magnesium (1.7-2.4) mg/dl Total Bilirubin (0.2-1.0) mg/dl Direct Bilirubin (0-0.2) mg/dl AST (13-39) U/L ALT (7-52) U/L Alkaline Phosphatase (34-104) U/L Total Protein (6.0-8.3) gm/dl Albumin (3.4-5.0) gm/dl Globulin (2.5-4.0) gm/dl Albumin/Globulin Ratio (0.9-2) Lipase (11-82) U/L Ethyl Alcohol mg/dL (<10.0) mg/dl Administered Medications Apixaban (Apixaban 5 Mg Tablet) 5 mg PO BID [facility] Stop: 08/18/24 21:59 Last Admin: 07/19/24 23:07 Dose: 5 mg Documented By: TOBI Chlordiazepoxide HCl (Chlordiazepoxide Hcl 25 Mg Cap) 25 mg PO Q6H [facility] Stop: 07/20/24 15:46 Last Admin: 07/19/24 23:07 Dose: 25 mg Documented By: TOBI Insulin Human Regular 250 (units/ Sodium Chloride) 250 mls @ 0 mls/hr IV .Q0M [facility]; Protocol Stop: 08/18/24 18:14 Last Titration: 07/19/24 23:08 Dose: 3.2 units/hr, 3.2 mls/hr Documented By: TOBI Co-signed By: TMG Titration: 07/19/24 20:38 Dose: 0 units/hr, 0 mls/hr Documented By: PERICO Co-signed By: RODOLFO Titration: 07/19/24 20:36 Dose: 3.2 units/hr, 3.2 mls/hr Documented By: PERICO Co-signed By: RODOLFO Titration: 07/19/24 20:15 Dose: 5.3 units/hr, 5.3 mls/hr Documented By: PERICO Co-signed By: RODOLFO Titration: 07/19/24 19:35 Dose: 0 units/hr, 0 mls/hr Documented By: RODOLFO Co-signed By: PERICO Admin: 07/19/24 18:37 Dose: 8.9 units/hr, 8.9 mls/hr Documented By: BRIGETTE Co-signed By: CAW Potassium Chloride/Dextrose/Sod Cl (D5w And 1/2nss + 20meq Kcl) 20 meq in 1,000 mls @ 200 mls/hr IV .Q5H [facility] Stop: 07/20/24 19:59 Last Admin: 07/19/24 20:26 Dose: 200 mls/hr Documented By: PERICO Insulin Aspart (Insulin Aspart Per Unit Charge) 0 units SC ACHS [facility] Stop: 08/18/24 20:59 Last Admin: 07/19/24 22:11 Dose: Not Given Documented By: OBJECT ORIENTED PROGRAMMER Discontinued Medications Diazepam (Diazepam 5 Mg/Ml 10ml Vial) Confirm Administered Dose 50 mg .ROUTE .STK-MED ONE Stop: 07/19/24 16:48 Last Admin: 07/19/24 16:52 Dose: 10 mg Documented By: BRIGETTE Diazepam (Diazepam 5 Mg/Ml 10ml Vial) 10 mg IV NOW STA Stop: 07/19/24 16:57 Last Admin: 07/19/24 17:01 Dose: Not Given Documented By: BRIGETTE Diazepam (Diazepam 5 Mg/Ml 10ml Vial) 10 mg IV NOW STA Stop: 07/19/24 18:07 Last Admin: 07/19/24 18:16 Dose: 10 mg Documented By: BRIGETTE Sodium Chloride (Nss) 1,000 mls @ 999 mls/hr IV .Q1H1M ONE Stop: 07/19/24 17:39 Last Infusion: 07/19/24 18:19 Dose: Infused Documented By: Admin: 07/19/24 16:52 Dose: 999 mls/hr Documented By: BRIGETTE Sodium Chloride (Nss) 1,000 mls @ 999 mls/hr IV .Q1H1M ONE Stop: 07/19/24 19:03 Last Infusion: 07/19/24 19:40 Dose: Infused Documented By: Admin: 07/19/24 18:37 Dose: 999 mls/hr Documented By: BRIGETTE Famotidine (Pepcid 20mg Iv Push) 20 mg in 5 mls @ 2.5 mls/min IV NOW STA Stop: 07/19/24 18:51 Last Admin: 07/19/24 19:05 Dose: 2.5 mls/min Documented By: BRIGETTE Famotidine (Pepcid 20mg Iv Push) 20 mg in 5 mls @ 2.5 mls/min IV NOW STA Stop: 07/19/24 18:59 Last Admin: 07/19/24 19:05 Dose: Not Given Documented By: BRIGETTE Pantoprazole Sodium (Protonix) 40 mg in 10 mls @ 5 mls/min IV NOW STA Stop: 07/19/24 19:52 Last Admin: 07/19/24 19:58 Dose: 5 mls/min Documented By: RODOLFO Lorazepam (Lorazepam 2 Mg/1 Ml Vial) 3 mg IV ONCE PRN; Protocol PRN Reason: EtOH Withdrawal AWSS Score 10+ Last Admin: 07/19/24 19:43 Dose: 3 mg Documented By: RODOLFO Miscellaneous (Stat Iv Infusion Titration Per Protocol) 1 each N/A NOW STA Stop: 07/19/24 18:04 Last Admin: 07/19/24 19:59 Dose: Not Given Documented By: PERICO Ondansetron HCl (Ondansetron Inj 2 Mg/Ml 2 Ml Vial) 4 mg IV NOW STA Stop: 07/19/24 17:04 Last Admin: 07/19/24 17:06 Dose: 4 mg Documented By: BRIGETTE Ondansetron HCl (Ondansetron Inj 2 Mg/Ml 2 Ml Vial) Confirm Administered Dose 4 mg .ROUTE .STK-MED ONE Stop: 07/19/24 17:05 Last Admin: 07/19/24 17:06 Dose: Not Given Documented By: BRIGETTE Discharge Plan Visit Data Chief Complaint: Alcohol Withdrawal Stated Complaint: ALCOHOL WITHDRAW ED Provider: Cyndi Zarco Discharge Problem: DKA (diabetic ketoacidosis), Alcohol dependence with withdrawal Patient Disposition: Admitted As Inpatient Discharge Instructions Interventions: ED Discharge Assessment Last Done: 07/19/24 21:22
[2024-07-19 19:03] LABS: Albumin Globulin Ratio 1.6 (0.9-2); Albumin Level 4.8 gm/dl (3.4-5.0); BUN Creatinine Ratio 11.6 (10-20); Bilirubin,Total 1.3 mg/dl (0.2-1.0); Calcium 9.5 mg/dl (8.6-10.3); Creatinine Clr Calc Pharmacy 77.3 ml/min; Magnesium 1.8 mg/dl (1.7-2.4); Phosphorus 4.1 mg/dl (2.5-4.9); Potassium 4.5 mmol/L (3.5-5.1); Total Protein 7.8 gm/dl (6.0-8.3)
[2024-07-19] MEDS: FAMOTIDINE 20MG IV PUSH 20 MG/5 ML SYR IV STA ×2 (19:05)
[2024-07-19] MEDS: LORazepam 2 MG/1 ML VIAL IV PRN (19:43)
[2024-07-19] MEDS: PANTOprazole 40 MG/10 ML SYR IV STA (19:58)
[2024-07-19] MEDS: STAT IV Infusion **Titration per Protocol STA (19:59)
[2024-07-19] MEDS ORDERED: SODIUM CHLOR 0.45% + 20MEQ KCL 20 MEQ/1,000 ML BAG IV SCH (20:00)
--- NOTE | 2024-07-19 20:06 | XRay Report ---
Exam(s): XR CXR 1 VIEW EXAM: XR Chest, 1 View CLINICAL HISTORY: Reason for exam: DKA, hypothermia ?PNA. TECHNIQUE: Frontal view of the chest. COMPARISON: April 26, 2024 FINDINGS: Lungs: Unremarkable. No consolidation. Pleural space: Unremarkable. No pneumothorax. Heart: Unremarkable. No cardiomegaly. Mediastinum: Unremarkable. Normal mediastinal contour. Bones/joints: Mild narrowing and osteophytosis of the left shoulder joint. Mild osteophytosis throughout the lower thoracic spine. No acute fracture. Upper abdomen: Unremarkable as visualized. No pneumoperitoneum under the diaphragm. IMPRESSION: No acute cardiopulmonary process is identified. Electronically signed by: Toney Castillo MD 07/19/24 20:05 PM
[2024-07-19] MEDS: D5W AND 1/2NSS + 20MEQ KCL 20 MEQ/1,000 ML BAG IV SCH (20:26)
[2024-07-19] MEDS ORDERED: chlordiazePOXIDE ALCOHOL WITHDRAWL 25MG PO STA (21:34)
[2024-07-19] MEDS: INSULIN ASPART PER UNIT CHARGE SC SCH (22:11)
[2024-07-19] MEDS: chlordiazePOXIDE HCl 25 MG CAP PO SCH (23:07)
[2024-07-19] MEDS: APIXABAN 5 MG TABLET PO SCH (23:07)
[2024-07-19 23:47] LABS: BUN Creatinine Ratio 13.6 (10-20); Creatinine Clr Calc Pharmacy 97.8 ml/min; Magnesium 1.8 mg/dl (1.7-2.4); Phosphorus 3.9 mg/dl (2.5-4.9); Potassium 4.4 mmol/L (3.5-5.1)
[2024-07-20 02:39] LABS: Calcium 9.6 mg/dl (8.6-10.3); Creatinine Clr Calc Pharmacy 98.7 ml/min; Magnesium 1.8 mg/dl (1.7-2.4); Potassium 3.8 mmol/L (3.5-5.1)
[2024-07-20] MEDS: LORazepam 2 MG/1 ML VIAL IV PRN ×2 (05:28)
[2024-07-20 05:57] LABS: Appearance Urine Clear (Clear); Bacteria Urine Automated None Seen (None Seen); Bilirubin Urine Negative (Negative); Blood Urine Negative (Negative); Color Urine Orange; Epithelial Cell Urine Auto 0-2 /hpf (0-2); Glucose Urine UA 3+ (Negative); Ketones Urine 3+ (Negative); Leukocyte Esterase Urine Negative (Negative); Nitrite Urine Negative (Negative); Protein Urine Trace (Negative); RBC Urine Automated 0-2 /hpf (0-2); Specific Gravity Urine 1.018 (1.000-1.030); Urobilinogen Urine Negative (Negative); WBC Urine Automated 0-5 /hpf (0-5); pH Urine 5.5 (4.5-7.5)
--- NOTE | 2024-07-20 06:36 | Electrocardiogram Report ---
Test Reason : Blood Pressure : */* mmHG Vent. Rate : 112 BPM Atrial Rate : 112 BPM P-R Int : 120 ms QRS Dur : 80 ms QT Int : 328 ms P-R-T Axes : 67 -19 74 degrees QTcB Int : 448 ms Sinus tachycardia Otherwise normal ECG When compared with ECG of 26-Apr-2024 09:58, No significant change Confirmed by Matthew Girard ([id number]) on 07/20/2024 6:35:34 AM Referred By: REFERRED SELF Confirmed By: Matthew Girard
[2024-07-20 07:09] LABS: BUN Creatinine Ratio 12.2 (10-20); Creatinine Clr Calc Pharmacy 117.8 ml/min; Magnesium 1.7 mg/dl (1.7-2.4); Phosphorus 3.5 mg/dl (2.5-4.9)
[2024-07-20 07:48] LABS: Estimated Average Glucose 163 mg/dl; Hemoglobin A1C 7.3 % (4.5-5.6)
[2024-07-20] MEDS: MULTIVITAMIN TAB PO SCH (08:50)
[2024-07-20] MEDS: LANTUS PER UNIT CHARGE SQ SCH (08:50)
[2024-07-20] MEDS: lisinopril 10 MG TAB PO SCH (08:50)
[2024-07-20] MEDS: THIAMINE HCL 100 MG TAB PO SCH (08:51)
[2024-07-20] MEDS: FOLIC ACID 1 MG TAB PO SCH (08:55)
[2024-07-20] MEDS: DKA GOAL RANGE 150-250 mg/dl ONE (09:49)
[2024-07-20] MEDS ORDERED: DEXTROSE 50% 50 ML SYRINGE IV PRN (10:12)
[2024-07-20] MEDS ORDERED: GLUCOSE 40% GEL 15 GM TUBE PO PRN (10:12)
[2024-07-20] MEDS ORDERED: GLUCAGON FOR INJ 1 MG VIAL SQ PRN (10:12)
[2024-07-20] MEDS ORDERED: GLUCOSE 10 TAB/TUBE PO PRN (10:12)
[2024-07-20] MEDS ORDERED: CARBOHYDRATES FOR HYPOGLYCEMIA PO PRN (10:12)
[2024-07-20 10:39] LABS: BUN Creatinine Ratio 10.6 (10-20); Calcium 8.9 mg/dl (8.6-10.3); Creatinine Clr Calc Pharmacy 122.8 ml/min; Magnesium 1.7 mg/dl (1.7-2.4); Phosphorus 2.7 mg/dl (2.5-4.9); Potassium 3.9 mmol/L (3.5-5.1)
[2024-07-20] MEDS: INSULIN ASPART PER UNIT CHARGE SC SCH (12:28)
--- NOTE | 2024-07-20 13:59 | Hospitalist Progress Note ---
Date of Service July 20, 2024 Assessment & Plan (1) DKA (diabetic ketoacidosis): (2) Alcohol dependence with withdrawal: (3) HTN (hypertension): (4) History of atrial fibrillation: Plan #Diabetes Associated Ketoacidosis - Anion gap metabolic acidosis with contaminate respiratory alkalosis - Anion gap 26 on arrival (07/19) and anion gap WNL (07/20) - NPO hold discontinued with closure of anion gap; low carb - Appropriate respiratory rate - DKA protocol order set - Normal saline 2L bolus given in ED - Glucose down therefore normal insulin drip on hold per protocol, start D5 half-normal saline with potassium chloride 20 mEq at 200 mL an hour - Transitioned to insulin glargine and insulin aspart (07/20) - Glucagon PRN - Labs transitioned to QAM #Alcohol Withdrawal - Previously done well on Librium taper therefore will do the same again starting at 25mg PO q6h - Lorazepam 1-3mg per AWSS - Thiamine 100mg PO daily - Folate 1 mg PO daily #Hypertension - Lisinopril 10 mg PO QD - Creatinine appropriate #History of Atrial Fibrillation - Paroxysmal - [id number] score 2 - continue apixaban #GERD - Pantoprazole 40 mg QD VTE Prophyalxis - Eliquis Diet - low carb Disposition - PCU Admission and Anticipated Discharge Date Admission Date: July 19, 2024 Supervising Physician Co-Signing Physician Notes I personally examined the patient and verified all roy points of history and e xam, discussed case, and agree with decision making with Dr Perez and Kelly Corey MS4 still feeling some chills and sweatsrelated to alcohol withdrawal. GI symptoms have improved. Vitals noted, in general he is laying on his side appears to be somewhat uncomfortable. Breathing unlabored no accessory muscle use good effort. Skin without rashes pallor or icterus. Neuro without focal deficits. Alcohol withdrawalsymptom triggered therapy at this time, does have Librium which seems to probably be blunting symptoms as wellwill continue current care. DKAfortunately pretty reasonable baseline control based off of his A1c readings. Continue insulin management and fluid support. A-fibrate controlled, anticoagulated otherwise as above Cortez Lau was seen at bedside. He stated that he's been tired, shaky, nauseous, and somewhat anxious. He indicated that his normal withdrawal pattern from alcohol is having a peak about day 1, which we are still in. He noted that he Librium and Ativan have been helpful in managing his symptoms. He would like to get more sleep. Otherwise, he had no further questions, comments, or concerns. This afternoon along with Dr. Patel and Dr. Perez, we saw Sid again. He indicated that he feels somewhat better. He indicated that he has undergone rehabilitation for alcohol use multiple times, so there is nothing he has not heard regarding counseling and coping strategies. He mentioned that he likely as a blend of anxious-depression, which was likely peaked during the holiday season leading to his relapse. He was encouraged that this episode is not defining and keep trying to use his rehab coping strategies. Otherwise, no further updates. Review of Systems Review of Systems: Per HPI Physical Exam Constitutional: Comfortably in bed; tired appearing No apparent distress Respiratory: Lungs are clear to auscultation No rhonchi, wheeze, and crackles Respiratory effort and rate appropriate Cardiovascular: Regular rate and rhythm S1 and S2 appreciated without additional heart sounds No rubs or murmurs Results & Data Results & Data Vital Signs (Past 12 Hours) Vital Signs Temp Pulse Resp BP Pulse Ox O2 Del Method 07/20/24 11:25 37.1 C 86 18 105/68 98 Room Air 07/20/24 08:19 36.9 C 82 19 96/62 L 95 Room Air 07/20/24 02:42 36.6 C 100 H 18 116/74 96 Room Air
[2024-07-20] MEDS: PANTOprazole 40 MG TAB PO SCH (16:21)
--- NOTE | 2024-07-20 17:58 | Billing Data ---
Date of Service July 20, 2024 Coding Level of Care Code 70991 SUB INP/OBS CARE 3MIN
[2024-07-20] MEDS: NICOTINE 14 MG/24 HR PATCH TD SCH (19:41)
[2024-07-20] MEDS: chlordiazePOXIDE HCl 25 MG CAP PO SCH (21:20)
--- NOTE | 2024-07-21 06:26 | Electrocardiogram Report ---
Test Reason : Blood Pressure : */* mmHG Vent. Rate : 89 BPM Atrial Rate : 89 BPM P-R Int : 120 ms QRS Dur : 90 ms QT Int : 366 ms P-R-T Axes : 142 68 125 degrees QTcB Int : 445 ms Normal sinus rhythm Nonspecific ST and T wave abnormality Abnormal ECG When compared with ECG of 19-Jul-2024 16:56, Questionable change in QRS axis Nonspecific T wave abnormality now evident in Inferior leads Nonspecific T wave abnormality, worse in Lateral leads Confirmed by Matthew Girard ([id number]) on 07/21/2024 6:26:38 AM Referred By: REFERRED SELF Confirmed By: Matthew Girard
[2024-07-21 06:49] LABS: Basophils # (auto) 0.03 K/uL (0.00-0.20); Basophils % (auto) 0.7 %; Eosinophils % (auto) 2.3 %; Hematocrit (blood only) 36.2 % (42.0-52.0); Hemoglobin 12.6 g/dl (14.0-18.0); Immature Granulocytes # (auto) 0.02 K/uL (0.01-0.20); Immature Granulocytes % (auto) 0.5 %; Lymphocytes # (auto) 1.73 K/uL (1.20-3.40); Lymphocytes % (auto) 39.1 %; Mean Corpuscular Hemoglobin 33.5 pg (25.0-34.0); Mean Corpuscular Hgb Conc 34.8 g/dL (32.0-36.0); Mean Corpuscular Volume 96.3 fL (80.0-100.0); Mean Platelet Volume 9.5 fL (9.4-12.4); Monocytes # (auto) 0.37 K/uL (0.11-0.59); Monocytes % (auto) 8.4 %; Neutrophils # (auto) 2.18 K/uL (1.40-6.50); Platelet Count 198 K/uL (130-400); RDW Standard Deviation 42.6 fL (36.4-46.3); Red Blood Count 3.76 M/uL (4.70-6.10); White Blood Count 4.43 K/ul (4.8-10.8)
[2024-07-21 07:22] LABS: Calcium 9.3 mg/dl (8.6-10.3); Creatinine Clr Calc Pharmacy 134.3 ml/min; Potassium 3.3 mmol/L (3.5-5.1)
[2024-07-21 07:25] VITALS: RESP 20; O2SAT 99
[2024-07-21] MEDS: POTASSIUM CHLORIDE CRTAB 20 MEQ TABCR PO STA (08:28)
[2024-07-21] MEDS: LORazepam 2 MG/1 ML VIAL IV STA (12:04)
[2024-07-21 15:37] VITALS: BP 103/73; PULSE 71; TEMP 97.3
--- NOTE | 2024-07-21 16:09 | Discharge Summary ---
Date of Service July 21, 2024 Admission HPI Per Admitting Provider Sid Byrnes is a 39-year-old male well-known to the service with repeated episodes of alcohol withdrawal and diabetic ketoacidosis who presents to the ER with body shakes, nausea, vomiting. Last alcoholic drink was midnight. Alcohol level in the emergency room was negative. He reports wanting to quit cold turkey today and thought he could just push through it but the nausea, vomiting and shakes got too much and he was concerned he might go into DKA with his high glucose levels therefore decided to come to the ER. He drinks 8-10 9% beers of tall cans per day. Symptoms started this morning when he woke up around 6ma and progressively getting worse. He also feels his acid reflux is horrible but it's all in his stomach and no acid taste in his mouth or burning in his esophagus. He reports having difficulty getting in to see an cardiovascular technologist as he says they do not return his calls. He does not have ketone testing strips at home. Admission Exam (Per Admitting) Constitutional well developed and + acute distress (shaking); + not well nourished Eyes PERRL, conjunctivae normal, anicteric sclerae ENMT Mouth: + dry oral mucous membranes Respiratory normal respiratory effort, lungs clear to auscultation Cardiovascular Rate/Rhythm: regular rhythm and + tachycardic Heart Sounds: no murmur Extremities: no pedal edema Gastrointestinal (Abdomen) normal bowel sounds, soft, nontender, no hepatosplenomegaly Skin + dry skin Psychiatric Orientation: alert and oriented x 3 Apperance: + disheveled Speech: normal rate/rhythm/volume of speech Affect: + anxious affect Discharge Data Consultations 07/19/24 18:54 ED Decision to Admit Stat Hospital Course (1) DKA (diabetic ketoacidosis): (2) Alcohol dependence with withdrawal: (3) HTN (hypertension): (4) History of atrial fibrillation: (5) GERD (gastroesophageal reflux disease): (6) Nicotine dependence: Plan #Diabetes Associated Ketoacidosis - Anion gap metabolic acidosis with contaminate respiratory alkalosis - Anion gap 26 on arrival (07/19) and anion gap WNL (07/20) - NPO hold discontinued with closure of anion gap; low carb - Appropriate respiratory rate - DKA protocol order set - Normal saline 2L bolus given in ED - Glucose down therefore normal insulin drip on hold per protocol, start D5 half-normal saline with potassium chloride 20 mEq at 200 mL an hour - Transitioned to insulin glargine and insulin aspart (07/20) - Glucagon PRN - Labs transitioned to QAM (07/20) - Glucose 72 (07/21) - BMP notable for K 3.3 - Given 40 mg potassium chloride - HbA1c: 7.2%; almost at goal of <7% - Discharged on home regimen - Implement life-style changes #Alcohol Withdrawal - Previously done well on Librium taper therefore will do the same again starting at 25mg PO q6h - Lorazepam 1-3mg per AWSS - Thiamine 100mg PO daily - Folate 1 mg PO daily - Prior to discharge gross motor and fine motor skills were reexamined: - Tremors/shakiness not observed. Denied feelings of shakiness and tremors. Endorsed feeling comfortably driving home safely. - Gross motor: Normal ambulation; heel-to-toe; heel walking; toe walking; and 10 second balance was completed accurately and without difficulty - Fine motor: Intact with ability to navigate his phone and send a quick and understandable text to his friend - Verbal Agreement: Mr. Byrnes understood and agreed that he would not drive impaired. If he were to feel sleepy, faint, or otherwise feeling unwell and unable to continue driving he would test puller and seek emergency care. Additionally, he understood and agreed to have friends check up on him in the coming days to make sure he is doing all right. - Discharged with prescription of Librium and folic acid #Hypertension - Lisinopril 10 mg PO QD - Creatinine appropriate - Discharged on home regimen #History of Atrial Fibrillation - Paroxysmal - [id number] score 2 - continue apixaban - Discharged on home regimen #GERD - Pantoprazole 40 mg QD - Discharged with prescription for oral pantoprazole #Nicotine Dependence - Nicotine patch used during admission - Discharged with prescription of nicotine patch + smoking cessation information Disposition - Home Supervising Physician Co-Signing Physician Notes I personally examined the patient and verified all roy points of history and exam, discussed case, and agree with decision making with Dr Perez and Kelly Corey MS4 still feeling a mild degree of withdrawal but would like to get home todayon revisit this afternoon he is overall feeling better. He was also walking around with good balance, good motor function, good reaction time, neurologically intact, and objectively very little if any signs of withdrawal besides a degree of restlessness/mild agitation which may just be from anxiety. Vitals noted, laying in bed no distress. Breathing unlabored no accessory muscle use good effort. Skin without rashes pallor or icterus. Neuro without focal deficits. Alcohol withdrawal improved. Safe/stable for home. Short Librium taper DKAfortunately pretty reasonable baseline control based off of his A1c readings. Home insulin regimen A-fibrate controlled, anticoagulated otherwise as above
--- NOTE | 2024-07-21 16:23 | Billing Data ---
Date of Service July 21, 2024 Coding Level of Care Code 02149 IN/OBS DISCH 30 MIN/LESS
[2024-07-23] MEDS ORDERED: chlordiazePOXIDE HCl 5 MG CAP PO SCH
== END 2024-07-21 17:49 | disposition home or self-care (01) | DRG 638 ==
LOC: ED 16:21 → SUATTDRO 18:46 → 2E 18:46

== ENCOUNTER 2024-11-02 10:51 | Observation (INO) ==
[2024-11-02] MEDS ORDERED: GLUCOSE 10 TAB/TUBE PO PRN ×2 (11:17→15:15)
[2024-11-02] MEDS ORDERED: GLUCOSE 40% GEL 15 GM TUBE PO PRN ×2 (11:17→15:15)
[2024-11-02] MEDS ORDERED: DEXTROSE 50% 50 ML SYRINGE IV PRN ×2 (11:17→15:15)
[2024-11-02] MEDS ORDERED: GLUCAGON FOR INJ 1 MG VIAL SQ PRN ×2 (11:17→15:15)
[2024-11-02] MEDS ORDERED: CARBOHYDRATES FOR HYPOGLYCEMIA PO PRN ×2 (11:17→15:15)
[2024-11-02] MEDS: PLASMA-LYTE A 1,000 ML IV ONE (11:39)
[2024-11-02 11:43] LABS: Basophils # (auto) 0.05 K/uL (0.00-0.20); Basophils % (auto) 0.8 %; Eosinophils # (auto) 0.03 K/uL (0.00-0.50); Eosinophils % (auto) 0.5 %; Hematocrit (blood only) 39.2 % (42.0-52.0); Hemoglobin 13.9 g/dl (14.0-18.0); Immature Granulocytes # (auto) 0.01 K/uL (0.01-0.20); Immature Granulocytes % (auto) 0.2 %; Lymphocytes # (auto) 2.24 K/uL (1.20-3.40); Lymphocytes % (auto) 36.2 %; Mean Corpuscular Hgb Conc 35.5 g/dL (32.0-36.0); Mean Corpuscular Volume 90.1 fL (80.0-100.0); Mean Platelet Volume 9.8 fL (9.4-12.4); Monocytes # (auto) 0.45 K/uL (0.11-0.59); Monocytes % (auto) 7.3 %; Neutrophils # (auto) 3.41 K/uL (1.40-6.50); Platelet Count 212 K/uL (130-400); RDW Coefficient of Variation 14.7 % (11.5-14.5); RDW Standard Deviation 48.3 fL (36.4-46.3); Red Blood Count 4.35 M/uL (4.70-6.10); White Blood Count 6.19 K/ul (4.8-10.8)
[2024-11-02] MEDS: diazePAM 5 MG/ML 10ML VIAL IV STA ×2 (12:17→13:35)
[2024-11-02] MEDS: STAT IV Infusion **Titration per Protocol STA (12:27)
[2024-11-02 12:29] LABS: Albumin Globulin Ratio 1.6 (0.9-2); BUN Creatinine Ratio 9.9 (10-20); Bilirubin,Total 0.8 mg/dl (0.2-1.0); Calcium 9.7 mg/dl (8.6-10.3); Creatinine Clr Calc Pharmacy 117.3 ml/min; Globulin 3.2 gm/dl (2.5-4.0); Phosphorus 3.6 mg/dl (2.5-4.9); Potassium 4.3 mmol/L (3.5-5.1); Total Protein 8.2 gm/dl (6.0-8.3)
[2024-11-02] MEDS: INSULIN ASPART PER UNIT CHARGE SC SCH ×2 (12:33→18:09)
[2024-11-02] MEDS: INSULIN REGULAR 250 UNITS in SODIUM CHLORIDE 0.9% 247.5 ML IV SCH (12:34)
[2024-11-02 12:38] LABS: Estimated Average Glucose 151 mg/dl; Hemoglobin A1C 6.9 % (4.5-5.6)
--- NOTE | 2024-11-02 13:55 | History & Physical Report ---
Date of Service November 02, 2024 Assessment & Plan (1) Alcohol abuse: (2) Alcohol withdrawal: (3) Nicotine dependence: (4) GERD (gastroesophageal reflux disease): (5) History of atrial fibrillation: (6) HTN (hypertension): (7) Diabetes mellitus type 1.5: (8) High anion gap metabolic acidosis: (9) Transaminitis: Plan 39yo male with long-standing Type 1.5 DM diagnosed around age 18, tobacco use, heavy alcohol use, THC use (occasional), PAF, and HTN. He presents from his home in [place] with request to undergo alcohol withdrawal/detox. He has been drinking heavily for about 2 weeks. #alcohol dependence with evidence of recent heavy etoh use (etoh level 216) with probable early withdrawal - -place on AWSS protocol with symptom-triggered prn ativan -gabapentin taper -telemetry -IV fluids -clear liquid diet for now due to recent vomiting -offered psych consultation but he declined -it seems he does not want any specific help for the drinking at this time other than to provide safe passage through etoh withdrawal -declines naltrexone therapy as well #transaminitis - -2nd to recent alcohol binging -serial ast/alt #alcohol dependence - -thiamine IV 200mg BID -folic acid daily -MVI daily -withdrawal treatment as above #Type 1.5 DM - -he is not in DKA at this time -although his anion gap is elevated this is likely either 2nd to mild lactic acidosis or alcoholic ketosis -pharmacy glycemic consult requested -due to limited diet with clears to start will lower lantus to 7 units BID and use novolog with CF of 45 and carb ratio 1:15 -BSGs ac/hs -a1c noted (6.9%) #anion gap acidosis - -likely 2nd to lactic acidosis or alcoholic ketoacidosis -should improve with IV fluids and supportive care -check lactate now -recheck BMP now #nicotine dependence - -declines nicoderm patch #?thrush - -nystatin solution 5ml qid #vomiting - -probably has alcoholic gastritis -pepcid 20mg IV x 1 -then protonix 40mg daily + carafate 1gm QID #h/o PAF - -cont Eliquis 5mg BID -telemetry #HTN - -hold lisinopril for now -trend BPs #GERD - -pepcid now -then protonix daily + carafate QID #DVT proph - -Eliquis 5mg BID History of Present Illness Chief Complaint: vomiting, request for etoh detox Primary Care Provider: Tra NguyenMacy Jonathan 39yo male with long-standing Type 1.5 DM diagnosed around age 18, tobacco use, heavy alcohol use, THC use (occasional), PAF, and HTN. He presents from his home in [place] with request to undergo alcohol wit hdrawal/detox. He has been drinking heavily for about 2 weeks. Typically drinks 6 "tall boys" beers and 16oz liquor each day when actively drinking. He has sometimes several weeks or months at a time when he is maintaining sobriety but then relapses. His last etoh beverage was about 0300 this morning. Patient reports he had several episodes of vomiting since early this am but the vomiting has stopped. No abdominal pain. He does want to try and eat. Fingerstick blood sugar control recently has been excellent with most BSGs <150. He is not interested in speaking with psychiatry/mental health at this time. He previously took naltrexone but states he does not want to take it again. He is not interested in AA or rehab. In the past benzos (ativan) have worked best to treat his etoh withdrawal symptoms. He was given valium in the ER today and didn't like how it made him feel. He also told me that "gabapentin doesn't work" but I explained to him that the gabapentin is used in conjunction with ativan prn. Allergies Allergy/AdvReac Type Severity Reaction Status Date / Time cefaclor [From [facility]] Allergy Verified 11/02/24 14:01 Home Medications Medication Instructions Recorded Confirmed Type lisinopril 10 mg tablet 10 mg PO DAILY 05/14/23 11/02/24 History multivitamin 1 tab PO QAM #30 tabs 05/16/23 11/02/24 Rx apixaban 5 mg tablet (Eliquis) 5 mg PO BID 10/06/23 11/02/24 History acetone (urine) test (Ketostix #50 ea 10/19/24 10/19/24 Rx strips) glucagon 1 mg/0.2 mL subcutaneous 1 mg (0.2 mL) subcut ONCE PRN 10/19/24 11/02/24 Rx auto-injector (Gvoke HypoPen severe hypoglycemia #0.4 mL 2-Pack) insulin glargine 100 unit/mL (3 10 - 20 unit subcut BID 10/19/24 11/02/24 History mL) subcutaneous pen (Basaglar KwikPen U-100 Insulin) insulin lispro protamine-lispro 5 - 10 unit subcut TID 10/19/24 11/02/24 History 100 unit/mL (75-25) subcutaneous pen waves essential test strips 10/19/24 History folic acid 1 mg tablet 1 mg PO DAILY 11/02/24 11/02/24 History Past Med/Surg History Problem List (Updated 11/02/24 @ 21:26 by Lavell Castro MD) Transaminitis High anion gap (Acute) High anion gap metabolic acidosis Diabetes mellitus type 1.5 Alcohol withdrawal (Acute) Nicotine dependence (Acute) GERD (gastroesophageal reflux disease) (Acute) Alcohol abuse (Acute) Alcohol intoxication (Acute) Dehydration (Acute) Depressed Abdominal pain (Acute) Medical History History of inguinal hernia DKA (diabetic ketoacidosis) Alcohol dependence with withdrawal Alcohol abuse Alcohol withdrawal History of atrial fibrillation HTN (hypertension) T1DM (type 1 diabetes mellitus) Syncope Diarrhea Surgical History History of discectomy Family History (Updated 11/02/24 @ 14:56 by Lvaell Castro MD) Father , age 52 Diabetes Hypertension Myocardial infarction Mother Myocardial infarction ID x 2 Hypertension Grandfather (Paternal) Diabetes Grandmother (Paternal) Alcoholism Social History (Updated 11/02/24 @ 14:57 by Lavell Castro MD) Smoking Status: Never smoker Tobacco Type: Cigarettes Cigarettes Per Day: 1 pack a week; Second Hand Exposure: No; Do You Dip or Chew Tobacco: No; Hx Alcohol Use: Yes Alcohol type: beer Hx Substance Use: No Preferred Language: Northern Irish Communication Ability: Effective 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 Beliefs That Will Affect Care: None marital status: Single Current Living Situation: Other Current Living Situation Comment: lives in [place] current occupational status: employed 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 Other Information That Helps Us Care for You: No Feels Safe at Home: No Is there a partner from a previous relationship who is making you feel unsafe now?: No Any Concerns about Your Family Situation: No Would You Like to Speak to Someone About Your Situation: No Safety Concerns: Feels Safe At This Time Assistive Devices: Glasses Review of Systems Review of Systems: gen - no fevers or chills; no recent weight change; was eating ok up until the last 24 hours eyes - no visual changes HENT - no ear pain, sore throat, mouth lesions neck - no pain CV - no chest pain, palpitations or edema pulm - no cough or dyspnea GI - no abd pain but has had n/v since last night; has chronic diarrhea "from the beer"; no blood in stool - no LUTS musculo - denies any joints bothering him today neuro - gets frequent headaches - frontal - "splitting"; denies h/o migraines skin - no rash psych - endorses depression/anxiety Physical Exam Physical Exam: gen - resting comfortably in bed, NAD skin - sweaty/diaphoretic eyes - PERRL HENT - Tms clear b/l, mouth with MMM, no lesions; thrush on tongue? neck - no JVD, no goiter, no lymph nodes heart - tachy, s1 s2, no murmur lungs - CTA b/l abd - soft NT ND BS+; liver edge palpable ext - no edema, pulses 2+ b/l neuro - strength 5/5 x 4 exts, mild tremor of arms psych - a/o x 3 Results & Data Results & Data Vital Signs (Past 12 Hours) Vital Signs Temp Pulse Pulse Resp BP BP Pulse Ox 11/02/24 13:30 36.7 C 99 H 18 113/88 99 11/02/24 12:54 100 H 13 96 11/02/24 12:48 79 16 94 11/02/24 12:45 119/69 11/02/24 12:30 85 17 91 11/02/24 12:30 128/86 11/02/24 12:23 103 H 11/02/24 12:20 36.9 C 104 H 18 142/94 H 92 11/02/24 12:15 131/81 11/02/24 12:09 96 H 17 11/02/24 12:00 129/94 11/02/24 12:00 129/94 11/02/24 11:54 111 H 22 11/02/24 11:46 135/87 11/02/24 11:42 98 H 10 L 11/02/24 11:36 102 H 13 96 11/02/24 11:36 128/84 11/02/24 11:30 98 H 14 95 11/02/24 11:21 124 H 19 98 11/02/24 11:12 133/89 11/02/24 11:12 133/89 11/02/24 11:12 108 H 20 133/89 97 11/02/24 11:12 11/02/24 10:55 36.4 C L 129 H 28 H 144/84 H 97 O2 Del Method 11/02/24 13:30 Room Air 11/02/24 12:54 Room Air 11/02/24 12:48 11/02/24 12:45 11/02/24 12:30 11/02/24 12:30 11/02/24 12:23 11/02/24 12:20 Room Air 11/02/24 12:15 11/02/24 12:09 11/02/24 12:00 11/02/24 12:00 11/02/24 11:54 11/02/24 11:46 11/02/24 11:42 11/02/24 11:36 11/02/24 11:36 11/02/24 11:30 11/02/24 11:21 11/02/24 11:12 11/02/24 11:12 11/02/24 11:12 Room Air 11/02/24 11:12 Room Air 11/02/24 10:55 Room Air Laboratory Results Laboratory Results - last 24 hr 11/02/24 11/02/24 11/02/24 11:10 11:41 11:50 WBC 6.19 RBC 4.35 L Hgb 13.9 L Hct 39.2 L MCV 90.1 MCH 32.0 MCHC 35.5 RDW Std Deviation 48.3 H RDW Coeff of Maxi 14.7 H Plt Count 212 MPV 9.8 Immature Gran % (Auto) 0.2 Neut % (Auto) 55.0 Lymph % (Auto) 36.2 [place] % (Auto) 7.3 Eos % (Auto) 0.5 Baso % (Auto) 0.8 Neut # (Auto) 3.41 Lymph # (Auto) 2.24 [place] # (Auto) 0.45 Eos # (Auto) 0.03 Baso # (Auto) 0.05 Immature Gran # (Auto) 0.01 Sodium 139 Potassium 4.3 Chloride 97 L Carbon Dioxide 24 Anion Gap 18 H BUN 9 Creatinine 0.91 Est Cr Clr Drug Dosing 117.3 eGFR 108.59 BUN/Creatinine Ratio 9.9 L Glucose 175 H POC Glucose 150 H Estimat Average Glucose 151 Hemoglobin A1c 6.9 H Calcium 9.7 Phosphorus 3.6 Magnesium 2.0 Total Bilirubin 0.8 AST 123 H ALT 100 H Alkaline Phosphatase 72 Total Protein 8.2 Albumin 5.0 Globulin 3.2 Albumin/Globulin Ratio 1.6 Lipase 38 Ethyl Alcohol mg/dL 216.8 H 11/02/24 12:24 WBC RBC Hgb Hct MCV MCH MCHC RDW Std Deviation RDW Coeff of Maxi Plt Count MPV Immature Gran % (Auto) Neut % (Auto) Lymph % (Auto) [place] % (Auto) Eos % (Auto) Baso % (Auto) Neut # (Auto) Lymph # (Auto) [place] # (Auto) Eos # (Auto) Baso # (Auto) Immature Gran # (Auto) Sodium Potassium Chloride Carbon Dioxide Anion Gap BUN Creatinine Est Cr Clr Drug Dosing eGFR BUN/Creatinine Ratio Glucose POC Glucose 115 H Estimat Average Glucose Hemoglobin A1c Calcium Phosphorus Magnesium Total Bilirubin AST ALT Alkaline Phosphatase Total Protein Albumin Globulin Albumin/Globulin Ratio Lipase Ethyl Alcohol mg/dL Code Status & VTE Plan Code Status full code PG Care Time/CCT Total # of Minutes Spent Total Time Spent with Patient: Total time spent is greater than 50% in coordination of care (as documented) at patient's floor/unit and/or counseling patient: Coding Level of Care Code 34069 INT INP/OBS CARE 3/75MIN Diagnoses Alcohol abuse F10.10 Alcohol withdrawal F1.939 Complication of substance-induced condition: with unspecified complication Nicotine dependence F17.200 GERD (gastroesophageal reflux disease) K21.9 History of atrial fibrillation Z86.79 HTN (hypertension) I10 Diabetes mellitus type 1.5 E13.9 High anion gap metabolic acidosis E87.29 Transaminitis R74.01 (2) Alcohol withdrawal Complication of substance-induced condition: with unspecified complication Qualified Code(s): F10.939 - Alcohol use, unspecified with withdrawal, unspecified
[2024-11-02] MEDS: FAMOTIDINE 20MG IV PUSH 20 MG/5 ML SYR IV STA (15:12)
[2024-11-02] MEDS: FOLIC ACID 1 MG in SYRINGE 9.8 ML IV STA (15:14)
[2024-11-02 15:42] LABS: Base Excess VBG 4.9 mEq/L; HCO3 VBG 28 mmol/L; Oxygen Saturation VBG 64.8 %; PCO2 VBG 35 mmHg (38-50); PO2 VBG 38 mmHg; pH VBG 7.51 (7.36-7.41)
[2024-11-02] MEDS: THIAMINE HCL 200 MG in SODIUM CHLORIDE 0.9% 50 ML IV STA (15:48)
--- NOTE | 2024-11-02 16:03 | Emergency Department Note ---
Impression & Plan Alcohol withdrawal, High anion gap ED Provider Note NAME: SANJAY MARQUIS AGE: 39 SEX: M : 1985 ARRIVES VIA: Walk-In INFORMANT: Patient, ED PROVIDER(S): Cyndi Zarco MD CHIEF COMPLAINT: Alcohol withdrawal HPI: This is a 39-year-old male presented for possible alcohol withdrawal. Patient states that he drinks 6 tall cans of beer as well as 1 pint of vodka daily. He last drank sometime last night. He notes the symptoms as DKA while also having withdrawal. He is concerned about this as well. He reports a sugar that has been relatively stable in the 100s to 200s. He reports shaking, nausea and vomiting. He reports no fever, chills, confusion. ROS: See above HPI for pertinent positives & negatives. A total of 10 systems reviewed and were otherwise negative. PAST MEDICAL HISTORY: See Below PAST SURGICAL HISTORY: See Below FAMILY HISTORY: See Below SOCIAL HISTORY: See Below HOME MEDICATIONS: See Below ALLERGIES: See Below VITALS: See Below PHYSICAL EXAMINATION: General: Chronically ill-appearing, tremulous, anxious appearing Head: Normocephalic and atraumatic Eyes: Normal inspection, extraocular muscles intact Ear, nose, throat: Normal external exam Neck: Normal range of motion Respiratory: lungs clear to auscultation bilaterally Cardiovascular: Regular rate/rhythm, no murmur GI: soft, nontender, no guarding or rebound Extremities: nontender, moves all extremities Neuro: The patient awake and alert, appropriately conversive, no focal deficits, symmetric faces Skin: Warm, dry, and intact MEDICAL DECISION MAKING: This is a 39-year-old male presenting for alcohol withdrawal versus DKA. Will do screening blood work to assess for DKA versus withdrawal. Will check for electrolytes. He reports no abdominal pain to me at this time. - Hemoglobin is 13.9. Otherwise VBG is 7.51,/35. Electrolytes within normal limits. Anion gap of 18, likely alcoholic ketosis or starvation ketosis - Alcohol was elevated to 1 6 - Patient notes improvement in symptoms after 10 mg IV Valium - Patient not in DKA at this time. -After reevaluation patient requires more Valium as he is tremulous again. Will give another 10 mg IV Valium. Will get admitted for alcohol withdrawal. Differential diagnosis: Alcohol withdrawal, DKA, sepsis, gastroenteritis, gastritis Diagnostics interpreted by me: ECG: None Cardiac Monitoring: An order was placed for continuous cardiac monitoring. The monitor shows a rate of 82 with sinus rhythm. Critical Care Note: I have personally spent 35 minutes of critical care time in the direct management of this patient. This includes bedside care, interpretation of diagnostic studies, and testing, discussion with consultants, patient, and family members, and other required patient management activities. This 35 minutes is in excess of all separately billable procedures. Past Med/Surg History Problem List (Updated 11/02/24 @ 16:03 by Cyndi Zarco MD) High anion gap (Acute) High anion gap metabolic acidosis Diabetes mellitus type 1.5 Alcohol withdrawal (Acute) Nicotine dependence (Acute) GERD (gastroesophageal reflux disease) (Acute) Alcohol abuse (Acute) Alcohol intoxication (Acute) Dehydration (Acute) Depressed Abdominal pain (Acute) Medical History History of inguinal hernia DKA (diabetic ketoacidosis) Alcohol dependence with withdrawal Alcohol abuse Alcohol withdrawal History of atrial fibrillation HTN (hypertension) T1DM (type 1 diabetes mellitus) Syncope Diarrhea Surgical History History of discectomy Family History (Updated 11/02/24 @ 14:56 by Lavell Castro MD) Father , age 52 Diabetes Hypertension Myocardial infarction Mother Myocardial infarction [place] x 2 Hypertension Grandfather (Paternal) Diabetes Grandmother (Paternal) Alcoholism Social History (Updated 11/02/24 @ 14:57 by Lavell Castro MD) Smoking Status: Current every day smoker Tobacco Type: Cigarettes Cigarettes Per Day: 1 pack a week; Second Hand Exposure: Yes; Do You Dip or Chew Tobacco: No; Hx Alcohol Use: Yes Alcohol type: beer Hx Substance Use: Yes (ETOH) Prescribed Medications: Marijuana Preferred Language: Guatemalan Communication Ability: Effective Results Technician Required: No Beliefs That Will Affect Care: None marital status: Single Current Living Situation: Alone Current Living Situation Comment: lives in [place] current occupational status: employed current occupation: owns a real estate business Feels Safe at Home: Yes Assistive Devices: None Allergies Allergies Allergy/AdvReac Type Severity Reaction Status Date / Time cefaclor [From Ceclor] Allergy Verified 11/02/24 14:01 Home Meds Home Medications Medication Instructions Recorded Confirmed lisinopril 10 mg tablet 10 mg PO DAILY 05/14/23 11/02/24 apixaban 5 mg tablet (Eliquis) 5 mg PO BID 10/06/23 11/02/24 insulin glargine 100 unit/mL (3 10 - 20 unit subcut BID 10/19/24 11/02/24 mL) subcutaneous pen (Basaglar KwikPen U-100 Insulin) insulin lispro protamine-lispro 5 - 10 unit subcut TID 10/19/24 11/02/24 100 unit/mL (75-25) subcutaneous pen waves essential test strips 10/19/24 folic acid 1 mg tablet 1 mg PO DAILY 11/02/24 11/02/24 Previous Rx's Medication Instructions Recorded multivitamin 1 tab PO QAM #30 tabs 05/16/23 acetone (urine) test (Ketostix #50 ea 10/19/24 strips) glucagon 1 mg/0.2 mL subcutaneous 1 mg (0.2 mL) subcut ONCE PRN 10/19/24 auto-injector (Gvoke HypoPen severe hypoglycemia #0.4 mL 2-Pack) Results & Data (ED) Vital Signs Vital Signs - 24 hr 11/02/24 10:55 11/02/24 11:12 11/02/24 11:12 Temperature 36.4 C L Temperature Source Skin Pulse Rate 129 H Pulse Rate [Apical] 108 H Pulse Rate from SpO2 Sensor Respiratory Rate 28 H 20 Respiratory Effort / Characteristics Non-Labored Spontaneous Respiratory Depth Normal Respiratory Pattern Regular Blood Pressure 144/84 H Blood Pressure [Left Arm] 133/89 Blood Pressure Mean 104 Blood Pressure Mean [Left Arm] 103 Blood Pressure Position [Left Arm] Semi-fowlers Pulse Oximetry 97 97 Oxygen Delivery Method Room Air Room Air Room Air Sepsis Recent Fever Within 48 Hours No Sepsis New/Unexplained Change in Mental Status N/A Sepsis Action Taken by Nursing No Action Required 11/02/24 11:12 11/02/24 11:12 11/02/24 11:21 Temperature Temperature Source Pulse Rate 124 H Pulse Rate [Apical] Pulse Rate from SpO2 Sensor 124 H Respiratory Rate 19 Respiratory Effort / Characteristics Respiratory Depth Respiratory Pattern Blood Pressure 133/89 133/89 Blood Pressure [Left Arm] Blood Pressure Mean 102 102 Blood Pressure Mean [Left Arm] Blood Pressure Position [Left Arm] Pulse Oximetry 98 Oxygen Delivery Method Sepsis Recent Fever Within 48 Hours Sepsis New/Unexplained Change in Mental Status Sepsis Action Taken by Nursing 11/02/24 11:30 11/02/24 11:36 11/02/24 11:36 Temperature Temperature Source Pulse Rate 98 H 102 H Pulse Rate [Apical] Pulse Rate from SpO2 Sensor 97 H 100 H Respiratory Rate 14 13 Respiratory Effort / Characteristics Respiratory Depth Respiratory Pattern Blood Pressure 128/84 Blood Pressure [Left Arm] Blood Pressure Mean 103 Blood Pressure Mean [Left Arm] Blood Pressure Position [Left Arm] Pulse Oximetry 95 96 Oxygen Delivery Method Sepsis Recent Fever Within 48 Hours Sepsis New/Unexplained Change in Mental Status Sepsis Action Taken by Nursing 11/02/24 11:42 11/02/24 11:46 11/02/24 11:54 Temperature Temperature Source Pulse Rate 98 H 111 H Pulse Rate [Apical] Pulse Rate from SpO2 Sensor Respiratory Rate 10 L 22 Respiratory Effort / Characteristics Respiratory Depth Respiratory Pattern Blood Pressure 135/87 Blood Pressure [Left Arm] Blood Pressure Mean 113 Blood Pressure Mean [Left Arm] Blood Pressure Position [Left Arm] Pulse Oximetry Oxygen Delivery Method Sepsis Recent Fever Within 48 Hours Sepsis New/Unexplained Change in Mental Status Sepsis Action Taken by Nursing 11/02/24 12:00 11/02/24 12:00 11/02/24 12:09 Temperature Temperature Source Pulse Rate 96 H Pulse Rate [Apical] Pulse Rate from SpO2 Sensor Respiratory Rate 17 Respiratory Effort / Characteristics Respiratory Depth Respiratory Pattern Blood Pressure 129/94 129/94 Blood Pressure [Left Arm] Blood Pressure Mean 108 108 Blood Pressure Mean [Left Arm] Blood Pressure Position [Left Arm] Pulse Oximetry Oxygen Delivery Method Sepsis Recent Fever Within 48 Hours Sepsis New/Unexplained Change in Mental Status Sepsis Action Taken by Nursing 11/02/24 12:15 11/02/24 12:20 11/02/24 12:23 Temperature 36.9 C Temperature Source Oral Pulse Rate 103 H Pulse Rate [Apical] 104 H Pulse Rate from SpO2 Sensor Respiratory Rate 18 Respiratory Effort / Characteristics Non-Labored Spontaneous Respiratory Depth Normal Respiratory Pattern Regular Blood Pressure 131/81 Blood Pressure [Left Arm] 142/94 H Blood Pressure Mean 113 Blood Pressure Mean [Left Arm] 110 Blood Pressure Position [Left Arm] Semi-fowlers Pulse Oximetry 92 Oxygen Delivery Method Room Air Sepsis Recent Fever Within 48 Hours Sepsis New/Unexplained Change in Mental Status Sepsis Action Taken by Nursing 11/02/24 12:30 11/02/24 12:30 11/02/24 12:45 Temperature Temperature Source Pulse Rate 85 Pulse Rate [Apical] Pulse Rate from SpO2 Sensor 86 Respiratory Rate 17 Respiratory Effort / Characteristics Respiratory Depth Respiratory Pattern Blood Pressure 128/86 119/69 Blood Pressure [Left Arm] Blood Pressure Mean 102 88 Blood Pressure Mean [Left Arm] Blood Pressure Position [Left Arm] Pulse Oximetry 91 Oxygen Delivery Method Sepsis Recent Fever Within 48 Hours Sepsis New/Unexplained Change in Mental Status Sepsis Action Taken by Nursing 11/02/24 12:48 11/02/24 12:54 11/02/24 13:30 Temperature 36.7 C Temperature Source Oral Pulse Rate 79 Pulse Rate [Apical] 100 H 99 H Pulse Rate from SpO2 Sensor 80 Respiratory Rate 16 13 18 Respiratory Effort / Characteristics Non-Labored Spontaneous Non-Labored Spontaneous Respiratory Depth Normal Normal Respiratory Pattern Regular Blood Pressure Blood Pressure [Left Arm] 113/88 Blood Pressure Mean Blood Pressure Mean [Left Arm] 96 Blood Pressure Position [Left Arm] Semi-fowlers Pulse Oximetry 94 96 99 Oxygen Delivery Method Room Air Room Air Sepsis Recent Fever Within 48 Hours Sepsis New/Unexplained Change in Mental Status Sepsis Action Taken by Nursing 11/02/24 15:00 Temperature 37.3 C Temperature Source Oral Pulse Rate Pulse Rate [Apical] 82 Pulse Rate from SpO2 Sensor Respiratory Rate 12 Respiratory Effort / Characteristics Non-Labored Spontaneous Respiratory Depth Normal Respiratory Pattern Regular Blood Pressure Blood Pressure [Left Arm] 114/80 Blood Pressure Mean Blood Pressure Mean [Left Arm] 91 Blood Pressure Position [Left Arm] Semi-fowlers Pulse Oximetry 98 Oxygen Delivery Method Room Air Sepsis Recent Fever Within 48 Hours Sepsis New/Unexplained Change in Mental Status Sepsis Action Taken by Nursing Laboratory Data 11/02/24 11:10 11/02/24 11:10 Lab Results 11/02/24 11/02/24 11/02/24 Range/Units 11:10 11:41 11:50 WBC 6.19 (4.8-10.8) K/ul RBC 4.35 L (4.70-6.10) M/uL Hgb 13.9 L (14.0-18.0) g/dl Hct 39.2 L (42.0-52.0) % MCV 90.1 (80.0-100.0) fL MCH 32.0 (25.0-34.0) pg MCHC 35.5 (32.0-36.0) g/dL RDW Std Deviation 48.3 H (36.4-46.3) fL RDW Coeff of Maxi 14.7 H (11.5-14.5) % Plt Count 212 (130-400) K/uL MPV 9.8 (9.4-12.4) fL Immature Gran % (Auto) 0.2 % Neut % (Auto) 55.0 % Lymph % (Auto) 36.2 % Towner % (Auto) 7.3 % Eos % (Auto) 0.5 % Baso % (Auto) 0.8 % Neut # (Auto) 3.41 (1.40-6.50) K/uL Lymph # (Auto) 2.24 (1.20-3.40) K/uL Towner # (Auto) 0.45 (0.11-0.59) K/uL Eos # (Auto) 0.03 (0.00-0.50) K/uL Baso # (Auto) 0.05 (0.00-0.20) K/uL Immature Gran # (Auto) 0.01 (0.01-0.20) K/uL VBG pH (7.36-7.41) VBG pCO2 (38-50) mmHg VBG pO2 mmHg VBG HCO3 mmol/L VBG O2 Saturation % VBG Base Excess mEq/L Sodium 139 (136-145) mmol/L Potassium 4.3 (3.5-5.1) mmol/L Chloride 97 L (98-107) mmol/L Carbon Dioxide 24 (21-32) mmol/L Anion Gap 18 H (3-11) BUN 9 (6-23) mg/dl Creatinine 0.91 (0.6-1.4) mg/dl Est Cr Clr Drug Dosing 117.3 ml/min eGFR 108.59 BUN/Creatinine Ratio 9.9 L (10-20) Glucose 175 H (70-99(Fasting)) mg/dl POC Glucose 150 H (70-99) mg/dl Estimat Average Glucose 151 mg/dl Hemoglobin A1c 6.9 H (4.5-5.6) % Calcium 9.7 (8.6-10.3) mg/dl Phosphorus 3.6 (2.5-4.9) mg/dl Magnesium 2.0 (1.7-2.4) mg/dl Total Bilirubin 0.8 (0.2-1.0) mg/dl AST 123 H (13-39) U/L ALT 100 H (7-52) U/L Alkaline Phosphatase 72 (34-104) U/L Total Protein 8.2 (6.0-8.3) gm/dl Albumin 5.0 (3.4-5.0) gm/dl Globulin 3.2 (2.5-4.0) gm/dl Albumin/Globulin Ratio 1.6 (0.9-2) Lipase 38 (11-82) U/L Ethyl Alcohol mg/dL 216.8 H (<10.0) mg/dl 11/02/24 11/02/24 Range/Units 12:24 15:34 WBC (4.8-10.8) K/ul RBC (4.70-6.10) M/uL Hgb (14.0-18.0) g/dl Hct (42.0-52.0) % MCV (80.0-100.0) fL MCH (25.0-34.0) pg MCHC (32.0-36.0) g/dL RDW Std Deviation (36.4-46.3) fL RDW Coeff of Maxi (11.5-14.5) % Plt Count (130-400) K/uL MPV (9.4-12.4) fL Immature Gran % (Auto) % Neut % (Auto) % Lymph % (Auto) % Towner % (Auto) % Eos % (Auto) % Baso % (Auto) % Neut # (Auto) (1.40-6.50) K/uL Lymph # (Auto) (1.20-3.40) K/uL Towner # (Auto) (0.11-0.59) K/uL Eos # (Auto) (0.00-0.50) K/uL Baso # (Auto) (0.00-0.20) K/uL Immature Gran # (Auto) (0.01-0.20) K/uL VBG pH 7.51 H (7.36-7.41) VBG pCO2 35 L (38-50) mmHg VBG pO2 38 mmHg VBG HCO3 28 mmol/L VBG O2 Saturation 64.8 % VBG Base Excess 4.9 mEq/L Sodium (136-145) mmol/L Potassium (3.5-5.1) mmol/L Chloride (98-107) mmol/L Carbon Dioxide (21-32) mmol/L Anion Gap (3-11) BUN (6-23) mg/dl Creatinine (0.6-1.4) mg/dl Est Cr Clr Drug Dosing ml/min eGFR BUN/Creatinine Ratio (10-20) Glucose (70-99(Fasting)) mg/dl POC Glucose 115 H (70-99) mg/dl Estimat Average Glucose mg/dl Hemoglobin A1c (4.5-5.6) % Calcium (8.6-10.3) mg/dl Phosphorus (2.5-4.9) mg/dl Magnesium (1.7-2.4) mg/dl Total Bilirubin (0.2-1.0) mg/dl AST (13-39) U/L ALT (7-52) U/L Alkaline Phosphatase (34-104) U/L Total Protein (6.0-8.3) gm/dl Albumin (3.4-5.0) gm/dl Globulin (2.5-4.0) gm/dl Albumin/Globulin Ratio (0.9-2) Lipase (11-82) U/L Ethyl Alcohol mg/dL (<10.0) mg/dl Administered Medications Discontinued Medications Diazepam (Diazepam 5 Mg/Ml 10ml Vial) 10 mg IV NOW STA Stop: 11/02/24 12:12 Last Admin: 11/02/24 12:17 Dose: 10 mg Documented By: DOMENICO Diazepam (Diazepam 5 Mg/Ml 10ml Vial) 10 mg IV NOW STA Stop: 11/02/24 13:29 Last Admin: 11/02/24 13:35 Dose: 10 mg Documented By: DOMENICO Parenteral Electrolytes (Plasma-Lyte A Ph 7.4) 1,000 mls @ 999 mls/hr IV .Q1H1M ONE Stop: 11/02/24 12:28 Last Infusion: 11/02/24 12:57 Dose: Infused Documented By: Admin: 11/02/24 11:39 Dose: 999 mls/hr Documented By: DOMENICO Insulin Human Regular 250 (units/ Sodium Chloride) 250 mls @ 8.65 mls/hr IV .Q24H [facility]; Protocol Stop: 12/02/24 11:29 Last Admin: 11/02/24 12:34 Dose: Not Given Documented By: DOMENICO Co-signed By: BRIGETTE Famotidine (Pepcid 20mg Iv Push) 20 mg in 5 mls @ 2.5 mls/min IV NOW STA Stop: 11/02/24 14:24 Last Admin: 11/02/24 15:12 Dose: 2.5 mls/min Documented By: DOMENICO Thiamine HCl 200 mg/ Sodium (Chloride) 52 mls @ 210 mls/hr IV NOW STA Stop: 11/02/24 14:37 Last Admin: 11/02/24 15:48 Dose: 210 mls/hr Documented By: DOMENICO Folic Acid 1 mg/ Syringe 10 mls @ 5 mls/min IV NOW STA Stop: 11/02/24 14:24 Last Admin: 11/02/24 15:14 Dose: 5 mls/min Documented By: DOMENICO Insulin Aspart (Insulin Aspart Per Unit Charge) 0 units SC ACHS [facility] Stop: 12/02/24 11:29 Last Admin: 11/02/24 12:33 Dose: Not Given Documented By: DOMENICO Co-signed By: BRIGETTE Miscellaneous (Stat Iv Infusion Titration Per Protocol) 1 each N/A NOW STA Stop: 11/02/24 11:18 Last Admin: 11/02/24 12:27 Dose: Not Given Documented By: DOMENICO Discharge Plan Visit Data Chief Complaint: Detox Request Stated Complaint: MEDICAL DETOX ED Provider: Cyndi Zarco Discharge Problem: Alcohol withdrawal, High anion gap Forms Stand Alone Forms: [facility], Suicide Prevention Resources Prescriptions Prescriptions: No Action (DME) waves essential test strips See Rx Instructions .ROUTE .MEDSUPPLY Rx Instructions: test 3-5 times daily Gvoke HypoPen 2-Pack 1 mg/0.2 mL auto-injector 1 mg subcut ONCE PRN (Reason: severe hypoglycemia) Qty: 0.4 2RF (DME) Ketostix Strip See Rx Instructions miscellaneous .MEDSUPPLY Qty: 50 1RF Rx Instructions: Check if glucose >250 for more than 4 hours lisinopril 10 mg Tablet 10 mg PO DAILY multivitamin Tablet 1 tab PO QAM Qty: 30 0RF Rx Instructions: 07/19/24 :Unable to verify OTC meds at this date/time. Eliquis 5 mg tablet 5 mg PO BID Rx Instructions: Last filled 08/2023 x30 day supply, active refills on file per pharmacy. insulin lispro protamin-lispro 100 unit/mL (75-25) insulin pen 5 - 10 unit subcut TID Rx Instructions: per sliding scale folic acid 1 mg Tablet 1 mg PO DAILY insulin glargine [Basaglar KwikPen U-100 Insulin] 100 unit/mL (3 mL) insulin pen 10 - 20 unit subcut BID Referrals Referrals: Tra Castillo D.O. [Primary Care Provider] - Discharge Problem: Alcohol withdrawal Qualifiers: Complication of substance-induced condition: uncomplicated Qualified Code(s): F 10.930 - Alcohol use, unspecified with withdrawal, uncomplicated
[2024-11-02 16:05] LABS: Calcium 9.4 mg/dl (8.6-10.3); Creatinine Clr Calc Pharmacy 133.4 ml/min; Potassium 3.7 mmol/L (3.5-5.1)
--- NOTE | 2024-11-02 16:58 | Pharmacy Report ---
Pharmacy Glycemic Short Note 2 - Date of Service November 02, 2024 - Glycemic Short BSG Results (Last 24 hours): 11/02/24 11/02/24 11/02/24 11:10 11:41 12:24 Glucose 175 H POC Glucose 150 H 115 H 11/02/24 15:34 Glucose 68 L POC Glucose OUTPATIENT ANTIDIABETIC REGIMEN: * Insulin glargine 10 units SC BID * Insulin lispro 5-10 units TID with meals A1c = 6.9% ASSESSMENT: * Sid is a 39 yo M with Type 1.5 DM admitted with request to undergo alcohol withdrawal/detox. * BSG of 175 on presentation, anion gap elevated 18, bicarb 24. BSG has trending down significantly with hypoglycemic noted around dinnertime. * Provider reduced home basal dose by ~30% d/t clear liquid diet, which seems very reasonable, especially given recent BSG trend. * Will base Novolog CF and CR on home usage PLAN FOR INPATIENT GLYCEMIC CONTROL: * Basal insulin * Lantus 7 units SQ BID * Bolus insulin * NovoLog per scale ACHS or Q6hrs while NPO * Goal Range: Low 120 mg/dL - High 150 mg/dL * Correction Factor: 45 mg/dL/unit * Nutritional / Prandial insulin per carb ratio of 1 unit per 15 grams CHO consumed
[2024-11-02] MEDS ORDERED: ONDANSETRON INJ 2 MG/ML 2 ML VIAL IV PRN (17:01)
[2024-11-02] MEDS ORDERED: GABAPENTIN 1200MG ALCOHOL WITHDRAWAL LOAD PO STA (17:01)
[2024-11-02] MEDS ORDERED: LORazepam 1 MG TAB PO PRN (17:01)
[2024-11-02] MEDS ORDERED: Ativan PO Alcohol Withdrawal--Active Protocol PO PRN (17:01)
[2024-11-02] MEDS ORDERED: PHARMACY GLYCEMIC MGMT CONSULT PRN (17:01)
[2024-11-02] MEDS: LORazepam 1 MG TAB PO PRN ×2 (17:45→20:17)
[2024-11-02] MEDS: GABAPENTIN 600 MG TAB PO ONE (18:07)
[2024-11-02] MEDS: SUCRALFATE 1 GM/10 ML UDC PO SCH (18:07)
[2024-11-02] MEDS: LANTUS PER UNIT CHARGE SC SCH (20:18)
[2024-11-02] MEDS: APIXABAN 5 MG TABLET PO SCH (20:18)
[2024-11-02] MEDS: NSS + 20MEQ KCL 20 MEQ/1,000 ML BAG IV SCH (20:18)
[2024-11-02] MEDS: THIAMINE HCL 200 MG in SODIUM CHLORIDE 0.9% 50 ML IV SCH (20:34)
[2024-11-02] MEDS: GABAPENTIN 600 MG TAB PO SCH (22:25)
[2024-11-03 07:07] VITALS: RESP 20; TEMP 97.9
[2024-11-03 07:27] LABS: Basophils # (auto) 0.03 K/uL (0.00-0.20); Basophils % (auto) 0.6 %; Eosinophils # (auto) 0.04 K/uL (0.00-0.50); Eosinophils % (auto) 0.8 %; Hematocrit (blood only) 34.5 % (42.0-52.0); Immature Granulocytes # (auto) 0.01 K/uL (0.01-0.20); Immature Granulocytes % (auto) 0.2 %; Lymphocytes # (auto) 1.72 K/uL (1.20-3.40); Lymphocytes % (auto) 33.7 %; Mean Corpuscular Hemoglobin 32.1 pg (25.0-34.0); Mean Corpuscular Hgb Conc 34.8 g/dL (32.0-36.0); Mean Corpuscular Volume 92.2 fL (80.0-100.0); Mean Platelet Volume 9.9 fL (9.4-12.4); Monocytes # (auto) 0.46 K/uL (0.11-0.59); Neutrophils # (auto) 2.85 K/uL (1.40-6.50); Neutrophils % (auto) 55.7 %; Platelet Count 153 K/uL (130-400); RDW Coefficient of Variation 14.8 % (11.5-14.5); RDW Standard Deviation 50.4 fL (36.4-46.3); Red Blood Count 3.74 M/uL (4.70-6.10); White Blood Count 5.11 K/ul (4.8-10.8)
[2024-11-03 07:49] LABS: Albumin Globulin Ratio 1.5 (0.9-2); Bilirubin,Total 1.4 mg/dl (0.2-1.0); Calcium 8.9 mg/dl (8.6-10.3); Creatinine Clr Calc Pharmacy 128.6 ml/min; Globulin 2.6 gm/dl (2.5-4.0); Total Protein 6.6 gm/dl (6.0-8.3)
[2024-11-03] MEDS: FOLIC ACID 1 MG TAB PO SCH (08:30)
[2024-11-03] MEDS: PANTOprazole 40 MG TAB PO SCH (08:31)
[2024-11-03] MEDS: NYSTATIN SUSP 500,000 U/5 ML UDC PO SCH (08:31)
[2024-11-03] MEDS: MULTIVITAMIN TAB PO SCH (08:31)
[2024-11-03] MEDS: D5W AND NSS 1,000 ML IV SCH (08:58)
--- NOTE | 2024-11-03 09:50 | Electrocardiogram Report ---
Test Reason : Blood Pressure : */* mmHG Vent. Rate : 109 BPM Atrial Rate : 109 BPM P-R Int : 114 ms QRS Dur : 80 ms QT Int : 350 ms P-R-T Axes : 47 -30 57 degrees QTcB Int : 471 ms Sinus tachycardia Left axis deviation Abnormal ECG When compared with ECG of 20-Jul-2024 05:20, Sinus rhythm has replaced Ectopic atrial rhythm QRS axis Shifted left Nonspecific T wave abnormality no longer evident in Inferior leads Nonspecific T wave abnormality, improved in Lateral leads Confirmed by Trevin Evans ([id number]) on 11/03/2024 9:49:46 AM Referred By: REFERRED SELF Confirmed By: Trevin Evans
--- NOTE | 2024-11-03 11:20 | Discharge Summary ---
Discharge Summary Date of Service November 03, 2024 Principal Dx & Hospital Course #1 = Principal Diagnosis (1) Alcohol abuse: Alcohol intake cessation has been highly recommended to the patient (2) Alcohol withdrawal: The patient states his intention to leave the hospital today, november. He has been placed on a tapering dose of Librium for the time being and will follow-up with his PCP as soon as possible (3) Nicotine dependence: Smoking cessation recommended (4) GERD (gastroesophageal reflux disease): Stable. Continue current medical management (5) History of atrial fibrillation: Currently in normal sinus rhythm. Continue Eliquis (6) HTN (hypertension): Stable. Continue current medications (7) Diabetes mellitus type 1.5: ADA diet. Continue usual diabetic regimen at discharge (8) Transaminitis: Mildly elevated liver enzymes on admission most likely due to alcohol intake Plan Home today, November 03, on a tapering dose of Librium. Alcohol intake cessation highly recommended. He will follow-up with his PCP as soon as possible Admission HPI Per Admitting Provider 39yo male with long-standing Type 1.5 DM diagnosed around age 18, tobacco use, heavy alcohol use, THC use (occasional), PAF, and HTN. He presents from his home in [place] with request to undergo alcohol withdrawal/detox. He has been drinking heavily for about 2 weeks. Typically drinks 6 "tall boys" beers and 16oz liquor each day when actively drinking. He has sometimes several weeks or months at a time when he is maintaining sobriety but then relapses. His last etoh beverage was about 0300 this morning. Patient reports he had several episodes of vomiting since early this am but the vomiting has stopped. No abdominal pain. He does want to try and eat. Fingerstick blood sugar control recently has been excellent with most BSGs <150. He is not interested in speaking with psychiatry/mental health at this time. He previously took naltrexone but states he does not want to take it again. He is not interested in AA or rehab. In the past benzos (ativan) have worked best to treat his etoh withdrawal symptoms. He was given valium in the ER today and didn't like how it made him feel. He also told me that "gabapentin doesn't work" but I explained to him that the gabapentin is used in conjunction with ativan prn. Discharge Plan Discharge Items Patient Disposition: Home - Self-Care Reason For Visit: VOMITING, ALCOLHOL WITHDRAWAL, DETOX REQUEST Discharge Diagnosis: Alcohol detoxification Activity: Resume your previous activity Non-emergency contact: Primary Care Provider Call non-emergency contact if: you have any medication questions Follow-up/Referrals: Tra Castillo D.O. [Primary Care Provider] - Diet: Regular Addtl Attending Provider Instructions: Take Librium (chlordiazepoxide) in a tapering dose fashion as directed. A prescription has been sent to [facility] pharmacy in [place] Pending Studies at Discharge: No Stand-Alone Forms: My [facility], Smoking Cessation Medications and DC Order Prescriptions: New chlordiazepoxide HCl 10 mg capsule See Rx Instructions .ROUTE .COMPLEX Qty: 12 0RF Rx Instructions: 10 mg orally 3 times a day for 2 days, then 10 mg twice a day for 2 days, then 10 mg once a day for 2 days, then stop Continued (DME) waves essential test strips See Rx Instructions .ROUTE .MEDSUPPLY Rx Instructions: test 3-5 times daily Gvoke HypoPen 2-Pack 1 mg/0.2 mL auto-injector 1 mg subcut ONCE PRN (Reason: severe hypoglycemia) Qty: 0.4 2RF (DME) Ketostix Strip See Rx Instructions miscellaneous .MEDSUPPLY Qty: 50 1RF Rx Instructions: Check if glucose >250 for more than 4 hours lisinopril 10 mg Tablet 10 mg PO DAILY multivitamin Tablet 1 tab PO QAM Qty: 30 0RF Rx Instructions: 07/19/24 :Unable to verify OTC meds at this date/time. Eliquis 5 mg tablet 5 mg PO BID Rx Instructions: Last filled 08/2023 x30 day supply, active refills on file per pharmacy. insulin lispro protamin-lispro 100 unit/mL (75-25) insulin pen 5 - 10 unit subcut TID Rx Instructions: per sliding scale folic acid 1 mg Tablet 1 mg PO DAILY insulin glargine [Basaglar KwikPen U-100 Insulin] 100 unit/mL (3 mL) insulin pen 10 - 20 unit subcut BID Discharge Orders: Discharge Order (Routine); Ordered 11/03/24 Ordered By: Venkatesh Lester/Other Patient Handouts: Managing Type 1 Diabetes Admission Data Admit Date/Time: 11/02/24 14:31 Attending Provider: Venkatesh Watersit Provider: Lavell Csatro Primary Care Provider: Tra Castillo Other Providers: Lavell Castro Hospital Stay Data Consultations 11/02/24 14:23 ED Decision to Admit Stat Pending Results Patient Have Any Pending Studies at Discharge: No Discharge Instructions Given to Patient (Per Discharging Provider) Take Librium (chlordiazepoxide) in a tapering dose fashion as directed. A prescription has been sent to [facility] pharmacy in [place] Total Time Total Time Spent Total Time Spent (In Minutes): 45-minute Coding Level of Care Code 68386 INP/OBS DISCH >30 MIN Diagnoses Alcohol abuse F10.10 Alcohol withdrawal F10.930 Complication of substance-induced condition: uncomplicated Nicotine dependence F17.200 GERD (gastroesophageal reflux disease) K21.9 History of atrial fibrillation Z86.79 HTN (hypertension) I10 Diabetes mellitus type 1.5 E13.9 Transaminitis R74.01
[2024-11-03 11:21] VITALS: O2SAT 97
[2024-11-03 11:23] VITALS: BP 130/84; PULSE 94
[2024-11-03] MEDS ORDERED: GABAPENTIN 600 MG TAB PO SCH (12:00)
[2024-11-04] MEDS ORDERED: GABAPENTIN 600 MG TAB PO SCH (16:00)
[2024-11-06] MEDS ORDERED: GABAPENTIN 600 MG TAB PO SCH (04:00)
== END 2024-11-03 11:43 | disposition home or self-care (01) | DRG 897 ==
LOC: ED 10:51 → 2S 14:31 → INTOOBSV 14:31 → SUATTDRO 14:31 → 2S 16:01